=== PATIENT | female | born 1930 | race Caucasian/White ===

== ENCOUNTER 2017-01-05 23:18 | Emergency (ER) | payer MEDICARE, BC ==
[2017-01-05] MEDS ORDERED: LORazepam 2 MG/ML INJ IV STA (23:29)
[2017-01-05] MEDS ORDERED: SODIUM CHLORIDE 0.9% 1,000 ML IV STA (23:29)
--- NOTE | 2017-01-05 23:30 | ED ---
General Adult HPI - General Stated complaint: Altered Mental Status Time Seen by Provider: 01/05/17 23:28 Source: RN notes reviewed, old records reviewed Limitations: altered mental status - History of Present Illness Initial comments: This is an 86-year-old female to ER for evaluation. Patient's mother today for evaluation regarding continued altered mental status. Unknown history per patient, history of EMS and patient's chart. Patient had recent fall with intraparenchymal hemorrhage. Patient was sent to urinary for a CAT scan regarding continued altered mental status. - Related Data Home Medications Medication Instructions Recorded Confirmed Acetaminophen Tab [Tylenol Tab] 650 mg PO Q4H PRN 01/05/17 01/05/17 Atorvastatin [Lipitor] 20 mg PO DAILY@2130 01/05/17 01/05/17 Bisacodyl [Dulcolax] 10 mg RECTAL DAILY PRN 01/05/17 01/05/17 Cholestyramine (with Sugar) 4 gm PO TID 01/05/17 01/05/17 [Questran] Ciprofloxacin HCl [Cipro] 250 mg PO Q12HR 01/05/17 01/05/17 Esomeprazole Magnesium [NexIUM] 20 mg PO DAILY 01/05/17 01/05/17 Loperamide [Imodium] 2 mg PO Q6H PRN 01/05/17 01/05/17 Magnesium Hydroxide [Milk of 2,400 mg PO DAILY PRN 01/05/17 01/05/17 Magnesia] Metoprolol Succinate [Toprol XL] 50 mg PO DAILY 01/05/17 01/05/17 Multivitamins, Thera [Multivitamin 1 tab PO DAILY 01/05/17 01/05/17 (formulary)] Na Phos,M-B/Na Phos,Di-Ba [Fleet 133 ml RECTAL ONCE PRN 01/05/17 01/05/17 Adult] Potassium Chloride [Klor-Con 20] 20 meq PO BID 01/05/17 01/05/17 Propafenone [Rythmol] 150 mg PO Q8H 01/05/17 01/05/17 Sertraline [Zoloft] 50 mg PO DAILY 01/05/17 01/05/17 Triad Wound Paste 1 applic TOPICAL BID 01/05/17 01/05/17 traMADol HCL [Ultram] 50 mg PO Q6HR PRN 01/05/17 01/05/17 Allergies Allergy/AdvReac Type Severity Reaction Status Date / Time Fish Containing Products Allergy Unknown Verified 01/05/17 23:31 [Fish] sulfamethoxazole Allergy Unknown Verified 01/05/17 23:31 [From Bactrim] trimethoprim [From Bactrim] Allergy Unknown Verified 01/05/17 23:31 Review of Systems ROS Statement: Those systems with pertinent positive or pertinent negative responses have been documented in the HPI. ROS Other: All systems not noted in ROS Statement are negative. General Exam Limitations: altered mental status General appearance: alert, in no apparent distress, anxious Head exam: Present: atraumatic, normocephalic, normal inspection Eye exam: Present: normal appearance, PERRL, EOMI. Absent: scleral icterus, conjunctival injection, periorbital swelling ENT exam: Present: normal exam, mucous membranes moist Neck exam: Present: normal inspection. Absent: tenderness, meningismus, lymphadenopathy Respiratory exam: Present: normal lung sounds bilaterally. Absent: respiratory distress, wheezes, rales, rhonchi, stridor Cardiovascular Exam: Present: regular rate, normal rhythm, normal heart sounds. Absent: systolic murmur, diastolic murmur, rubs, gallop, clicks GI/Abdominal exam: Present: soft, normal bowel sounds. Absent: distended, tenderness, guarding, rebound, rigid Extremities exam: Present: normal inspection, full ROM, normal capillary refill. Absent: tenderness, pedal edema, joint swelling, calf tenderness Back exam: Present: normal inspection Neurological exam: Present: alert, oriented X3, CN II-XII intact Psychiatric exam: Present: normal affect, normal mood Skin exam: Present: warm, dry, intact, normal color. Absent: rash Course Vital Signs 01/05/17 23:21 Temperature 98.1 F Pulse Rate 81 Respiratory 16 Rate Blood Pressure 141/89 O2 Sat by Pulse 95 Oximetry - Reevaluation(s) Reevaluation #1: 01/06/17 02:08 Patient did not present to this hospital on prior fall, no medical records available, no prior CT available Reevaluation #2: 01/06/17 02:08 Patient is full code 01/06/17 02:08 Medical Decision Making - Medical Decision Making 86 female to ER for evaluation. Patient was instructed urinary for evaluation regarding altered mental state. CT brain shows positive bleed hard to date. Patient retransferred to [facility] will call for neurosurgical evaluation - Lab Data Result diagrams: 01/05/17 23:30 01/05/17 23:30 Lab Results 01/05/17 01/05/17 01/05/17 Range/Units 23:30 23:30 23:30 WBC 13.3 H (3.8-10.6) k/uL RBC 3.62 L (3.80-5.40) m/uL Hgb 10.6 L (11.4-16.0) gm/dL Hct 33.8 L (34.0-46.0) % MCV 93.4 (80.0-100.0) fL MCH 29.3 (25.0-35.0) pg MCHC 31.4 (31.0-37.0) g/dL RDW 14.8 (11.5-15.5) % Plt Count 318 (150-450) k/uL Neutrophils % 88 % Lymphocytes % 5 % Monocytes % 4 % Eosinophils % 2 % Basophils % 0 % Neutrophils # 11.7 H (1.3-7.7) k/uL Lymphocytes # 0.7 L (1.0-4.8) k/uL Monocytes # 0.5 (0-1.0) k/uL Eosinophils # 0.2 (0-0.7) k/uL Basophils # 0.0 (0-0.2) k/uL PT (9.0-12.0) sec INR (<1.2) APTT (22.0-30.0) sec Sodium 137 (137-145) mmol/L Potassium 4.8 (3.5-5.1) mmol/L Chloride 105 (98-107) mmol/L Carbon Dioxide 24 (22-30) mmol/L Anion Gap 8 mmol/L BUN 17 (7-17) mg/dL Creatinine 0.80 (0.52-1.04) mg/dL Est GFR (MDRD) Af Amer >60 (>60 ml/min/1.73 sqM) Est GFR (MDRD) Non-Af >60 (>60 ml/min/1.73 sqM) Glucose 119 H (74-99) mg/dL Calcium 9.6 (8.4-10.2) mg/dL Total Bilirubin 0.4 (0.2-1.3) mg/dL AST 29 (14-36) U/L ALT 33 (9-52) U/L Alkaline Phosphatase 69 (38-126) U/L Total Creatine Kinase 91 (30-135) U/L CK-MB (CK-2) 3.5 H* (0.0-2.4) ng/mL CK-MB (CK-2) Rel Index 3.8 Troponin I <0.012 (0.000-0.034) ng/mL Total Protein 6.8 (6.3-8.2) g/dL Albumin 3.6 (3.5-5.0) g/dL Urine Color Urine Appearance (Clear) Urine pH (5.0-8.0) Ur Specific [place] (1.001-1.035) Urine Protein (Negative) Urine Glucose (UA) (Negative) Urine Ketones (Negative) Urine Blood (Negative) Urine Nitrite (Negative) Urine Bilirubin (Negative) Urine Urobilinogen (<2.0) mg/dL Ur Leukocyte Esterase (Negative) Urine RBC (0-5) /hpf Urine WBC (0-5) /hpf Urine Bacteria (None) /hpf Urine Mucus (None) /hpf 01/05/17 01/05/17 Range/Units 23:30 23:42 WBC (3.8-10.6) k/uL RBC (3.80-5.40) m/uL Hgb (11.4-16.0) gm/dL Hct (34.0-46.0) % MCV (80.0-100.0) fL MCH (25.0-35.0) pg MCHC (31.0-37.0) g/dL RDW (11.5-15.5) % Plt Count (150-450) k/uL Neutrophils % % Lymphocytes % % Monocytes % % Eosinophils % % Basophils % % Neutrophils # (1.3-7.7) k/uL Lymphocytes # (1.0-4.8) k/uL Monocytes # (0-1.0) k/uL Eosinophils # (0-0.7) k/uL Basophils # (0-0.2) k/uL PT 11.3 (9.0-12.0) sec INR 1.1 (<1.2) APTT 21.6 L (22.0-30.0) sec Sodium (137-145) mmol/L Potassium (3.5-5.1) mmol/L Chloride (98-107) mmol/L Carbon Dioxide (22-30) mmol/L Anion Gap mmol/L BUN (7-17) mg/dL Creatinine (0.52-1.04) mg/dL Est GFR (MDRD) Af Amer (>60 ml/min/1.73 sqM) Est GFR (MDRD) Non-Af (>60 ml/min/1.73 sqM) Glucose (74-99) mg/dL Calcium (8.4-10.2) mg/dL Total Bilirubin (0.2-1.3) mg/dL AST (14-36) U/L ALT (9-52) U/L Alkaline Phosphatase (38-126) U/L Total Creatine Kinase (30-135) U/L CK-MB (CK-2) (0.0-2.4) ng/mL CK-MB (CK-2) Rel Index Troponin I (0.000-0.034) ng/mL Total Protein (6.3-8.2) g/dL Albumin (3.5-5.0) g/dL Urine Color Yellow Urine Appearance Clear (Clear) Urine pH 5.0 (5.0-8.0) Ur Specific [place] 1.010 (1.001-1.035) Urine Protein Negative (Negative) Urine Glucose (UA) Negative (Negative) Urine Ketones Negative (Negative) Urine Blood Negative (Negative) Urine Nitrite Negative (Negative) Urine Bilirubin Negative (Negative) Urine Urobilinogen <2.0 (<2.0) mg/dL Ur Leukocyte Esterase Trace H (Negative) Urine RBC <1 (0-5) /hpf Urine WBC 1 (0-5) /hpf Urine Bacteria Rare H (None) /hpf Urine Mucus Rare H (None) /hpf - Radiology Data Radiology results: report reviewed (CT brain is positive for bleed), image reviewed Disposition Clinical Impression: Intraparenchymal hemorrhage of brain, Altered mental state Disposition: OTHER INSTITUTION NOT DEFINED Condition: Serious Referrals: Ash Celeste MD [REFERRING] - 1-2 days - Out of Hospital Transfer - Req. Specs Out of Hospital Transfer - Requested Specifics: Other Emergency Center ([facility])
[2017-01-05 23:31] VITALS: TEMP 98.1
[2017-01-05 23:44] LABS: Basophils % (A) 0 %; CH 29.4; CHCM 31.7; Eosinophils # (A) 0.2 k/uL (0-0.7); Eosinophils % (A) 2 %; HCT 33.8 % (34.0-46.0); HDW 2.28; HGB 10.6 gm/dL (11.4-16.0); Luc # (Auto) 0.08; Luc % (Auto) 1; Lymphocytes # (A) 0.7 k/uL (1.0-4.8); Lymphocytes % (A) 5 %; MCH 29.3 pg (25.0-35.0); MCHC 31.4 g/dL (31.0-37.0); MCV 93.4 fL (80.0-100.0); Mean Platelet Volume 8.2; Monocytes # (A) 0.5 k/uL (0-1.0); Monocytes % (A) 4 %; Neutrophils # (A) 11.7 k/uL (1.3-7.7); Neutrophils % (A) 88 %; RBC 3.62 m/uL (3.80-5.40); RDW 14.8 % (11.5-15.5); WBC 13.3 k/uL (3.8-10.6); WBC (Perox) 13.45
[2017-01-05 23:49] LABS: INR 1.1 (<1.2); Prothrombin Time 11.3 sec (9.0-12.0)
[2017-01-05 23:51] LABS: ALT 33 U/L (9-52); AST 29 U/L (14-36); Alkaline Phosphatase 69 U/L (38-126); Anion Gap 8 mmol/L; Blood Urea Nitrogen 17 mg/dL (7-17); Calcium 9.6 mg/dL (8.4-10.2); Carbon Dioxide 24 mmol/L (22-30); Chloride 105 mmol/L (98-107); Glucose 119 mg/dL (74-99); Non-African American GFR(MDRD) >60 (>60 ml/min/1.73 sqM); Potassium 4.8 mmol/L (3.5-5.1); Sodium 137 mmol/L (137-145); Total Bilirubin 0.4 mg/dL (0.2-1.3); Total Protein 6.8 g/dL (6.3-8.2)
[2017-01-05 23:52] LABS: Creatine Kinase 91 U/L (30-135)
[2017-01-05 23:56] LABS: Appearance,Urine Clear (Clear); Bacteria,Urine Rare /hpf; Bilirubin,Urine Negative (Negative); Glucose,Urine (UA) Negative (Negative); Ketones,Urine Negative (Negative); Leukocyte Esterase,Urine Trace (Negative); Mucus,Urine Rare /hpf; Nitrite,Urine Negative (Negative); Particle Count 2434; Protein,Urine Negative (Negative); RBC,Urine <1 /hpf (0-5); UA Billing (MACRO vs. MICRO) MICRO; Urobilinogen,Urine <2.0 mg/dL (<2.0); WBC,Urine 1 /hpf (0-5)
[2017-01-05 23:57] LABS: Partial Thromboplastin Time 21.6 sec (22.0-30.0)
[2017-01-06 00:05] LABS: Troponin I <0.012 ng/mL (0.000-0.034)
[2017-01-06 00:07] LABS: Creatine Kinase MB 3.5 ng/mL (0.0-2.4)
--- NOTE | 2017-01-06 00:14 | CT ---
EXAMINATION TYPE: CT brain wo con DATE OF EXAM: 01/06/2017 COMPARISON: NONE HISTORY: Fall, AMS, large contusion right frontal CT DLP: 1180.90 mGycm Automated exposure control for dose reduction was used. FINDINGS: There is cerebral cortical atrophy. There is right frontal scalp hematoma that measures 2.5 x 1 cm. There is a poorly marginated 3.5 cm area of increased attenuation at the base of the right frontal lo be consistent with an acute parenchymal hemorrhage. There is also a 1 cm area of hemorrhage in the le ft posterior frontal lobe at the schwarz-white matter junction. There is patchy hypodensity in the periventricular white matter. The calvarium is intact. CONCLUSION: Right frontal scalp hematoma. No fracture seen. Cerebral parenchymal hemorrhage in the inferior right frontal lobe and left posterior frontal lobe. T he age is not clear of these hemorrhages. This patient apparently had head injury in the past week. I do not have an old CT to compare. This exam was discussed with ER physician at 12:00 AM. IMPRESSION:
[2017-01-06] MEDS ORDERED: LORazepam 2 MG/ML INJ IV STA (02:15)
[2017-01-06 03:31] VITALS: BP 163/103; PULSE 88; RESP 20
== END 2017-01-06 03:40 | disposition short-term general hospital (02) ==
LOC: EC 23:18
DX: S06.2X9D Diffuse traumatic brain injury with loss of consciousness of unspecified duration, subsequent encounter (principal); I10 Essential (primary) hypertension; I48.91 Unspecified atrial fibrillation; E87.6 Hypokalemia; F32.9 Major depressive disorder, single episode, unspecified; Z79.899 Other long term (current) drug therapy; Z88.1 Allergy status to other antibiotic agents; Z91.013 Allergy to seafood; Z87.19 Personal history of other diseases of the digestive system; W19.XXXD Unspecified fall, subsequent encounter
CPT/HCPCS: 36415; 80053; 82550; 82553; 84484; 85025; 85610; 85730; 81001; 87086; 70450; 99285; 96374; 96376; 96361; J2060

== ENCOUNTER → 2017-04-23 | Outpatient (CLI) | payer MEDICARE, BC ==
--- NOTE | 2017-04-23 15:57 | MR ---
EXAMINATION TYPE: MR brain wo con DATE OF EXAM: 04/23/2017 COMPARISON: 01/06/2017 HISTORY: Concussion. Follow-up from CT dated 01/05/2017. TECHNIQUE: Multiplanar, multisequence images of the brain and brainstem is performed without intravenous contras t. FINDINGS: There is evolution of the previously seen right frontal intraparenchymal hemorrhage with focal area o f T2/flair hypointensity, likely related to evolving products/hemosiderin and minimal surrounding res idual edema with the entire area measuring 1.5 x 1.1 cm, previously measuring 3.5 cm. There is no rem aining T1 hyperintensity to suggest active or acute hemorrhage. Additional contrecoup injury is seen with hemosiderin in the left frontal lobe on T2/FLAIR axial image 21 measuring 5 mm. No additional si deb of encephalomalacia are appreciated. Diffusion weighted images demonstrate no evidence of a recent infarct or other diffusion abnormality. Moderate burden nonspecific white matter changes seen as T2/FLAIR hyperintensity scattered througho ut the subcortical and periventricular white matter. There is no extra-axial fluid collection. The v entricular system and cisternal spaces are are symmetrically prominent compatible with age-related vo lume loss. Midline structures demonstrate normal morphology. The craniocervical junction appears within normal limits. The previously seen right frontal scalp hematoma has resolved in the interim. The dural venou s sinuses appear patent. There is partial opacification of the right mastoid air cells, greater than left. Minimal mucosal thickening is seen within the ethmoid sinuses. Remaining paranasal sinuses are well aerated. Incidental note is made of leftward nasal septal deviation. Scant mucosal secretions re side within the posterior nasopharynx. IMPRESSION: 1. Evolution of blood products and decrease in size of the previously seen right frontal and left fro ntal posttraumatic intraparenchymal hemorrhages. No evidence of acute intracranial hemorrhage. 2. Resolution of the previously seen right frontal scalp hematoma. 3. Moderate burden nonspecific white matter change and age-related volume loss. 4. Partial opacification of the mastoid air cells, right greater than left, which should be correlate d clinically with point tenderness to evaluate for mastoiditis.
== END | disposition home or self-care (01) ==
LOC: RADMRIMAIN 13:53
PROVIDERS: ATTEND Psychiatry & Neurology Neurology
DX: S06.0X9A Concussion with loss of consciousness of unspecified duration, initial encounter (principal)
CPT/HCPCS: 70551

== ENCOUNTER 2020-10-22 10:36 | Emergency (ER) | payer MEDICARE, BC ==
[2020-10-22 10:43] VITALS: PULSE 69
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
--- NOTE | 2020-10-22 11:53 | XR ---
Right forearm HISTORY: Contusion, pain 2 views of the right forearm Bone mineralization is reduced. Joint spaces and alignment are maintained. There is overlying artifac t present. Arthropathy noted in the right wrist. IMPRESSION: No fracture or dislocation evident. Osteopenia is suspected.
[2020-10-22 12:42] VITALS: BP 138/88; RESP 18; TEMP 97.6
== END 2020-10-22 14:30 | disposition home or self-care (01) ==
LOC: EC 10:36
DX: S00.03XA Contusion of scalp, initial encounter (principal); S50.12XA Contusion of left forearm, initial encounter; S50.11XA Contusion of right forearm, initial encounter; I48.91 Unspecified atrial fibrillation; I10 Essential (primary) hypertension; F03.90 Unspecified dementia, unspecified severity, without behavioral disturbance, psychotic disturbance, mood disturbance, and anxiety; F32.9 Major depressive disorder, single episode, unspecified; Z79.899 Other long term (current) drug therapy; Y04.8XXA Assault by other bodily force, initial encounter
CPT/HCPCS: 70450; 72125; 99284

== ENCOUNTER 2020-12-15 10:47 | Inpatient (IN) | payer MEDICARE, BC ==
[2020-12-15 10:55] LABS: Glucose,Whole Blood 132 mg/dL (75-99)
[2020-12-15] MEDS ORDERED: MIDAZOLAM 1 MG/ML 5 ML VIAL IV STA (10:56)
[2020-12-15 11:18] LABS: Basophils # (A) 0.1 k/uL (0-0.2); Basophils % (A) 1 %; Eosinophils # (A) 0.2 k/uL (0-0.7); Eosinophils % (A) 3 %; HCT 42.6 % (34.0-46.0); HGB 13.2 gm/dL (11.4-16.0); Hypochromasia Slight; Lymphocytes % (A) 22 %; MCH 32.4 pg (25.0-35.0); MCHC 30.9 g/dL (31.0-37.0); MCV 104.7 fL (80.0-100.0); Macrocytosis Slight; Mean Platelet Volume 9.8; Monocytes # (A) 0.5 k/uL (0-1.0); Monocytes % (A) 6 %; Neutrophils % (A) 66 %; Platelet Count 156 k/uL (150-450); RBC 4.07 m/uL (3.80-5.40); RDW 13.5 % (11.5-15.5)
[2020-12-15 11:31] LABS: ALT 19 U/L (4-34); AST 33 U/L (14-36); Acetaminophen <10.0 ug/mL; African American GFR (CKD) 71 (>60 ml/min/1.73 sqM); Alkaline Phosphatase 56 U/L (38-126); Anion Gap 24 mmol/L; Blood Urea Nitrogen 16 mg/dL (7-17); Calcium 9.1 mg/dL (8.4-10.2); Carbon Dioxide 14 mmol/L (22-30); Chloride 105 mmol/L (98-107); Creatine Kinase 26 U/L (30-135); Glucose 134 mg/dL (74-99); Non-African American GFR(CKD) 62 (>60 ml/min/1.73 sqM); Salicylate <1.0 mg/dL; Sodium 143 mmol/L (137-145); Total Bilirubin 0.4 mg/dL (0.2-1.3); Total Protein 7.4 g/dL (6.3-8.2)
[2020-12-15 11:36] LABS: Potassium 2.7 mmol/L (3.5-5.1)
[2020-12-15] MEDS ORDERED: POTASSIUM CHLORIDE 20 MEQ in WATER FOR INJECTION 1 100ML.BAG IVPB STA (11:39)
--- NOTE | 2020-12-15 11:40 | CT ---
EXAMINATION TYPE: CT brain wo con DATE OF EXAM: 12/15/2020 COMPARISON: 10/22/2020 HISTORY: seizure CT DLP: 1112.[address] of the brain was performed. The ventricles, basal cisterns and sulci overlying the cerebral convexities demonstrate mild enlargem ent. There is no evidence for intracranial hemorrhage or sulcal effacement. There is decreased attenuation about the periventricular white matter and deep white matter of both c erebral hemispheres, compatible with chronic small vessel ischemia. Differential diagnosis does inclu de demyelination. No mass effects are seen.No midline shift. Osseous calvarium is intact. If symptoms persist consider MRI. IMPRESSION: 1. Age related atrophic and chronic small vessel ischemic change without acute intracranial process s een at this time.
[2020-12-15 12:02] LABS: Partial Thromboplastin Time 21.1 sec (22.0-30.0)
[2020-12-15 12:22] LABS: Appearance,Urine Clear (Clear); Bacteria,Urine Rare /hpf; Bilirubin,Urine Negative (Negative); Blood,Urine Small (Negative); Color,Urine Light Yellow; Glucose,Urine (UA) Negative (Negative); Ketones,Urine Negative (Negative); Leukocyte Esterase,Urine Small (Negative); Mucus,Urine Rare /hpf; Nitrite,Urine Positive (Negative); Protein,Urine 1+ (Negative); RBC,Urine 2 /hpf (0-5); Specific Gravity,Urine 1.008 (1.001-1.035); Squamous Epithelial Cell,Urine <1 /hpf (0-4); Urobilinogen,Urine <2.0 mg/dL (<2.0); WBC,Urine 17 /hpf (0-5)
[2020-12-15] MEDS ORDERED: cefTRIAXone IN SWFI 1,000 MG/10 ML SYRINGE IVP STA (12:28)
--- NOTE | 2020-12-15 13:03 | ED ---
Seizure HPI - General Chief Complaint: Seizure Stated Complaint: seizure Source: EMS Mode of arrival: EMS Limitations: no limitations - History of Present Illness Initial Comments: 89-year-old female [facility] for new onset seizure. Patient reported to staff there that she did not feel well. She subsequently then had a full tonic-clonic seizure that lasted 2 minutes. EMS was called. En route to the hospital the patient had a second seizure. She never returned to baseline. Second seizure lasted approximately 30 seconds. Patient did not receive any medications for the seizure-like activity. No history of seizures. Does have a history of a traumatic brain bleed 4 years ago. Patient was taken off her anticoagulation at that time. Daughter states that she just recently found out that the patient was placed back on anticoagulation. No known recent falls. No fevers or chills. Patient is a DO NOT RESUSCITATE confirmed by daughter. No other alleviating, precipitating or modifying factors - Related Data Home Medications Medication Instructions Recorded Confirmed Acetaminophen Tab [Tylenol Tab] 650 mg PO Q4H PRN 01/05/17 12/15/20 Atorvastatin [Lipitor] 20 mg PO HS@2100 01/05/17 12/15/20 Loperamide [Imodium] 4 mg PO Q12H PRN 01/05/17 12/15/20 Magnesium Hydroxide [Milk of 2,400 mg PO DAILY PRN 01/05/17 12/15/20 Magnesia] Na Phos,M-B/Na Phos,Di-Ba [Fleet 133 ml RECTAL DAILY PRN 01/05/17 12/15/20 Adult] Sertraline [Zoloft] 50 mg PO DAILY@0800 01/05/17 12/15/20 bisacodyL [Dulcolax] 10 mg RECTAL DAILY PRN 01/05/17 12/15/20 Apixaban [Eliquis] 2.5 mg PO BID@0800,1700 12/15/20 12/15/20 Aspirin EC [Ecotrin Low Dose] 81 mg PO DAILY@1700 12/15/20 12/15/20 Diltiazem HCl [Cardizem LA] 240 mg PO DAILY@1700 12/15/20 12/15/20 Melatonin 10 mg PO HS@2100 12/15/20 12/15/20 Metoprolol Succinate (ER) [Toprol 100 mg PO DAILY@0800 12/15/20 12/15/20 XL] lisinopriL [Zestril] 10 mg PO DAILY@0800 12/15/20 12/15/20 Allergies Allergy/AdvReac Type Severity Reaction Status Date / Time Fish Containing Products Allergy Unknown Verified 12/15/20 11:08 [Fish] sulfamethoxazole Allergy Unknown Verified 12/15/20 11:08 [From Bactrim] trimethoprim [From Bactrim] Allergy Unknown Verified 12/15/20 11:08 Review of Systems ROS Statement: Those systems with pertinent positive or pertinent negative responses have been documented in the HPI. ROS Other: All systems not noted in ROS Statement are negative. Past Medical History Past Medical History: Atrial Fibrillation, Dementia, Hypertension Additional Past Medical History / Comment(s): hypomagnesia, hypokalemia, colitis, gastrotenteritis, gout. History of Any Multi-Drug Resistant Organisms: None Reported Past Surgical History: No Surgical Hx Reported Past Psychological History: Depression Smoking Status: Never smoker Past Alcohol Use History: None Reported Past Drug Use History: None Reported General Exam Limitations: no limitations Course Vital Signs 12/15/20 12/15/20 12/15/20 10:50 11:12 12:05 Temperature 98.4 F Pulse Rate 74 82 77 Respiratory 22 20 18 Rate Blood Pressure 150/70 141/76 O2 Sat by Pulse 98 98 98 Oximetry 12/15/20 14:13 Temperature Pulse Rate 80 Respiratory 18 Rate Blood Pressure 136/78 O2 Sat by Pulse 98 Oximetry - Reevaluation(s) Reevaluation #1: 12/15/20 13:[address] Gonzalez - el lawrencera 1 gram Medical Decision Making - Medical Decision Making Upon arrival patient was placed into trauma bay 1. A thorough physical exam was performed. Patient was given 2.5 of Versed for her seizure activity. Laborator y studies were conducted. Potassium 2.7. Lactic acid 16.1. Urinalysis is positive for nitrates, 17 white blood cells and rare bacteria. CT of the patient's brain is performed which demonstrates age-related atrophic and chronic small vessel ischemic disease without acute intracranial process. Patient does become arousable and was able to hold a conversation. She does remain confused and does not know her daughter is. I did give her 1 g of Rocephin. I called and spoke with Dr. Banerjee who recommended 1 g of Keppra. Patient will be admitted to Dr. David. She remained in stable condition without further seizure-like activity awaiting a bed on the floor - Lab Data Result diagrams: 12/15/20 11:02 12/15/20 11:02 Lab Results 12/15/20 12/15/20 12/15/20 Range/Units 10:54 11:02 11:02 WBC 9.0 (3.8-10.6) k/uL RBC 4.07 (3.80-5.40) m/uL Hgb 13.2 (11.4-16.0) gm/dL Hct 42.6 (34.0-46.0) % MCV 104.7 H (80.0-100.0) fL MCH 32.4 (25.0-35.0) pg MCHC 30.9 L (31.0-37.0) g/dL RDW 13.5 (11.5-15.5) % Plt Count 156 (150-450) k/uL MPV 9.8 Neutrophils % 66 % Lymphocytes % 22 % Monocytes % 6 % Eosinophils % 3 % Basophils % 1 % Neutrophils # 6.0 (1.3-7.7) k/uL Lymphocytes # 2.0 (1.0-4.8) k/uL Monocytes # 0.5 (0-1.0) k/uL Eosinophils # 0.2 (0-0.7) k/uL Basophils # 0.1 (0-0.2) k/uL Hypochromasia Slight Macrocytosis Slight PT (9.0-12.0) sec INR (<1.2) APTT (22.0-30.0) sec Sodium (137-145) mmol/L Potassium (3.5-5.1) mmol/L Chloride (98-107) mmol/L Carbon Dioxide (22-30) mmol/L Anion Gap mmol/L BUN (7-17) mg/dL Creatinine (0.52-1.04) mg/dL Est GFR (CKD-EPI)AfAm (>60 ml/min/1.73 sqM) Est GFR (CKD-EPI)NonAf (>60 ml/min/1.73 sqM) Glucose (74-99) mg/dL POC Glucose (mg/dL) 132 H (75-99) mg/dL POC Glu Crystal Lapper ID Magda Stoll Lactic Ac Sepsis Rflx Plasma Lactic Acid Lasha (0.7-2.0) mmol/L Calcium (8.4-10.2) mg/dL Magnesium (1.6-2.3) mg/dL Total Bilirubin (0.2-1.3) mg/dL AST (14-36) U/L ALT (4-34) U/L Alkaline Phosphatase (38-126) U/L Creatine Kinase (30-135) U/L Total Protein (6.3-8.2) g/dL Albumin (3.5-5.0) g/dL Urine Color Light Yellow Urine Appearance Clear (Clear) Urine pH 8.0 (5.0-8.0) Ur Specific [place] 1.008 (1.001-1.035) Urine Protein 1+ H (Negative) Urine Glucose (UA) Negative (Negative) Urine Ketones Negative (Negative) Urine Blood Small H (Negative) Urine Nitrite Positive H (Negative) Urine Bilirubin Negative (Negative) Urine Urobilinogen <2.0 (<2.0) mg/dL Ur Leukocyte Esterase Small H (Negative) Urine RBC 2 (0-5) /hpf Urine WBC 17 H (0-5) /hpf Ur Squamous Epith Cells <1 (0-4) /hpf Urine Bacteria Rare H (None) /hpf Urine Mucus Rare H (None) /hpf Salicylates mg/dL Acetaminophen ug/mL 12/15/20 12/15/20 12/15/20 Range/Units 11:02 11:02 11:02 WBC (3.8-10.6) k/uL RBC (3.80-5.40) m/uL Hgb (11.4-16.0) gm/dL Hct (34.0-46.0) % MCV (80.0-100.0) fL MCH (25.0-35.0) pg MCHC (31.0-37.0) g/dL RDW (11.5-15.5) % Plt Count (150-450) k/uL MPV Neutrophils % % Lymphocytes % % Monocytes % % Eosinophils % % Basophils % % Neutrophils # (1.3-7.7) k/uL Lymphocytes # (1.0-4.8) k/uL Monocytes # (0-1.0) k/uL Eosinophils # (0-0.7) k/uL Basophils # (0-0.2) k/uL Hypochromasia Macrocytosis PT 11.0 (9.0-12.0) sec INR 1.0 (<1.2) APTT 21.1 L (22.0-30.0) sec Sodium 143 (137-145) mmol/L Potassium 2.7 L* (3.5-5.1) mmol/L Chloride 105 (98-107) mmol/L Carbon Dioxide 14 L (22-30) mmol/L Anion Gap 24 mmol/L BUN 16 (7-17) mg/dL Creatinine 0.85 (0.52-1.04) mg/dL Est GFR (CKD-EPI)AfAm 71 (>60 ml/min/1.73 sqM) Est GFR (CKD-EPI)NonAf 62 (>60 ml/min/1.73 sqM) Glucose 134 H (74-99) mg/dL POC Glucose (mg/dL) (75-99) mg/dL POC Glu Crystal Lapper ID Lactic Ac Sepsis Rflx Plasma Lactic Acid Lasha (0.7-2.0) mmol/L Calcium 9.1 (8.4-10.2) mg/dL Magnesium 1.4 L (1.6-2.3) mg/dL Total Bilirubin 0.4 (0.2-1.3) mg/dL AST 33 (14-36) U/L ALT 19 (4-34) U/L Alkaline Phosphatase 56 (38-126) U/L Creatine Kinase 26 L (30-135) U/L Total Protein 7.4 (6.3-8.2) g/dL Albumin 4.0 (3.5-5.0) g/dL Urine Color Urine Appearance (Clear) Urine pH (5.0-8.0) Ur Specific [place] (1.001-1.035) Urine Protein (Negative) Urine Glucose (UA) (Negative) Urine Ketones (Negative) Urine Blood (Negative) Urine Nitrite (Negative) Urine Bilirubin (Negative) Urine Urobilinogen (<2.0) mg/dL Ur Leukocyte Esterase (Negative) Urine RBC (0-5) /hpf Urine WBC (0-5) /hpf Ur Squamous Epith Cells (0-4) /hpf Urine Bacteria (None) /hpf Urine Mucus (None) /hpf Salicylates <1.0 mg/dL Acetaminophen <10.0 ug/mL 12/15/20 12/15/20 Range/Units 11:02 11:46 WBC (3.8-10.6) k/uL RBC (3.80-5.40) m/uL Hgb (11.4-16.0) gm/dL Hct (34.0-46.0) % MCV (80.0-100.0) fL MCH (25.0-35.0) pg MCHC (31.0-37.0) g/dL RDW (11.5-15.5) % Plt Count (150-450) k/uL MPV Neutrophils % % Lymphocytes % % Monocytes % % Eosinophils % % Basophils % % Neutrophils # (1.3-7.7) k/uL Lymphocytes # (1.0-4.8) k/uL Monocytes # (0-1.0) k/uL Eosinophils # (0-0.7) k/uL Basophils # (0-0.2) k/uL Hypochromasia Macrocytosis PT (9.0-12.0) sec INR (<1.2) APTT (22.0-30.0) sec Sodium (137-145) mmol/L Potassium (3.5-5.1) mmol/L Chloride (98-107) mmol/L Carbon Dioxide (22-30) mmol/L Anion Gap mmol/L BUN (7-17) mg/dL Creatinine (0.52-1.04) mg/dL Est GFR (CKD-EPI)AfAm (>60 ml/min/1.73 sqM) Est GFR (CKD-EPI)NonAf (>60 ml/min/1.73 sqM) Glucose (74-99) mg/dL POC Glucose (mg/dL) (75-99) mg/dL POC Glu Crystal Lapper ID Lactic Ac Sepsis Rflx Y Plasma Lactic Acid Lasha 16.1 H* (0.7-2.0) mmol/L Calcium (8.4-10.2) mg/dL Magnesium (1.6-2.3) mg/dL Total Bilirubin (0.2-1.3) mg/dL AST (14-36) U/L ALT (4-34) U/L Alkaline Phosphatase (38-126) U/L Creatine Kinase (30-135) U/L Total Protein (6.3-8.2) g/dL Albumin (3.5-5.0) g/dL Urine Color Urine Appearance (Clear) Urine pH (5.0-8.0) Ur Specific [place] (1.001-1.035) Urine Protein (Negative) Urine Glucose (UA) (Negative) Urine Ketones (Negative) Urine Blood (Negative) Urine Nitrite (Negative) Urine Bilirubin (Negative) Urine Urobilinogen (<2.0) mg/dL Ur Leukocyte Esterase (Negative) Urine RBC (0-5) /hpf Urine WBC (0-5) /hpf Ur Squamous Epith Cells (0-4) /hpf Urine Bacteria (None) /hpf Urine Mucus (None) /hpf Salicylates mg/dL Acetaminophen ug/mL - EKG Data EKG Comments: EKG demonstrates A. fib with a rate of 76. QRS 120. QTC of 490. Left bundle branch block present. No acute ST segment elevations or sgarbossa criteria Disposition Clinical Impression: New onset seizure, UTI (urinary tract infection), Hypokalemia Disposition: ADMITTED IP TO THIS HOSP Condition: Serious Is patient prescribed a controlled substance at d/c from ED?: No Decision to Admit Reason: Admit from EC Decision Date: 12/15/20 Decision Time: 14:08
[2020-12-15] MEDS ORDERED: levETIRAcetam IV 1,000 MG in SALINE 1 100ML.BAG IVPB STA (13:04)
[2020-12-15] MEDS ORDERED: NALOXONE 0.4 MG/ML 1 ML VIAL IV PRN (14:08)
[2020-12-15] MEDS ORDERED: LORazepam 2 MG/ML INJ IV STA ×2 (14:26→16:05)
[2020-12-15] MEDS ORDERED: PHENAZOPYRIDINE 200 MG TAB PO STA (14:27)
[2020-12-15] MEDS ORDERED: ACETAMINOPHEN TAB 325 MG TAB PO PRN (16:11)
[2020-12-15] MEDS ORDERED: NA PHOS,M-B/NA PHOS,DI-BA 133 ML ENEMA RECTAL PRN (16:11)
--- NOTE | 2020-12-15 16:25 | P.CNNES ---
History of Present Illness Consult date: 12/15/20 Requesting physician: Jannette Schuster Reason for Consult: seizure History of Present Illness: This is an 89-year-old woman with medical history of bilateral frontal intraparechymal bleed (about 4 years ago) from a fall, chronic atrial fibrillation on anticoagulation (eliquis), dementia, hypertension, dementia presents emergency department on 12/15/2020 for seizure. History is obtained from the patient daughter was at bedside. Per the patient daughter the patient resides at [facility] and she got a call today that the patient had a seizure lasting a total of 2 minutes and on route was notified she had another seizure. Per the patient daughter the patient does not have any history of seizures in the past. She said that the patient the has history of dementia and is oriented to 1-2 which is herself and sometimes place. She walks with a walker. Per the patient's daughter patient was stopped off of anticoagulation by her safe expert about 4 years ago after she developed brain bleed. She stat ed that the patient had the bleeds she thinks it was about the 4 years ago and the she was transferred to either [facility] (in [facility]) and presented again to our facility for AMS and transfered to [facility] but no surgical intervention was done. She said that the result of the bleed was that she was on anticoagulation had a fall and that's why the safe expert stopped that her anticoagulation and at that time she was on Coumadin. She said that that she's been at [facility] since June 2020 and the she was started on Eliquis but unknown when. Patient baseline as stated is alert onto 1-2. That she uses a walker to get around. She is able to feed herself and she'll have a conversation the but sometimes it doesn't make sense that since she has dementia according to the daughter. Some of the patient will medication consist of aspirin 81 mg, Eliquis 2.5 mg tablet twice a day, Cardizem, melatonin, metoprolol, Zoloft, cholesterol panel. Of note the patient had CT of the head in our facility on 01/06/2017 because of a fall altered mental status and large contusion over the right frontal and it's reported as right frontal scalp hematoma. No fracture seen. Cerebral parenchymal hemorrhage in the inferior right frontal lobe and left posterior frontal lobe. The age is not clear of these hemorrhages. Patient apparently had a head injury in the past week and is reported that I don't have an old exam to compare. She had MRI of the brain on 2017 and she reported as evolution of the blood product and decrease in size of the previously seen right frontal and left frontal posttraumatic intraparenchymal hemorrhage. No evidence of acute injury cranial hemorrhage. Resolution of previously seen right frontal scalp hematoma. Because of the seizures the patient was given a 2.5 mg of Versed, Keppra 1 g once by ED team. But patient was restless in the ED and was given 1 mg Ativan by the ED team. Some other workup in the hospital consisted of: Initial vital signs his blood pressure 150/70, heart rate of 74, respiratory of 22, temperature of 98.4 Fahrenheit axillary and pulse ox of 98% on 4 L of nasal cannula. Patient's white blood cell is 9.0 thousand. MCV is 104.7. The Sodium is 143, potassium is 0.85, initial serum glucose was 134 in the POC glucose is 132, calcium is 9.1, magnesium is 1.4. AST of 33 and ALT of 19 that. CK levels 26. Plasma lactic acid venous 16.1 and the potassium level is 2.7 CT of the head is reported as age-related atrophic and chronic small vessel ischemic change without acute intracranial process seen at this time. I pe rsonally reviewed the CT of the head there is no acute the ischemic subacute ischemia and there is no interpersonal hemorrhage is seen. Urine analysis seems possible suggestive of urinary tract infection. Urine drug screen is salicylates is less than 1.0 and acetaminophen is less than 10. Coagulation study: PT of 11.0, INR 1.0 and PTT of 21.1. Review of Systems Review of system is limited but the pertinent positive and negative as per HPI. Past Medical History Past Medical History: Atrial Fibrillation, Dementia, Hypertension Additional Past Medical History / Comment(s): hypomagnesia, hypokalemia, colitis, gastrotenteritis, gout. History of Any Multi-Drug Resistant Organisms: None Reported Past Surgical History: No Surgical Hx Reported Past Psychological History: Depression Smoking Status: Never smoker Past Alcohol Use History: None Reported Past Drug Use History: None Reported Medications and Allergies Home Medications Medication Instructions Recorded Confirmed Type Acetaminophen Tab [Tylenol Tab] 650 mg PO Q4H PRN 01/05/17 12/15/20 History Atorvastatin [Lipitor] 20 mg PO HS@2100 01/05/17 12/15/20 History Loperamide [Imodium] 4 mg PO Q12H PRN 01/05/17 12/15/20 History Magnesium Hydroxide [Milk of 2,400 mg PO DAILY PRN 01/05/17 12/15/20 History Magnesia] Na Phos,M-B/Na Phos,Di-Ba [Fleet 133 ml RECTAL DAILY PRN 01/05/17 12/15/20 History Adult] Sertraline [Zoloft] 50 mg PO DAILY@0800 01/05/17 12/15/20 History bisacodyL [Dulcolax] 10 mg RECTAL DAILY PRN 01/05/17 12/15/20 History Apixaban [Eliquis] 2.5 mg PO BID@0800,1700 12/15/20 12/15/20 History Aspirin EC [Ecotrin Low Dose] 81 mg PO DAILY@1700 12/15/20 12/15/20 History Diltiazem HCl [Cardizem LA] 240 mg PO DAILY@1700 12/15/20 12/15/20 History Melatonin 10 mg PO HS@2100 12/15/20 12/15/20 History Metoprolol Succinate (ER) [Toprol 100 mg PO DAILY@0800 12/15/20 12/15/20 History XL] lisinopriL [Zestril] 10 mg PO DAILY@0800 12/15/20 12/15/20 History Allergies Allergy/AdvReac Type Severity Reaction Status Date / Time Fish Containing Products Allergy Unknown Verified 12/15/20 11:08 [Fish] sulfamethoxazole Allergy Unknown Verified 12/15/20 11:08 [From Bactrim] trimethoprim [From Bactrim] Allergy Unknown Verified 12/15/20 11:08 Physical Examination - Vital Signs Vital Signs: Vital Signs Temp Pulse Resp BP Pulse Ox 12/15/20 14:13 80 18 136/78 98 12/15/20 12:05 77 18 141/76 98 12/15/20 11:12 98.4 F 82 20 98 12/15/20 10:50 74 22 150/70 98 Intake and Output 12/14/20 12/15/20 12/15/20 22:59 06:59 14:59 Other: Weight 57.606 kg GENERAL: The patient is lying in bed and is somnolent and does not seem in acute distress. CHEST: The heart rate is regular rate rhythm. No murmurs to auscultation. LUNG: Clear to auscultation bilaterally no wheezing noted throughout. Not labored breathing. ABDOMEN/GI: Bowel sounds present in all 4 quadrants. No tenderness to palpation throughout. NEUROLOGICAL: Limited because of her condition and medication effect (versed and Ativan). Higher mental function: The patient is somnolent and opens eyes once. Not verbally responsive or following commands. Cranial nerves: The pupils are round, equal and reactive to light. Primary gaze is midline. No facial weakness. Otherwise could not assess rest of cranial nerves because of condition. Motor: Gait is deferred. The strength is hard to assess but would moves her extremities above gravity of uppers and withdrawls lower and appears symetrical. Normal tone and bulk. Cerebellum: Could not assess. Sensation: Could not asses. Reflexes (right/left): Brachioradialis are 3+ and patellars are 3+. Otherwise 2+ throughout. Plantars are mute bilaterally. Results - Laboratory Findings CBC and BMP: 12/15/20 11:02 12/15/20 11:02 Abnormal Lab Findings: Abnormal Labs 12/15/20 12/15/20 12/15/20 10:54 11:02 11:02 MCV 104.7 H MCHC 30.9 L APTT Potassium Carbon Dioxide Glucose POC Glucose (mg/dL) 132 H Plasma Lactic Acid Lasha Magnesium Creatine Kinase Urine Protein 1+ H Urine Blood Small H Urine Nitrite Positive H Ur Leukocyte Esterase Small H Urine WBC 17 H Urine Bacteria Rare H Urine Mucus Rare H 12/15/20 12/15/20 12/15/20 11:02 11:02 11:02 MCV MCHC APTT 21.1 L Potassium 2.7 L* Carbon Dioxide 14 L Glucose 134 H POC Glucose (mg/dL) Plasma Lactic Acid Lasha Magnesium 1.4 L Creatine Kinase 26 L Urine Protein Urine Blood Urine Nitrite Ur Leukocyte Esterase Urine WBC Urine Bacteria Urine Mucus 12/15/20 11:02 MCV MCHC APTT Potassium Carbon Dioxide Glucose POC Glucose (mg/dL) Plasma Lactic Acid Lasha 16.1 H* Magnesium Creatine Kinase Urine Protein Urine Blood Urine Nitrite Ur Leukocyte Esterase Urine WBC Urine Bacteria Urine Mucus Assessment and Plan Assessment: New onset Seizure. Her history of bilateral frontal intraparechymal bleed increases risk of seizures. As well as her current underlying UTI can lower seizure threshold Possible urinary tract infection History of traumatic intraparenchymal bilateral frontal bleed in 2017 (had a fa ll and was on anticoagulation) Hypokalemia Macrocytosis History of dementia Atrial fibrillation on the Eliquis History of hypertension and the presented with slightly elevated the blood pressure Plan: * I started the patient on Keppra 500 mg every 12 hours IV and once the patient is more awake we'll change it to by mouth. * Ordered urgent EEG. * Every 4 hours neuro checks * Seizure precaution and seizure pads are ordered. * Regarding the use of anticoagulation, from a neurological perspective because of the patient fall and a history of bleed I would avoid anticoagulation but of the risk outweigh the benefit. IN 2016 her anticoagulation was stopped by her safe expert but per the patient daughter since the patient has been at the nursing facility on 06/2020 her anticoagulation was started back again (but unsure exactly when). I would defer the final decision to the primary/cardiology team. * We'll defer the rest of the medical management to the primary team. * Upon discharge the patient is to follow up with a neurologist within 1-2 we eks. The plan was discussed with the patient's daughter was at bedside. Thank you for the consultation. Michael Banerjee M.D. Neuro-hospitalist Time with Patient: Greater than 30
[2020-12-15] MEDS ORDERED: DILTIAZEM CD 240 MG CAP.ER.24H PO SCH (17:00)
[2020-12-15] MEDS: ASPIRIN 81 MG PO SCH (18:44)
[2020-12-15] MEDS: HALOPERIDOL LACTATE 5 MG/ML 1 ML VIAL IM PRN (19:14)
[2020-12-15] MEDS: SODIUM CHLORIDE 0.9% 1,000 ML IV SCH (19:14)
[2020-12-15] MEDS: MAGNESIUM SULFATE-D5W PMX 1 GM in DEXTROSE/WATER 1 100ML.BAG IVPB SCH ×2 (19:30→19:49)
[2020-12-15] MEDS: POTASSIUM CHLORIDE 10 MEQ in WATER FOR INJECTION 1 100ML.BAG IVPB SCH ×4 (19:48→23:25)
[2020-12-15] MEDS ORDERED: DILTIAZEM 125 MG in SODIUM CHLORIDE 0.9% 100 ML IV SCH (21:15)
[2020-12-15] MEDS: MELATONIN 5 MG TABLET PO SCH (21:58)
[2020-12-15] MEDS: ATORVASTATIN 20 MG TAB PO SCH (21:58)
--- NOTE | 2020-12-15 22:17 | P.HPIM ---
History of Present Illness H&P Date: 12/15/20 Chief Complaint: Seizures Patient is a 89-year-old male with a known history of paroxysmal atrial fibrillation on anticoagulation with Eliquis, history of traumatic brain injury, history of bilateral frontal intraparenchymal bleed about 4 years ago, hypertension, dementia who is currently at extended-care facility was sent to ER by EMS due to new onset seizures. Seizures were noted by the retirement staff and also another episode of seizures while in route to the ER. Patient is currently awake alert but not oriented. History was taken from her daughter at bedside. Patient has been afebrile. No complaints of shortness of breath or chest pain. No episodes of vomiting or diarrhea. No loss of bowel or bladder control. At baseline patient is able to walk with walker and oriented x2 and is able to recognize her family members easily. Patient was given a dose of Versed and loading dose of Keppra in the ER. CT head/brain showed age-related atrophic and chronic small vessel ischemic change without acute intracranial process at this time. EKG showed wide QRS rhythm with occasional premature ventricular complexes. Left axis deviation. Laboratory test showed WBC 9.0 hemoglobin 13.2 and platelets 156 Sodium 143 potassium 2.7 chloride 105 bicarb is 14 BUN 16 and creatinine 0.85 lactic acid 16.1 admission magnesium 1.4 and liver enzymes are not elevated and CPK level is 26 Urinalysis showed positive nitrite, small leukocyte esterase and WBC 17 and squamous epithelial cells less than 1 Coronavirus PCR not detected. Review of Systems Review of systems could not be obtained from the patient. Past Medical History Past Medical History: Atrial Fibrillation, Dementia, Hypertension Additional Past Medical History / Comment(s): hypomagnesia, hypokalemia, colitis, gastrotenteritis, gout. History of Any Multi-Drug Resistant Organisms: None Reported Past Surgical History: No Surgical Hx Reported Past Psychological History: Depression Smoking Status: Never smoker Past Alcohol Use History: None Reported Past Drug Use History: None Reported Medications and Allergies Home Medications Medication Instructions Recorded Confirmed Type Acetaminophen Tab [Tylenol Tab] 650 mg PO Q4H PRN 01/05/17 12/15/20 History Atorvastatin [Lipitor] 20 mg PO HS@2100 01/05/17 12/15/20 History Loperamide [Imodium] 4 mg PO Q12H PRN 01/05/17 12/15/20 History Magnesium Hydroxide [Milk of 2,400 mg PO DAILY PRN 01/05/17 12/15/20 History Magnesia] Na Phos,M-B/Na Phos,Di-Ba [Fleet 133 ml RECTAL DAILY PRN 01/05/17 12/15/20 History Adult] Sertraline [Zoloft] 50 mg PO DAILY@0800 01/05/17 12/15/20 History bisacodyL [Dulcolax] 10 mg RECTAL DAILY PRN 01/05/17 12/15/20 History Apixaban [Eliquis] 2.5 mg PO BID@0800,1700 12/15/20 12/15/20 History Aspirin EC [Ecotrin Low Dose] 81 mg PO DAILY@1700 12/15/20 12/15/20 History Diltiazem HCl [Cardizem LA] 240 mg PO DAILY@1700 12/15/20 12/15/20 History Melatonin 10 mg PO HS@2100 12/15/20 12/15/20 History Metoprolol Succinate (ER) [Toprol 100 mg PO DAILY@0800 12/15/20 12/15/20 History XL] lisinopriL [Zestril] 10 mg PO DAILY@0800 12/15/20 12/15/20 History Allergies Allergy/AdvReac Type Severity Reaction Status Date / Time Fish Containing Products Allergy Unknown Verified 12/15/20 11:08 [Fish] sulfamethoxazole Allergy Unknown Verified 12/15/20 11:08 [From Bactrim] trimethoprim [From Bactrim] Allergy Unknown Verified 12/15/20 11:08 Physical Exam Vitals: Vital Signs Temp Pulse Resp BP Pulse Ox 12/15/20 16:05 74 18 117/89 94 L 12/15/20 14:13 80 18 136/78 98 12/15/20 12:05 77 18 141/76 98 12/15/20 11:12 98.4 F 82 20 98 12/15/20 10:50 74 22 150/70 98 Intake and Output 12/15/20 12/15/20 12/15/20 06:59 14:59 22:59 Intake Total 10 Balance 10 Intake: IV 10 Invasive Line 2 10 Other: Weight 57.606 kg PHYSICAL EXAMINATION: Patient is lying in the bed comfortably. No distress. Awake alert but confused and disoriented... HEENT: Normocephalic. Neck is supple. Pupils reactive. Nostrils clear. Oral cavity is moist. Neck reveals no JVD, carotid bruits, or thyromegaly. CHEST EXAMINATION: Trachea is central. Symmetrical expansion. Lung griffin clear to auscultation and percussion. CARDIAC: Normal S1, S2 with no gallops. No murmurs ABDOMEN: Soft. Bowel sounds normal. No organomegaly. No abdominal bruits. Extremities: reveal no edema. No clubbing or cyanosis Neurologically awake, alert but confused and disoriented.Able to move extremities while in bed. Skin: No rash or skin lesions. Psychiatric: could not be assesed. Musculoskeletal: No joint swelling or deformity. Results CBC & Chem 7: 12/15/20 11:02 12/15/20 11:02 Labs: Abnormal Lab Results - Last 24 Hours (Table) 12/15/20 12/15/20 12/15/20 Range/Units 10:54 11:02 11:02 MCV 104.7 H (80.0-100.0) fL MCHC 30.9 L (31.0-37.0) g/dL APTT (22.0-30.0) sec Potassium (3.5-5.1) mmol/L Carbon Dioxide (22-30) mmol/L Glucose (74-99) mg/dL POC Glucose (mg/dL) 132 H (75-99) mg/dL Plasma Lactic Acid Lasha (0.7-2.0) mmol/L Magnesium (1.6-2.3) mg/dL Creatine Kinase (30-135) U/L Urine Protein 1+ H (Negative) Urine Blood Small H (Negative) Urine Nitrite Positive H (Negative) Ur Leukocyte Esterase Small H (Negative) Urine WBC 17 H (0-5) /hpf Urine Bacteria Rare H (None) /hpf Urine Mucus Rare H (None) /hpf 12/15/20 12/15/20 12/15/20 Range/Units 11:02 11:02 11:02 MCV (80.0-100.0) fL MCHC (31.0-37.0) g/dL APTT 21.1 L (22.0-30.0) sec Potassium 2.7 L* (3.5-5.1) mmol/L Carbon Dioxide 14 L (22-30) mmol/L Glucose 134 H (74-99) mg/dL POC Glucose (mg/dL) (75-99) mg/dL Plasma Lactic Acid Lasha (0.7-2.0) mmol/L Magnesium 1.4 L (1.6-2.3) mg/dL Creatine Kinase 26 L (30-135) U/L Urine Protein (Negative) Urine Blood (Negative) Urine Nitrite (Negative) Ur Leukocyte Esterase (Negative) Urine WBC (0-5) /hpf Urine Bacteria (None) /hpf Urine Mucus (None) /hpf 12/15/20 Range/Units 11:02 MCV (80.0-100.0) fL MCHC (31.0-37.0) g/dL APTT (22.0-30.0) sec Potassium (3.5-5.1) mmol/L Carbon Dioxide (22-30) mmol/L Glucose (74-99) mg/dL POC Glucose (mg/dL) (75-99) mg/dL Plasma Lactic Acid Lasha 16.1 H* (0.7-2.0) mmol/L Magnesium (1.6-2.3) mg/dL Creatine Kinase (30-135) U/L Urine Protein (Negative) Urine Blood (Negative) Urine Nitrite (Negative) Ur Leukocyte Esterase (Negative) Urine WBC (0-5) /hpf Urine Bacteria (None) /hpf Urine Mucus (None) /hpf Microbiology - Last 24 Hours (Table) 12/15/20 11:02 Urine Culture - Preliminary Urine,Voided Thrombosis Risk Factor Assmnt - DVT/VTE Prophylaxis DVT/VTE Prophylaxis: Pharmacologic Prophylaxis ordered Assessment and Plan Assessment: New onset seizures. Generalized tonic-clonic. Acute urinary tract infection Severe hypokalemia 2.7 and hypomagnesemia Severe lactic acidosis likely due to seizures History of intraparenchymal frontal bleed in 2017 Paroxysmal atrial fibrillation on anticoagulation with Eliquis. Dementia Hypertension History of gout Depression DVT prophylaxis with heparin subcu Plan: Patient was given Keppra IV bolus due to new onset seizures and also given a dose of Versed. Patient will be continued on seizure precautions. Replace potassium and magnesium. Continue with IV antibiotics in the form of ceftriaxone and follow-up urine culture report. Continue with IV hydration and lactic acid level repeat was ordered. Continue with telemetry monitoring and patient will be started back on Cardizem and metoprolol as blood pressure tolerates. Due to history of intracranial bleed and advancing dementia patient is not a candidate for long-term anticoagulation. Ayala is on hold currently. Discussed with her daughter at bedside in detail. Prognosis is guarded at this time. Time with Patient: Greater than 30
[2020-12-15] MEDS: levETIRAcetam IV 500 MG in SODIUM CHLORIDE 0.9% 100 ML IVPB SCH (23:33)
[2020-12-16 01:34] LABS: Magnesium 1.9 mg/dL (1.6-2.3); Potassium 3.6 mmol/L (3.5-5.1)
[2020-12-16] MEDS: HALOPERIDOL LACTATE 5 MG/ML 1 ML VIAL IM PRN (01:41)
[2020-12-16] MEDS: POTASSIUM CHLORIDE 10 MEQ in WATER FOR INJECTION 1 100ML.BAG IVPB SCH ×3 (02:17→09:02)
[2020-12-16] MEDS: lisinopriL 10 MG TAB PO SCH (08:14)
[2020-12-16] MEDS: SERTRALINE 50 MG TAB PO SCH (08:14)
[2020-12-16] MEDS: METOPROLOL SUCCINATE (ER) 100 MG TAB.ER.24H PO SCH ×2 (08:14→13:18)
[2020-12-16 08:40] LABS: Basophils % (A) 0 %; Eosinophils % (A) 0 %; HCT 37.8 % (34.0-46.0); HGB 12.5 gm/dL (11.4-16.0); Lymphocytes # (A) 0.9 k/uL (1.0-4.8); Lymphocytes % (A) 6 %; MCH 32.4 pg (25.0-35.0); MCHC 33.2 g/dL (31.0-37.0); Mean Platelet Volume 9.8; Monocytes % (A) 6 %; Neutrophils # (A) 13.6 k/uL (1.3-7.7); Neutrophils % (A) 87 %; Platelet Count 143 k/uL (150-450); RBC 3.87 m/uL (3.80-5.40); RDW 14.4 % (11.5-15.5); WBC 15.6 k/uL (3.8-10.6)
[2020-12-16 08:41] LABS: MCV 97.7 fL (80.0-100.0)
[2020-12-16 08:49] LABS: African American GFR (CKD) >90 (>60 ml/min/1.73 sqM); Anion Gap 9 mmol/L; Blood Urea Nitrogen 15 mg/dL (7-17); Calcium 9.1 mg/dL (8.4-10.2); Carbon Dioxide 21 mmol/L (22-30); Chloride 106 mmol/L (98-107); Glucose 116 mg/dL (74-99); Non-African American GFR(CKD) 81 (>60 ml/min/1.73 sqM); Sodium 136 mmol/L (137-145)
[2020-12-16] MEDS: HEPARIN SODIUM,PORCINE/PF 5,000 UNIT/0.5 ML SYRINGE SQ SCH ×2 (08:55→19:59)
--- NOTE | 2020-12-16 09:38 | P.PN ---
Subjective Progress Note Date: 12/16/20 The patient is seen at bedside and per her nurse continues to altered. No further seizure-like activity. Objective - Vital Signs Vital signs: Vital Signs Temp 99.2 F 12/16/20 04:00 Pulse 127 H 12/16/20 04:00 Resp 22 12/16/20 04:00 BP 140/105 12/16/20 04:00 Pulse Ox 91 L 12/16/20 04:00 Intake & Output 12/15/20 12/16/20 12/16/20 18:59 06:59 18:59 Intake Total 10 77.750 Balance 10 77.750 Weight 57.606 kg 56.5 kg Intake: IV 10 10 Invasive Line 2 10 10 Intake, IV Titration 67.750 Amount Diltiazem 125 mg In 67.750 Sodium Chloride 0.9% 100 ml @ 5 MG/HR 5 mls/hr IV .Q24H [facility] Rx#:[id number] Other: Voiding Method Diaper Diaper # Voids 1 1 - Exam GENERAL: The patient is lying in bed and is not in acute distress. NEUROLOGICAL: Higher mental function: The patient is drowsy but awakeable to voice, oriented to self and stated the year is 2020. She stated she does not where is at. She is able to name some object (such as pen). She is able to follow some simple commands (thumbs up, moving extremities above gravity). Could not assess fully language because of her cooperation. Cranial nerves: The pupils are round, equal and reactive to light. Visual griffin could not be assessed. Subtle left nasolabial flattening. No dysarthria noted. Was able to stick her tongue out without difficulty. Otherwise could not assess rest of cranial nerves because of patient's cooperation. Motor: Gait is deferred. The strength is able to lift all extremities above gravity without difficulty. Could not assess individual muscles. Normal tone and bulk. Cerebellum: Could not asses. Sensation: Could not asses. Reflexes (right/left): Brachioradialis are 3+ and patellars are 3+. Otherwise 2+ throughout. Plantars are mute bilaterally. WORK-UP: AST of 33 and ALT of 19 that. CK levels 26. Plasma lactic acid venous 16.1 and the potassium level is 2.7 CT of the head is reported as age-related atrophic and chronic small vessel ischemic change without acute intracranial process seen at this time. I personally reviewed the CT of the head there is no acute the ischemic subacute ischemia and there is no interpersonal hemorrhage is seen. Urine analysis seems possible suggestive of urinary tract infection. Urine drug screen is salicylates is less than 1.0 and acetaminophen is less than 10. - Labs CBC & Chem 7: 12/16/20 07:31 12/16/20 01:01 Labs: Abnormal Lab Results - Last 24 Hours (Table) 12/15/20 12/15/20 12/15/20 Range/Units 10:54 11:02 11:02 WBC (3.8-10.6) k/uL MCV 104.7 H (80.0-100.0) fL MCHC 30.9 L (31.0-37.0) g/dL Plt Count (150-450) k/uL Neutrophils # (1.3-7.7) k/uL Lymphocytes # (1.0-4.8) k/uL APTT (22.0-30.0) sec Potassium (3.5-5.1) mmol/L Carbon Dioxide (22-30) mmol/L Glucose (74-99) mg/dL POC Glucose (mg/dL) 132 H (75-99) mg/dL Plasma Lactic Acid Lasha (0.7-2.0) mmol/L Magnesium (1.6-2.3) mg/dL Creatine Kinase (30-135) U/L Urine Protein 1+ H (Negative) Urine Blood Small H (Negative) Urine Nitrite Positive H (Negative) Ur Leukocyte Esterase Small H (Negative) Urine WBC 17 H (0-5) /hpf Urine Bacteria Rare H (None) /hpf Urine Mucus Rare H (None) /hpf 12/15/20 12/15/20 12/15/20 Range/Units 11:02 11:02 11:02 WBC (3.8-10.6) k/uL MCV (80.0-100.0) fL MCHC (31.0-37.0) g/dL Plt Count (150-450) k/uL Neutrophils # (1.3-7.7) k/uL Lymphocytes # (1.0-4.8) k/uL APTT 21.1 L (22.0-30.0) sec Potassium 2.7 L* (3.5-5.1) mmol/L Carbon Dioxide 14 L (22-30) mmol/L Glucose 134 H (74-99) mg/dL POC Glucose (mg/dL) (75-99) mg/dL Plasma Lactic Acid Lasha (0.7-2.0) mmol/L Magnesium 1.4 L (1.6-2.3) mg/dL Creatine Kinase 26 L (30-135) U/L Urine Protein (Negative) Urine Blood (Negative) Urine Nitrite (Negative) Ur Leukocyte Esterase (Negative) Urine WBC (0-5) /hpf Urine Bacteria (None) /hpf Urine Mucus (None) /hpf 12/15/20 12/16/20 Range/Units 11:02 07:31 WBC 15.6 H (3.8-10.6) k/uL MCV (80.0-100.0) fL MCHC (31.0-37.0) g/dL Plt Count 143 L (150-450) k/uL Neutrophils # 13.6 H (1.3-7.7) k/uL Lymphocytes # 0.9 L (1.0-4.8) k/uL APTT (22.0-30.0) sec Potassium (3.5-5.1) mmol/L Carbon Dioxide (22-30) mmol/L Glucose (74-99) mg/dL POC Glucose (mg/dL) (75-99) mg/dL Plasma Lactic Acid Lasha 16.1 H* (0.7-2.0) mmol/L Magnesium (1.6-2.3) mg/dL Creatine Kinase (30-135) U/L Urine Protein (Negative) Urine Blood (Negative) Urine Nitrite (Negative) Ur Leukocyte Esterase (Negative) Urine WBC (0-5) /hpf Urine Bacteria (None) /hpf Urine Mucus (None) /hpf Microbiology - Last 24 Hours (Table) 12/15/20 11:02 Urine Culture - Preliminary Urine,Voided Assessment and Plan Assessment: New onset Seizure. Her history of bilateral frontal intraparechymal bleed incre ases risk of seizures. As well as her current underlying UTI can lower seizure threshold Possible urinary tract infection History of traumatic intraparenchymal bilateral frontal bleed in 2017 (had a fall and was on anticoagulation) History of dementia Hypokalemia--resolved Macrocytosis--improved Atrial fibrillation on the Eliquis History of hypertension and the presented with slightly elevated the blood pressure Plan: * Continue Keppra 500 mg every 12 hours IV and once the patient is more awake we'll change it to by mouth. The side-effects of medication was discussed with the patient's daughter. If patient continues to be doing well, consider down the line to taper it to 250mg 1 tab bid. * Pending urgent EEG. * Every 4 hours neuro checks * Seizure precaution and seizure pads are ordered. * Cardiology team is consulted. * IN 2016 her anticoagulation was stopped by her gluer but per the patient daughter since the patient has been at the nursing facility on 06/2020 her anticoagulation was started back again (but unsure exactly when). Anticoagulation was stopped because of risk outweigh the benefits (will defer final decision to cardiology team and primary team). * We'll defer the rest of the medical management to the primary team. * Upon discharge the patient is to follow up with a neurologist within 1-2 weeks. The plan was discussed with the patient's nurse. iMchael Banerjee M.D. Neuro-hospitalist Time with Patient: Less than 30
[2020-12-16] MEDS: levETIRAcetam IV 500 MG in SODIUM CHLORIDE 0.9% 100 ML IVPB SCH ×2 (09:39→19:59)
[2020-12-16 09:40] LABS: Potassium 4.3 mmol/L (3.5-5.1)
[2020-12-16] MEDS: SODIUM CHLORIDE 0.9% 1,000 ML IV SCH ×2 (09:40→17:04)
--- NOTE | 2020-12-16 10:42 | ECHOF ---
Referral Reason:afib MEASUREMENTS -------- HEIGHT: 160.0 cm WEIGHT: 56.2 kg BP: IVSd: 1.1 cm (0.6 - 1.1) LVIDd: 3.0 cm (3.9 - 5.3) LVPWd: 1.3 cm (0.6 - 1.1) IVSs: 1.4 cm LVIDs: 2.3 cm LVPWs: 1.9 cm LAESV Index (A-L): 55.09 ml/m Ao Diam: 3.1 cm (2.0 - 3.7) AV Cusp: 1.8 cm (1.5 - 2.6) LA Diam: 3.6 cm (2.7 - 3.8) MV EXCURSION: 17.354 mm (> 18.000) MV EF SLOPE: 135 mm/s (70 - 150) EPSS: 1.9 cm RAP: 5.00 mmHg RVSP: 62.32 mmHg FINDINGS -------- Undetermined rhythm. This was a technically good study. The left ventricular size is normal. There is mild concentric left ventricular hypertrophy. Overa ll left ventricular systolic function is normal with, an EF between 55 - 60 %. The right ventricle is normal in size. LA is severely dilated >40 ml/m2 The right atrial size is normal. Aortic valve is trileaflet and is mildly thickened. The mitral valve is normal. Moderate mitral regurgitation is present. The tricuspid valve appears structurally normal. Severe tricuspid regurgitation present. There is moderate pulmonary hypertension. The right ventricular systolic pressure, as measured by Doppler, is 62.32mmHg. There is no pulmonic regurgitation present. The aortic root size is normal. Normal inferior vena cava with normal inspiratory collapse consistent with estimated right atrial pre ssure of 5 mmHg. There is no pericardial effusion. CONCLUSIONS -------- 1. The left ventricular size is normal. 2. There is mild concentric left ventricular hypertrophy. 3. Overall left ventricular systolic function is normal with, an EF between 55 - 60 %. 4. LA is severely dilated >40 ml/m2 5. Aortic valve is trileaflet and is mildly thickened. 6. Moderate mitral regurgitation is present. 7. Severe tricuspid regurgitation present. 8. There is moderate pulmonary hypertension. 9. The right ventricular systolic pressure, as measured by Doppler, is 62.32mmHg. 10. There is no pericardial effusion. PHOTOCOPY OPERATOR: Sarah Lorenz RDCS
--- NOTE | 2020-12-16 12:56 | CONS ---
CONSULTATION Mrs. Quiñones is an 89-year-old female who was transferred to the hospital for symptoms of seizure. Patient has been followed by Dr. Boles on a regular basis. She has a history of chronic persistent atrial fibrillation, had a prior history of fall about 3 to 4 years ago with subarachnoid hemorrhage. She was off Coumadin, but when she was seen in July of this year, Eliquis was initiated. She was evaluated by Dr. Banerjee after her admission for the seizure. I am not able to obtain any history from the patient. Patient has history of dementia. Apparently at [facility] she had a seizure and subsequently had another seizure on her way to the hospital. Patient is limited in her physical activity. She had the intracranial bleed in the past, but no recurrence at this point. At the time of my evaluation the patient is answering a few question but clearly has dementia and is not she understanding the questions. On the monitor she is in atrial fibrillation. Her rate is on the rapid side at times. There is no evidence of pauses and no evidence of ventricular ectopic activity. Reviewing her medication, she has a history of hypertension and hyperlipidemia. She is nondiabetic. Her medications included Lipitor 20 mg daily, diltiazem CD 240 mg daily, metoprolol succinate 100 mg daily, and lisinopril 10 mg daily. Review of systems could not be obtained. PHYSICAL EXAMINATION: She is an 89-year-old female, confused, not answering question. Blood pressure is running in the 140s over 100 with a heart rate running between 70 and 140. HEAD: Normocephalic. EYES: Sclerae anicteric. NECK: No bruit appreciated. LUNGS: Clear to auscultation. HEART: Irregularly irregular. S1, S2. No S3, with systolic murmur heard at the base. No diastolic murmur. No rub. ABDOMEN: Soft, nontender. Positive bowel sounds. No organomegaly. EXTREMITIES: No edema. Patient is cachectic. LAB DATA: Coronavirus PCR negative. Her initial plasma lactic acid venous was 16.1 and subsequently 1.1. Her potassium was 2.7 on admission. BUN and creatinine 16 and 0.85. Her hemoglobin was 13.2 and white blood cells of 9.0. Her EKG revealed atrial fibrillation, rate of 76, intraventricular conduction delay with left axis deviation. Brain CT showed no evidence of acute bleeding. There are chronic small-vessel changes. IMPRESSION: 1. New-onset seizure; could be related to the prior history of intracranial bleeds about 3 to 4 years ago. 2. History of atrial fibrillation. 3. Hypokalemia. 4. Dementia. 5. History of hypertension. RECOMMENDATIONS: From the cardiac standpoint, I will obtain echocardiogram with Doppler. In the past her echocardiogram revealed a preserved systolic function with moderate to severe mitral regurgitation and moderate tricuspid regurgitation. The neurology service felt that anticoagulation is very high risk at this time, so we will hold anticoagulation at this time. She will be restarted on her lisinopril. Her blood pressure will be followed closely. Her potassium will be replaced. Depending on her progress, further recommendations will be made. No aggressive workup is indicated. MMODL / IJN: [id number] /
--- NOTE | 2020-12-16 12:59 | EEG ---
ELECTROENCEPHALOGRAM REPORT DATE OF SERVICE: 12/16/2020. CLINICAL HISTORY: This is an 89-year-old woman who had reported seizure-like activity on 12/15/2020. The video EEG is obtained to evaluate for seizure epileptiform activity. Relevant medications are Versed, Ativan and Keppra. EEG TYPE: A routine 21-channel EEG is performed with video using the 10/20 electrode placement system. DESCRIPTION: Wakefulness is obtained. During wakefulness, the background consists of low to moderate voltage of 5.5 to 6.5 theta activity that is nonrhythmic. At times the background consists of diffuse delta intermixed with theta activity. There is no physiological sleep architecture seen. There is no focal slowing. Interictal and ictal is none. ACTIVATION PROCEDURE: Photic stimulation and hyperventilation are not performed. CLINICAL INTERPRETATION: This is an abnormal routine EEG. The background slowing is suggestive of moderate encephalopathy. There are no focal slowing, epileptiform discharge or seizure on the EEG. Clinical correlation is recommended. MMANGEL / SALLIEN: [id number] / LINN
[2020-12-16] MEDS: MELATONIN 5 MG TABLET PO SCH (14:19)
[2020-12-16] MEDS: ASPIRIN 81 MG PO SCH (17:04)
[2020-12-16 19:24] LABS: Magnesium 1.8 mg/dL (1.6-2.3); Potassium 3.7 mmol/L (3.5-5.1)
[2020-12-16] MEDS: ATORVASTATIN 20 MG TAB PO SCH (19:59)
[2020-12-16] MEDS: QUEtiapine 25 MG TAB PO SCH (19:59)
[2020-12-16] MEDS: DILTIAZEM ORAL 30 MG TAB PO SCH (21:43)
[2020-12-17] MEDS: SODIUM CHLORIDE 0.9% 1,000 ML IV SCH ×2 (05:16→14:15)
[2020-12-17 08:05] LABS: Basophils % (A) 0 %; Eosinophils % (A) 0 %; HCT 39.4 % (34.0-46.0); Lymphocytes # (A) 0.7 k/uL (1.0-4.8); Lymphocytes % (A) 5 %; MCH 32.8 pg (25.0-35.0); MCV 99.2 fL (80.0-100.0); Mean Platelet Volume 10.5; Monocytes # (A) 0.6 k/uL (0-1.0); Monocytes % (A) 4 %; Neutrophils # (A) 12.1 k/uL (1.3-7.7); Neutrophils % (A) 90 %; Platelet Count 113 k/uL (150-450); RBC 3.98 m/uL (3.80-5.40); WBC 13.4 k/uL (3.8-10.6)
[2020-12-17] MEDS: METOPROLOL SUCCINATE (ER) 100 MG TAB.ER.24H PO SCH (08:09)
[2020-12-17] MEDS: lisinopriL 10 MG TAB PO SCH ×2 (08:09→21:15)
[2020-12-17] MEDS: DILTIAZEM ORAL 30 MG TAB PO SCH ×3 (08:09→21:14)
[2020-12-17] MEDS: SERTRALINE 50 MG TAB PO SCH (08:09)
[2020-12-17] MEDS: levETIRAcetam IV 500 MG in SODIUM CHLORIDE 0.9% 100 ML IVPB SCH (08:10)
[2020-12-17 08:18] LABS: African American GFR (CKD) >90 (>60 ml/min/1.73 sqM); Anion Gap 9 mmol/L; Blood Urea Nitrogen 15 mg/dL (7-17); Calcium 9.4 mg/dL (8.4-10.2); Carbon Dioxide 21 mmol/L (22-30); Chloride 110 mmol/L (98-107); Glucose 114 mg/dL (74-99); Magnesium 1.7 mg/dL (1.6-2.3); Non-African American GFR(CKD) 80 (>60 ml/min/1.73 sqM); Potassium 3.7 mmol/L (3.5-5.1); Sodium 140 mmol/L (137-145)
[2020-12-17] MEDS: HEPARIN SODIUM,PORCINE/PF 5,000 UNIT/0.5 ML SYRINGE SQ SCH ×2 (08:26→21:13)
--- NOTE | 2020-12-17 11:48 | P.PN ---
Subjective Progress Note Date: 12/17/20 The patient is seen at bedside and said is doing better. Objective - Vital Signs Vital signs: Vital Signs Temp 99.2 F 12/17/20 07:33 Pulse 108 H 12/17/20 07:33 Resp 16 12/17/20 07:33 BP 186/128 12/17/20 07:33 Pulse Ox 96 12/17/20 07:33 Intake & Output 12/16/20 12/17/20 12/17/20 18:59 06:59 18:59 Intake Total 1527.750 850 100 Output Total 1 Balance 1527.750 849 100 Weight 56.5 kg Intake: IV 1020 750 Invasive Line 2 20 Sodium Chloride 0.9% 1, 900 750 000 ml @ 75 mls/hr IV . [id number] [facility] Rx#:[id number] cefTRIAXone 1 gm In 100 Sodium Chloride 0.9% 50 ml @ 100 mls/hr IVPB Q24HR [facility] Rx#:[id number] Intake, IV Titration 67.750 100 Amount Diltiazem 125 mg In 67.750 Sodium Chloride 0.9% 100 ml @ 5 MG/HR 5 mls/hr IV .Q24H [facility] Rx#:[id number] levETIRAcetam IV 500 mg 100 In Sodium Chloride 0.9% 100 ml @ 400 mls/hr IVPB Q12HR [facility] Rx#:[id number] Oral 440 100 Output: Urine 1 Other: Voiding Method Diaper Diaper Diaper # Voids 1 1 1 # Bowel Movements 1 1 - Exam GENERAL: The patient is lying in bed and is not in acute distress. NEUROLOGICAL: Higher mental function: The patient is slightly drowsy but awakeable to voice, oriented to self and stated the year is 2020 and is in the hospital. She said she is at [facility]. She is able to name some objects (such as pen and watch). She is able to follow some simple commands (thumbs up, moving extremities above gravity). No aphasia or neglect. Cranial nerves: The pupils are round, equal and reactive to light. Visual griffin normal to confrontation.. Subtle left nasolabial flattening. No dysarthria noted. Was able to stick her tongue out without difficulty. Motor: Gait is deferred. The strength is able to lift all extremities above gravity without difficulty. C Normal tone and bulk. Reflexes (right/left): Brachioradialis are 3+ and patellars are 3+. Otherwise 2+ throughout. Plantars are mute bilaterally. WORK-UP: AST of 33 and ALT of 19 that. CK levels 26. Plasma lactic acid venous 16.1 and the potassium level is 2.7 CT of the head is reported as age-related atrophic and chronic small vessel ischemic change without acute intracranial process seen at this time. I personally reviewed the CT of the head there is no acute the ischemic subacute ischemia and there is no interpersonal hemorrhage is seen. Routine EEG on 12/16/2020: Is abnormal. The back was slowing suggestive of moderate encephalopathy. There are no focal slowing, epileptiform discharges or seizure on the EEG. Urine analysis seems possible suggestive of urinary tract infection. Urine drug screen is salicylates is less than 1.0 and acetaminophen is less than 10. - Labs CBC & Chem 7: 12/17/20 07:25 12/17/20 07:25 Labs: Abnormal Lab Results - Last 24 Hours (Table) 12/17/20 12/17/20 Range/Units 07:25 07:25 WBC 13.4 H (3.8-10.6) k/uL Plt Count 113 L (150-450) k/uL Neutrophils # 12.1 H (1.3-7.7) k/uL Lymphocytes # 0.7 L (1.0-4.8) k/uL Chloride 110 H (98-107) mmol/L Carbon Dioxide 21 L (22-30) mmol/L Glucose 114 H (74-99) mg/dL Microbiology - Last 24 Hours (Table) 12/15/20 11:02 Urine Culture - Preliminary Urine,Voided Gram Neg Bacilli Assessment and Plan Assessment: New onset Seizure. Her history of bilateral frontal intraparechymal bleed increases risk of seizures. As well as her current underlying UTI can lower seizure threshold Possible urinary tract infection History of traumatic intraparenchymal bilateral frontal bleed in 2017 (had a fall and was on anticoagulation) History of dementia Hypokalemia--resolved Macrocytosis--improved Atrial fibrillation on the Eliquis History of hypertension and the presented with slightly elevated the blood pressure Plan: * Placed patient on Keppra 250mg 1 tab bid (lowered it from 500mg every 12 hours to 250mg because of body weight). * Every 4 hours neuro checks * Seizure precaution and seizure pads are ordered. * Cardiology team is consulted. * IN 2017 her anticoagulation was stopped by her red [facility] but per the patient daughter since the patient has been at the nursing facility on 06/2020 her anticoagulation was started back again (but unsure exactly when). Anticoagulation was stopped because of risk outweigh the benefits (will defer final decision to cardiology team and primary team). * We'll defer the rest of the medical management to the primary team. * Upon discharge the patient is to follow up with a neurologist within 1-2 weeks. The plan was discussed with the patient's nurse and her daughter via phone. Patient is clear for discharge from neurological perspective. Michael Banerjee M.D. Neuro-hospitalist Time with Patient: Less than 30
--- NOTE | 2020-12-17 11:54 | P.PN ---
Subjective This is a 89-year-old female with a past medical history of chronic persistent atrial fibrillation, falls, subarachnoid hemorrhage, dementia. She follows with Dr. Boles. Patient presented to the hospital from [facility], apparently had a seizure and subsequently had another she generated to the hospital. Cardiology was consulted for atrial fibrillation with rapid ventricular response. Echo was obtained which revealed EF of 5560 percent, mitral regurgitation, severe tricuspid regurgitation, moderate pulmonary hypertension. Patient's examined at bedside, she is confused. Alert and oriented x 1. Telemetry reviewed patient in nature fibrillation with controlled ventricular rates. She is currently maintained on Lipitor 20 mg daily, Cardizem 240 mg daily, metoprolol succinate 100 mg daily, lisinopril 10 mg daily. Her anticoagulation is held due to high risk of bleeding. Her blood pressure is elevated today. GENERAL: Confused. No acute distress. NECK: Supple without JVD or thyromegaly. LUNGS: Breath sounds clear to auscultation bilaterally. Respiration equal and unlabored. No wheezes, rales or rhonchi. HEART: Irregular rate and rhythm without murmurs, rubs or gallops. S1 and S2 heard. EXTREMITIES: Normal range of motion, no edema. No clubbing or cyanosis. Peripheral pulses intact. ASSESSMENT New onset Seizure History of subarachnoid hemorrhage History of chronic persistent atrial fibrillation- not on anticoagulation due to risk of bleeding Hypokalemia Dementia Hypertension PLAN We will increase patient's lisinopril 10mg BID. Continue metoprolol succinate and Cardizem. Continue statin. The neurology service felt that anticoagulation is a very high-risk at this time, so we will hold anticoagulation at this time. From a cardiology perspective, no further changes at this time. We will follow the patient as needed. Please reach out with further questions or concerns. Patient to follow up outpatient with Dr. Boles. Objective - Vital Signs Vital signs: Vital Signs Temp 99.2 F 12/17/20 07:33 Pulse 108 H 12/17/20 07:33 Resp 16 12/17/20 07:33 BP 186/128 12/17/20 07:33 Pulse Ox 96 12/17/20 07:33 Intake & Output 12/16/20 12/17/20 12/17/20 18:59 06:59 18:59 Intake Total 1527.750 850 100 Output Total 1 Balance 1527.750 849 100 Weight 56.5 kg Intake: IV 1020 750 Invasive Line 2 20 Sodium Chloride 0.9% 1, 900 750 000 ml @ 75 mls/hr IV . [id number] [facility] Rx#:[id number] cefTRIAXone 1 gm In 100 Sodium Chloride 0.9% 50 ml @ 100 mls/hr IVPB Q24HR [facility] Rx#:[id number] Intake, IV Titration 67.750 100 Amount Diltiazem 125 mg In 67.750 Sodium Chloride 0.9% 100 ml @ 5 MG/HR 5 mls/hr IV .Q24H [facility] Rx#:[id number] levETIRAcetam IV 500 mg 100 In Sodium Chloride 0.9% 100 ml @ 400 mls/hr IVPB Q12HR [facility] Rx#:[id number] Oral 440 100 Output: Urine 1 Other: Voiding Method Diaper Diaper Diaper # Voids 1 1 1 # Bowel Movements 1 1 - Labs CBC & Chem 7: 12/17/20 07:25 12/17/20 07:25 Labs: Abnormal Lab Results - Last 24 Hours (Table) 12/17/20 12/17/20 Range/Units 07:25 07:25 WBC 13.4 H (3.8-10.6) k/uL Plt Count 113 L (150-450) k/uL Neutrophils # 12.1 H (1.3-7.7) k/uL Lymphocytes # 0.7 L (1.0-4.8) k/uL Chloride 110 H (98-107) mmol/L Carbon Dioxide 21 L (22-30) mmol/L Glucose 114 H (74-99) mg/dL Microbiology - Last 24 Hours (Table) 12/15/20 11:02 Urine Culture - Preliminary Urine,Voided Gram Neg Bacilli
[2020-12-17] MEDS: ASPIRIN 81 MG PO SCH (16:51)
[2020-12-17] MEDS: MELATONIN 5 MG TABLET PO SCH (21:14)
[2020-12-17] MEDS: QUEtiapine 25 MG TAB PO SCH (21:14)
[2020-12-17] MEDS: levETIRAcetam 250 MG TAB PO SCH (21:14)
[2020-12-17] MEDS: ATORVASTATIN 20 MG TAB PO SCH (21:15)
--- NOTE | 2020-12-17 21:55 | P.PN ---
Subjective Progress Note Date: 12/16/20 Principal diagnosis: New onset seizures. Generalized tonic-clonic. Acute urinary tract infection Patient is a 89-year-old male with a known history of paroxysmal atrial fibrillation on anticoagulation with Eliquis, history of traumatic brain injury, history of bilateral frontal intraparenchymal bleed about 4 years ago, hypertension, dementia who is currently at extended-care facility was sent to ER by EMS due to new onset seizures. Seizures were noted by the care home staff and also another episode of seizures while in route to the ER. Patient is currently awake alert but not oriented. History was taken from her daughter at bedside. Patient has been afebrile. No complaints of shortness of breath or chest pain. No episodes of vomiting or diarrhea. No loss of bowel or bladder control. At baseline patient is able to walk with walker and oriented x2 and is able to recognize her family members easily. Patient was given a dose of Versed and loading dose of Keppra in the ER. CT head/brain showed age-related atrophic and chronic small vessel ischemic change without acute intracranial process at this time. EKG showed wide QRS rhythm with occasional premature ventricular complexes. Left axis deviation. Laboratory test showed WBC 9.0 hemoglobin 13.2 and platelets 156 Sodium 143 potassium 2.7 chloride 105 bicarb is 14 BUN 16 and creatinine 0.85 lactic acid 16.1 admission magnesium 1.4 and liver enzymes are not elevated and CPK level is 26 Urinalysis showed positive nitrite, small leukocyte esterase and WBC 17 and squamous epithelial cells less than 1 Coronavirus PCR not detected. 12/16/2020 Patient is currently sitting in the chair. Awake alert and was able to recognize her daughter at bedside. Still very lethargic and drowsy. No further seizure activity noted. Patient is being current on Keppra as per neurology recommendations. Cardiology was consulted due to atrial fibrillation and is being continued on Cardizem by mouth. Patient is on ceftriaxone for urinary tract infection. Culture report is pending. Laboratory showed WBC 15.6 hemoglobin 12.5 and platelets 143 Sodium 136 potassium 4.3 chloride 106 bicarb is 21 BUN 15 and creatinine 0.62 and magnesium 1.7 Current medications reviewed. Objective - Vital Signs Vital signs: Vital Signs Temp 99.2 F 12/17/20 07:33 Pulse 108 H 12/17/20 07:33 Resp 16 12/17/20 07:33 BP 186/128 12/17/20 07:33 Pulse Ox 96 12/17/20 07:33 Intake & Output 12/16/20 12/17/20 12/17/20 18:59 06:59 18:59 Intake Total 1527.750 850 100 Output Total 1 Balance 1527.750 849 100 Weight 56.5 kg Intake: IV 1020 750 Invasive Line 2 20 Sodium Chloride 0.9% 1, 900 750 000 ml @ 75 mls/hr IV . [id number] [facility] Rx#:[id number] cefTRIAXone 1 gm In 100 Sodium Chloride 0.9% 50 ml @ 100 mls/hr IVPB Q24HR [facility] Rx#:[id number] Intake, IV Titration 67.750 100 Amount Diltiazem 125 mg In 67.750 Sodium Chloride 0.9% 100 ml @ 5 MG/HR 5 mls/hr IV .Q24H [facility] Rx#:[id number] levETIRAcetam IV 500 mg 100 In Sodium Chloride 0.9% 100 ml @ 400 mls/hr IVPB Q12HR [facility] Rx#:[id number] Oral 440 100 Output: Urine 1 Other: Voiding Method Diaper Diaper Diaper # Voids 1 1 1 # Bowel Movements 1 1 - Exam PHYSICAL EXAMINATION: Patient is lying in the bed comfortably. No distress. Awake alert but lethargic... HEENT: Normocephalic. Neck is supple. Pupils reactive. Nostrils clear. Oral cavity is moist. Neck reveals no JVD, carotid bruits, or thyromegaly. CHEST EXAMINATION: Trachea is central. Symmetrical expansion. Lung griffin clear to auscultation and percussion. CARDIAC: Normal S1, S2 with no gallops. No murmurs ABDOMEN: Soft. Bowel sounds normal. No organomegaly. No abdominal bruits. Extremities: reveal no edema. No clubbing or cyanosis Neurologically awake, alert but confused and disoriented.Able to move ex tremities while in bed. Skin: No rash or skin lesions. Psychiatric: could not be assesed. Musculoskeletal: No joint swelling or deformity. - Labs CBC & Chem 7: 12/17/20 07:25 12/17/20 07:25 Labs: Abnormal Lab Results - Last 24 Hours (Table) 12/17/20 12/17/20 Range/Units 07:25 07:25 WBC 13.4 H (3.8-10.6) k/uL Plt Count 113 L (150-450) k/uL Neutrophils # 12.1 H (1.3-7.7) k/uL Lymphocytes # 0.7 L (1.0-4.8) k/uL Chloride 110 H (98-107) mmol/L Carbon Dioxide 21 L (22-30) mmol/L Glucose 114 H (74-99) mg/dL Microbiology - Last 24 Hours (Table) 12/15/20 11:02 Urine Culture - Preliminary Urine,Voided Gram Neg Bacilli Assessment and Plan Assessment: New onset seizures. Generalized tonic-clonic. Acute urinary tract infection Severe hypokalemia 2.7 and hypomagnesemia Severe lactic acidosis likely due to seizures History of intraparenchymal frontal bleed in 2017 Paroxysmal atrial fibrillation with RVR on admsission. was on anticoagulation with Eliquis. Dementia Hypertension History of gout Depression DVT prophylaxis with heparin subcu Plan: Patient was given Keppra IV bolus due to new onset seizures and also given a dose of Versed. Patient will be continued on seizure precautions. Replaced potassium and magnesium. Continue with IV antibiotics in the form of ceftriaxone and follow-up urine culture report. lactic acid level rimproved.. Continue with telemetry monitoring and patient will be started back on Cardizem and metoprolol as blood pressure tolerates. Due to history of intracranial bleed and advancing dementia patient is not a candidate for long-term anticoagulation. Eliquis is on hold currently. Discussed with her daughter at bedside in detail. Prognosis is guarded at this time. Time with Patient: Greater than 30
--- NOTE | 2020-12-17 21:57 | P.PN ---
Subjective Progress Note Date: 12/17/20 Principal diagnosis: New onset seizures. Generalized tonic-clonic. Acute urinary tract infection Patient is a 89-year-old male with a known history of paroxysmal atrial fibrillation on anticoagulation with Eliquis, history of traumatic brain injury, history of bilateral frontal intraparenchymal bleed about 4 years ago, hypertension, dementia who is currently at extended-care facility was sent to ER by EMS due to new onset seizures. Seizures were noted by the half-way staff and also another episode of seizures while in route to the ER. Patient is currently awake alert but not oriented. History was taken from her daughter at bedside. Patient has been afebrile. No complaints of shortness of breath or chest pain. No episodes of vomiting or diarrhea. No loss of bowel or bladder control. At baseline patient is able to walk with walker and oriented x2 and is able to recognize her family members easily. Patient was given a dose of Versed and loading dose of Keppra in the ER. CT head/brain showed age-related atrophic and chronic small vessel ischemic change without acute intracranial process at this time. EKG showed wide QRS rhythm with occasional premature ventricular complexes. Left axis deviation. Laboratory test showed WBC 9.0 hemoglobin 13.2 and platelets 156 Sodium 143 potassium 2.7 chloride 105 bicarb is 14 BUN 16 and creatinine 0.85 lactic acid 16.1 admission magnesium 1.4 and liver enzymes are not elevated and CPK level is 26 Urinalysis showed positive nitrite, small leukocyte esterase and WBC 17 and squamous epithelial cells less than 1 Coronavirus PCR not detected. 12/16/2020 Patient is currently sitting in the chair. Awake alert and was able to recognize her daughter at bedside. Still very lethargic and drowsy. No further seizure activity noted. Patient is being current on Keppra as per neurology recommendations. Cardiology was consulted due to atrial fibrillation and is being continued on Cardizem by mouth. Patient is on ceftriaxone for urinary tract infection. Culture report is pending. Laboratory showed WBC 15.6 hemoglobin 12.5 and platelets 143 Sodium 136 potassium 4.3 chloride 106 bicarb is 21 BUN 15 and creatinine 0.62 and magnesium 1.7 12/17/2020 Patient seems to be more awake and oriented today. Able to tolerate small amount of regular diet. No complaints of chest pain or shortness of breath. Patient has been afebrile. Urine culture showed gram-negative bacilli and final culture report is pending. Continue on ceftriaxone. Patient was seen by cardiology due to atrial fibrillation and also neurology with new onset seizure disorder. Due to history of underlying dementia and falls and previous intracranial parenchymal bleed, patient is not a good candidate for long-term anticoagulation since risk outweighs benefits. Laboratory data showed WBC 13.4 hemoglobin 13.0 and platelets 113 sodium 140 potassium 3.7 chloride 100 bicarb is 21 BUN 15 and creatinine 0.64 and magnesium 1.7. IV fluids reduced to 50 cc/h. Discussed with her daughter at bedside in detail. Anticipate discharge with final urine culture report. Current medications reviewed. Objective - Vital Signs Vital signs: Vital Signs Temp 98.5 F 12/17/20 16:00 Pulse 92 12/17/20 16:00 Resp 16 12/17/20 16:00 BP 183/80 12/17/20 16:00 Pulse Ox 96 12/17/20 16:00 Intake & Output 12/17/20 12/17/20 12/18/20 06:59 18:59 06:59 Intake Total 850 780 Output Total 1 Balance 849 780 Weight 56.5 kg Intake: IV 750 200 Sodium Chloride 0.9% 1, 750 000 ml @ 75 mls/hr IV . [id number] [facility] Rx#:[id number] cefTRIAXone 1 gm In 100 Sodium Chloride 0.9% 50 ml @ 100 mls/hr IVPB Q24HR [facility] Rx#:[id number] levETIRAcetam IV 500 mg 100 In Sodium Chloride 0.9% 100 ml @ 400 mls/hr IVPB Q12HR [facility] Rx#:[id number] Intake, IV Titration 100 Amount levETIRAcetam IV 500 mg 100 In Sodium Chloride 0.9% 100 ml @ 400 mls/hr IVPB Q12HR [facility] Rx#:[id number] Oral 580 Output: Urine 1 Other: Voiding Method Diaper Diaper # Voids 1 3 # Bowel Movements 1 - Exam PHYSICAL EXAMINATION: Patient is lying in the bed comfortably. No distress. Awake alert but let hargic... HEENT: Normocephalic. Neck is supple. Pupils reactive. Nostrils clear. Oral cavity is moist. Neck reveals no JVD, carotid bruits, or thyromegaly. CHEST EXAMINATION: Trachea is central. Symmetrical expansion. Lung griffin clear to auscultation and percussion. CARDIAC: Normal S1, S2 with no gallops. No murmurs ABDOMEN: Soft. Bowel sounds normal. No organomegaly. No abdominal bruits. Extremities: reveal no edema. No clubbing or cyanosis Neurologically awake, alert but confused and disoriented.Able to move extremities while in bed. Skin: No rash or skin lesions. Psychiatric: could not be assesed. Musculoskeletal: No joint swelling or deformity. - Labs CBC & Chem 7: 12/17/20 07:25 12/17/20 07:25 Labs: Abnormal Lab Results - Last 24 Hours (Table) 12/17/20 12/17/20 Range/Units 07:25 07:25 WBC 13.4 H (3.8-10.6) k/uL Plt Count 113 L (150-450) k/uL Neutrophils # 12.1 H (1.3-7.7) k/uL Lymphocytes # 0.7 L (1.0-4.8) k/uL Chloride 110 H (98-107) mmol/L Carbon Dioxide 21 L (22-30) mmol/L Glucose 114 H (74-99) mg/dL Microbiology - Last 24 Hours (Table) 12/15/20 11:02 Urine Culture - Final Urine,Voided Proteus mirabilis Assessment and Plan Assessment: New onset seizures. Generalized tonic-clonic. Acute urinary tract infection Severe hypokalemia 2.7 and hypomagnesemia Severe lactic acidosis likely due to seizures History of intraparenchymal frontal bleed in 2017 Paroxysmal atrial fibrillation with RVR on admsission. was on anticoagulation with Eliquis. Dementia Hypertension-uncontrolled. History of gout Depression DVT prophylaxis with heparin subcu Plan: Patient was given Keppra IV bolus due to new onset seizures and also given a dose of Versed. Continue with Keppra by mouth 250 mg twice daily as per neurology recommendations.. Patient will be continued on seizure precautions. Replaced potassium and magnesium. Continue with IV antibiotics in the form of ceftriaxone and follow-up urine culture report. lactic acid level rimproved.. Continue with telemetry monitoring and patient will be started back on Cardizem and metoprolol as blood pressure tolerates. Due to history of intracranial bleed and advancing dementia patient is not a candidate for long-term anticoagulation. Eliquis is on hold currently. Lisinopril dose increased to twice daily due to elevated blood pressure. Discussed with her daughter at bedside in detail. Prognosis is guarded at this time. Time with Patient: Greater than 30
[2020-12-18] MEDS: MAGNESIUM SULFATE-D5W PMX 1 GM in DEXTROSE/WATER 1 100ML.BAG IVPB SCH ×2 (01:45)
[2020-12-18 05:17] VITALS: RESP 18
--- NOTE | 2020-12-18 10:31 | P.PN ---
Subjective Progress Note Date: 12/18/20 The patient is seen at bedside and states she is doing much better but complained of right buttock pain and she said no one took any imaging of it. Otherwise she denies of any new neurological problems. No further seizure-like activity. Objective - Vital Signs Vital signs: Vital Signs Temp 98.3 F 12/18/20 04:00 Pulse 64 12/18/20 04:00 Resp 18 12/18/20 04:00 BP 137/62 12/18/20 04:00 Pulse Ox 97 12/18/20 04:00 Intake & Output 12/17/20 12/18/20 12/18/20 18:59 06:59 18:59 Intake Total 780 Balance 780 Weight 57 kg Intake: IV 200 cefTRIAXone 1 gm In 100 Sodium Chloride 0.9% 50 ml @ 100 mls/hr IVPB Q24HR COUNTS INCLUDE 234 BEDS AT THE [facility] Rx#:[id number] levETIRAcetam IV 500 mg 100 In Sodium Chloride 0.9% 100 ml @ 400 mls/hr IVPB Q12HR COUNTS INCLUDE 234 BEDS AT THE [facility] Rx#:[id number] Oral 580 Other: Voiding Method Diaper Diaper # Voids 3 1 1 # Bowel Movements 1 1 - Exam GENERAL: The patient is lying in bed and is not in acute distress. NEUROLOGICAL: Higher mental function: The patient is slightly drowsy but awakeable to voice, oriented to self and stated the year is 2020 and is in the hospital. She said she is at [facility]. She is able to name some objects (such as pen and watch). She is able to follow some simple commands (thumbs up, moving extremities above gravity). No aphasia or neglect. Cranial nerves: The pupils are round, equal and reactive to light. Visual griffin normal to confrontation.. Subtle left nasolabial flattening. No dysarthria noted. Was able to stick her tongue out without difficulty. Motor: Gait is deferred. The strength is able to lift all extremities above gravity without difficulty. C Normal tone and bulk. Reflexes (right/left): Brachioradialis are 3+ and patellars are 3+. Otherwise 2+ throughout. Plantars are mute bilaterally. WORK-UP: AST of 33 and ALT of 19 that. CK levels 26. Plasma lactic acid venous 16.1 and the potassium level is 2.7 CT of the head is reported as age-related atrophic and chronic small vessel ischemic change without acute intracranial process seen at this time. I personally reviewed the CT of the head there is no acute the ischemic subacute ischemia and there is no interpersonal hemorrhage is seen. Routine EEG on 12/16/2020: Is abnormal. The back was slowing suggestive of moderate encephalopathy. There are no focal slowing, epileptiform discharges or seizure on the EEG. Urine analysis seems possible suggestive of urinary tract infection. Urine drug screen is salicylates is less than 1.0 and acetaminophen is less than 10. - Labs CBC & Chem 7: 12/17/20 07:25 12/17/20 07:25 Labs: Microbiology - Last 24 Hours (Table) 12/15/20 11:02 Urine Culture - Final Urine,Voided Proteus mirabilis Assessment and Plan Assessment: New onset Seizure. Her history of bilateral frontal intraparechymal bleed increases risk of seizures. As well as her current underlying UTI can lower seizure threshold Acute urinary tract infection History of traumatic intraparenchymal bilateral frontal bleed in 2017 (had a fall and was on anticoagulation) History of dementia Hypokalemia--resolved Macrocytosis--improved Atrial fibrillation was on the Eliquis History of hypertension and the presented with slightly elevated the blood pressure Plan: * Ordered lumbosacral and pelvis x-ray since patient complaining of pain to rule out fracture. * Placed patient on Keppra 250mg 1 tab bid (lowered it from 500mg every 12 hours to 250mg because of body weight). * Every 4 hours neuro checks * Seizure precaution and seizure pads are ordered. * Cardiology team is on board * IN 2017 her anticoagulation was stopped by her district wildlife manager but per the patient daughter since the patient has been at the nursing facility on 06/2020 her anticoagulation was started back again (but unsure exactly when). Anticoagulation was stopped because of risk outweigh the benefits (will defer final decision to cardiology team and primary team). * We'll defer the rest of the medical management to the primary team. * Upon discharge the patient is to follow up with a neurologist within 1-2 weeks. The plan was discussed with the patient's nurse and her daughter via phone. If her above x-rays are negative for fracture then patient is clear for discharge from neurological perspective. Michael Banerjee M.D. Neuro-hospitalist Time with Patient: Less than 30
[2020-12-18] MEDS: DILTIAZEM ORAL 30 MG TAB PO SCH ×2 (11:58→18:34)
[2020-12-18] MEDS: lisinopriL 10 MG TAB PO SCH ×2 (11:58→19:23)
[2020-12-18] MEDS: METOPROLOL SUCCINATE (ER) 100 MG TAB.ER.24H PO SCH (11:58)
[2020-12-18] MEDS: SERTRALINE 50 MG TAB PO SCH (11:59)
[2020-12-18] MEDS: HEPARIN SODIUM,PORCINE/PF 5,000 UNIT/0.5 ML SYRINGE SQ SCH ×2 (11:59→19:54)
[2020-12-18] MEDS: SODIUM CHLORIDE 0.9% 1,000 ML IV SCH (12:00)
--- NOTE | 2020-12-18 12:20 | XR ---
EXAMINATION TYPE: XR Hip LT and AP Pelvis DATE OF EXAM: 12/18/2020 COMPARISON: Plain film 02/04/2013 HISTORY: Pain TECHNIQUE: A single AP view of the pelvis is obtained. Two views of the left hip are obtained on a to misa 4 images. FINDINGS: There is no acute fracture/dislocation evident in the pelvis. Patient is post left hip art hroplasty. Bone mineralization is reduced. The sacroiliac joints appear symmetric and unremarkable. The overlying soft tissue appears unremarkable. Two views of left hip show no acute fracture or dislocation. No focal lytic or sclerotic lesion seen in the proximal left femur. The overlying soft tissue is unremarkable. There is scoliotic curvature , degenerative disc change in the lower lumbar spine. IMPRESSION: There is no acute fracture or dislocation in the pelvis or left hip.
--- NOTE | 2020-12-18 12:22 | XR ---
Lumbosacral spine HISTORY: Back pain 5 views lumbosacral spine There is a rotatory dextroscoliosis centered at L2. Lumbar vertebral bodies show reduced bone mineral ization, there is multilevel spondylosis. Loss of disc height is present at intervertebral levels. An terolisthesis grade 1 L3-4 noted. Sclerosis present posterior elements is consistent with facet arthr opathy. Atherosclerotic calcification present within the aorta iliac distribution. IMPRESSION: Degenerative disc disease, osteoporosis, facet arthropathy, spondylolisthesis
[2020-12-18] MEDS: levETIRAcetam 250 MG TAB PO SCH (12:38)
[2020-12-18] MEDS ORDERED: CEPHALEXIN 250 MG CAP PO SCH (16:00)
--- NOTE | 2020-12-18 16:04 | P.DS ---
Providers Date of admission: 12/15/20 14:12 Attending physician: Nain David Consults: 12/15/20 14:09 Consult Physician Urgent Consulting Provider: Michael Banerjee Consult Reason/Comments: new onset seizure Do you want consulting provider notified?: Yes 12/16/20 06:00 Consult Physician Routine Consulting Provider: [facility] Consult Reason/Comments: A FIB RVR Do you want consulting provider notified?: Yes, Notify in am Primary care physician: Buddy Macias Hospital Course: New onset seizures. Generalized tonic-clonic. Acute urinary tract infection Patient is a 89-year-old male with a known history of paroxysmal atrial fibrillation on anticoagulation with Eliquis, history of traumatic brain injury, history of bilateral frontal intraparenchymal bleed about 4 years ago, hyper tension, dementia who is currently at extended-care facility was sent to ER by EMS due to new onset seizures. Seizures were noted by the skilled nursing staff and also another episode of seizures while in route to the ER. Patient is currently awake alert but not oriented. History was taken from her daughter at bedside. Patient has been afebrile. No complaints of shortness of breath or chest pain. No episodes of vomiting or diarrhea. No loss of bowel or bladder control. At baseline patient is able to walk with walker and oriented x2 and is able to recognize her family members easily. Patient was given a dose of Versed and loading dose of Keppra in the ER. CT head/brain showed age-related atrophic and chronic small vessel ischemic change without acute intracranial process at this time. EKG showed wide QRS rhythm with occasional premature ventricular complexes. Left axis deviation. Laboratory test showed WBC 9.0 hemoglobin 13.2 and platelets 156 Sodium 143 potassium 2.7 chloride 105 bicarb is 14 BUN 16 and creatinine 0.85 lactic acid 16.1 admission magnesium 1.4 and liver enzymes are not elevated and CPK level is 26 Urinalysis showed positive nitrite, small leukocyte esterase and WBC 17 and squamous epithelial cells less than 1 Coronavirus PCR not detected. 12/16/2020 Patient is currently sitting in the chair. Awake alert and was able to recognize her daughter at bedside. Still very lethargic and drowsy. No further seizure activity noted. Patient is being current on Keppra as per neurology recommendations. Cardiology was consulted due to atrial fibrillation and is being continued on Cardizem by mouth. Patient is on ceftriaxone for urinary tract infection. Culture report is pending. Laboratory showed WBC 15.6 hemoglobin 12.5 and platelets 143 Sodium 136 potassium 4.3 chloride 106 bicarb is 21 BUN 15 and creatinine 0.62 and magnesium 1.7 12/17/2020 Patient seems to be more awake and oriented today. Able to tolerate small amount of regular diet. No complaints of chest pain or shortness of breath. Patient has been afebrile. Urine culture showed gram-negative bacilli and final culture report is pending. Continue on ceftriaxone. Patient was seen by cardiology due to atrial fibrillation and also neurology with new onset seizure disorder. Due to history of underlying dementia and falls and previous intracranial parenchymal bleed, patient is not a good candidate for long-term anticoagulation since risk outweighs benefits. Laboratory data showed WBC 13.4 hemoglobin 13.0 and platelets 113 sodium 140 potassium 3.7 chloride 100 bicarb is 21 BUN 15 and creatinine 0.64 and magnesium 1.7. IV fluids reduced to 50 cc/h. Discussed with her daughter at bedside in detail. Anticipate discharge with final urine culture report. 12/18/2020; urine culture reveals E. coli sensitive to Keflex; we will discharge patient to skilled nursing with plans to continue with antiseizure medications in form of Keppra to 50 mg twice a day and Keflex 250 mg every 8 hours for 7 more days Plan was discussed with patient's daughter present at bedside Patient Condition at Discharge: Serious Plan - Discharge Summary Discharge Rx Participant: No New Discharge Prescriptions: New Diltiazem Oral [Cardizem*] 90 mg PO TID #90 tab Cephalexin [Keflex] 250 mg PO TID #14 cap levETIRAcetam [Keppra] 250 mg PO Q12HR #60 tab QUEtiapine [SEROquel] 12.5 mg PO HS #30 tab Discontinued Diltiazem HCl [Cardizem LA] 240 mg PO DAILY@1700 No Action Magnesium Hydroxide [Milk of Magnesia] 2,400 mg PO DAILY PRN PRN Reason: Constipation Loperamide [Imodium] 4 mg PO Q12H PRN PRN Reason: Diarrhea Na Phos,M-B/Na Phos,Di-Ba [Fleet Adult] 133 ml RECTAL DAILY PRN PRN Reason: Constipation bisacodyL [Dulcolax] 10 mg RECTAL DAILY PRN PRN Reason: Constipation Acetaminophen Tab [Tylenol] 650 mg PO Q4H PRN PRN Reason: general discomfort Sertraline [Zoloft] 50 mg PO DAILY@0800 Atorvastatin [Lipitor] 20 mg PO HS@2100 lisinopriL [Zestril] 10 mg PO DAILY@0800 Metoprolol Succinate (ER) [Toprol XL] 100 mg PO DAILY@0800 Aspirin EC [Ecotrin Low Dose] 81 mg PO DAILY@1700 Melatonin 10 mg PO HS@2100 Discharge Medication List Acetaminophen Tab [Tylenol] 650 mg PO Q4H PRN 01/05/17 [History] Atorvastatin [Lipitor] 20 mg PO HS@2100 01/05/17 [History] Loperamide [Imodium] 4 mg PO Q12H PRN 01/05/17 [History] Magnesium Hydroxide [Milk of Magnesia] 2,400 mg PO DAILY PRN 01/05/17 [History] Na Phos,M-B/Na Phos,Di-Ba [Fleet Adult] 133 ml RECTAL DAILY PRN 01/05/17 [History] Sertraline [Zoloft] 50 mg PO DAILY@0800 01/05/17 [History] bisacodyL [Dulcolax] 10 mg RECTAL DAILY PRN 01/05/17 [History] Aspirin EC [Ecotrin Low Dose] 81 mg PO DAILY@1700 12/15/20 [History] Melatonin 10 mg PO HS@2100 12/15/20 [History] Metoprolol Succinate (ER) [Toprol XL] 100 mg PO DAILY@0800 12/15/20 [History] lisinopriL [Zestril] 10 mg PO DAILY@0800 12/15/20 [History] Cephalexin [Keflex] 250 mg PO TID #14 cap 12/18/20 [Rx] Diltiazem Oral [Cardizem*] 90 mg PO TID #90 tab 12/18/20 [Rx] QUEtiapine [SEROquel] 12.5 mg PO HS #30 tab 12/18/20 [Rx] levETIRAcetam [Keppra] 250 mg PO Q12HR #60 tab 12/18/20 [Rx] Follow up Appointment(s)/Referral(s): Buddy Macias MD [Primary Care Provider] - 1-2 days Patient Instructions/Handouts: Seizure/Epilepsy Discharge Instructions & Follow-Up Discharge Disposition: TRANSFER TO SNF/ECF
[2020-12-18] MEDS: ASPIRIN 81 MG PO SCH (18:34)
[2020-12-18 18:44] VITALS: TEMP 98.2
[2020-12-18] MEDS: QUEtiapine 25 MG TAB PO SCH (19:54)
[2020-12-18] MEDS: MELATONIN 5 MG TABLET PO SCH (19:54)
[2020-12-18] MEDS: ATORVASTATIN 20 MG TAB PO SCH (19:55)
[2020-12-18 20:17] VITALS: BP 155/84; PULSE 90
== END 2020-12-18 20:15 | DRG 101 ==
LOC: EC 10:47 → 3SCARD 14:12
PROVIDERS: ADMIT Internal Medicine; ATTEND Internal Medicine
DX: G40.909 Epilepsy, unspecified, not intractable, without status epilepticus (principal); I48.19 Other persistent atrial fibrillation; N39.0 Urinary tract infection, site not specified; E87.2 Acidosis; I08.1 Rheumatic disorders of both mitral and tricuspid valves; I10 Essential (primary) hypertension; Z20.822 Contact with and (suspected) exposure to COVID-19; I27.20 Pulmonary hypertension, unspecified; Z66 Do not resuscitate; I49.3 Ventricular premature depolarization; Z79.01 Long term (current) use of anticoagulants; Z79.82 Long term (current) use of aspirin; Z79.899 Other long term (current) drug therapy; Z86.73 Personal history of transient ischemic attack (TIA), and cerebral infarction without residual deficits; F32.9 Major depressive disorder, single episode, unspecified; F03.90 Unspecified dementia, unspecified severity, without behavioral disturbance, psychotic disturbance, mood disturbance, and anxiety; E87.6 Hypokalemia; Z87.820 Personal history of traumatic brain injury; Z87.828 Personal history of other (healed) physical injury and trauma; E83.42 Hypomagnesemia; E78.5 Hyperlipidemia, unspecified; D75.89 Other specified diseases of blood and blood-forming organs; M10.9 Gout, unspecified; K52.9 Noninfective gastroenteritis and colitis, unspecified
CPT/HCPCS: 36415; 70450; 72110; 73502; 80048; 80053; 80143; 80179; 81001; 82550; 83605; 83735; 84132; 85025; 85610; 85730; 87077; 87086; 87186; 87635; 93005; 93306; 95816; 96365; 96367; 96375; 99285

== ENCOUNTER 2021-10-25 20:51 | Emergency (ER) | payer MEDICARE ==
--- NOTE | 2021-10-25 21:11 | ED ---
General Adult HPI - General Chief complaint: Recheck/Abnormal Lab/Rx Stated complaint: Abnormal labs Time Seen by Provider: 10/25/21 20:58 Source: patient, RN notes reviewed, old records reviewed (Labs done yesterday) Mode of arrival: EMS Limitations: no limitations - History of Present Illness Initial comments: Patient is a pleasant 89-year-old female presenting to the emergency department with concern for elevated d-dimer. Patient had labs done yesterday with resultant 1.53. Patient was diagnosed with COVID-19 infection. Patient feels like she is been sick for a month now. Patient does have some exertional dyspnea. Patient has had some loose stools however that has the past year, unchanged. No fevers. No dyspnea at rest. - Related Data Home Medications Medication Instructions Recorded Confirmed Acetaminophen Tab [Tylenol] 650 mg PO Q4H PRN 01/05/17 12/15/20 Atorvastatin [Lipitor] 20 mg PO HS@2100 01/05/17 12/15/20 Loperamide [Imodium] 4 mg PO Q12H PRN 01/05/17 12/15/20 Magnesium Hydroxide [Milk of 2,400 mg PO DAILY PRN 01/05/17 12/15/20 Magnesia] Na Phos,M-B/Na Phos,Di-Ba [Fleet 133 ml RECTAL DAILY PRN 01/05/17 12/15/20 Adult] Sertraline [Zoloft] 50 mg PO DAILY@0800 01/05/17 12/15/20 bisacodyL [Dulcolax] 10 mg RECTAL DAILY PRN 01/05/17 12/15/20 Aspirin EC [Ecotrin Low Dose] 81 mg PO DAILY@1700 12/15/20 12/15/20 Melatonin 10 mg PO HS@2100 12/15/20 12/15/20 Metoprolol Succinate (ER) [Toprol 100 mg PO DAILY@0800 12/15/20 12/15/20 XL] lisinopriL [Zestril] 10 mg PO DAILY@0800 12/15/20 12/15/20 Previous Rx's Medication Instructions Recorded Cephalexin [Keflex] 250 mg PO TID #14 cap 12/18/20 Diltiazem Oral [Cardizem*] 90 mg PO TID #90 tab 12/18/20 QUEtiapine [SEROquel] 12.5 mg PO HS #30 tab 12/18/20 levETIRAcetam [Keppra] 250 mg PO Q12HR #60 tab 12/18/20 Allergies Allergy/AdvReac Type Severity Reaction Status Date / Time Fish Containing Products Allergy Unknown Verified 10/25/21 20:59 [Fish] sulfamethoxazole Allergy Unknown Verified 10/25/21 20:59 [From Bactrim] trimethoprim [From Bactrim] Allergy Unknown Verified 10/25/21 20:59 Review of Systems ROS Statement: Those systems with pertinent positive or pertinent negative responses have been documented in the HPI. ROS Other: All systems not noted in ROS Statement are negative. Constitutional: Denies: fever Eyes: Denies: eye pain ENT: Denies: ear pain Respiratory: Reports: as per HPI, cough Cardiovascular: Denies: chest pain Endocrine: Denies: fatigue Gastrointestinal: Denies: abdominal pain Genitourinary: Denies: dysuria Musculoskeletal: Denies: back pain Skin: Denies: rash Neurological: Denies: weakness Past Medical History Past Medical History: Atrial Fibrillation, Dementia, Hypertension Additional Past Medical History / Comment(s): hypomagnesia, hypokalemia, colitis, gastrotenteritis, gout. History of Any Multi-Drug Resistant Organisms: None Reported Past Surgical History: No Surgical Hx Reported Past Psychological History: Depression Smoking Status: Never smoker Past Alcohol Use History: None Reported Past Drug Use History: None Reported General Exam Limitations: no limitations General appearance: alert, in no apparent distress Head exam: Present: normocephalic Eye exam: Present: normal appearance Neck exam: Present: normal inspection Respiratory exam: Present: normal lung sounds bilaterally Cardiovascular Exam: Present: regular rate, normal rhythm GI/Abdominal exam: Present: soft. Absent: tenderness Extremities exam: Present: normal inspection. Absent: pedal edema, calf tenderness Neurological exam: Present: alert Psychiatric exam: Present: normal affect, normal mood Skin exam: Present: normal color Course Vital Signs 10/25/21 10/25/21 20:54 21:00 Temperature 98.5 F Pulse Rate 101 H Respiratory 18 18 Rate Blood Pressure 145/107 O2 Sat by Pulse 98 Oximetry Medical Decision Making - Medical Decision Making Patient reevaluated and resting comfortably in bed. Vital signs stable. Patient updated. Patient is not a candidate for oral antiviral therapy secondary to onset of symptoms 1 month ago. Monoclonal antibodies are not available, however patient would not be a candidate for the same reason. - Radiology Data Radiology results: report reviewed (Computed tomography scan negative for pulmonary embolisms. Findings concerning for bronchitis. Cardiomegaly.) Disposition Clinical Impression: COVID-19 Disposition: HOME SELF-CARE Condition: Stable Instructions (If sedation given, give patient instructions): COVID-19 (Coronavirus Disease 2019) (ED) Additional Instructions: [id number] vitamin C, vitamin D, and zinc. Please follow-up with primary care physician in the next day or 2 for recheck. Return for difficulty in breathing, not tolerating fluids, worsening symptoms or other concerns. Is patient prescribed a controlled substance at d/c from ED?: No Referrals: Buddy Macias MD [Primary Care Provider] - 1-2 days Time of Disposition: 22:59
--- NOTE | 2021-10-25 22:46 | CT ---
EXAM: CT Angiography Chest With Intravenous Contrast CLINICAL HISTORY: ITS.REASON CT Reason: dyspnea TECHNIQUE: Axial computed tomographic angiography images of the chest with intravenous contrast. CTDI is 5.4 mGy and DLP is 220.9 mGy-cm. This CT exam was performed using one or more of the following dose reduction techniques: automated exposure control, adjustment of the mA and/or kV according to patient size, and/or use of iterative reconstruction technique. MIP reconstructed images were created and reviewed. COMPARISON: No relevant prior studies available. FINDINGS: Pulmonary arteries: Unremarkable. No pulmonary embolism. Aorta: Ectasia of the ascending aorta. Lungs: Mild to moderate peribronchial thickening of the central and lower lobe bronchi. No mass. No consolidation. Pleural space: Unremarkable. No significant effusion. No pneumothorax. Heart: Heavily calcified atherosclerotic disease of the coronary arteries. Cardiomegaly. No significant pericardial effusion. Reflux of contrast into the IVC and hepatic veins concerning for RV dysfunction. Bones/joints: Remote right rib fracture deformities. Increased thoracic curvature. Multilevel degenerative disc disease of the thoracolumbar spine. No acute fracture. No dislocation. Soft tissues: Findings concerning for adrenal hyperplasia. Status post cholecystectomy. Lymph nodes: Unremarkable. No enlarged lymph nodes. IMPRESSION: No evidence of pulmonary emboli. Findings concerning for bronchitis, which may be of infectious or inflammatory etiologies. Cardiomegaly with RV dysfunction and heavily calcified atherosclerotic disease of the coronary arteries.
[2021-10-25 23:17] VITALS: BP 134/97; PULSE 87; RESP 16; TEMP 97.7
== END 2021-10-25 23:54 | disposition home or self-care (01) ==
LOC: EC 20:51
DX: U07.1 COVID-19 (principal); I10 Essential (primary) hypertension; Z91.013 Allergy to seafood; Z88.2 Allergy status to sulfonamides; Z88.8 Allergy status to other drugs, medicaments and biological substances
CPT/HCPCS: 71275; 99283; Q9967

== ENCOUNTER 2022-04-25 19:19 | Inpatient (IN) | payer MEDICARE, OTHER ==
[2022-04-25] MEDS ORDERED: LORazepam 2 MG/ML INJ IV STA (19:25)
--- NOTE | 2022-04-25 19:51 | CT ---
EXAMINATION TYPE: CT brain wo con CT DLP: 1265 mGycm, Automated exposure control for dose reduction was used. DATE OF EXAM: 04/25/2022 7:45 PM COMPARISON: 12/15/2020. CLINICAL INDICATION:Female, 89 years old with history of Neuro deficit, acute, stroke suspected, TECHNIQUE: Brain: Axial CT images of the brain were obtained with coronal and sagittal reformats created and rev iewed. Contrast used: None. Oral contrast used: None. FINDINGS: Brain: Extra-axial spaces: No abnormal extra-axial fluid collections. Ventricular system: Dilatation in proportion to cerebral atrophy. Bilateral choroid plexus xanthogran ulomas. Cerebral parenchyma: Cerebral atrophy. No acute intraparenchymal hemorrhage or mass effect. The schwarz -white junction is well differentiated. Scattered hypoattenuating areas are seen within the white mat ter. Cerebellum: Unremarkable. Mass effect: No evidence of midline shift. Intracranial vasculature: Atherosclerotic calcifications of the intracranial vessels. Soft tissues: Normal. Calvarium/osseous structures: No depressed skull fracture. Paranasal sinuses and mastoid air cells: Mild scattered paranasal sinus disease. Visualized orbits: Bilateral aphakia IMPRESSION: 1. No acute intracranial process. 2. Nonspecific white matter changes, likely secondary to chronic small vessel ischemic disease.
--- NOTE | 2022-04-25 20:10 | XR ---
EXAMINATION TYPE: XR chest 2V DATE OF EXAM: 04/25/2022 8:02 PM COMPARISON: Chest radiographs from 02/28/2013. TECHNIQUE: XR chest 2V Frontal and lateral views of the chest. CLINICAL INDICATION:Female, 89 years old with history of altered mental status; FINDINGS: Lungs/Pleura: There is no evidence of pleural effusion, focal consolidation, or pneumothorax. Pulmonary vascularity: Pulmonary vascular congestion. Heart/mediastinum: Cardiomediastinal silhouette is enlarged and stable. Musculoskeletal: Degenerative changes of the shoulder joints. IMPRESSION: Cardiomegaly and mild pulmonary vascular congestion. Correlate with BNP for congestive heart failure.
[2022-04-25 20:18] LABS: Basophils % (A) 1 %; Eosinophils % (A) 1 %; HCT 38.6 % (34.0-46.0); HGB 12.8 gm/dL (11.4-16.0); Lymphocytes # (A) 0.5 k/uL (1.0-4.8); Lymphocytes % (A) 6 %; MCH 32.8 pg (25.0-35.0); MCHC 33.1 g/dL (31.0-37.0); MCV 99.1 fL (80.0-100.0); Mean Platelet Volume 9.7; Monocytes # (A) 0.2 k/uL (0-1.0); Monocytes % (A) 2 %; Neutrophils # (A) 7.8 k/uL (1.3-7.7); Neutrophils % (A) 90 %; Platelet Count 124 k/uL (150-450); RBC 3.89 m/uL (3.80-5.40); RDW 14.1 % (11.5-15.5); WBC 8.6 k/uL (3.8-10.6)
--- NOTE | 2022-04-25 20:28 | ED ---
General Adult HPI - General Chief complaint: Altered Mental Status Stated complaint: AMS Time Seen by Provider: 04/25/22 19:25 Source: EMS Mode of arrival: EMS Limitations: altered mental status - History of Present Illness Initial comments: This is an 89-year-old female who presents emergency department from her nursing facility via EMS for altered mental status and possible stroke. EMS stated that there was no information when they arrived and did not know the patient's baseline. They stated that the patient is of a right-sided gaze and may have had a seizure. The patient herself was mumbling and was uncooperative with evaluation. The patient had a right lateral gaze and did not follow commands appropriately. The patient was ANO 0. No further history could be obtained at this time. - Related Data Home Medications Medication Instructions Recorded Confirmed Acetaminophen Tab [Tylenol] 650 mg PO Q6H PRN 01/05/17 04/25/22 Atorvastatin [Lipitor] 20 mg PO DAILY@0800 01/05/17 04/25/22 Na Phos,M-B/Na Phos,Di-Ba [Fleet 133 ml RECTAL DAILY PRN 01/05/17 04/25/22 Adult] Sertraline [Zoloft] 50 mg PO DAILY@0800 01/05/17 04/25/22 bisacodyL [Dulcolax] 10 mg RECTAL DAILY PRN 01/05/17 04/25/22 Aspirin EC [Ecotrin Low Dose] 81 mg PO DAILY@0800 12/15/20 04/25/22 Melatonin 5 mg PO HS@2100 12/15/20 04/25/22 lisinopriL [Zestril] 10 mg PO DAILY@0800 12/15/20 04/25/22 Acetaminophen [Tylenol 8 Hour] 650 mg PO BID@0800,1700 04/25/22 04/25/22 Diltiazem Oral [Cardizem*] 30 mg PO TID@0800,1400,2100 04/25/22 04/25/22 Ensure Enlive 120 ml PO TID@0800,1200,1700 04/25/22 04/25/22 Famotidine [Pepcid] 20 mg PO DAILY@0800 04/25/22 04/25/22 Magnesium Hydroxide [Milk of 7,200 mg PO Q48H PRN 04/25/22 04/25/22 Magnesia Concentrate] Menthol [Biofreeze] 1 applic TOPICAL TID PRN 04/25/22 04/25/22 Metoprolol Tartrate [Lopressor] 50 mg PO TID@0800,1400,209904/25/22 04/25/22 QUEtiapine [SEROquel] 100 mg PO HS@2100 04/25/22 04/25/22 guaiFENesin [guaiFENesin Oral 200 mg PO Q4H PRN 04/25/22 04/25/22 Solution] levETIRAcetam [Keppra] 250 mg PO BID@0800,2100 04/25/22 04/25/22 polyethylene glycoL 3350 [Miralax] 17 gm PO DAILY PRN 04/25/22 04/25/22 Allergies Allergy/AdvReac Type Severity Reaction Status Date / Time Fish Containing Products Allergy Unknown Verified 04/25/22 19:30 [Fish] sulfamethoxazole Allergy Unknown Verified 04/25/22 19:30 [From Bactrim] trimethoprim [From Bactrim] Allergy Unknown Verified 04/25/22 19:30 Review of Systems ROS Statement: Those systems with pertinent positive or pertinent negative responses have been documented in the HPI. ROS Other: All systems not noted in ROS Statement are negative. Past Medical History Past Medical History: Atrial Fibrillation, Dementia, Hypertension Additional Past Medical History / Comment(s): hypomagnesia, hypokalemia, colitis, gastrotenteritis, gout. History of Any Multi-Drug Resistant Organisms: None Reported Past Surgical History: No Surgical Hx Reported Past Psychological History: Depression Smoking Status: Never smoker Past Alcohol Use History: None Reported Past Drug Use History: None Reported General Exam Limitations: altered mental status General appearance: anxious, obtunded Head exam: Present: atraumatic, normocephalic Eye exam: Present: other (Right-sided lateral gaze) Pupils: Present: normal accommodation ENT exam: Present: normal exam, normal oropharynx, mucous membranes moist Neck exam: Present: normal inspection, full ROM Respiratory exam: Present: normal lung sounds bilaterally Cardiovascular Exam: Present: tachycardia, irregular rhythm GI/Abdominal exam: Present: soft, normal bowel sounds Extremities exam: Present: normal inspection Back exam: Present: normal inspection, full ROM Neurological exam: Present: altered, other (Unable to follow commands) Psychiatric exam: Present: agitated, anxious Skin exam: Present: warm, dry Course Vital Signs 04/25/22 19:21 Temperature 97.9 F Pulse Rate 165 H Respiratory 18 Rate Blood Pressure 155/121 O2 Sat by Pulse 95 Oximetry EKG Findings - EKG Comments: EKG Findings:: An EKG was obtaine and interpreted by myself showing a rate of 140, QRS duration 116, QTC of 354. This EKG did show a atrial fibrillation with RVR however did not have any evidence of ST segment elevations or depressions noted. The patient had significant artifact from constant movement. Medical Decision Making - Medical Decision Making Was pt. sent in by a medical professional or institution (, PA, AGGREGATE CONVEYOR OPERATOR, urgent care, hospital, or long term...) When possible be specific @ -Yes, nursing facility Did you speak to anyone other than the patient for history (EMS, parent, family, police, friend...)? What history was obtained from this source @ -Yes, Dr. Macias would saw the patient in the nursing facility, EMS Did you review nursing and triage notes (agree or disagree)? Why? @ -I reviewed and agree with nursing and triage notes Were old charts reviewed (outside hosp., previous admission, EMS record, old EKG, old radiological studies, urgent care reports/EKG's, long term records)? Report findings @ -No old charts were reviewed Differential Diagnosis (chest pain, altered mental status, abdominal pain women, abdominal pain men, vaginal bleeding, weakness, fever, dyspnea, syncope, headache, dizziness, GI bleed, back pain, seizure, CVA, palpatations, mental health)? @ -Acute CVA, post ictal, UTI EKG interpreted by me (3pts min.). @ -As above X-rays interpreted by me (1pt min.). @ -Chest x-ray was obtained and was interpreted by myself showing cardiomegaly and mild pulmonary vascular congestion. CT interpreted by me (1pt min.). @ -Head CT and CTA of the head and neck was obtained per stroke protocol. Head CT was obtained and was interpreted by myself showing no acute intracranial process. CTA of the head and neck was also obtained and was interpreted by myself showing occlusion of the left vertebral artery just passes origin extending into the intracranial portion. The right vertebral artery is patent. There was no evidence of any other pathology. U/S interpreted by me (1pt. min.). @ -None done What testing was considered but not performed or refused? (CT, X-rays, U/S, labs)? Why? @ -None What meds were considered but not given or refused? Why? @ -None Did you discuss the management of the patient with other professionals (professionals i.e. Dr., PA, AGGREGATE CONVEYOR OPERATOR, lab, RT, psych nurse, social worker school, environmental marketer, teacher, sustainability officer, pillowcase folder)? Give summary @ -Yes, neurointerventionalist, Dr. Campbell was contacted at 1931 per stroke protocol. It was agreed that no alteplase will be given at this time. The patient's primary care physician was covered by Dr. PRESTON and Dr. Diamond was contacted at 1929. Dr. Macias was also contacted initially on arrival for baseline status of the patient. Was smoking cessation discussed for >3mins.? @ -No Was critical care preformed (if so, how long)? @ -Yes, see above Were there social determinants of health that impacted care today? How? (Homelessness, low income, unemployed, alcoholism, drug addiction, transportatio n, low edu. Level, literacy, decrease access to med. care, correction, rehab)? @ -No Was there de-escalation of care discussed even if they declined (Discuss DNR or withdrawal of care, Hospice)? DNR status @ -No What co-morbidities impacted this encounter? (DM, HTN, Smoking, COPD, CAD, Cancer, CVA, ARF, Chemo, Hep., AIDS, mental health diagnosis, sleep apnea, morbid obesity)? @ -Atrial fibrillation, hypertension, dementia Was patient admitted / discharged? Hospital course, mention meds given and route, prescriptions, significant lab abnormalities, going to OR and other pertinent info. @ -Patient was seen and evaluated in emergency department. Initially on arrival, due to the patient's change in status, a code stroke was called at 1924. Initial NIH was significantly elevated secondary to the patient's inability to cooperate. The patient had a right-sided gaze and was ANO 0. Imaging for a code stroke was obtained and CTA of the head and neck showed an occlusion of the left vertebral artery. Dr. Campbell was contacted once again for these findings and he did recommend rectal aspirin and pulled onto if the patient could tolerate swallowing. He also continued to state that no intervention will be required at this time. The patient's heart rate did co ntinue to remain elevated and was in atrial fibrillation with RVR. The patient was started on a Cardizem drip for this. The patient remained stable and was able to calm down after 1 g of Ativan was given in order to obtain the CT scans. Due to the patient's left vertebral occlusion in the setting of CVA and atrial fibrillation with RVR, the patient will be admitted for further workup and evaluation. The patient's primary care physician was covered by Dr. Diamond and he did accept the patient for admission. The patient's son was also at the bedside and did agree to admission. The patient was abated in stable condition. Undiagnosed new problem with uncertain prognosis? @ -No Drug Therapy requiring intensive monitoring for toxicity (Heparin, Nitro, Insulin, Cardizem)? @ -Cardizem Were any procedures done? @ -No Diagnosis/symptom? 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 @ -Acute Uncomplicated (without systemic symptoms) or Complicated (systemic symptoms)? @ -Complicated Side effects of treatment? @ -No Exacerbation, Progression, or Severe Exacerbation? @ -No Poses a threat to life or bodily function? How? (Chest pain, [place], [place], pneumonia, PE, COPD, DKA, ARF, appy, cholecystitis, CVA, Diverticulitis, Homicidal, Suicidal, threat to staff... and all critical care pts) @ -Yes, CVA with left vertebral artery occlusion can worsen and cause permanent damage and possible Diagnosis/symptom? @ -Atrial fibrillation with RVR Acute, or Chronic, or Acute on Chronic? @ -Acute on chronic Uncomplicated (without systemic symptoms) or Complicated (systemic symptoms)? @ -Complicated Side effects of treatment? @ -none Exacerbation, Progression, or Severe Exacerbation] @ -no Poses a threat to life or bodily function? @ -Yes, atrial fibrillation with RVR can cause continued cardiac dysrhythmia and possible . Critical Care Time Critical Care Time: Yes Total Critical Care Time: 41 Disposition Clinical Impression: CVA (cerebral vascular accident), Vertebral artery occlusion, Atrial fibrillation with RVR Disposition: ADMITTED IP TO THIS HOSP Condition: Stable Is patient prescribed a controlled substance at d/c from ED?: No Referrals: Colleen,Buddy, MD [Primary Care Provider] - 1-2 days Time of Disposition: 20:45 Decision to Admit Reason: Admit from EC Decision Date: 04/25/22 Decision Time: 20:45
[2022-04-25 20:29] LABS: Partial Thromboplastin Time 23.8 sec (22.0-30.0); Prothrombin Time 10.5 sec (9.0-12.0)
[2022-04-25 20:31] LABS: ALT 40 U/L (4-34); AST 52 U/L (14-36); African American GFR (CKD) >90 (>60 ml/min/1.73 sqM); Albumin 3.6 g/dL (3.5-5.0); Alkaline Phosphatase 77 U/L (38-126); Anion Gap 7 mmol/L; Blood Urea Nitrogen 22 mg/dL (7-17); Calcium 8.9 mg/dL (8.4-10.2); Carbon Dioxide 25 mmol/L (22-30); Chloride 104 mmol/L (98-107); Glucose 134 mg/dL (74-99); Non-African American GFR(CKD) 79 (>60 ml/min/1.73 sqM); Potassium 4.7 mmol/L (3.5-5.1); Sodium 136 mmol/L (137-145); Total Bilirubin 0.5 mg/dL (0.2-1.3); Total Protein 6.4 g/dL (6.3-8.2)
--- NOTE | 2022-04-25 20:34 | CT ---
EXAMINATION TYPE: CT angio head neck CT DLP: 472.9 mGycm, Automated exposure control for dose reduction was used. DATE OF EXAM: 04/25/2022 8:19 PM COMPARISON: CT head same day CLINICAL INDICATION:Female, 89 years old with history of Neuro deficit, acute, stroke suspected, Neur o deficit, suspected stroke TECHNIQUE: Axially acquired helical CT angiogram of the head and neck was obtained with contrast. Axi al images are supplemented with 3D reconstructions which [facility] NASCET criteria used. Contrast used:65 mL of Isovue 370 with IV Contrast, Oral contrast used: None. FINDINGS: CTA HEAD: No evidence of acute intracranial hemorrhage, mass effect, or midline shift. The ventricles, sulci, a nd cisterns are unremarkable. The visualized portions of the internal carotid arteries, middle cerebral arteries, anterior cerebral arteries, and posterior cerebral arteries are patent. The basilar and vertebral arteries are patent. Reconstitution of the left vertebral artery before its confluence. CTA NECK: Right Carotid System: The common carotid artery and external carotid artery are patent. The carotid bifurcation demonstrate s calcified plaque without evidence of hemodynamically significant stenosis. The remaining portions o f the internal carotid artery demonstrate normal size without significant narrowing. Left Carotid System: The common carotid artery and external carotid artery are patent. The carotid bifurcation demonstrate s calcified plaque without evidence of hemodynamically significant stenosis. The remaining portions o f the internal carotid artery demonstrate normal size without significant narrowing. The origins of the right and left vertebral arteries are patent. Just after the origin of the left ve rtebral artery is occluded extending to the intracranial portion. There is a three-vessel aortic arch. The origins of the great vessels are patent. No evidence of hemo dynamically significant stenosis. Upper thorax: The heart is enlarged for size. There is mild intralobular septal thickening. The left atrium is dilated. Coronary calcifications are present. No pulmonary arterial filling defect visualiz ed. IMPRESSION: 1. Occlusion of the left vertebral artery just past its origin extending into the intracranial porti on. The right vertebral artery is patent. 2. No evidence of dissection of the cervical internal carotid arteries. 3. No evidence of significant stenosis at the carotid bifurcations. 4. No evidence of intracranial high-grade stenosis or intracranial aneurysm.
[2022-04-25] MEDS: DILTIAZEM 125 MG in SODIUM CHLORIDE 0.9% 100 ML IV SCH (20:40)
[2022-04-25] MEDS ORDERED: ASPIRIN 300 MG SUPP RECTAL STA (20:41)
[2022-04-25 22:05] LABS: Appearance,Urine Clear (Clear); Bilirubin,Urine Negative (Negative); Blood,Urine Negative (Negative); Color,Urine Yellow; Glucose,Urine (UA) Negative (Negative); Hyaline Casts,Urine 1 /lpf (0-2); Ketones,Urine Negative (Negative); Leukocyte Esterase,Urine Negative (Negative); Mucus,Urine Rare /hpf; Nitrite,Urine Negative (Negative); PH, Urine 5.5 (5.0-8.0); Protein,Urine 1+ (Negative); RBC,Urine 3 /hpf (0-5); Specific Gravity,Urine 1.037 (1.001-1.035); Urobilinogen,Urine <2.0 mg/dL (<2.0); WBC,Urine 1 /hpf (0-5)
[2022-04-26] MEDS: TICAGRELOR 90 MG TAB PO SCH ×3 (01:52→21:50)
[2022-04-26] MEDS: LORazepam 2 MG/ML INJ IV PRN ×4 (04:20→21:29)
[2022-04-26] MEDS: DILTIAZEM 125 MG in SODIUM CHLORIDE 0.9% 100 ML IV SCH (04:51)
--- NOTE | 2022-04-26 09:27 | P.HPIM ---
History of Present Illness This is a pleasant 89 years old female with past medical history of hypertension, atrial fibrillation, seizure, hyperlipidemia. Patient is poor historian so information was obtained from the records and staff. No family at bedside Patient was sent from residential for confusion, usually she is oriented 1 but currently has no orientation and she is more confused. Earlier today she was agitated and she was taken to the staff, currently she is sleeping comfortably in bed. No other information available for now Vitas reviewed, patient is slightly tachycardic with 117, she is saturating 92% on room air. Afebrile CBC is unremarkable except for mild thrombocytopenia, INR, BMP is unremarkable. Limited lactic acid 2.4 came back to normal. Liver enzymes slightly up with AST 52 and ALT 40. Bilirubin normal 0.5. Urine analysis is not Suspicious of infection. 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 No evidence of dissection or high-grade stenosis. CTA of the head and neck, no acute fracture Chest x-ray: Cardiomegaly with mild vascular congestion suspicious for CHF EKG showed atrial fibrillation at the rate of 140 Patient was started on aspirin and brlinta Review of Systems ROS unobtainable: due to mental status Past Medical History Past Medical History: Atrial Fibrillation, Dementia, Hypertension Additional Past Medical History / Comment(s): hypomagnesia, hypokalemia, colitis, gastrotenteritis, gerd. History of Any Multi-Drug Resistant Organisms: None Reported Past Surgical History: No Surgical Hx Reported Additional Past Surgical History / Comment(s): bottom of spine removed, cysts removed from breast, knee replacement, partial hip replacement Past Anesthesia/Blood Transfusion Reactions: No Reported Reaction Past Psychological History: Depression Smoking Status: Never smoker Past Alcohol Use History: None Reported Past Drug Use History: None Reported Medications and Allergies Home Medications Medication Instructions Recorded Confirmed Type Acetaminophen Tab [Tylenol] 650 mg PO Q6H PRN 01/05/17 04/25/22 History Atorvastatin [Lipitor] 20 mg PO DAILY@0800 01/05/17 04/25/22 History Na Phos,M-B/Na Phos,Di-Ba [Fleet 133 ml RECTAL DAILY PRN 01/05/17 04/25/22 History Adult] Sertraline [Zoloft] 50 mg PO DAILY@0800 01/05/17 04/25/22 History bisacodyL [Dulcolax] 10 mg RECTAL DAILY PRN 01/05/17 04/25/22 History Aspirin EC [Ecotrin Low Dose] 81 mg PO DAILY@0800 12/15/20 04/25/22 History Melatonin 5 mg PO HS@209912/15/20 04/25/22 History lisinopriL [Zestril] 10 mg PO DAILY@0800 12/15/20 04/25/22 History Acetaminophen [Tylenol 8 Hour] 650 mg PO BID@0800,1700 04/25/22 04/25/22 History Diltiazem Oral [Cardizem*] 30 mg PO TID@0800,1400,209904/25/22 04/25/22 History Ensure Enlive 120 ml PO TID@0800,1200,1700 04/25/22 04/25/22 History Famotidine [Pepcid] 20 mg PO DAILY@0800 04/25/22 04/25/22 History Magnesium Hydroxide [Milk of 7,200 mg PO Q48H PRN 04/25/22 04/25/22 History Magnesia Concentrate] Menthol [Biofreeze] 1 applic TOPICAL TID PRN 04/25/22 04/25/22 History Metoprolol Tartrate [Lopressor] 50 mg PO TID@0800,1400,209904/25/22 04/25/22 History QUEtiapine [SEROquel] 100 mg PO HS@209904/25/22 04/25/22 History guaiFENesin [guaiFENesin Oral 200 mg PO Q4H PRN 04/25/22 04/25/22 History Solution] levETIRAcetam [Keppra] 250 mg PO BID@0800,209904/25/22 04/25/22 History polyethylene glycoL 3350 [Miralax] 17 gm PO DAILY PRN 04/25/22 04/25/22 History Allergies Allergy/AdvReac Type Severity Reaction Status Date / Time Fish Containing Products Allergy Unknown Verified 04/25/22 19:30 [Fish] sulfamethoxazole Allergy Unknown Verified 04/25/22 19:30 [From Bactrim] trimethoprim [From Bactrim] Allergy Unknown Verified 04/25/22 19:30 Physical Exam Vitals: Vital Signs Temp Pulse Pulse Resp BP BP Pulse Ox 04/26/22 04:00 101 H 24 150/76 92 L 04/26/22 02:00 117 H 18 04/26/22 00:45 117 H 18 143/91 93 L 04/26/22 00:02 101 H 16 134/94 95 04/26/22 00:00 117 H 20 143/91 93 L 04/25/22 23:41 97.6 F 104 H 17 134/86 95 04/25/22 23:11 90 16 150/96 95 04/25/22 23:02 86 16 130/89 95 04/25/22 22:41 101 H 17 143/111 95 04/25/22 22:11 100 16 149/99 95 04/25/22 22:02 110 H 16 152/104 95 04/25/22 21:40 107 H 17 149/114 95 04/25/22 21:25 120 H 16 149/99 95 04/25/22 21:11 120 H 17 146/105 95 04/25/22 20:56 97.7 F 124 H 16 152/105 95 04/25/22 20:43 97.6 F 123 H 16 141/96 95 04/25/22 20:35 127 H 17 153/114 95 04/25/22 20:30 121 H 16 137/113 95 04/25/22 20:05 132 H 16 153/122 95 04/25/22 19:50 129 H 17 152/104 95 04/25/22 19:35 97.8 F 130 H 16 141/107 95 04/25/22 19:25 97.7 F 145 H 16 150/124 95 04/25/22 19:21 97.9 F 165 H 18 155/121 95 Intake and Output 04/25/22 04/26/22 04/26/22 22:59 06:59 14:59 Intake Total 40.917 Balance 40.917 Intake: Intake, IV Titration 40.917 Amount Diltiazem 125 mg In 40.917 Sodium Chloride 0.9% 100 ml @ 5 MG/HR 5 mls/hr IV .Q24H [facility] Rx#:[id number] Other: Voiding Method Bedside Commode Diaper # Voids 0 Weight 58.6 kg 58.6 kg -GENERAL: The patient is confused and combative at times, currently sleeping peacefully in bed, not in any acute distress. Well developed, well nourished. HEENT: Pupils are round and equally reacting to light. EOMI. No scleral icterus. No conjunctival pallor. Normocephalic, atraumatic. No pharyngeal erythema. No thyromegaly. CARDIOVASCULAR: S1 and S2 present. No murmurs, rubs, or gallops. PULMONARY: Chest is clear to auscultation, no wheezing or crackles. ABDOMEN: Soft, nontender, nondistended, normoactive bowel sounds. No palpable organomegaly. MUSCULOSKELETAL: No joint swelling or deformity. EXTREMITIES: No cyanosis, clubbing, or pedal edema. NEUROLOGICAL: Gross neurological examination did not reveal any focal deficits. SKIN: No rashes. no petechiae. Results CBC & Chem 7: 04/25/22 20:02 04/25/22 20:02 Labs: Abnormal Lab Results - Last 24 Hours (Table) 04/25/22 04/25/22 04/25/22 Range/Units 20:02 20:02 20:02 Plt Count 124 L (150-450) k/uL Neutrophils # 7.8 H (1.3-7.7) k/uL Lymphocytes # 0.5 L (1.0-4.8) k/uL Sodium 136 L (137-145) mmol/L BUN 22 H (7-17) mg/dL Glucose 134 H (74-99) mg/dL Plasma Lactic Acid Lasha (0.7-2.0) mmol/L AST 52 H (14-36) U/L ALT 40 H (4-34) U/L Creatine Kinase (30-135) U/L Ur Specific Rudy 1.037 H (1.001-1.035) Urine Protein 1+ H (Negative) Urine Mucus Rare H (None) /hpf 04/25/22 04/25/22 Range/Units 20:02 20:02 Plt Count (150-450) k/uL Neutrophils # (1.3-7.7) k/uL Lymphocytes # (1.0-4.8) k/uL Sodium (137-145) mmol/L BUN (7-17) mg/dL Glucose (74-99) mg/dL Plasma Lactic Acid Lasha 2.4 H* (0.7-2.0) mmol/L AST (14-36) U/L ALT (4-34) U/L Creatine Kinase <20 L (30-135) U/L Ur Specific Rudy (1.001-1.035) Urine Protein (Negative) Urine Mucus (None) /hpf Thrombosis Risk Factor Assmnt - Choose All That Apply Any of the Below Risk Factors Present?: Yes Each Factor Represents 1 point: Swollen legs (current) Other Risk Factors: Yes Each Risk Factor Represents 3 Points: Age 75 years or older Other congenital or acquired thrombophilia - If yes, enter type in comment: No Thrombosis Risk Factor Assessment Total Risk Factor Score: 4 Thrombosis Risk Factor Assessment Level: Moderate Risk Assessment and Plan Assessment: A. fib and RVR, placed on admission Worsening altered mental status, rule out metabolic/toxic encephalopathy on the top of her chronic dementia Occluded left vertebral artery Hypertension Hyperlipidemia Chronic atrial fibrillation History of seizure Plan: Continue with aspirin Neurology consult Cardiology consult Labs and medication were reviewed.. Continue same treatment. Continue with symptomatic treatment. Resume home medication. Monitor labs and vitals. DVT and GI prophylaxis. Further recommendations as per clinical course of the patient DVT prophylaxis: Subcutaneous heparin GI Prophylaxis: Pepcid PT/OT: Pending Prognosis is guarded
[2022-04-26] MEDS: levETIRAcetam IV 250 MG in SODIUM CHLORIDE 0.9% 100 ML IVPB SCH ×2 (11:18→21:49)
--- NOTE | 2022-04-26 11:47 | P.CRDCN ---
History of Present Illness History of present illness: HISTORY OF PRESENT ILLNESS: This is a 89 year old female with a past medical history significant for chronic atrial fibrillation, hypertension, hyperlipidemia, seizure disorder, dementia, and subarachnoid hemorrhage. Patient follows in the office with Dr. Boles. We have been asked to see the patient in consultation for atrial fibrillation. Patient examined at the bedside. Patient was brought to the hospital from [facility] secondary to altered mental status. Apparently the patient is alert and oriented 1 at baseline. This morning the patient is confused and agitated. There is a director employee safety and health present. The patient is currently wearing mitts and a lap belt. She was trying to bite and kick the nursing staff. Patient underwent CT brain which was negative for acute process. The patient was found to be in A. fib with RVR. She is currently on a Cardizem drip at 5 mg an hour. Patient's heart rates are in the 110s. She is unable to take any oral medications this morning secondary to her mental status. She is unable to provide any history at the time of examination. * EKG reveals A. fib with RVR * Chest xray cardiomegaly with mild pulmonary vascular congestion * Laboratory data: WBC 8.6. Hemoglobin 12.8. Platelet count 124. Sodium 136. Potassium 4.7. BUN 22. Creatinine 0.66. Troponin negative 1. * Current home cardiac medications include aspirin 81 mg daily, lisinopril 10 mg daily, Lipitor 20 mg daily, Cardizem 30 mg 3 times a day, metoprolol tartrate 50 mg 3 times a day * Most recent echocardiogram obtained in November 2020 revealed ejection fraction 55-60%, moderate MR, severe TR, moderate pulmonary hypertension * Cardiac catheterization history: 2008 revealing noncritical coronary artery disease with normal filling pressures. Left dominant system with mild irregularities but no significant obstructive disease. REVIEW OF SYSTEMS: At the time of my exam: Unable to obtain thorough review of systems secondary to altered mental status PHYSICAL EXAM: VITAL SIGNS: Reviewed. GENERAL: Well-developed in no acute distress. HEENT: Head is normocephalic. Pupils are equal, round. Sclerae anicteric. Mucous membranes of the mouth are moist. Neck supple. No JVD or thyromegaly LUNGS: Respirations even and unlabored. Lungs essentially clear to auscultation bilaterally. HEART: Tachycardic. Irregular rate and rhythm. S1 and S2 heard. ABDOMEN: Soft. Nondistended. Nontender. EXTREMITIES: Normal range of motion. No clubbing or cyanosis. Peripheral pulses intact. No lower extremity edema NEUROLOGIC: Oriented x 0. ASSESSMENT: Altered mental status Chronic atrial fibrillation with RVR History of subarachnoid hemorrhage Hypertension Hyperlipidemia Seizure disorder Dementia PLAN: Obtain 2D echo to assess cardiac structure and function Continue IV Cardizem as patient unable to take PO medications Begin metoprolol 5mg IVP Q12 hours Continue telemetry monitoring Further recommendations pending patient course Nurse practitioner note has been reviewed by physician. Signing provider agrees with the documented findings, assessment, and plan of care. Past Medical History Past Medical History: Atrial Fibrillation, Dementia, Hypertension Additional Past Medical History / Comment(s): hypomagnesia, hypokalemia, colitis, gastrotenteritis, gerd. History of Any Multi-Drug Resistant Organisms: None Reported Past Surgical History: No Surgical Hx Reported Additional Past Surgical History / Comment(s): bottom of spine removed, cysts removed from breast, knee replacement, partial hip replacement Past Anesthesia/Blood Transfusion Reactions: No Reported Reaction Past Psychological History: Depression Smoking Status: Never smoker Past Alcohol Use History: None Reported Past Drug Use History: None Reported Medications and Allergies Home Medications Medication Instructions Recorded Confirmed Type Acetaminophen Tab [Tylenol] 650 mg PO Q6H PRN 01/05/17 04/25/22 History Atorvastatin [Lipitor] 20 mg PO DAILY@0800 01/05/17 04/25/22 History Na Phos,M-B/Na Phos,Di-Ba [Fleet 133 ml RECTAL DAILY PRN 01/05/17 04/25/22 History Adult] Sertraline [Zoloft] 50 mg PO DAILY@0800 01/05/17 04/25/22 History bisacodyL [Dulcolax] 10 mg RECTAL DAILY PRN 01/05/17 04/25/22 History Aspirin EC [Ecotrin Low Dose] 81 mg PO DAILY@0800 12/15/20 04/25/22 History Melatonin 5 mg PO HS@2100 12/15/20 04/25/22 History lisinopriL [Zestril] 10 mg PO DAILY@0800 12/15/20 04/25/22 History Acetaminophen [Tylenol 8 Hour] 650 mg PO BID@0800,1700 04/25/22 04/25/22 History Diltiazem Oral [Cardizem*] 30 mg PO TID@0800,1400,2100 04/25/22 04/25/22 History Ensure Enlive 120 ml PO TID@0800,1200,1700 04/25/22 04/25/22 History Famotidine [Pepcid] 20 mg PO DAILY@0800 04/25/22 04/25/22 History Magnesium Hydroxide [Milk of 7,200 mg PO Q48H PRN 04/25/22 04/25/22 History Magnesia Concentrate] Menthol [Biofreeze] 1 applic TOPICAL TID PRN 04/25/22 04/25/22 History Metoprolol Tartrate [Lopressor] 50 mg PO TID@0800,1400,209904/25/22 04/25/22 History QUEtiapine [SEROquel] 100 mg PO HS@209904/25/22 04/25/22 History guaiFENesin [guaiFENesin Oral 200 mg PO Q4H PRN 04/25/22 04/25/22 History Solution] levETIRAcetam [Keppra] 250 mg PO BID@0800,2100 04/25/22 04/25/22 History polyethylene glycoL 3350 [Miralax] 17 gm PO DAILY PRN 04/25/22 04/25/22 History Allergies Allergy/AdvReac Type Severity Reaction Status Date / Time Fish Containing Products Allergy Unknown Verified 04/25/22 19:30 [Fish] sulfamethoxazole Allergy Unknown Verified 04/25/22 19:30 [From Bactrim] trimethoprim [From Bactrim] Allergy Unknown Verified 04/25/22 19:30 Physical Exam Vitals: Vital Signs Temp Pulse Pulse Resp BP BP Pulse Ox 04/26/22 08:05 110 H 18 129/77 94 L 04/26/22 04:00 101 H 24 150/76 92 L 04/26/22 02:00 117 H 18 04/26/22 00:45 117 H 18 143/91 93 L 04/26/22 00:02 101 H 16 134/94 95 04/26/22 00:00 117 H 20 143/91 93 L 04/25/22 23:41 97.6 F 104 H 17 134/86 95 04/25/22 23:11 90 16 150/96 95 04/25/22 23:02 86 16 130/89 95 04/25/22 22:41 101 H 17 143/111 95 04/25/22 22:11 100 16 149/99 95 04/25/22 22:02 110 H 16 152/104 95 04/25/22 21:40 107 H 17 149/114 95 04/25/22 21:25 120 H 16 149/99 95 04/25/22 21:11 120 H 17 146/105 95 04/25/22 20:56 97.7 F 124 H 16 152/105 95 04/25/22 20:43 97.6 F 123 H 16 141/96 95 04/25/22 20:35 127 H 17 153/114 95 04/25/22 20:30 121 H 16 137/113 95 04/25/22 20:05 132 H 16 153/122 95 04/25/22 19:50 129 H 17 152/104 95 04/25/22 19:35 97.8 F 130 H 16 141/107 95 04/25/22 19:25 97.7 F 145 H 16 150/124 95 04/25/22 19:21 97.9 F 165 H 18 155/121 95 Intake and Output 04/25/22 04/26/22 04/26/22 22:59 06:59 14:59 Intake Total 40.917 Balance 40.917 Intake: Intake, IV Titration 40.917 Amount Diltiazem 125 mg In 40.917 Sodium Chloride 0.9% 100 ml @ 5 MG/HR 5 mls/hr IV .Q24H [facility] Rx#:[id number] Other: Voiding Method Bedside Commode Bedside Commode Diaper Diaper # Voids 0 0 Weight 58.6 kg 58.6 kg Results 04/25/22 20:02 04/25/22 20:02 Cardiac Enzymes 04/25/22 04/25/22 Range/Units 20:02 20:02 AST 52 H (14-36) U/L Troponin I <0.012 (0.000-0.034) ng/mL Coagulation 04/25/22 Range/Units 20:02 PT 10.5 (9.0-12.0) sec APTT 23.8 (22.0-30.0) sec CBC 04/25/22 Range/Units 20:02 WBC 8.6 (3.8-10.6) k/uL RBC 3.89 (3.80-5.40) m/uL Hgb 12.8 (11.4-16.0) gm/dL Hct 38.6 (34.0-46.0) % Plt Count 124 L (150-450) k/uL Comprehensive Metabolic Panel 04/25/22 Range/Units 20:02 Sodium 136 L (137-145) mmol/L Potassium 4.7 (3.5-5.1) mmol/L Chloride 104 (98-107) mmol/L Carbon Dioxide 25 (22-30) mmol/L BUN 22 H (7-17) mg/dL Creatinine 0.66 (0.52-1.04) mg/dL Glucose 134 H (74-99) mg/dL Calcium 8.9 (8.4-10.2) mg/dL AST 52 H (14-36) U/L ALT 40 H (4-34) U/L Alkaline Phosphatase 77 (38-126) U/L Total Protein 6.4 (6.3-8.2) g/dL Albumin 3.6 (3.5-5.0) g/dL Current Medications Generic Name Dose Route Start Last Admin Trade Name Freq PRN Reason Stop Dose Admin Aspirin 300 mg 04/27/22 09:00 Aspirin 300 Mg Supp RECTAL DAILY [facility] Famotidine 10 mg 04/26/22 21:00 Famotidine 20 Mg/2 Ml Vial IV Q12HR NORM Heparin Sodium (Porcine) 5,000 unit 04/26/22 21:00 Heparin Sodium,Porcine/Pf 5,000 Unit/0.5 Ml Syringe SQ Q12HR NORM Diltiazem HCl 125 mg/ Sodium 125 mls @ 5 mls/hr 04/25/22 20:30 04/26/22 04:51 Chloride IV 5 mg/hr .Q24H NORM 5 mls/hr Administration 5 MG/HR Levetiracetam 250 mg/ Sodium 102.5 mls @ 400 mls/hr 04/26/22 11:00 Chloride IVPB Q12HR NORM Lorazepam 1 mg 04/26/22 04:11 04/26/22 08:15 Lorazepam 2 Mg/Ml Inj IV 1 mg Q4HR PRN Administration Anxiety Metoprolol Tartrate 50 mg 04/26/22 14:00 Metoprolol Tartrate 50 Mg Tab PO TID@0800,1400,2100 [facility] Quetiapine Fumarate 100 mg 04/26/22 21:00 Quetiapine 100 Mg Tab PO HS@2100 [facility] Sertraline HCl 50 mg 04/27/22 08:00 Sertraline 50 Mg Tab PO DAILY@0800 [facility] Ticagrelor 90 mg 04/25/22 21:00 04/26/22 09:18 Ticagrelor 90 Mg Tab PO Not Given BID [facility] Intake and Output 04/25/22 04/26/22 04/26/22 22:59 06:59 14:59 Intake Total 40.917 Balance 40.917 Intake: Intake, IV Titration 40.917 Amount Diltiazem 125 mg In 40.917 Sodium Chloride 0.9% 100 ml @ 5 MG/HR 5 mls/hr IV .Q24H [facility] Rx#:[id number] Other: Voiding Method Bedside Commode Bedside Commode Diaper Diaper # Voids 0 0 Weight 58.6 kg 58.6 kg 04/25/22 20:02 04/25/22 20:02
[2022-04-26] MEDS: METOPROLOL TARTRATE 5 MG/5 ML VIAL IVP SCH ×2 (12:15→21:28)
[2022-04-26] MEDS ORDERED: METOPROLOL TARTRATE 50 MG TAB PO SCH (14:00)
--- NOTE | 2022-04-26 16:31 | P.CNNES ---
History of Present Illness Consult date: 04/26/22 Requesting physician: Kaveh Ahumada Reason for Consult: CVA History of Present Illness: Patient is a 89-year-old female with history of dementia, atrial fibrillation, currently not on anticoagulation because of history of bifrontal intraparenchymal intracranial bleed in around 2016, has history of new onset seizure on 12/15/2020, when she had a seizure at home, and also in the ambulance. Patient at that time was seen by Dr. Michael Banerjee, started on Keppra. Patient has been seizure free since then. Patient was brought to the hospital yesterday at 7:19 PM because of a breakthrough seizure. As per EMS flow sheet, when they arrived, patient was sitting in bed, nursing staff stated that patient had vomited at approximately 4:30 PM and then had a period of unresponsiveness, lasting several minutes. Staff mentioned patient has just "not seen normal" since. Patient was found to be alert and oriented 1, which is her baseline because of dementia. Patient complained of nausea, dizziness. Patient's EKG showed atrial fibrillation. Patient was given Zofran. Stroke scale could not be performed because of patient was uncooperative. Her vitals at the scene was blood pressure 191/130, pulse rate 135 respirations 16 saturation 97% and blood sugar 145. Repeat blood pressure was 151/121. Vital signs on arrival blood pressure 155/121, pulse rate 165. It has been persistently running high. Patient's blood test shows normal CBC, PT/PTT, sodium 136 potassium 4.7, normal renal functions. Lactate was 2.4. AST 52, ALT 40, CK normal [address] head showed no acute intracranial process. Nonspecific white matter changes likely secondary to chronic small vessel ischemic disease. I personally review CT head, agree with the findings. Chest x-ray revealed cardiomegaly and mild pulmonary vascular congestion. Correlate with BNP for congestive heart failure. EKG shows atrial fibrillation with rapid ventricular rate. Patient's daughter states that she spoke to the [facility] staff,, who mentioned that patient became unresponsive and she was looking only to the right. She was unresponsive with this seizure. The nursing staff felt it was a seizure, patient's daughter does not know how long it lasted. Patient's daughter also mentioned that patient has been on Seroquel and the dose was increased about 2 weeks ago. Patient does have advanced dementia and knows her daughter, but today she is not recognizing her daughter. She is combative. Patient's daughter states that she otherwise is usually fine when the daughter is present, but patient could be challenging to the staff because of her behavioral problems. She knows her grandchildren. Sometimes she is better orie nted than other times. She was prescribed a walker after her hip surgery 10 years ago, but she was not compliant and would use cane. However after her brain bleed, she has been religiously using walker. Patient has been off anticoagulants for last 1-1/2 years. At present patient does not have any speech difficulty, facial droop or focal weakness noted by the patient's sister or myself. Patient's prior CT head on 01/06/2017 performed for a fall and altered mental status revealed right frontal scalp hematoma and cerebral parenchymal hemorrhage in the inferior right frontal lobe and a small area in the left posterior frontal lobe. Patient had an MRI of the brain performed 04/23/2017, which revealed evolution of the blood products in decrease in size of the previously seen right frontal and left frontal posttraumatic intraparenchymal hemorrhages. No evidence of any acute intracranial hemorrhage. Review of Systems Patient not cooperating with the review of systems. Patient's daughter does not know anything more details or the nursing staff. Except as mentioned in HPI. ROS unobtainable: due to mental status Past Medical History Past Medical History: Atrial Fibrillation, Dementia, Hypertension Additional Past Medical History / Comment(s): hypomagnesia, hypokalemia, colitis, gastrotenteritis, gerd. History of Any Multi-Drug Resistant Organisms: None Reported Past Surgical History: No Surgical Hx Reported Additional Past Surgical History / Comment(s): bottom of spine removed, cysts removed from breast, knee replacement, partial hip replacement Past Anesthesia/Blood Transfusion Reactions: No Reported Reaction Past Psychological History: Depression Smoking Status: Never smoker Past Alcohol Use History: None Reported Past Drug Use History: None Reported Medications and Allergies Home Medications Medication Instructions Recorded Confirmed Type Acetaminophen Tab [Tylenol] 650 mg PO Q6H PRN 01/05/17 04/25/22 History Atorvastatin [Lipitor] 20 mg PO DAILY@0800 01/05/17 04/25/22 History Na Phos,M-B/Na Phos,Di-Ba [Fleet 133 ml RECTAL DAILY PRN 01/05/17 04/25/22 History Adult] Sertraline [Zoloft] 50 mg PO DAILY@0800 01/05/17 04/25/22 History bisacodyL [Dulcolax] 10 mg RECTAL DAILY PRN 01/05/17 04/25/22 History Aspirin EC [Ecotrin Low Dose] 81 mg PO DAILY@0800 12/15/20 04/25/22 History Melatonin 5 mg PO HS@209912/15/20 04/25/22 History lisinopriL [Zestril] 10 mg PO DAILY@0800 12/15/20 04/25/22 History Acetaminophen [Tylenol 8 Hour] 650 mg PO BID@0800,1700 04/25/22 04/25/22 History Diltiazem Oral [Cardizem*] 30 mg PO TID@0800,1400,209904/25/22 04/25/22 History Ensure Enlive 120 ml PO TID@0800,1200,1700 04/25/22 04/25/22 History Famotidine [Pepcid] 20 mg PO DAILY@0800 04/25/22 04/25/22 History Magnesium Hydroxide [Milk of 7,200 mg PO Q48H PRN 04/25/22 04/25/22 History Magnesia Concentrate] Menthol [Biofreeze] 1 applic TOPICAL TID PRN 04/25/22 04/25/22 History Metoprolol Tartrate [Lopressor] 50 mg PO TID@0800,1400,209904/25/22 04/25/22 History QUEtiapine [SEROquel] 100 mg PO HS@209904/25/22 04/25/22 History guaiFENesin [guaiFENesin Oral 200 mg PO Q4H PRN 04/25/22 04/25/22 History Solution] levETIRAcetam [Keppra] 250 mg PO BID@0800,2100 04/25/22 04/25/22 History polyethylene glycoL 3350 [Miralax] 17 gm PO DAILY PRN 04/25/22 04/25/22 History Allergies Allergy/AdvReac Type Severity Reaction Status Date / Time Fish Containing Products Allergy Unknown Verified 04/25/22 19:30 [Fish] sulfamethoxazole Allergy Unknown Verified 04/25/22 19:30 [From Bactrim] trimethoprim [From Bactrim] Allergy Unknown Verified 04/25/22 19:30 Physical Examination - Vital Signs Vital Signs: Vital Signs Temp Pulse Pulse Resp BP BP Pulse Ox 04/26/22 12:21 93 L 04/26/22 11:20 97.7 F 82 18 146/73 93 L 04/26/22 08:05 110 H 18 129/77 94 L 04/26/22 04:00 101 H 24 150/76 92 L 04/26/22 02:00 117 H 18 04/26/22 00:45 117 H 18 143/91 93 L 04/26/22 00:02 101 H 16 134/94 95 04/26/22 00:00 117 H 20 143/91 93 L 04/25/22 23:41 97.6 F 104 H 17 134/86 95 04/25/22 23:11 90 16 150/96 95 04/25/22 23:02 86 16 130/89 95 04/25/22 22:41 101 H 17 143/111 95 04/25/22 22:11 100 16 149/99 95 04/25/22 22:02 110 H 16 152/104 95 04/25/22 21:40 107 H 17 149/114 95 04/25/22 21:25 120 H 16 149/99 95 04/25/22 21:11 120 H 17 146/105 95 04/25/22 20:56 97.7 F 124 H 16 152/105 95 04/25/22 20:43 97.6 F 123 H 16 141/96 95 04/25/22 20:35 127 H 17 153/114 95 04/25/22 20:30 121 H 16 137/113 95 04/25/22 20:05 132 H 16 153/122 95 04/25/22 19:50 129 H 17 152/104 95 04/25/22 19:35 97.8 F 130 H 16 141/107 95 04/25/22 19:25 97.7 F 145 H 16 150/124 95 04/25/22 19:21 97.9 F 165 H 18 155/121 95 Intake and Output 04/26/22 04/26/22 04/26/22 06:59 14:59 22:59 Intake Total 40.917 Balance 40.917 Intake: Intake, IV Titration 40.917 Amount Diltiazem 125 mg In 40.917 Sodium Chloride 0.9% 100 ml @ 5 MG/HR 5 mls/hr IV .Q24H [facility] Rx#:[id number] Other: Voiding Method Bedside Commode Bedside Commode Diaper Diaper # Voids 0 300 Weight 58.6 kg Patient is an elderly female, who is laying in the bed, appears confused, in no distress. Patient is alert awake, not able to recognize her daughter. Patient is oriented to herself. Could not tell the month or the year, or the city or state she lives in. Attention, concentration and fund of knowledge is very limited. Patient has bilateral positive palmomental reflex. On cranial nerve examination, pupils are equal, round and reacting to light, visual griffin could not be assessed because of mental function. Extraocular muscles are intact with no nystagmus. Face is symmetric, lower cranial nerves could not be tested because of patient's noncooperation. Patient is hard of hearing. On muscle strength testing, there is no pronator drift and the strength is normal in arms distally and proximally. Her deltoids could not be checked because of noncooperation. In the lower limbs her hip flexion is 4 and ankle dorsiflexion 5 bilaterally. Deep tendon reflexes are symmetric 2 at the biceps, 2 brachioradialis, 2 at the knees 1 ankles and plantars downgoing bilaterally. Sensory to touch is equal with no neglect on double simultaneous stimulation. Cerebellar function showed no ataxia for kojbic-ms-jeda testing. No dy sdiadochokinesia. No ataxia for dywj-hy-pqki testing on either side. Tone and bulk of muscles normal. Gait deferred.. On general examination, there is no carotid bruit or murmur, S1-S2 audible. C hest is clear on consultation. Abdomen is soft nontender. No organomegaly, bowel sounds present. Peripheral pulses are present. No edema. Results - Laboratory Findings CBC and BMP: 04/25/22 20:02 04/25/22 20:02 Abnormal Lab Findings: Abnormal Labs 04/25/22 04/25/22 04/25/22 20:02 20:02 20:02 Plt Count 124 L Neutrophils # 7.8 H Lymphocytes # 0.5 L Sodium 136 L BUN 22 H Glucose 134 H Plasma Lactic Acid Lasha AST 52 H ALT 40 H Creatine Kinase Ur Specific [place] 1.037 H Urine Protein 1+ H Urine Mucus Rare H 04/25/22 04/25/22 20:02 20:02 Plt Count Neutrophils # Lymphocytes # Sodium BUN Glucose Plasma Lactic Acid Lasha 2.4 H* AST ALT Creatine Kinase <20 L Ur Specific [place] Urine Protein Urine Mucus Assessment and Plan Assessment: * Episode of unresponsiveness, rule out partial seizure, versus TIA * Seizure disorder since 12/15/2020. Patient's seizure were in remission, until she had a possible seizure versus TIA last night. 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 The right vertebral artery is patent. No evidence of dissection of the cervical internal carotid arteries. No evidence of significant stenosis at the carotid bifurcation. No intra cranial high-grade stenosis or intracranial aneurysm. * Continue aspirin for stroke prevention. * Lipid panel with cholesterol 123, LDL 37, HDL 68 and triglycerides 86. Continue Lipitor 20 mg daily. * If mentation does not improve, then may need a repeat CT head. * Patient has atrial fibrillation, but not on anticoagulation because of history of intracranial bleed. * Seizure precautions * Neurology will follow. Discussed with patient's daughter in detail. Thank you for the consult.
[2022-04-26 17:05] LABS: LDL Cholesterol,Calculated 37.2 mg/dL (0.0-131.0)
[2022-04-26] MEDS ORDERED: QUEtiapine 100 MG TAB PO SCH (21:00)
[2022-04-26] MEDS ORDERED: levETIRAcetam 250 MG TAB PO SCH (21:00)
[2022-04-26] MEDS ORDERED: METOCLOPRAMIDE 5 MG/ML 2 ML VIAL IVP SCH (21:00)
[2022-04-26] MEDS: FAMOTIDINE 20 MG/2 ML VIAL IV SCH (21:29)
[2022-04-26] MEDS: HEPARIN SODIUM,PORCINE/PF 5,000 UNIT/0.5 ML SYRINGE SQ SCH (21:29)
[2022-04-26] MEDS ORDERED: HALOPERIDOL LACTATE 5 MG/ML 1 ML VIAL IVP ONE (22:55)
[2022-04-27] MEDS ORDERED: HALOPERIDOL LACTATE 5 MG/ML 1 ML VIAL IVP ONE ×3 (06:17→09:38)
[2022-04-27] MEDS: DILTIAZEM 125 MG in SODIUM CHLORIDE 0.9% 100 ML IV SCH (06:40)
--- NOTE | 2022-04-27 07:34 | CA ---
Transthoracic Echo Report Name: Pamela Quiñones Age: 89 Gender: F : 1930 Exam Date: 04/26/2022 13:41 Exam Location: [facility] Ht (in): 64 Wt (lb): 129 Ordering Physician: Queta Philip Attending/Referring Phys: [id number], Tamera Almond Grinder Cecelia Ott RDCS Procedure CPT: Indications: LV function Cardiac Hx: Technical Quality: Good Contrast 1: Total Dose (mL): Contrast 2: Total Dose (mL): MEASUREMENTS (Male / Female) Normal Values 2D ECHO LV Diastolic Diameter PLAX 4.7 cm 4.2 - 5.9 / 3.9 - 5.3 cm LV Systolic Diameter PLAX 3.4 cm IVS Diastolic Thickness 1.1 cm 0.6 - 1.0 / 0.6 - 0.9 cm LVPW Diastolic Thickness 1.1 cm 0.6 - 1.0 / 0.6 - 0.9 cm LV Relative Wall Thickness 0.5 RV Internal Dim ED PLAX 3.3 cm LA Systolic Diameter LX 5.1 cm 3.0 - 4.0 / 2.7 - 3.8 cm LV Diastolic Volume MOD BP 65.3 cm??? 67 - 155 / 56 - 104 cm??? LV Systolic Volume MOD BP 41.1 cm??? 22 - 58 / 19 - 49 cm??? LV Ejection Fraction MOD BP 37.1 % >= 55 % LV Diastolic Volume MOD 4C 72.8 cm??? LV Systolic Volume MOD 4C 49.5 cm??? LV Ejection Fraction MOD 4C 32.1 % LV Diastolic Length 4C 5.8 cm LV Systolic Length 4C 4.4 cm LV Diastolic Volume MOD 2C 54.7 cm??? LV Systolic Volume MOD 2C 32.6 cm??? LV Ejection Fraction MOD 2C 40.4 % LV Diastolic Length 2C 6.2 cm LV Systolic Length 2C 4.8 cm LA Volume 128.9 cm??? 18 - 58 / 22 - 52 cm??? M-MODE Aortic Root Diameter MM 3.3 cm MV E Point Septal Separation 0.8 cm AV Cusp Separation MM 1.8 cm DOPPLER AV Peak Velocity 139.8 cm/s AV Peak Gradient 7.8 mmHg MV Area PHT 5.5 cm??? MV Deceleration Time 173.2 ms TR Peak Velocity 314.9 cm/s TR Peak Gradient 39.7 mmHg Right Ventricular Systolic Press 44.3 mmHg FINDINGS Left Ventricle Left ventricular ejection fraction is estimated at 40-45 %. Left ventricular cavity size normal. Mildly increased septal wall thickness. Mildly increased posterior wall thickness. Moderately decreased left ventricular ejection fraction. Right Ventricle Mild right ventricular dilatation. Mild pulmonary hypertension. Right Atrium Normal right atrial size. Left Atrium Severely increased left atrial diameter. Severely increased left atrial volume. Moderately increased left atrial area. Mitral Valve Mitral valve thickened. Severe mitral regurgitation. Aortic Valve Trileaflet aortic valve. Mild aortic regurgitation. Tricuspid Valve Structurally normal tricuspid valve. Mild tricuspid regurgitation. Pulmonic Valve Structurally normal pulmonic valve. Mild pulmonic regurgitation. Pericardium Normal pericardium. No pericardial effusion. Aorta Normal size aortic root and proximal ascending aorta. CONCLUSIONS Reduced LV systolic function with septal and inferoseptal hypokinesis ejection fraction 40-45% Dilated right ventricle Significantly enlarged left atrium with severe mitral regurgitation Previewed by: Dr. Peter Ellis MD (Electronically Signed) Final Date: 27 April 2022 07:33
[2022-04-27] MEDS ORDERED: MORPHINE SULFATE 2 MG/ML SYRINGE IVP STA ×2 (08:06→09:19)
[2022-04-27] MEDS: METOPROLOL TARTRATE 5 MG/5 ML VIAL IVP SCH ×3 (08:21→19:41)
[2022-04-27] MEDS: FAMOTIDINE 20 MG/2 ML VIAL IV SCH ×2 (08:21→19:41)
[2022-04-27] MEDS: ASPIRIN 300 MG SUPP RECTAL SCH (08:22)
[2022-04-27] MEDS: SERTRALINE 50 MG TAB PO SCH (08:22)
[2022-04-27] MEDS: levETIRAcetam IV 250 MG in SODIUM CHLORIDE 0.9% 100 ML IVPB SCH ×2 (08:22→20:13)
[2022-04-27] MEDS: HEPARIN SODIUM,PORCINE/PF 5,000 UNIT/0.5 ML SYRINGE SQ SCH ×2 (08:22→19:40)
[2022-04-27] MEDS: TICAGRELOR 90 MG TAB PO SCH ×2 (08:22→19:48)
--- NOTE | 2022-04-27 10:24 | P.PN ---
Subjective HISTORY OF PRESENT ILLNESS: This is a 89 year old female with a past medical history significant for chronic atrial fibrillation, hypertension, hyperlipidemia, seizure disorder, dementia, and subarachnoid hemorrhage. Patient follows in the office with Dr. Boles. We have been asked to see the patient in consultation for atrial fibrillation. Patient examined at the bedside. Patient was brought to the hospital from [facility] secondary to altered mental status. Apparently the patient is alert and oriented 1 at baseline. This morning the patient is confused and agitated. There is a health and safety technician present. The patient is currently wearing mitts and a lap belt. She was trying to bite and kick the nursing staff. Patient underwent CT brain which was negative for acute process. The patient was found to be in A. fib with RVR. She is currently on a Cardizem drip at 5 mg an hour. Patient's heart rates are in the 110s. She is unable to take any oral medications this morning secondary to her mental status. She is unable to provide any history at the time of examination. * EKG reveals A. fib with RVR * Chest xray cardiomegaly with mild pulmonary vascular congestion * Laboratory data: WBC 8.6. Hemoglobin 12.8. Platelet count 124. Sodium 136. Potassium 4.7. BUN 22. Creatinine 0.66. Troponin negative 1. * Current home cardiac medications include aspirin 81 mg daily, lisinopril 10 mg daily, Lipitor 20 mg daily, Cardizem 30 mg 3 times a day, metoprolol tartrate 50 mg 3 times a day * Most recent echocardiogram obtained in November 2020 revealed ejection fraction 55-60%, moderate MR, severe TR, moderate pulmonary hypertension * Cardiac catheterization history: 2008 revealing noncritical coronary artery disease with normal filling pressures. Left dominant system with mild irregularities but no significant obstructive disease. 04/27/2022 Patient examined this morning at the bedside. Patient remains confused at the time of examination. Patient denies chest pain or pressure. Denies shortness of breath. Telemetry reveals atrial fibrillation with a heart rate around 110. Cardizem drip is infusing at 10 mg an hour. She is also receiving metoprolol 5 mg IV push every 12 hours. Echocardiogram completed revealing ejection fraction 40-45%, mild pulmonary hypertension, I'll tricuspid regurgitation, mild aortic regurgitation, severe mitral regurgitation PHYSICAL EXAM: VITAL SIGNS: Reviewed. GENERAL: Well-developed in no acute distress. HEENT: Head is normocephalic. Pupils are equal, round. Sclerae anicteric. Mucous membranes of the mouth are moist. Neck supple. No JVD or thyromegaly LUNGS: Respirations even and unlabored. Lungs essentially clear to auscultation bilaterally. HEART: Tachycardic. Irregular rate and rhythm. S1 and S2 heard. EXTREMITIES: Normal range of motion. No clubbing or cyanosis. Peripheral pulses intact. No lower extremity edema ASSESSMENT: Altered mental status Chronic atrial fibrillation with RVR History of subarachnoid hemorrhage Hypertension Hyperlipidemia Seizure disorder Dementia PLAN: Continue IV Cardizem as patient unable to take PO medications Increase metoprolol 5mg IVP to TID dosing Continue telemetry monitoring Further recommendations pending patient course Nurse practitioner note has been reviewed by physician. Signing provider agrees with the documented findings, assessment, and plan of care. Objective - Vital Signs Vital signs: Vital Signs Temp 97.5 F L 04/27/22 08:05 Pulse 102 H 04/27/22 08:05 Resp 21 04/27/22 08:05 BP 163/99 04/27/22 08:05 Pulse Ox 92 L 04/27/22 08:05 FiO2 Intake & Output 04/26/22 04/27/22 04/27/22 18:59 06:59 18:59 Intake Total 125 Output Total 1700 Balance -1575 Intake: Intake, IV Titration 125 Amount Diltiazem 125 mg In 125 Sodium Chloride 0.9% 100 ml @ 5 MG/HR 5 mls/hr IV .Q24H [facility] Rx#:[id number] Output: Urine 850 Straight 850 Post Void Residual 850 Other: Voiding Method Bedside Commode Bedside Commode Bedside Commode Diaper Diaper Diaper # Voids 300 0 1 - Labs CBC & Chem 7: 04/25/22 20:02 04/25/22 20:02 Labs: Abnormal Lab Results - Last 24 Hours (Table) 04/26/22 Range/Units 09:58 HDL Cholesterol 68.50 H (40.00-60.00) mg/dL
--- NOTE | 2022-04-27 11:48 | P.PN ---
Subjective This is a pleasant 89 years old female with past medical history of hypertension, atrial fibrillation, seizure, hyperlipidemia. Patient is poor historian so information was obtained from the records and staff. No family at bedside Patient was sent from longterm for confusion, usually she is oriented 1 but currently has no orientation and she is more confused. Earlier today she was agitated and she was taken to the staff, currently she is sleeping comfortably in bed. No other information available for now Vitas reviewed, patient is slightly tachycardic with 117, she is saturating 92% on room air. Afebrile CBC is unremarkable except for mild thrombocytopenia, INR, BMP is unremarkable. Limited lactic acid 2.4 came back to normal. Liver enzymes slightly up with AST 52 and ALT 40. Bilirubin normal 0.5. Urine analysis is not Suspicious of infection. 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 No evidence of dissection or high-grade stenosis. CTA of the head and neck, no acute fracture Chest x-ray: Cardiomegaly with mild vascular congestion suspicious for CHF EKG showed atrial fibrillation at the rate of 140 Patient was started on aspirin and brlinta 04/27/2022 Patient remains combative and agitated, last night she received 1 dose of Haldol which help calm her down, this morning she was agitated NC. Patient confused and does not follow commands. However repeated EKG showing QTC is 4:15, another dose of IV Haldol is given, patient complaining of from pain at her knee which may contribute to her agitation therefore she was placed on morphine 2 mg every 4 hours as needed her Cardizem drip increased to 10 mg per hour and metoprolol 5 mg twice a day into 3 times a day. Her blood pressure heart rate is better controlled. Because of the sedatives and an older sick patient calmed down and she could pass a swallowing evaluation and she was placed on diet order however given her all over condition she still high risk for aspiration anyway She is still on aspirin 300 mg rectally. Also brilinta but patient is is not able to take it because of her mentation. Sitter is at bedside for safety Case was discussed with bed side nurse teresa Active Medications Generic Name Dose Route Start Last Admin Trade Name Freq PRN Reason Stop Dose Admin Aspirin 300 mg 04/27/22 09:00 04/27/22 08:22 Aspirin 300 Mg Supp RECTAL Not Given DAILY [facility] Famotidine 10 mg 04/26/22 21:00 04/27/22 08:21 Famotidine 20 Mg/2 Ml Vial IV 10 mg Q12HR NORM Administration Heparin Sodium (Porcine) 5,000 unit 04/26/22 21:00 04/27/22 08:22 Heparin Sodium,Porcine/Pf 5,000 Unit/0.5 Ml Syringe SQ Not Given Q12HR NORM Diltiazem HCl 125 mg/ Sodium 125 mls @ 5 mls/hr 04/25/22 20:30 04/27/22 06:40 Chloride IV 10 mg/hr .Q24H [facility] 10 mls/hr Administration 5 MG/HR Levetiracetam 250 mg/ Sodium 102.5 mls @ 400 mls/hr 04/26/22 11:00 04/27/22 08:22 Chloride IVPB 400 mls/hr Q12HR NORM Administration Lorazepam 1 mg 04/26/22 04:11 04/26/22 21:29 Lorazepam 2 Mg/Ml Inj IV 1 mg Q4HR PRN Administration Anxiety Metoprolol Tartrate 5 mg 04/27/22 16:00 Metoprolol Tartrate 5 Mg/5 Ml Vial IVP TID NORM Morphine Sulfate 2 mg 04/27/22 11:43 Morphine Sulfate 2 Mg/Ml Syringe IVP Q4HR PRN Pain/Discomfort Quetiapine Fumarate 100 mg 04/26/22 21:00 04/26/22 21:50 Quetiapine 100 Mg Tab PO Not Given HS@2100 [facility] Sertraline HCl 50 mg 04/27/22 08:00 04/27/22 08:22 Sertraline 50 Mg Tab PO Not Given DAILY@0800 [facility] Ticagrelor 90 mg 04/25/22 21:00 04/27/22 08:22 Ticagrelor 90 Mg Tab PO Not Given BID [facility] Objective - Vital Signs Vital signs: Vital Signs Temp 97.5 F L 04/27/22 08:05 Pulse 102 H 04/27/22 08:05 Resp 21 04/27/22 08:05 BP 163/99 04/27/22 08:05 Pulse Ox 92 L 04/27/22 08:05 FiO2 Intake & Output 04/26/22 04/27/22 04/27/22 18:59 06:59 18:59 Intake Total 125 Output Total 1700 Balance -1575 Intake: Intake, IV Titration 125 Amount Diltiazem 125 mg In 125 Sodium Chloride 0.9% 100 ml @ 5 MG/HR 5 mls/hr IV .Q24H [facility] Rx#:[id number] Output: Urine 850 Straight 850 Post Void Residual 850 Other: Voiding Method Bedside Commode Bedside Commode Bedside Commode Diaper Diaper Diaper # Voids 300 0 1 - Exam -GENERAL: The patient is confused, agitated and combative at times x3, not in any acute distress. Well developed, well nourished. HEENT: Pupils are round and equally reacting to light. EOMI. No scleral icterus. No conjunctival pallor. Normocephalic, atraumatic. No pharyngeal erythema. No thyromegaly. CARDIOVASCULAR: S1 and S2 present. No murmurs, rubs, or gallops. PULMONARY: Chest is clear to auscultation, no wheezing or crackles. ABDOMEN: Soft, nontender, nondistended, normoactive bowel sounds. No palpable organomegaly. MUSCULOSKELETAL: No joint swelling or deformity. EXTREMITIES: No cyanosis, clubbing, or pedal edema. NEUROLOGICAL: Gross neurological examination did not reveal any focal deficits. SKIN: No rashes. no petechiae. - Labs CBC & Chem 7: 04/25/22 20:02 04/25/22 20:02 Labs: Abnormal Lab Results - Last 24 Hours (Table) 04/26/22 Range/Units 09:58 HDL Cholesterol 68.50 H (40.00-60.00) mg/dL Assessment and Plan Assessment: A. fib and RVR, placed on admission Worsening altered mental status, rule out metabolic/toxic encephalopathy on the top of her chronic dementia Dementia with behavioral problem Occluded left vertebral artery Hypertension Hyperlipidemia Chronic atrial fibrillation History of seizure Plan: Continue with aspirin Continue with Cardizem drip and IV metoprolol Advanced diet as per swallow evaluation with keep monitoring and aspiration precautions Neurology consult Cardiology consult Labs and medication were reviewed.. Continue same treatment. Continue with symptomatic treatment. Resume home medication. Monitor labs and vitals. DVT and GI prophylaxis. Further recommendations as per clinical course of the patient DVT prophylaxis: Subcutaneous heparin GI Prophylaxis: Pepcid PT/OT: Pending Prognosis is guarded
[2022-04-27] MEDS ORDERED: OLANZapine 10 MG VIAL IM PRN (13:43)
--- NOTE | 2022-04-27 13:45 | P.CN ---
Psychiatric Consult - . Consult date: 04/27/22 Consult:: 04/27/22 13:44 IDENTIFYING DATA: This patient is a 89-year-old , retired, female with a significant history of atrial fibrillation, major neurocognitive disorder, and hypertension who presents to the hospital on 04/25/2022 brought in for evaluation of altered mental status and possible stroke. HISTORY OF PRESENT ILLNESS: The patient presented to the hospital on 04/25/2022, brought in EMS from her nursing facility for altered mental status and possible stroke. Reportedly, the patient had a right-sided gaze and there was also concern for seizure. The patient was admitted to the hospital with the neurology and cardiology consult. Psychiatry has been consulted for evaluation and management of altered mental status with behavioral changes. His provider attempted to assess the patient at approximately 12:30 PM today. Currently, the patient is sedated and difficult to arouse. As per discussion with the patient's nurse as well as sitters, the patient has had episodes of agitation which has required the use of Haldol IV to be administered. The patient has a known history of major neurocognitive disorder and there is also concern for seizure. She also has a significant history of brain bleed back in 2017. No reported psychiatric history aside from depression as per chart review. PAST PSYCHIATRIC HISTORY: Patient has a history of depression. The patient has Seroquel and Zoloft listed as home medications. No previous inpatient psychiatric admissions. No outpatient psychiatric follow-up. Unable to determine if the patient has had any previous suicide attempts. PAST MEDICAL HISTORY: Past Medical History: Atrial Fibrillation, Dementia, Hypertension Additional Past Medical History / Comment(s): hypomagnesia, hypokalemia, colitis, gastrotenteritis, gerd. History of Any Multi-Drug Resistant Organisms: None Reported Past Surgical History: No Surgical Hx Reported Additional Past Surgical History / Comment(s): bottom of spine removed, cysts removed from breast, knee replacement, partial hip replacement Past Anesthesia/Blood Transfusion Reactions: No Reported Reaction Past Psychological History: Depression ALLERGIES: Allergies Allergy/AdvReac Type Severity Reaction Status Date / Time Fish Containing Products Allergy Unknown Verified 04/25/22 19:30 [Fish] sulfamethoxazole Allergy Unknown Verified 04/25/22 19:30 [From Bactrim] trimethoprim [From Bactrim] Allergy Unknown Verified 04/25/22 19:30 CHEMICAL DEPENDENCY HISTORY: Smoking Status: Never smoker Past Alcohol Use History: None Reported Past Drug Use History: None Reported FAMILY PSYCHIATRIC/SUBSTANCE USE HISTORY: Unable to determine. SOCIAL HISTORY: Patient has been residing in a senior care. She is retired. She is . MENTAL STATUS EXAM: General Appearance: Patient appears to be stated age however is somnolent and unarousable. Behavior: Patient is calmly lying down in bed and is asleep. She does not appear to be in any acute distress. Speech: Patient's speech could not be assessed at this time. Mood/Affect: Could not assess patient's mood. Affect is somnolent. Suicidality/Homicidality: Could not assess Perceptions: Could not assess Though content/process: Could not assess Memory and concentration: Could not assess. Reported at baseline to be poor. Judgment and insight: Very Poor IMPRESSIONS: Altered mental status - likely due to multiple etiologies including seizure, uncontrolled pain, and change in environment Major neurocognitive disorder with behavioral disturbances PLAN: -At this time patient DOES NOT meet criteria for inpatient psychiatric admission. -Delirium precautions recommended with patient including - avoiding use of narcotics and [employer] sedatives, limit anticholinergic medications when possible, frequent re-orientation, minimize use of restraints, open window shades during the day and close them at night -Would recommend the following medication changes/additions: Zyprexa 2.5 mg IM 3 times a day when necessary for agitation Change Seroquel to 50 mg by mouth daily at 1600 at 75 mg by mouth at bedtime in order to address major neurocognitive disorder with behavioral disturbances Zoloft 50 mg by mouth daily for depression/anxiety Start melatonin 5 mg by mouth at bedtime nortriptyline related circadian rhythm -Continue 1:1 sitter for safety -Will continue to follow along 04/27/22 13:44
[2022-04-27] MEDS: QUEtiapine 25 MG TAB PO SCH ×2 (16:43→19:48)
[2022-04-27] MEDS: LORazepam 2 MG/ML INJ IV PRN (19:41)
[2022-04-27] MEDS: MELATONIN 5 MG TABLET PO SCH (19:48)
--- NOTE | 2022-04-27 21:06 | EEG ---
ELECTROENCEPHALOGRAM REPORT PREAMBLE: This is an 89-year-old female with seizure, altered mental status. This study is performed to evaluate for any epileptiform activity. EEG FINDINGS: This is a 21-channel digital EEG recorded with video component, utilizing 10/20 international system with referential and bipolar montages. Background consists of poorly developed and regulated, diffuse low amplitude activity in mixed delta and theta range seen in bihemispheric region. Background does not seem to be reactive to eye opening or closing. Photic stimulation and hyperventilation were not done. Different stages of sleep were not seen. No focal or generalized epileptiform activity was seen. IMPRESSION: This is an abnormal EEG due to background slowing of severe degree. This is suggestive of generalized cerebral dysfunction as can be seen with toxic metabolic encephalopathy or due to diffuse structural brain abnormality. Clinical correlation is recommended. No epileptiform activity was seen. MMODL / IJN: [id number] / MTDD
--- NOTE | 2022-04-27 22:16 | P.PN ---
Subjective Progress Note Date: 04/27/22 Patient was seen for a follow-up. Patient is sleeping at this time. As per sitter, patient was agitated, combative, scratching. She has just received Haldol and morphine now sleeping. Objective - Vital Signs Vital signs: Vital Signs Temp 97.5 F L 04/27/22 08:05 Pulse 142 H 04/27/22 19:36 Resp 18 04/27/22 19:36 BP 184/102 04/27/22 19:36 Pulse Ox 95 04/27/22 19:36 FiO2 Intake & Output 04/27/22 04/27/22 04/28/22 06:59 18:59 06:59 Intake Total 125 Output Total 1700 1160 580 Balance -1575 -1160 -580 Intake: Intake, IV Titration 125 Amount Diltiazem 125 mg In 125 Sodium Chloride 0.9% 100 ml @ 5 MG/HR 5 mls/hr IV .Q24H [facility] Rx#:[id number] Output: Urine 850 1160 580 Straight 850 580 580 Post Void Residual 850 Other: Voiding Method Bedside Commode Bedside Commode Bedside Commode Diaper Diaper Diaper # Voids 0 1 - Exam Exam limited because patient asleep. - Labs CBC & Chem 7: 04/25/22 20:02 04/25/22 20:02 Assessment and Plan Assessment: * Episode of unresponsiveness, rule out partial seizure, versus TIA * Seizure disorder since 12/15/2020. Patient's seizure were in remission, until she had a possible seizure versus TIA last night. * History of traumatic intraparenchymal bilateral frontal bleed in 2017 (had a fall and was on anticoagulation) * Hypertension * Atrial fibrillation, not on anticoagulation * Advanced dementia Plan: * EEG was performed today, which is abnormal due to background slowing of severe degree, suggestive of generalized cerebral dysfunction as can be seen with toxic metabolic encephalopathy or due to diffuse structural brain abnormality. Clinical correlation is recommended. No epileptiform activity was seen. * Patient's dose of Keppra is very subtherapeutic at 250 mg twice a day. We will increase Keppra to 500 mg twice a day. 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 The right vertebral artery is patent. No evidence of dissection of the cervical internal carotid arteries. No evidence of significant stenosis at the carotid bifurcation. No intracranial high-grade stenosis or intracranial aneurysm. * Continue aspirin for stroke prevention. Patient not a candidate for anticoagulation. * Lipid panel with cholesterol 123, LDL 37, HDL 68 and triglycerides 86. Continue Lipitor 20 mg daily. * If mentation does not improve, then may need a repeat CT head. * Patient has atrial fibrillation, but not on anticoagulation because of history of intracranial bleed. * Seizure precautions * Neurology will follow.
[2022-04-28] MEDS: DILTIAZEM 125 MG in SODIUM CHLORIDE 0.9% 100 ML IV SCH ×2 (09:07→17:08)
[2022-04-28] MEDS: levETIRAcetam IV 250 MG in SODIUM CHLORIDE 0.9% 100 ML IVPB SCH (09:08)
[2022-04-28] MEDS: ASPIRIN 300 MG SUPP RECTAL SCH (09:08)
[2022-04-28] MEDS: FAMOTIDINE 20 MG/2 ML VIAL IV SCH ×2 (09:08→20:28)
[2022-04-28] MEDS: HEPARIN SODIUM,PORCINE/PF 5,000 UNIT/0.5 ML SYRINGE SQ SCH ×2 (09:09→20:28)
[2022-04-28] MEDS: SERTRALINE 50 MG TAB PO SCH ×2 (09:09→09:51)
[2022-04-28] MEDS: METOPROLOL TARTRATE 5 MG/5 ML VIAL IVP SCH ×4 (09:09→22:59)
[2022-04-28] MEDS: TICAGRELOR 90 MG TAB PO SCH ×3 (09:09→20:29)
--- NOTE | 2022-04-28 10:22 | P.PN ---
Subjective HISTORY OF PRESENT ILLNESS: This is a 89 year old female with a past medical history significant for chronic atrial fibrillation, hypertension, hyperlipidemia, seizure disorder, dementia, and subarachnoid hemorrhage. Patient follows in the office with Dr. Boles. We have been asked to see the patient in consultation for atrial fibrillation. Patient examined at the bedside. Patient was brought to the hospital from [facility] secondary to altered mental status. Apparently the patient is alert and oriented 1 at baseline. This morning the patient is confused and agitated. There is a safety person present. The patient is currently wearing mitts and a lap belt. She was trying to bite and kick the nursing staff. Patient underwent CT brain which was negative for acute process. The patient was found to be in A. fib with RVR. She is currently on a Cardizem drip at 5 mg an hour. Patient's heart rates are in the 110s. She is unable to take any oral medications this morning secondary to her mental status. She is unable to provide any history at the time of examination. * EKG reveals A. fib with RVR * Chest xray cardiomegaly with mild pulmonary vascular congestion * Laboratory data: WBC 8.6. Hemoglobin 12.8. Platelet count 124. Sodium 136. Potassium 4.7. BUN 22. Creatinine 0.66. Troponin negative 1. * Current home cardiac medications include aspirin 81 mg daily, lisinopril 10 mg daily, Lipitor 20 mg daily, Cardizem 30 mg 3 times a day, metoprolol tartrate 50 mg 3 times a day * Most recent echocardiogram obtained in November 2020 revealed ejection fraction 55-60%, moderate MR, severe TR, moderate pulmonary hypertension * Cardiac catheterization history: 2008 revealing noncritical coronary artery disease with normal filling pressures. Left dominant system with mild irregularities but no significant obstructive disease. 04/27/2022 Patient examined this morning at the bedside. Patient remains confused at the time of examination. Patient denies chest pain or pressure. Denies shortness of breath. Telemetry reveals atrial fibrillation with a heart rate around 110. Cardizem drip is infusing at 10 mg an hour. She is also receiving metoprolol 5 mg IV push every 12 hours. Echocardiogram completed revealing ejection fraction 40-45%, mild pulmonary hypertension, I'll tricuspid regurgitation, mild aortic regurgitation, severe mitral regurgitation 04/28/2022 Patient examined this morning at the bedside. Patient remains confused, although not as agitated today. She has been started on a PO diet. Telemetry reveals afib with heart rates in the 110s. She remains on IV cardizem and IVP metoprolol. PHYSICAL EXAM: VITAL SIGNS: Reviewed. GENERAL: Well-developed in no acute distress. HEENT: Head is normocephalic. Pupils are equal, round. Sclerae anicteric. Mucous membranes of the mouth are moist. Neck supple. No JVD or thyromegaly LUNGS: Respirations even and unlabored. Lungs essentially clear to auscultation bilaterally. HEART: Tachycardic. Irregular rate and rhythm. S1 and S2 heard. EXTREMITIES: Normal range of motion. No clubbing or cyanosis. Peripheral pulses intact. No lower extremity edema ASSESSMENT: Altered mental status Chronic atrial fibrillation with RVR History of subarachnoid hemorrhage Hypertension Hyperlipidemia Seizure disorder Dementia PLAN: Discontinue IV cardizem and IVP metoprolol Resume home doses of oral Lasix and metoprolol Continue telemetry monitoring Further recommendations pending patient course Nurse practitioner note has been reviewed by physician. Signing provider agrees with the documented findings, assessment, and plan of care. Objective - Vital Signs Vital signs: Vital Signs Temp 98.1 F 04/28/22 09:03 Pulse 79 04/28/22 09:03 Resp 17 04/28/22 09:03 BP 170/84 04/28/22 09:03 Pulse Ox 95 04/28/22 09:03 FiO2 Intake & Output 04/27/22 04/28/22 04/28/22 18:59 06:59 18:59 Intake Total 125 120 Output Total 1160 1160 325 Balance -2320 -1034 -328 Intake: Intake, IV Titration 125 Amount Diltiazem 125 mg In 125 Sodium Chloride 0.9% 100 ml @ 5 MG/HR 5 mls/hr IV .Q24H [facility] Rx#:[id number] Oral 120 Output: Urine 1160 1160 325 Straight 580 1160 Other: Voiding Method Bedside Commode Bedside Commode Indwelling Catheter Diaper Diaper # Voids 1 - Labs CBC & Chem 7: 04/25/22 20:02 04/25/22 20:02
[2022-04-28] MEDS ORDERED: METOPROLOL TARTRATE 50 MG TAB PO SCH (10:30)
[2022-04-28] MEDS ORDERED: DILTIAZEM ORAL 30 MG TAB PO SCH (10:30)
[2022-04-28] MEDS ORDERED: DILTIAZEM 125 MG in SODIUM CHLORIDE 0.9% 100 ML IV SCH (10:45)
[2022-04-28] MEDS: LORazepam 2 MG/ML INJ IV PRN (11:35)
--- NOTE | 2022-04-28 12:43 | P.PN ---
Subjective Progress Note Date: 04/28/22 Objective - Vital Signs Vital signs: Vital Signs Temp 98.0 F 04/28/22 11:21 Pulse 85 04/28/22 11:21 Resp 17 04/28/22 11:21 BP 150/74 04/28/22 11:21 Pulse Ox 93 L 04/28/22 11:21 FiO2 Intake & Output 04/27/22 04/28/22 04/28/22 18:59 06:59 18:59 Intake Total 125 120 Output Total 1160 1160 325 Balance -4552 -9706 -107 Intake: Intake, IV Titration 125 Amount Diltiazem 125 mg In 125 Sodium Chloride 0.9% 100 ml @ 5 MG/HR 5 mls/hr IV .Q24H [facility] Rx#:[id number] Oral 120 Output: Urine 1160 1160 325 Straight 580 1160 Other: Voiding Method Bedside Commode Bedside Commode Indwelling Catheter Diaper Diaper # Voids 1 - Labs CBC & Chem 7: 04/25/22 20:02 04/25/22 20:02
--- NOTE | 2022-04-28 15:27 | P.PN ---
Subjective Progress Note Date: 04/28/22 Patient was seen for a follow-up. Patient is laying comfortably in the bed. Patient is very confused. A sitter is present. The sitter mentions that patient was given bed bath, ate breakfast and she is slightly better. She still very confused, trying to get up. Her right hand is in a mitten. No further seizure or TIA. Objective - Vital Signs Vital signs: Vital Signs Temp 98.0 F 04/28/22 11:21 Pulse 85 04/28/22 11:21 Resp 17 04/28/22 11:21 BP 150/74 04/28/22 11:21 Pulse Ox 93 L 04/28/22 11:21 FiO2 Intake & Output 04/27/22 04/28/22 04/28/22 18:59 06:59 18:59 Intake Total 125 120 Output Total 1160 1160 325 Balance -1160 -1035 -205 Intake: Intake, IV Titration 125 Amount Diltiazem 125 mg In 125 Sodium Chloride 0.9% 100 ml @ 5 MG/HR 5 mls/hr IV .Q24H [facility] Rx#:[id number] Oral 120 Output: Urine 1160 1160 325 Straight 580 1160 Other: Voiding Method Bedside Commode Bedside Commode Indwelling Catheter Diaper Diaper # Voids 1 - Exam Patient is delirious, fluctuating mental status. At times appear more encephalopathic. Patient sometimes is more alert and awake, but very confused, restless, trying to get out of bed, wants the mitten in the right hand to be re moved. Patient states she is 82 or 89 years old, does not know. She knows her name. Otherwise she is not oriented to time and place. Patient's daughter was also present, states that she is not recognizing her daughter. - Labs CBC & Chem 7: 04/25/22 20:02 04/25/22 20:02 Assessment and Plan Assessment: * Episode of unresponsiveness, rule out partial seizure, versus TIA * Altered mental status, possible encephalopathy, rule out postictal state. * Seizure disorder since 12/15/2020. Patient's seizure were in remission, until she had a possible seizure versus TIA the night of arrival. * History of traumatic intraparenchymal bilateral frontal bleed in 2017 (had a fall and was on anticoagulation) * Hypertension * Atrial fibrillation, not on anticoagulation * Advanced dementia Plan: * Patient's daughter was present. She states that patient behaved like this after her first seizure and couple days later she "snapped out of it". Uncertain if it is postictal state. Her dose of Keppra has been increased to 500 mg twice a day. * EEG 04/27/2022 was abnormal due to background slowing of severe degree, suggestive of generalized cerebral dysfunction as can be seen with toxic metabolic encephalopathy or due to diffuse structural brain abnormality. Clinical correlation is recommended. No epileptiform activity was seen. * Patient probably had a breakthrough seizure. Patient's dose of Keppra is very subtherapeutic at 250 mg twice a day. We will increase Keppra to 500 mg twice a day. 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 The right vertebral artery is patent. No evidence of dissection of the cervical internal carotid arteries. No evidence of significant stenosis at the carotid bifurcation. No intracranial high-grade stenosis or intracranial aneurysm. * Patient has atrial fibrillation. Patient not a candidate for anticoagulation. Patient used to be on aspirin 81 mg daily. Apparently patient was started on Brilinta 90 mg twice a day in the ER, but patient is not taking any medi cation, spitting medications in front of the nurse. We will continue patient on aspirin 300 mg rectally. * Lipid panel with cholesterol 123, LDL 37, HDL 68 and triglycerides 86. Continue Lipitor 20 mg daily. * Patient appears to have underlying dementia. Patient is constantly spitting all medications that are given by mouth. The only medication she is taking is the IV Keppra and rectal aspirin. * We will start Exelon patch for dementia. * Discussed with patient's daughter in detail, agreed with above management. * Seizure precautions.
[2022-04-28] MEDS: RIVASTIGMINE 4.6MG/24HR PATCH TRANSDERM SCH (16:02)
[2022-04-28] MEDS: QUEtiapine 25 MG TAB PO SCH ×2 (16:02→20:29)
--- NOTE | 2022-04-28 17:48 | P.PN ---
Subjective This is a pleasant 89 years old female with past medical history of hypertension, atrial fibrillation, seizure, hyperlipidemia. Patient is poor historian so information was obtained from the records and staff. No family at bedside Patient was sent from shelter for confusion, usually she is oriented 1 but currently has no orientation and she is more confused. Earlier today she was agitated and she was taken to the staff, currently she is sleeping comfortably in bed. No other information available for now Vitas reviewed, patient is slightly tachycardic with 117, she is saturating 92% on room air. Afebrile CBC is unremarkable except for mild thrombocytopenia, INR, BMP is unremarkable. Limited lactic acid 2.4 came back to normal. Liver enzymes slightly up with AST 52 and ALT 40. Bilirubin normal 0.5. Urine analysis is not Suspicious of infection. 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 No evidence of dissection or high-grade stenosis. CTA of the head and neck, no acute fracture Chest x-ray: Cardiomegaly with mild vascular congestion suspicious for CHF EKG showed atrial fibrillation at the rate of 140 Patient was started on aspirin and brlinta 04/27/2022 Patient remains combative and agitated, last night she received 1 dose of Haldol which help calm her down, this morning she was agitated NC. Patient confused and does not follow commands. However repeated EKG showing QTC is 4:15, another dose of IV Haldol is given, patient complaining of from pain at her knee which may contribute to her agitation therefore she was placed on morphine 2 mg every 4 hours as needed her Cardizem drip increased to 10 mg per hour and metoprolol 5 mg twice a day into 3 times a day. Her blood pressure heart rate is better controlled. Because of the sedatives and an older sick patient calmed down and she could pass a swallowing evaluation and she was placed on diet order however given her all over condition she still high risk for aspiration anyway She is still on aspirin 300 mg rectally. Also brilinta but patient is is not able to take it because of her mentation. Sitter is at bedside for safety Case was discussed with bed side nurse 04/28/2022 patient today looks a little bit more calm her in the morning when I tried to talk to her in a soft stone, she was pleasant and smiling and calm but still confused, she could not remember her name or where she is at. Sitter at bedside for safety and patient has a maintenance right hand. Yesterday she was found to have urinary retention and Bravo catheter was placed, this may contribute it for her feeling better today. Patient also spitting most of her medication when given orally. She is getting aspirin 300 mg rectally. Cardiology on the case for her A. fib and RVR. Psychiatric evaluated the patient for her agitation behavior and dose of Seroquel was increased Per neurologist or abnormal behavior could be due to seizure therefore Keppra was increased to 500 mg from home dose of 250. Patient is still noncompliant with medication due to her severe dementia Prognosis remains guarded Objective - Vital Signs Vital signs: Vital Signs Temp 98.0 F 04/28/22 11:21 Pulse 131 H 04/28/22 16:01 Resp 17 04/28/22 16:01 BP 185/96 04/28/22 16:01 Pulse Ox 95 04/28/22 16:01 FiO2 Intake & Output 04/27/22 04/28/22 04/28/22 18:59 06:59 18:59 Intake Total 125 485 Output Total 1160 1160 325 Balance -1160 -1035 160 Intake: Intake, IV Titration 125 125 Amount Diltiazem 125 mg In 125 125 Sodium Chloride 0.9% 100 ml @ 10 MG/HR 10 mls/hr IV .[id number] [facility] Rx#: [id number] Oral 360 Output: Urine 1160 1160 325 Straight 580 1160 Other: Voiding Method Bedside Commode Bedside Commode Indwelling Catheter Diaper Diaper # Voids 1 - Exam -GENERAL: The patient is confused, agitated and combative at times x3, not in any acute distress. Well developed, well nourished. HEENT: Pupils are round and equally reacting to light. EOMI. No scleral icterus. No conjunctival pallor. Normocephalic, atraumatic. No pharyngeal erythema. No thyromegaly. CARDIOVASCULAR: S1 and S2 present. No murmurs, rubs, or gallops. PULMONARY: Chest is clear to auscultation, no wheezing or crackles. ABDOMEN: Soft, nontender, nondistended, normoactive bowel sounds. No palpable organomegaly. MUSCULOSKELETAL: No joint swelling or deformity. EXTREMITIES: No cyanosis, clubbing, or pedal edema. NEUROLOGICAL: Gross neurological examination did not reveal any focal deficits. SKIN: No rashes. no petechiae. - Labs CBC & Chem 7: 04/25/22 20:02 04/25/22 20:02 Assessment and Plan Assessment: A. 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 Continue with Cardizem drip and IV metoprolol, switched to oral medication per cardiology team Advanced diet as per swallow evaluation with keep monitoring and aspiration precautions Neurology consult Cardiology consult Labs and medication were reviewed.. Continue same treatment. Continue with symptomatic treatment. Resume home medication. Monitor labs and vitals. DVT and GI prophylaxis. Further recommendations as per clinical course of the patient DVT prophylaxis: Subcutaneous heparin GI Prophylaxis: Pepcid Prognosis is guarded
[2022-04-28 19:05] LABS: Appearance,Urine Cloudy (Clear); Bacteria,Urine Many /hpf; Bilirubin,Urine Negative (Negative); Blood,Urine Moderate (Negative); Color,Urine Light Yellow; Glucose,Urine (UA) Negative (Negative); Ketones,Urine 1+ (Negative); Leukocyte Esterase,Urine Large (Negative); Mucus,Urine Occasional /hpf; Nitrite,Urine Negative (Negative); PH, Urine 6.5 (5.0-8.0); Protein,Urine Trace (Negative); RBC,Urine 11 /hpf (0-5); Specific Gravity,Urine 1.012 (1.001-1.035); Urobilinogen,Urine <2.0 mg/dL (<2.0); WBC,Urine >182 /hpf (0-5)
[2022-04-28] MEDS: levETIRAcetam IV 500 MG in SODIUM CHLORIDE 0.9% 100 ML IVPB SCH (20:28)
[2022-04-28] MEDS: MELATONIN 5 MG TABLET PO SCH (20:29)
[2022-04-29] MEDS: MORPHINE SULFATE 2 MG/ML SYRINGE IVP PRN ×3 (02:27→17:50)
[2022-04-29] MEDS: DILTIAZEM 125 MG in SODIUM CHLORIDE 0.9% 100 ML IV SCH ×2 (05:39→15:16)
[2022-04-29 07:55] LABS: Basophils % (A) 0 %; Eosinophils # (A) 0.1 k/uL (0-0.7); Eosinophils % (A) 1 %; HCT 38.8 % (34.0-46.0); HGB 12.6 gm/dL (11.4-16.0); Lymphocytes # (A) 0.6 k/uL (1.0-4.8); Lymphocytes % (A) 8 %; MCH 31.8 pg (25.0-35.0); MCHC 32.4 g/dL (31.0-37.0); MCV 98.1 fL (80.0-100.0); Monocytes # (A) 0.5 k/uL (0-1.0); Monocytes % (A) 7 %; Neutrophils # (A) 6.1 k/uL (1.3-7.7); Neutrophils % (A) 82 %; RBC 3.96 m/uL (3.80-5.40); RDW 13.9 % (11.5-15.5); WBC 7.4 k/uL (3.8-10.6)
[2022-04-29 07:57] LABS: Platelet Count 98 k/uL (150-450)
[2022-04-29 08:03] LABS: African American GFR (CKD) >90 (>60 ml/min/1.73 sqM); Anion Gap 7 mmol/L; Blood Urea Nitrogen 11 mg/dL (7-17); Calcium 8.7 mg/dL (8.4-10.2); Carbon Dioxide 30 mmol/L (22-30); Chloride 103 mmol/L (98-107); Glucose 99 mg/dL (74-99); Non-African American GFR(CKD) 83 (>60 ml/min/1.73 sqM); Potassium 2.9 mmol/L (3.5-5.1); Sodium 140 mmol/L (137-145)
[2022-04-29] MEDS: METOPROLOL TARTRATE 5 MG/5 ML VIAL IVP SCH ×3 (09:35→23:34)
[2022-04-29] MEDS: HEPARIN SODIUM,PORCINE/PF 5,000 UNIT/0.5 ML SYRINGE SQ SCH ×2 (09:35→20:05)
[2022-04-29] MEDS: SERTRALINE 50 MG TAB PO SCH (09:36)
[2022-04-29] MEDS: TICAGRELOR 90 MG TAB PO SCH ×2 (09:36→20:05)
[2022-04-29] MEDS: FAMOTIDINE 20 MG/2 ML VIAL IV SCH ×2 (09:36→20:05)
[2022-04-29] MEDS: levETIRAcetam IV 500 MG in SODIUM CHLORIDE 0.9% 100 ML IVPB SCH ×2 (09:37→20:04)
[2022-04-29] MEDS: ASPIRIN 300 MG SUPP RECTAL SCH (09:38)
[2022-04-29] MEDS ORDERED: Potassium Replacement Protocol 1 EACH MISC MISCELLANE PRN (10:40)
--- NOTE | 2022-04-29 10:43 | P.PN ---
Subjective Progress Note Date: 04/29/22 This is a telemedicine neurology follow-up performed today on 04/29/2022. Patient's family was not present today. Per nursing report, patient was restless last night, did not sleep until she was given Ativan at 3 AM and now she is asleep. Per nursing report, she is taking oral medications "on and off". She is still on rectal aspirin. Patient is sleeping comfortably in the bed. A sitter is present. No further seizure or TIA. Objective - Vital Signs Vital signs: Vital Signs Temp 98.0 F 04/29/22 09:31 Pulse 91 04/29/22 09:31 Resp 17 04/29/22 09:31 BP 136/74 04/29/22 09:31 Pulse Ox 94 L 04/29/22 09:31 FiO2 21 04/29/22 07:41 Intake & Output 04/28/22 04/29/22 04/29/22 18:59 06:59 18:59 Intake Total 485 125 Output Total 325 1550 Balance 160 -1425 Intake: Intake, IV Titration 125 125 Amount Diltiazem 125 mg In 125 125 Sodium Chloride 0.9% 100 ml @ 10 MG/HR 10 mls/hr IV .[id number] [facility] Rx#: [id number] Oral 360 Output: Urine 325 1550 Other: Voiding Method Indwelling Catheter Indwelling Catheter Indwelling Catheter - Exam 04/29/2022: Patient is asleep at this time. Did not wake her up, as hopefully sleep will help with her mentation and her postictal state. Patient was restless, awake last night. 04/28/2022: Patient is delirious, fluctuating mental status. At times appear more encephalopathic. Patient sometimes is more alert and awake, but very confused, restless, trying to get out of bed, wants the mitten in the right hand to be removed. Patient states she is 82 or 89 years old, does not know. She knows her name. Otherwise she is not oriented to time and place. Patient's daughter was also present, states that she is not recognizing her daughter. - Labs CBC & Chem 7: 04/29/22 07:40 04/29/22 07:40 Labs: Abnormal Lab Results - Last 24 Hours (Table) 04/28/22 04/29/22 04/29/22 Range/Units 18:41 07:40 07:40 Plt Count 98 L (150-450) k/uL Lymphocytes # 0.6 L (1.0-4.8) k/uL Potassium 2.9 L (3.5-5.1) mmol/L Urine Appearance Cloudy H (Clear) Urine Protein Trace H (Negative) Urine Ketones 1+ H (Negative) Urine Blood Moderate H (Negative) Ur Leukocyte Esterase Large H (Negative) Urine RBC 11 H (0-5) /hpf Urine WBC >182 H (0-5) /hpf Urine WBC Clumps Many H (None) /hpf Urine Bacteria Many H (None) /hpf Urine Mucus Occasional H (None) /hpf Microbiology - Last 24 Hours (Table) 04/28/22 18:41 Urine Culture - Preliminary Urine,Voided Assessment and Plan Assessment: * Episode of unresponsiveness, rule out partial seizure, versus TIA * Altered mental status, possible encephalopathy, rule out postictal state. * Seizure disorder since 12/15/2020. Patient's seizure were in remission, until she had a possible seizure versus TIA the night of arrival. * History of traumatic intraparenchymal bilateral frontal bleed in 2017 (had a fall and was on anticoagulation) * Hypertension * Atrial fibrillation, not on anticoagulation * Advanced dementia Plan: * Per patient's daughter report from yesterday, patient behaved like this after her first seizure and couple days later she "snapped out of it". Uncertain if it is postictal state. Her dose of Keppra has been increased to 500 mg twice a day. * EEG 04/27/2022 was abnormal due to background slowing of severe degree, suggestive of generalized cerebral dysfunction as can be seen with toxic metabolic encephalopathy or due to diffuse structural brain abnormality. Clinical correlation is recommended. No epileptiform activity was seen. * Patient probably had a breakthrough seizure. Patient's dose of Keppra is very subtherapeutic at 250 mg twice a day. We will increase Keppra to 500 mg twice a day. 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 The right vertebral artery is patent. No evidence of dissection of the cervical internal carotid arteries. No evidence of significant stenosis at the carotid bifurcation. No intracranial high-grade stenosis or intracranial aneurysm. * Patient has atrial fibrillation. Patient not a candidate for anticoagulation. Patient used to be on aspirin 81 mg daily. Apparently patient was started on Brilinta 90 mg twice a day in the ER, but patient is not taking any medication, spitting medications in front of the nurse. We will continue patient on aspirin 300 mg rectally. * Lipid panel with cholesterol 123, LDL 37, HDL 68 and triglycerides 86. Continue Lipitor 20 mg daily. * Patient appears to have underlying dementia. * We will start Exelon patch for dementia.
[2022-04-29] MEDS: POTASSIUM CHLORIDE ER 20 MEQ TAB.ER PO SCH ×3 (11:05→16:47)
--- NOTE | 2022-04-29 12:04 | P.PN ---
Subjective This is a pleasant 89 years old female with past medical history of hypertension, atrial fibrillation, seizure, hyperlipidemia. Patient is poor historian so information was obtained from the records and staff. No family at bedside Patient was [facility] from [facility] for [facility], usually she is oriented 1 but currently has no orientation and she is more confused. Earlier today she was agitated and she was taken to the staff, currently she is sleeping comfortably in bed. No other information available for now Vitas reviewed, patient is slightly tachycardic with 117, she is saturating 92% on room air. Afebrile CBC is unremarkable except for mild thrombocytopenia, INR, BMP is unremarkable. Limited lactic acid 2.4 came back to normal. Liver enzymes slightly up with AST 52 and ALT 40. Bilirubin normal 0.5. Urine analysis is not Suspicious of infection. 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 No evidence of dissection or high-grade stenosis. CTA of the head and neck, no acute fracture Chest x-ray: Cardiomegaly with mild vascular congestion suspicious for CHF EKG showed atrial fibrillation at the rate of 140 Patient was started on aspirin and brlinta 04/27/2022 Patient remains combative and agitated, last night she received 1 dose of Haldol which help calm her down, this morning she was agitated NC. Patient confused and does not follow commands. However repeated EKG showing QTC is 4:15, another dose of IV Haldol is given, patient complaining of from pain at her knee which may contribute to her agitation therefore she was placed on morphine 2 mg every 4 hours as needed her Cardizem drip increased to 10 mg per hour and metoprolol 5 mg twice a day into 3 times a day. Her blood pressure heart rate is better controlled. Because of the sedatives and an older sick patient calmed down and she could pass a swallowing evaluation and she was placed on diet order however given her all over condition she still high risk for aspiration anyway She is still on aspirin 300 mg rectally. Also brilinta but patient is is not able to take it because of her mentation. Sitter is at bedside for safety Case was discussed with bed side nurse 04/28/2022 patient today looks a little bit more calm her in the morning when I tried to talk to her in a soft stone, she was pleasant and smiling and calm but still confused, she could not remember her name or where she is at. Sitter at bedside for safety and patient has a maintenance right hand. Yesterday she was found to have urinary retention and Bravo catheter was placed, this may contribute it for her feeling better today. Patient also spitting most of her medication when given orally. She is getting aspirin 300 mg rectally. Cardiology on the case for her A. fib and RVR. Psychiatric evaluated the patient for her agitation behavior and dose of Seroquel was increased Per neurologist or abnormal behavior could be due to seizure therefore Keppra was increased to 500 mg from home dose of 250. Patient is still noncompliant with medication due to her severe dementia Prognosis remains guarded 04/29/2021 Patient is more calm but gets agitation at times, she takes some of her medication. Her heart rate is controlled today. Sitter remains at bedside. She remains has Bravo catheter, her urine analysis is suspicious for infection and patient was started on Rocephin with follow-up of the urine culture She was on Cardizem drip in the morning. She is also on aspirin 300 mg rectally Keppra is increased to 500 mg twice a day. Objective - Vital Signs Vital signs: Vital Signs Temp 97.3 F L 04/29/22 11:02 Pulse 80 04/29/22 11:02 Resp 17 04/29/22 11:02 BP 107/69 04/29/22 11:02 Pulse Ox 96 04/29/22 11:02 FiO2 21 04/29/22 07:41 Intake & Output 04/28/22 04/29/22 04/29/22 18:59 06:59 18:59 Intake Total 485 125 Output Total 325 1550 Balance 160 -1425 Intake: Intake, IV Titration 125 125 Amount Diltiazem 125 mg In 125 125 Sodium Chloride 0.9% 100 ml @ 10 MG/HR 10 mls/hr IV .[id number] [facility] Rx#: [id number] Oral 360 Output: Urine 325 1550 Other: Voiding Method Indwelling Catheter Indwelling Catheter Indwelling Catheter - Exam -GENERAL: The patient is confused, agitated and combative at times, not in any acute distress. Well developed, well nourished. HEENT: Pupils are round and equally reacting to light. EOMI. No scleral icterus. No conjunctival pallor. Normocephalic, atraumatic. No pharyngeal erythema. No thyromegaly. CARDIOVASCULAR: S1 and S2 present. No murmurs, rubs, or gallops. PULMONARY: Chest is clear to auscultation, no wheezing or crackles. ABDOMEN: Soft, nontender, nondistended, normoactive bowel sounds. No palpable organomegaly. Bravo catheter in place MUSCULOSKELETAL: No joint swelling or deformity. EXTREMITIES: No cyanosis, clubbing, or pedal edema. NEUROLOGICAL: Gross neurological examination did not reveal any focal deficits. SKIN: No rashes. no petechiae. - Labs CBC & Chem 7: 04/29/22 07:40 04/29/22 07:40 Labs: Abnormal Lab Results - Last 24 Hours (Table) 04/28/22 04/29/22 04/29/22 Range/Units 18:41 07:40 07:40 Plt Count 98 L (150-450) k/uL Lymphocytes # 0.6 L (1.0-4.8) k/uL Potassium 2.9 L (3.5-5.1) mmol/L Urine Appearance Cloudy H (Clear) Urine Protein Trace H (Negative) Urine Ketones 1+ H (Negative) Urine Blood Moderate H (Negative) Ur Leukocyte Esterase Large H (Negative) Urine RBC 11 H (0-5) /hpf Urine WBC >182 H (0-5) /hpf Urine WBC Clumps Many H (None) /hpf Urine Bacteria Many H (None) /hpf Urine Mucus Occasional H (None) /hpf Microbiology - Last 24 Hours (Table) 04/28/22 18:41 Urine Culture - Preliminary Urine,Voided Assessment and Plan Assessment: Acute urinary tract infection Acute urinary retention status post Bravo catheter A. 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 Continue with Cardizem drip and IV metoprolol, switched to oral medication per cardiology team Advanced diet as per swallow evaluation with keep monitoring and aspiration precautions Neurology consult Cardiology consult Labs and medication were reviewed.. Continue same treatment. Continue with symptomatic treatment. Resume home medication. Monitor labs and vitals. DVT and GI prophylaxis. Further recommendations as per clinical course of the patient DVT prophylaxis: Subcutaneous heparin GI Prophylaxis: Pepcid Prognosis is guarded
--- NOTE | 2022-04-29 12:41 | P.PN ---
Subjective Progress Note Date: 04/29/22 PROGRESS NOTE 89-year-old female with a known history of atrial fibrillation, dementia, subarachnoid hemorrhage who presented with change in mental status. She had atrial fibrillation with rapid ventricle response. Patient remains quite confused and not responsive to verbal stimulation. She continues to be on IV Cardizem. Medications: IV Cardizem, metoprolol 5 mg IV every 8 hours, PHYSICAL EXAMINATION: Blood pressure 107/69 heart rate 80, confused LUNGS: Clear to auscultation HEART: Irregular rate and rhythm, S1, S2. No S3. systolic ejection murmur ABDOMEN: Soft, nontender, no organomegaly EXTREMETIES: No edema LAB: Potassium 2.9, BUN 11, creatinine 0.56 IMPRESSION: 1. Chronic persistent atrial fibrillation, not anticoagulated because of subarachnoid hemorrhage 2. Dementia with severe confusion 3. Moderate cardiomyopathy with severe mitral regurgitation 4. History of hypertension PLAN: 1. Changed to oral medication when the patient is able to take her pills 2. No further cardiac workup indicated at this time 3. We will see her as needed basis 4. Please feel free to call us for any question. Objective - Vital Signs Vital signs: Vital Signs Temp 97.3 F L 04/29/22 11:02 Pulse 80 04/29/22 11:02 Resp 17 04/29/22 11:02 BP 107/69 04/29/22 11:02 Pulse Ox 96 04/29/22 11:02 FiO2 21 04/29/22 07:41 Intake & Output 04/28/22 04/29/22 04/29/22 18:59 06:59 18:59 Intake Total 485 125 Output Total 325 1550 275 Balance 160 -1425 -275 Intake: Intake, IV Titration 125 125 Amount Diltiazem 125 mg In 125 125 Sodium Chloride 0.9% 100 ml @ 10 MG/HR 10 mls/hr IV .[id number] [facility] Rx#: [id number] Oral 360 Output: Urine 325 1550 275 Other: Voiding Method Indwelling Catheter Indwelling Catheter Indwelling Catheter - Labs CBC & Chem 7: 04/29/22 07:40 04/29/22 07:40 Labs: Abnormal Lab Results - Last 24 Hours (Table) 04/28/22 04/29/22 04/29/22 Range/Units 18:41 07:40 07:40 Plt Count 98 L (150-450) k/uL Lymphocytes # 0.6 L (1.0-4.8) k/uL Potassium 2.9 L (3.5-5.1) mmol/L Urine Appearance Cloudy H (Clear) Urine Protein Trace H (Negative) Urine Ketones 1+ H (Negative) Urine Blood Moderate H (Negative) Ur Leukocyte Esterase Large H (Negative) Urine RBC 11 H (0-5) /hpf Urine WBC >182 H (0-5) /hpf Urine WBC Clumps Many H (None) /hpf Urine Bacteria Many H (None) /hpf Urine Mucus Occasional H (None) /hpf Microbiology - Last 24 Hours (Table) 04/28/22 18:41 Urine Culture - Preliminary Urine,Voided
[2022-04-29] MEDS: POTASSIUM CHLORIDE 20 MEQ in WATER FOR INJECTION 1 100ML.BAG IVPB SCH ×3 (12:59→17:51)
[2022-04-29] MEDS: RIVASTIGMINE 4.6MG/24HR PATCH TRANSDERM SCH (13:49)
[2022-04-29] MEDS: QUEtiapine 25 MG TAB PO SCH ×2 (16:47→20:05)
[2022-04-29] MEDS: MELATONIN 5 MG TABLET PO SCH (20:05)
[2022-04-30] MEDS: DILTIAZEM 125 MG in SODIUM CHLORIDE 0.9% 100 ML IV SCH ×2 (06:58→18:07)
[2022-04-30] MEDS: levETIRAcetam IV 500 MG in SODIUM CHLORIDE 0.9% 100 ML IVPB SCH ×2 (08:51→20:01)
[2022-04-30] MEDS: HEPARIN SODIUM,PORCINE/PF 5,000 UNIT/0.5 ML SYRINGE SQ SCH ×2 (08:53→20:01)
[2022-04-30] MEDS: METOPROLOL TARTRATE 5 MG/5 ML VIAL IVP SCH ×3 (08:54→23:29)
[2022-04-30] MEDS: ASPIRIN 81 MG PO SCH (08:54)
[2022-04-30] MEDS: FAMOTIDINE 20 MG/2 ML VIAL IV SCH ×2 (08:54→20:01)
[2022-04-30] MEDS: CLOPIDOGREL 75 MG TAB PO SCH (08:54)
[2022-04-30] MEDS: SERTRALINE 50 MG TAB PO SCH (08:54)
--- NOTE | 2022-04-30 10:00 | P.PN ---
Subjective Progress Note Date: 04/30/22 This is a telemedicine neurology follow-up performed today on 04/30/2022. Patient's family was not present today. Per nursing report, patient has been taking her medications "hit and miss", sometimes she takes other times she does not. She was tired, sleepy right now. Yesterday she took all medications. Her potassium has been replaced. Urine cultures have grown gram-negative bacilli. Patient was trying to crawl out of bed and tries to pull all the lines. Patient complaining of back hurting. She continues to be confused. She is encephalopathic, fluctuating mental status. No further seizure or TIA. Objective - Vital Signs Vital signs: Vital Signs Temp 97.9 F 04/30/22 04:00 Pulse 94 04/30/22 04:00 Resp 20 04/30/22 04:00 BP 139/72 04/30/22 04:00 Pulse Ox 96 04/30/22 07:51 FiO2 21 04/30/22 07:51 Intake & Output 04/29/22 04/30/22 04/30/22 17:59 06:59 18:59 Intake Total Output Total 175 Balance -175 Intake: IV Invasive Line 5 Intake, IV Titration Amount Diltiazem 125 mg In Sodium Chloride 0.9% 100 ml @ 10 MG/HR 10 mls/hr IV .[id number] [facility] Rx#: [id number] Output: Urine 175 Other: Voiding Method - Exam 02/07/2023: Patient is moaning, complaining of back hurting. She is very confused. She is not following directions. She is not squeezing hands. 04/29/2022: Patient is asleep at this time. Did not wake her up, as hopefully sleep will help with her mentation and her postictal state. Patient was restless, awake last night. 04/28/2022: Patient is delirious, fluctuating mental status. At times appear more encephalopathic. Patient sometimes is more alert and awake, but very confused, restless, trying to get out of bed, wants the mitten in the right hand to be removed. Patient states she is 82 or 89 years old, does not know. She knows her name. Otherwise she is not oriented to time and place. Patient's daughter was also present, states that she is not recognizing her daughter. - Labs CBC & Chem 7: 04/29/22 07:40 04/29/22 20:04 Labs: Abnormal Lab Results - Last 24 Hours (Table) 04/29/22 04/29/22 Range/Units 07:40 07:40 Plt Count 98 L (150-450) k/uL Lymphocytes # 0.6 L (1.0-4.8) k/uL Potassium 2.9 L (3.5-5.1) mmol/L Microbiology - Last 24 Hours (Table) 04/28/22 18:41 Urine Culture - Preliminary Urine,Voided Gram Neg Bacilli Assessment and Plan Assessment: * Episode of unresponsiveness, rule out partial seizure, versus TIA * Altered mental status, possible encephalopathy, rule out postictal state. * Seizure disorder since 12/15/2020. Patient's seizure were in remission, until she had a possible seizure versus TIA on the night of arrival. * History of traumatic intraparenchymal bilateral frontal bleed in 2017 (had a fall and was on anticoagulation) * Hypertension * Atrial fibrillation, not on anticoagulation * Advanced dementia Plan: * Patient at present is significantly encephalopathic. Patient has acute UTI and urine has grown > 100,000 gram-negative bacilli. Patient started on ceftriaxone 1 g every 12 hours. * Her dose of Keppra has been increased to 500 mg twice a day. * EEG 04/27/2022 was abnormal due to background slowing of severe degree, suggestive of generalized cerebral dysfunction as can be seen with toxic metabolic encephalopathy or due to diffuse structural brain abnormality. Cl inical correlation is recommended. No epileptiform activity was seen. * Patient probably had a breakthrough seizure. Patient's dose of Keppra is very subtherapeutic at 250 mg twice a day. We will increase Keppra to 500 mg twice a day. 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 The right vertebral artery is patent. No evidence of dissection of the cervical internal carotid arteries. No evidence of significant stenosis at the carotid bifurcation. No intracranial high-grade stenosis or intracranial aneurysm. * Patient has atrial fibrillation. Patient not a candidate for anticoagulation. Patient used to be on aspirin 81 mg daily. Apparently patient was started on Brilinta 90 mg twice a day for possible stroke/TIA. Patient is not very compliant and is a slight fall risk. We will switch Brilinta to Plavix 75 mg daily. We will switch aspirin from 300 mg rectally to aspirin 81 mg daily. * Lipid panel with cholesterol 123, LDL 37, HDL 68 and triglycerides 86. Continue Lipitor 20 mg daily. * Patient appears to have underlying dementia. * We will start Exelon patch for dementia. * Dr. Michael Banerjee will resume neurology service in the morning.
--- NOTE | 2022-04-30 10:46 | CT ---
EXAMINATION TYPE: CT brain wo con CT DLP: 1143.4 mGycm, Automated exposure control for dose reduction was used. DATE OF EXAM: 04/30/2022 10:36 AM COMPARISON: 04/25/2022. CLINICAL INDICATION:Female, 89 years old with history of follow up, ?CVA, Follow up CVA. TECHNIQUE: Brain: Axial CT images of the brain were obtained with coronal and sagittal reformats created and rev iewed. Contrast used: None. Oral contrast used: None. FINDINGS: Brain: Extra-axial spaces: No abnormal extra-axial fluid collections. Ventricular system: Dilatation in proportion to cerebral atrophy. Bilateral choroid plexus xanthogran ulomas. Cerebral parenchyma: Similar right inferior frontal lobe remote injury. Cerebral atrophy. No acute in traparenchymal hemorrhage or mass effect. The schwarz-white junction is well differentiated. Scattered hypoattenuating areas are seen within the white matter. Cerebellum: Unremarkable. Mass effect: No evidence of midline shift. Intracranial vasculature: unremarkable Soft tissues: Normal. Calvarium/osseous structures: No depressed skull fracture. Paranasal sinuses and mastoid air cells: Mild scattered paranasal sinus disease. Visualized orbits: Bilateral aphakia IMPRESSION: 1. No acute intracranial process. MRI would be more sensitive for small areas of infarct. 2. Nonspecific white matter changes, likely secondary to chronic small vessel ischemic disease.
--- NOTE | 2022-04-30 10:47 | P.PN ---
Subjective This is a pleasant 89 years old female with past medical history of hypertension, atrial fibrillation, seizure, hyperlipidemia. Patient is poor historian so information was obtained from the records and staff. No family at bedside Patient was sent from [facility] for confusion, usually she is oriented 1 but currently has no orientation and she is more confused. Earlier today she was agitated and she was taken to the staff, currently she is sleeping comfortably in bed. No other information available for now Vitas reviewed, patient is slightly tachycardic with 117, she is saturating 92% on room air. Afebrile CBC is unremarkable except for mild thrombocytopenia, INR, BMP is unremarkable. Limited lactic acid 2.4 came back to normal. Liver enzymes slightly up with AST 52 and ALT 40. Bilirubin normal 0.5. Urine analysis is not Suspicious of infection. 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 No evidence of dissection or high-grade stenosis. CTA of the head and neck, no acute fracture Chest x-ray: Cardiomegaly with mild vascular congestion suspicious for CHF EKG showed atrial fibrillation at the rate of 140 Patient was started on aspirin and brlinta 04/27/2022 Patient remains combative and agitated, last night she received 1 dose of Haldol which help calm her down, this morning she was agitated NC. Patient confused and does not follow commands. However repeated EKG showing QTC is 4:15, another dose of IV Haldol is given, patient complaining of from pain at her knee which may contribute to her agitation therefore she was placed on morphine 2 mg every 4 hours as needed her Cardizem drip increased to 10 mg per hour and metoprolol 5 mg twice a day into 3 times a day. Her blood pressure heart rate is better controlled. Because of the sedatives and an older sick patient calmed down and she could pass a swallowing evaluation and she was placed on diet order however given her all over condition she still high risk for aspiration anyway She is still on aspirin 300 mg rectally. Also brilinta but patient is is not able to take it because of her mentation. Sitter is at bedside for safety Case was discussed with bed side nurse 04/28/2022 patient today looks a little bit more calm her in the morning when I tried to talk to her in a soft stone, she was pleasant and smiling and calm but still confused, she could not remember her name or where she is at. Sitter at bedside for safety and patient has a maintenance right hand. Yesterday she was found to have urinary retention and Bravo catheter was placed, this may contribute it for her feeling better today. Patient also spitting most of her medication when given orally. She is getting aspirin 300 mg rectally. Cardiology on the case for her A. fib and RVR. Psychiatric evaluated the patient for her agitation behavior and dose of Seroquel was increased Per neurologist or abnormal behavior could be due to seizure therefore Keppra was increased to 500 mg from home dose of 250. Patient is still noncompliant with medication due to her severe dementia Prognosis remains guarded 04/29/2021 Patient is more calm but gets agitation at times, she takes some of her medication. Her heart rate is controlled today. Sitter remains at bedside. She remains has Bravo catheter, her urine analysis is suspicious for infection and patient was started on Rocephin with follow-up of the urine culture She was on Cardizem drip in the morning. She is also on aspirin 300 mg rectally Keppra is increased to 500 mg twice a day. 04/30/2022 Patient is, She Is Taking Her Medication Heart Rate and Blood Pressure Control Now Is Taking Medication Bravo Catheter in Place for Hypertension She Has Evidence of UTI, Started on Rocephin, Urine Culture Is Pending Her Dual Antiplatelet ARE Updated to Aspirin 81 Mg and Plavix Objective - Vital Signs Vital signs: Vital Signs Temp 98.6 F 04/30/22 08:50 Pulse 103 H 04/30/22 08:50 Resp 20 04/30/22 08:50 BP 158/85 04/30/22 08:50 Pulse Ox 97 04/30/22 08:50 FiO2 21 04/30/22 07:51 Intake & Output 04/29/22 04/30/22 04/30/22 17:59 06:59 18:59 Intake Total 100 Output Total 175 Balance -75 Intake: IV Invasive Line 5 Intake, IV Titration Amount Diltiazem 125 mg In Sodium Chloride 0.9% 100 ml @ 10 MG/HR 10 mls/hr IV .[id number] [facility] Rx#: [id number] Oral 100 Output: Urine 175 Other: Voiding Method Indwelling Catheter - Exam -GENERAL: The patient is confused, agitated and combative at times, not in any acute distress. Well developed, well nourished. HEENT: Pupils are round and equally reacting to light. EOMI. No scleral icterus. No conjunctival pallor. Normocephalic, atraumatic. No pharyngeal erythema. No thyromegaly. CARDIOVASCULAR: S1 and S2 present. No murmurs, rubs, or gallops. PULMONARY: Chest is clear to auscultation, no wheezing or crackles. ABDOMEN: Soft, nontender, nondistended, normoactive bowel sounds. No palpable organomegaly. Bravo catheter in place MUSCULOSKELETAL: No joint swelling or deformity. EXTREMITIES: No cyanosis, clubbing, or pedal edema. NEUROLOGICAL: Gross neurological examination did not reveal any focal deficits. SKIN: No rashes. no petechiae. - Labs CBC & Chem 7: 04/29/22 07:40 04/29/22 20:04 Labs: Microbiology - Last 24 Hours (Table) 04/28/22 18:41 Urine Culture - Preliminary Urine,Voided Gram Neg Bacilli Assessment and Plan Assessment: Acute urinary tract infection Acute urinary retention status post Bravo catheter A. fib and RVR, placed on admission Worsening altered mental status, rule out metabolic/toxic encephalopathy on the top of her chronic dementia Dementia with behavioral problem Occluded left vertebral artery Hypertension Hyperlipidemia Chronic atrial fibrillation History of seizure Plan: Start ceftriaxone, follow-up urine culture Continue with Bravo catheter Continue with aspirin 81 mg and Plavix Continue with higher dose of Keppra. 500 mg Continue with oral cardiac medications, cardiology team signed off the case Advanced diet as per swallow evaluation with keep monitoring and aspiration precautions Neurology consult Labs and medication were reviewed.. Continue same treatment. Continue with symptomatic treatment. Resume home medication. Monitor labs and vitals. DVT and GI prophylaxis. Further recommendations as per clinical course of the patient DVT prophylaxis: Subcutaneous heparin GI Prophylaxis: Pepcid Prognosis is guarded
[2022-04-30] MEDS: MORPHINE SULFATE 2 MG/ML SYRINGE IVP PRN (11:08)
[2022-04-30] MEDS: RIVASTIGMINE 4.6MG/24HR PATCH TRANSDERM SCH (13:19)
[2022-04-30] MEDS: QUEtiapine 25 MG TAB PO SCH ×2 (16:16→20:01)
[2022-04-30] MEDS: MELATONIN 5 MG TABLET PO SCH (20:01)
[2022-05-01] MEDS: DILTIAZEM 125 MG in SODIUM CHLORIDE 0.9% 100 ML IV SCH (05:19)
[2022-05-01 06:49] LABS: Basophils % (A) 0 %; Eosinophils # (A) 0.1 k/uL (0-0.7); Eosinophils % (A) 1 %; HCT 39.5 % (34.0-46.0); HGB 12.7 gm/dL (11.4-16.0); Lymphocytes # (A) 0.4 k/uL (1.0-4.8); Lymphocytes % (A) 3 %; MCH 31.3 pg (25.0-35.0); MCV 97.8 fL (80.0-100.0); Mean Platelet Volume 9.8; Monocytes # (A) 0.9 k/uL (0-1.0); Monocytes % (A) 7 %; Neutrophils # (A) 10.3 k/uL (1.3-7.7); Neutrophils % (A) 87 %; Platelet Count 132 k/uL (150-450); RBC 4.04 m/uL (3.80-5.40); RDW 13.9 % (11.5-15.5); WBC 11.8 k/uL (3.8-10.6)
[2022-05-01 07:05] LABS: African American GFR (CKD) >90 (>60 ml/min/1.73 sqM); Anion Gap 11 mmol/L; Blood Urea Nitrogen 19 mg/dL (7-17); Calcium 8.8 mg/dL (8.4-10.2); Carbon Dioxide 23 mmol/L (22-30); Chloride 106 mmol/L (98-107); Glucose 113 mg/dL (74-99); Magnesium 1.4 mg/dL (1.6-2.3); Non-African American GFR(CKD) 89 (>60 ml/min/1.73 sqM); Potassium 3.6 mmol/L (3.5-5.1); Sodium 140 mmol/L (137-145)
[2022-05-01] MEDS: FAMOTIDINE 20 MG/2 ML VIAL IV SCH ×2 (09:46→20:09)
[2022-05-01] MEDS: METOPROLOL TARTRATE 5 MG/5 ML VIAL IVP SCH (09:46)
[2022-05-01] MEDS: levETIRAcetam IV 500 MG in SODIUM CHLORIDE 0.9% 100 ML IVPB SCH ×2 (09:46→20:09)
[2022-05-01] MEDS: HEPARIN SODIUM,PORCINE/PF 5,000 UNIT/0.5 ML SYRINGE SQ SCH ×2 (09:46→20:10)
[2022-05-01] MEDS: ASPIRIN 81 MG PO SCH (09:47)
[2022-05-01] MEDS: CLOPIDOGREL 75 MG TAB PO SCH (09:47)
[2022-05-01] MEDS: SERTRALINE 50 MG TAB PO SCH (09:47)
[2022-05-01] MEDS: RIVASTIGMINE 4.6MG/24HR PATCH TRANSDERM SCH (11:55)
--- NOTE | 2022-05-01 13:55 | P.PN ---
Subjective Progress Note Date: 05/01/22 I am seeing the patient for the first time during this admission. Please refer to Dr. Gonzalez's notes for further details. Patient is not able to provide history and per nurse she has dementia. Objective - Vital Signs Vital signs: Vital Signs Temp 98.0 F 05/01/22 12:00 Pulse 84 05/01/22 12:00 Resp 15 05/01/22 12:00 BP 137/76 05/01/22 12:00 Pulse Ox 97 05/01/22 12:00 FiO2 21 05/01/22 08:35 Intake & Output 04/30/22 05/01/22 05/01/22 18:59 06:59 18:59 Intake Total 211.5 112 150 Output Total 500 450 450 Balance -288.5 -338 -300 Intake: IV 150 [id number] 1 gm In 50 Sodium Chloride 0.9% 50 ml @ 100 mls/hr IVPB Q12HR [facility] Rx#:[id number] levETIRAcetam IV 500 mg 100 In Sodium Chloride 0.9% 100 ml @ 400 mls/hr IVPB Q12HR [facility] Rx#:[id number] Intake, IV Titration 111.5 112 Amount Diltiazem 125 mg In 111.5 112 Sodium Chloride 0.9% 100 ml @ 10 MG/HR 10 mls/hr IV .[id number] [facility] Rx#: [id number] Oral 100 Output: Urine 500 450 450 Other: Voiding Method Indwelling Catheter Indwelling Catheter Indwelling Catheter # Bowel Movements 1 - Exam GENERAL: The patient is lying in bed and is not in acute distress. NEUROLOGICAL: Limited Higher mental function: The patient is awake, alert, oriented to self only. States the year is 1999. Is slow responding and has episodes of laughter. Follows few simple commands. Language is very limited. Cranial nerves: The pupils are round, equal and reactive to light. Has left nasolabial flattening. At times her speech seem ?slurred. Motor: The strength is limited because of cooperation. But lifting the right upper > left upper. Lifting bilateral lower above gravity. - Labs CBC & Chem 7: 05/01/22 06:06 05/01/22 06:06 Labs: Abnormal Lab Results - Last 24 Hours (Table) 05/01/22 05/01/22 Range/Units 06:06 06:06 WBC 11.8 H (3.8-10.6) k/uL Plt Count 132 L (150-450) k/uL Neutrophils # 10.3 H (1.3-7.7) k/uL Lymphocytes # 0.4 L (1.0-4.8) k/uL BUN 19 H (7-17) mg/dL Creatinine 0.45 L (0.52-1.04) mg/dL Glucose 113 H (74-99) mg/dL Magnesium 1.4 L (1.6-2.3) mg/dL Microbiology - Last 24 Hours (Table) 04/28/22 18:41 Urine Culture - Final Urine,Voided Escherichia coli Assessment and Plan Assessment: * Episode of unresponsiveness. It was felt possible partial seizure versus TIA * Altered mental status, possible encephalopathy, rule out postictal state. Also has underlying UTI * Acute UTI * Seizure disorder since 12/15/2020. Patient's seizure were in remission, until she had a possible seizure versus TIA on the night of arrival. * History of traumatic intraparenchymal bilateral frontal bleed in 2017 (had a fall and was on anticoagulation) * Hypertension * Atrial fibrillation, not on anticoagulation * Advanced dementia Plan: * Patient at present is significantly encephalopathic. Patient has acute UTI and urine has grown > 100,000 gram-negative bacilli. Patient started on ceftriaxone 1 g every 12 hours. * Her dose of Keppra has been increased to 500 mg twice a day. * EEG 04/27/2022 was reported as abnormal due to background slowing of severe degree, suggestive of generalized cerebral dysfunction as can be seen with toxic metabolic encephalopathy or due to diffuse structural brain abnormality. Clinical correlation is recommended. No epileptiform activity was seen. * Patient probably had a breakthrough seizure. Patient's dose of Keppra is very subtherapeutic at 250 mg twice a day. Was increase Keppra to 500 mg twice a day during this admission by Dr. Gonzalez. 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 The right vertebral artery is patent. No evidence of dissection of the cervical internal carotid arteries. No evidence of significant stenosis at the carotid bifurcation. No intracranial high-grade stenosis or intracranial aneurysm. * Patient has atrial fibrillation. Patient not a candidate for anticoagulation. Patient used to be on aspirin 81 mg daily. Apparently patient was started on Brilinta 90 mg twice a day for possible stroke/TIA. Patient is not very compliant and is a slight fall risk. We will switch Brilinta to Plavix 75 mg daily. We will switch aspirin from 300 mg rectally to aspirin 81 mg daily. * Lipid panel with cholesterol 123, LDL 37, HDL 68 and triglycerides 86. Continue Lipitor 20 mg daily. * Patient appears to have underlying dementia. And was started on Exelon patch for dementia by Dr. Gonzalez. The plan is discussed with patient's nurse. Time with Patient: Less than 30
--- NOTE | 2022-05-01 14:16 | P.PN ---
Subjective Progress Note Date: 05/01/22 This is a pleasant 89 years old female with past medical history of hypertension, atrial fibrillation, seizure, hyperlipidemia. Patient is poor historian so information was obtained from the records and s keegan. No family at bedside Patient was sent from [facility] for confusion, usually she is oriented 1 but currently has no orientation and she is more confused. Earlier today she was agitated and she was taken to the staff, currently she is sleeping comfortably in bed. No other information available for now Vitas reviewed, patient is slightly tachycardic with 117, she is saturating 92% on room air. Afebrile CBC is unremarkable except for mild thrombocytopenia, INR, BMP is unremarkable. Limited lactic acid 2.4 came back to normal. Liver enzymes slightly up with AST 52 and ALT 40. Bilirubin normal 0.5. Urine analysis is not Suspicious of infection. 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 No evidence of dissection or high-grade stenosis. CTA of the head and neck, no acute fracture Chest x-ray: Cardiomegaly with mild vascular congestion suspicious for CHF EKG showed atrial fibrillation at the rate of 140 Patient was started on aspirin and brlinta 04/27/2022 Patient remains combative and agitated, last night she received 1 dose of Haldol which help calm her down, this morning she was agitated NC. Patient confused and does not follow commands. However repeated EKG showing QTC is 4:15, another dose of IV Haldol is given, patient complaining of from pain at her knee which may contribute to her agitation therefore she was placed on morphine 2 mg every 4 hours as needed her Cardizem drip increased to 10 mg per hour and metoprolol 5 mg twice a day into 3 times a day. Her blood pressure heart rate is better controlled. Because of the sedatives and an older sick patient calmed down and she could pass a swallowing evaluation and she was placed on diet order however given her all over condition she still high risk for aspiration anyway She is still on aspirin 300 mg rectally. Also brilinta but patient is is not able to take it because of her mentation. Sitter is at bedside for safety Case was discussed with bed side nurse 04/28/2022 patient today looks a little bit more calm her in the morning when I tried to talk to her in a soft stone, she was pleasant and smiling and calm but still confused, she could not remember her name or where she is at. Sitter at bedside for safety and patient has a maintenance right hand. Yesterday she was found to have urinary retention and Bravo catheter was placed, this may contribute it for her feeling better today. Patient also spitting most of her medication when given orally. She is getting aspirin 300 mg rectally. Cardiology on the case for her A. fib and RVR. Psychiatric evaluated the patient for her agitation behavior and dose of Seroquel was increased Per neurologist or abnormal behavior could be due to seizure therefore Keppra was increased to 500 mg from home dose of 250. Patient is still noncompliant with medication due to her severe dementia Prognosis remains guarded 04/29/2021 Patient is more calm but gets agitation at times, she takes some of her medication. Her heart rate is controlled today. Sitter remains at bedside. She remains has Rbavo catheter, her urine analysis is suspicious for infection and patient was started on Rocephin with follow-up of the urine culture She was on Cardizem drip in the morning. She is also on aspirin 300 mg rectally Keppra is increased to 500 mg twice a day. 04/30/2022 Patient is, She Is Taking Her Medication Heart Rate and Blood Pressure Control Now Is Taking Medication Bravo Catheter in Place for Hypertension She Has Evidence of UTI, Started on Rocephin, Urine Culture Is Pending Her Dual Antiplatelet ARE Updated to Aspirin 81 Mg and Plavix 05/01/2022 Patient is seen and evaluated in follow-up today with neurology following. Patient continues with IV antibiotics as well for UTI maintained on ceftriaxone and urine culture remains pending. Per nursing staff patient was having difficulties with medications orally and a lot of her medications have been placed in IV form and will reevaluate. Patient continues on IV Cardizem although cardiology is consulted and will most likely transition to oral as patient is tolerating oral intake. Patient lives at [facility] and will be returning there once cleared medically. Awaiting neurology evaluation and follow-up cultures. Patient is afebrile with no reported chest pain or shortness of breath. Review of systems: Unable to completely assess as patient is baseline confused Active Medications Aspirin (Aspirin 81 Mg) 81 mg PO DAILY [facility] Last Admin: 05/01/22 09:47 Dose: 81 mg Clopidogrel Bisulfate (Clopidogrel 75 Mg Tab) 75 mg PO DAILY [facility] Last Admin: 05/01/22 09:47 Dose: 75 mg Diltiazem HCl (Diltiazem Oral 60 Mg Tab) 60 mg PO TID [facility] Famotidine (Famotidine 20 Mg/2 Ml Vial) 10 mg IV Q12HR [facility] Last Admin: 05/01/22 09:46 Dose: 10 mg Heparin Sodium (Porcine) (Heparin Sodium,Porcine/Pf 5,000 Unit/0.5 Ml Syringe) 5,000 unit SQ Q12HR [facility] Last Admin: 05/01/22 09:46 Dose: 5,000 unit Levetiracetam 500 mg/ Sodium (Chloride) 105 mls @ 400 mls/hr IVPB Q12HR [facility] Last Admin: 05/01/22 09:46 Dose: 400 mls/hr Ceftriaxone Sodium 1 gm/ (Sodium Chloride) 50 mls @ 100 mls/hr IVPB Q12HR [facility]; Protocol Last Admin: 05/01/22 09:45 Dose: 100 mls/hr Melatonin (Melatonin 5 Mg Tablet) 5 mg PO [facility] Last Admin: 04/30/22 20:01 Dose: 5 mg Metoprolol Tartrate (Metoprolol Tartrate 12.5 Mg Tab) 12.5 mg PO BID [facility] Miscellaneous Information (Potassium Replacement Protocol 1 Each Misc) 1 each MISCELLANE DAILY PRN; Protocol PRN Reason: Per Protocol Morphine Sulfate (Morphine Sulfate 2 Mg/Ml Syringe) 2 mg IVP Q4HR PRN PRN Reason: Pain/Discomfort Last Admin: 04/30/22 11:08 Dose: 2 mg Olanzapine (Olanzapine 10 Mg Vial) 2.5 mg IM TID PRN PRN Reason: Agitation Quetiapine Fumarate (Quetiapine 25 Mg Tab) 25 mg PO DAILY@1600 [facility] Last Admin: 04/30/22 16:16 Dose: 25 mg Quetiapine Fumarate (Quetiapine 25 Mg Tab) 25 mg PO HS [facility] Last Admin: 04/30/22 20:01 Dose: 25 mg Rivastigmine (Rivastigmine 4.6mg/24hr Patch) 1 patch TRANSDERM Q24H [facility] Last Admin: 05/01/22 11:55 Dose: 1 patch Sertraline HCl (Sertraline 50 Mg Tab) 50 mg PO DAILY@0800 [facility] Last Admin: 05/01/22 09:47 Dose: 50 mg Physical exam: GENERAL: The patient is confused, agitated and combative at times although somewhat more calm and cooperative today, not in any acute distress. Well developed, well nourished. Thin built elderly appearing female HEENT: Pupils are round and equally reacting to light. EOMI. No scleral icterus. No conjunctival pallor. Normocephalic, atraumatic. No pharyngeal erythema. No thyromegaly. CARDIOVASCULAR: S1 and S2 muffled, irregular PULMONARY: Chest is clear to auscultation, no wheezing or crackles. ABDOMEN: Soft, nontender, nondistended, normoactive bowel sounds. No palpable organomegaly. Bravo catheter in place MUSCULOSKELETAL: No joint swelling or deformity. EXTREMITIES: No cyanosis, clubbing, or pedal edema. NEUROLOGICAL: Gross neurological examination did not reveal any focal deficits. Diffusely weak SKIN: No rashes. no petechiae. Assessment: Acute urinary tract infection, possibly secondary to urinary retention Acute urinary retention status post Bravo catheter A. fib and RVR, present on admission Worsening altered mental status, most likely metabolic/toxic encephalopathy on the top of her chronic dementia and also component of urinary tract infection Dementia with behavioral problem Occluded left vertebral artery Hypertension Hyperlipidemia Chronic atrial fibrillation History of seizure No code Plan: Recommend continue with antibiotics in the form of ceftriaxone and urine cultures did finalized showing E. coli with some sensitivities and will continue ceftriaxone and transitioned to oral Ceftin on discharge Recommend continue with indwelling Bravo catheter for now for retention and trial void once more mobile Continue with aspirin 81 mg and Plavix with neurology following Continue with higher dose of Keppra. Neurology has adjusted Recommend frequent reorientation and keeping the blinds open throughout the day and limit napping throughout the day, continue Seroquel during the day as well as Seroquel at night Continue with oral cardiac medications, and patient was on Cardizem although being transitioned currently rate controlled and tolerating more oral intake Recommend continue with current diet and monitor closely for any aspiration and continue with aspiration precautions with head of the bed elevated 30-45 at all times, supervision with meals Will discuss with case management is patient is a return to [facility] along with neurology Due to multiple complex medical issues, prognosis is guarded Possible discharge in 24 hours The impression and plan of care has been dictated by Calista Denny, Nurse Practitioner as directed. Dr. Frankie MD I have performed a history and examination and MDM of this patient, discussed the same with the dictator, and agree with the dictator's assessment and plan as written ,documented as a scribe. Based on total visit time, I have performed more than 50% of the visit. Objective - Vital Signs Vital signs: Vital Signs Temp 98.0 F 05/01/22 08:00 Pulse 95 05/01/22 08:00 Resp 17 05/01/22 08:00 BP 147/84 05/01/22 08:00 Pulse Ox 97 05/01/22 08:35 FiO2 21 05/01/22 08:35 Intake & Output 04/30/22 05/01/22 05/01/22 18:59 06:59 18:59 Intake Total 211.5 112 Output Total 500 450 Balance -288.5 -338 Intake: Intake, IV Titration 111.5 112 Amount Diltiazem 125 mg In 111.5 112 Sodium Chloride 0.9% 100 ml @ 10 MG/HR 10 mls/hr IV .[id number] [facility] Rx#: [id number] Oral 100 Output: Urine 500 450 Other: Voiding Method Indwelling Catheter Indwelling Catheter Indwelling Catheter # Bowel Movements 1 - Labs CBC & Chem 7: 05/01/22 06:06 05/01/22 06:06 Labs: Abnormal Lab Results - Last 24 Hours (Table) 05/01/22 05/01/22 Range/Units 06:06 06:06 WBC 11.8 H (3.8-10.6) k/uL Plt Count 132 L (150-450) k/uL Neutrophils # 10.3 H (1.3-7.7) k/uL Lymphocytes # 0.4 L (1.0-4.8) k/uL BUN 19 H (7-17) mg/dL Creatinine 0.45 L (0.52-1.04) mg/dL Glucose 113 H (74-99) mg/dL Magnesium 1.4 L (1.6-2.3) mg/dL Microbiology - Last 24 Hours (Table) 04/28/22 18:41 Urine Culture - Final Urine,Voided Escherichia coli
[2022-05-01] MEDS: DILTIAZEM ORAL 60 MG TAB PO SCH ×2 (16:41→20:10)
[2022-05-01] MEDS: QUEtiapine 25 MG TAB PO SCH ×2 (16:41→20:10)
--- NOTE | 2022-05-01 18:50 | P.PN ---
Progress Note - Text Progress Note Date: 05/01/22 Psychiatry consult note: Interval history: Patient was seen calmly sitting up in bed and was directable and agreeable to speak with production underwriter. She is alert, and oriented to person, month and day of the week. She is not oriented to place, believes she's [facility]". She is able to maintain wakefulness during the day since decreasing the Seroquel yesterday, so she can eat. At this time patient denies any suicidal or homicidal ideation, intent or plan. Denies any auditory or visual hallucinations. Patient denies any side effects from the medications and has been compliant with meds. MENTAL STATUS EXAM: General Appearance: Patient appears to be stated age, dressed in hospital gown, fair grooming/hygiene Behavior: Patient is sitting up in bed. Calm, cooperates. Speech: Speech is soft, sometimes slowed. Mood/Affect: Mood and affect are euthymic, patient smiling. Suicidality/Homicidality: Denies any suicidal or homicidal ideation, intent or plan Perceptions: Denies any auditory or visual hallucinations Though content/process: Pleasantly answers questions, Incomplete responses, generally linear Memory and concentration: Impaired due to neurocognitive disorder Judgment and insight: Poor IMPRESSIONS: Delirium, multifactorial (seizure, uncontrolled pain, and change in environment), resolving Major neurocognitive disorder with behavioral disturbances PLAN: -At this time patient DOES NOT meet criteria for inpatient psychiatric admission. -Delirium precautions recommended with patient including - avoiding use of narcotics and TRAFFIC SIGNAL REPAIRER sedatives, limit anticholinergic medications when possible, frequent re-orientation, minimize use of restraints, open window shades during the day and close them at night -Would recommend the following medication changes/additions: Continue Zyprexa 2.5 mg IM 3 times a day when necessary for agitation Continue Seroquel 25 mg daily at 1600 and 25 mg QHS to address major neurocognitive disorder with behavioral disturbances. Continue Zoloft 50 mg by mouth daily for depression/anxiety Continue melatonin 5 mg by mouth at bedtime for sleep. -Will continue to loosely follow along
--- NOTE | 2022-05-01 18:56 | P.PN ---
Progress Note - Text Progress Note Date: 04/30/22 Psychiatry consult note: Interval history: Patient was seen calmly laying in bed, is somnolent and has difficulty maintaining wakefulness to engage in assessment or to eat. She is oriented to person only. At this time patient denies any suicidal or homicidal ideation, intent or plan. Denies any auditory or visual hallucinations. Patient denies any side effects from the medications and has been compliant with meds. Nurse reports patient has displayed no agitation so far today. Patient has received Atian 1 mg x 4 on Sunday, 1 mg x 1 on and Sunday each. MENTAL STATUS EXAM: General Appearance: Patient appears to be stated age, dressed in hospital gown, fair grooming/hygiene Behavior: Patient is laying in bed, somnolent, calm, not agitated. Speech: Speech is soft, mumbled. Mood/Affect: Mood and affect are somnolent. Suicidality/Homicidality: Denies any suicidal or homicidal ideation, intent or plan Perceptions: Denies any auditory or visual hallucinations Though content/process: Incomplete responses, brief Memory and concentration: Impaired due to neurocognitive disorder Judgment and insight: Poor IMPRESSIONS: Delirium, multifactorial (seizure, uncontrolled pain, change in environment, polypharmacy including benzodiazepines) Major neurocognitive disorder with behavioral disturbances PLAN: -At this time patient DOES NOT meet criteria for inpatient psychiatric admission. -Delirium precautions recommended with patient including - avoiding use of narcotics and FPGA ENGINEER sedatives, limit anticholinergic medications when possible, frequent re-orientation, minimize use of restraints, open window shades during the day and close them at night -Would recommend the following medication changes/additions: Discontinue Ativan since this is likely worsening delirium and increases the risk of falls. Continue Zyprexa 2.5 mg po/IM three times a day when necessary for agitation Decrease Seroquel to 25 mg daily at 1600 and 25 mg QHS to minimize oversedation. Continue Zoloft 50 mg by mouth daily for depression/anxiety Continue melatonin 5 mg by mouth at bedtime for sleep. -Will continue to follow along
[2022-05-01] MEDS: MELATONIN 5 MG TABLET PO SCH (20:10)
[2022-05-01] MEDS: METOPROLOL TARTRATE 12.5 MG TAB PO SCH (20:10)
[2022-05-02] MEDS ORDERED: Magnesium Replacement Protocol 1 EACH MISC MISCELLANE PRN (06:15)
[2022-05-02] MEDS: MAGNESIUM SULFATE-D5W PMX 1 GM in DEXTROSE/WATER 1 100ML.BAG IVPB SCH ×2 (06:56→12:07)
[2022-05-02 07:01] LABS: Basophils % (A) 0 %; Eosinophils # (A) 0.2 k/uL (0-0.7); Eosinophils % (A) 2 %; HCT 38.6 % (34.0-46.0); HGB 12.6 gm/dL (11.4-16.0); Lymphocytes # (A) 0.7 k/uL (1.0-4.8); Lymphocytes % (A) 7 %; MCHC 32.7 g/dL (31.0-37.0); Mean Platelet Volume 9.5; Monocytes # (A) 0.7 k/uL (0-1.0); Monocytes % (A) 7 %; Neutrophils # (A) 7.5 k/uL (1.3-7.7); Neutrophils % (A) 81 %; Platelet Count 146 k/uL (150-450); RBC 3.94 m/uL (3.80-5.40); RDW 13.7 % (11.5-15.5); WBC 9.2 k/uL (3.8-10.6)
[2022-05-02] MEDS ORDERED: METOPROLOL TARTRATE 25 MG TAB PO SCH (09:15)
[2022-05-02] MEDS: levETIRAcetam IV 500 MG in SODIUM CHLORIDE 0.9% 100 ML IVPB SCH (10:33)
[2022-05-02] MEDS: HEPARIN SODIUM,PORCINE/PF 5,000 UNIT/0.5 ML SYRINGE SQ SCH ×2 (10:33→10:43)
[2022-05-02] MEDS: SERTRALINE 50 MG TAB PO SCH (10:33)
[2022-05-02] MEDS: CLOPIDOGREL 75 MG TAB PO SCH (10:34)
[2022-05-02] MEDS: FAMOTIDINE 20 MG/2 ML VIAL IV SCH (10:34)
[2022-05-02] MEDS: ASPIRIN 81 MG PO SCH (10:34)
[2022-05-02] MEDS: DILTIAZEM ORAL 60 MG TAB PO SCH (10:34)
[2022-05-02 11:14] VITALS: BMI 22.1
[2022-05-02] MEDS: METOPROLOL TARTRATE 12.5 MG TAB PO SCH (11:33)
--- NOTE | 2022-05-02 11:33 | CDI ---
Documentation Clarification Form Date: 05/02/2022 10:52:33 AM From: Latosha Bunn RN, CCDS Admit Date: 04/25/2022 9:00:00 PM Patient Name: Pamela Quiñones Visit Number: [id number] Discharge Date: ATTENTION: The Clinical Documentation Specialists (CDI) and [facility] Coding Staff appreciate your assistance in clarifying documentation. Please respond to the clarification below the line at the bottom and electronically sign. The CDI & [facility] Coding staff will review the response and follow-up if needed. Please note: Queries are made part of the Legal Health Record. If you have any questions, please contact the author of this message via ITS. Dr. Ann Gonzalez Advanced dementia is documented in neurology consult and subsequent progress notes. Additional clarification regarding the type of dementia is requested. Patient history/risk factors: Dementia, Atrial fibrillation Bifrontal intraparenchymal intracranial bleed, Seizure Clinical indicators: 89-year-old female with history of dementia brought to hospital because of a breakthrough seizure. She has confusion agitation. 37 Labs: sodium 136, potassium 4.7, Lactate 2.4, AST 52, ALT 40 CK normal 20, and troponin negative. 37 CT head showed no acute intracranial process. 37 X ray: Cardiomegaly and mild pulmonary vascular congestion. Correlate with BNP for CHF. Treatment: Cardiac/Telemetry monitoring Exelon 4.6 MG/24 hr. Patch ASA PO Daily, Lipitor 20 MG PO Neuro orders Q1HX4, Q2HX12. Q4H Keppra 500 MG IV PB Q12, Zyprexa 2.5 MG IM TID PRN Seroquel 25MG PO Daily @ 1600 and HS PO daily 1:1 SITTER (pt. safety protocol) Seizure precautions Please clarify the type dementia, if known: [ ] Alzheimers disease (specify if early (presenile) or late (senile) onset) [ ] Parkinsons disease [ ] Senile (specify if with or without (confusional state) [ ] Vascular (specify if arteriosclerosis or sequel of cerebrovascular disease) [ ] Lewy body [ ] Other condition or cause of dementia, please specify [ ] Unable to determine Please indicate any behavioral disturbances associated with the condition (such as aggression, combative or wandering) (Template Last Revised: April 2020) Patient has Alzheimer Dementia with behavioral disturbance. Other conditions contributing to dementia including previous history of traumatic brain injury and intracranial bleed. Please call with any other concerns. Ann Gonzalez MD [facility]
[2022-05-02] MEDS: RIVASTIGMINE 4.6MG/24HR PATCH TRANSDERM SCH (12:07)
--- NOTE | 2022-05-02 12:15 | CDI ---
Documentation Clarification Form Date: 05/02/2022 12:06:00 PM From: Latosha Bunn RN, CCDS Admit Date: 04/25/2022 9:00:00 PM Patient Name: Pamela Quiñones Visit Number: [id number] Discharge Date: ATTENTION: The Clinical Documentation Specialists (CDI) and [facility] Coding Staff appreciate your assistance in clarifying documentation. Please respond to the clarification below the line at the bottom and electronically sign. The CDI & [facility] Coding staff will review the response and follow-up if needed. Please note: Queries are made part of the Legal Health Record. If you have any questions, please contact the author of this message via ITS. Dr. José Deleon UTI is documented in the progress notes starting on 04/28/22, and patient had a Bravo catheter inserted on 04/27/22 was also straight Cath for urinary retention starting on 04/26 for urinary retention. Additional clarification regarding this diagnosis is requested. History/Risk Factors: Atrial Fibrillation, Hypertension, Seizure, Dementia, Traumatic intraparenchymal bilateral frontal bleed in 2017 Clinical Indicators: 89-year-old female present from [facility] with confusion, agitation. His abnormal behavior could be due to seizure. On 04/28 progress notes has urinary retention and Bravo catheter was place. 04/27 Vital Signs: 163/99 102 21 97.5 04/29 Labs WBC 7.4, K+ 2.9 04/25 WBC: 8.6 04/25 Urinalysis: Ur Leukocyte Esterase Negative 04/28 Ur Leukocyte Esterase Large Urine WBC >182 04/28 Urine Culture: Escherichia coli Treatment Rocephin 1 GM IV Daily Please clarify the etiology of the UTI, if known: [ ] Bravo catheter [ ] UTI not related to Bravo catheter [ ] Other condition, please specify [ ] Unable to determine (Template Last Revised: April 2020) UTI not related to Bravo catheter MTDD
--- NOTE | 2022-05-02 13:09 | P.DS ---
Providers Date of admission: 04/25/22 21:00 Expected date of discharge: 05/02/22 Attending physician: Mary Jane Diamond Consults: 04/25/22 21:01 Consult Physician Routine Consulting Provider: [facility] Consult Reason/Comments: A fib with RVR Do you want consulting provider notified?: Yes, Notify in am Consult Physician Routine Consulting Provider: Ann Gonzalez Consult Reason/Comments: CVA Do you want consulting provider notified?: Yes, Notify in am 04/27/22 08:07 Consult Physician Routine Consulting Provider: Spencer Meneses Consult Reason/Comments: ams with behavioral changes Do you want consulting provider notified?: Yes Primary care physician: Buddy Macias Hospital Course: Final diagnosis Acute urinary tract infection, most likely secondary to indwelling Bravo catheter Acute urinary retention status post Bravo catheter A. 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 Patient will follow-up with Dr. Macias in the outpatient setting upon discharge. Patient is to follow-up with cardiology as well as neurology outpatient as scheduled. Patient will continue on oral Ceftin 500 mg twice daily for the next 3 days to complete the course. Total time taken is greater than 35 minutes. Hospital course This is a 89-year-old female who was recently admitted from [facility] with altered mental status with concerns of possible TIA versus seizure. Patient does have a seizure history and was maintained on Keppra with neurology following closely. Patient most likely breakthrough seizure and Keppra has been increased and would recommend monitoring closely and outpatient follow-up with neurology. Patient also had some acute urinary tract infection most likely associated with indwelling Bravo catheter and urine cultures finalized with E. coli. Patient has received a few days of ceftriaxone and will continue on oral Ceftin twice daily for the next 3 days to complete the course. Patient also continues with some confusion and hallucinations most likely baseline as patient does have advanced dementia most likely senile or vascular. Patient has been cleared by consultations for discharge to [facility].. Please refer to other consultation notes for further HPI. Patient to continue on dysphagia chopped diet with ground meats and one-to-one supervision with meals and head of the bed elevated 30-45 at all times. Currently no reports of chest pain, shortness of breath, or palpitations. Patient is afebrile. No reports of nausea or vomiting and patient is tolerating diet. Patient will be going to [facility] today. Guarded prognosis. Physical exam: Gen: This is a 89-year-old female who is awake, alert and oriented 1, anxious, confused, demented HEENT: Head is atraumatic, normocephalic. Pupils equal, round. Sclerae is anicteric. NECK: Supple. No JVD. No lymphadenopathy. No thyromegaly. LUNGS: Clear to auscultation. No wheezes or rhonchi. No intercostal retractions. HEART: Regular rate and rhythm. No murmur. ABDOMEN: Soft. Bowel sounds are present. No masses. No tenderness. EXTREMITIES: No pedal edema. No calf tenderness. NEUROLOGICAL: Patient is awake, alert and oriented x1. Diffusely weak. Please refer to medication reconciliation sheet for a list of medications. The impression and plan of care has been dictated by Calista Denny, Nurse Practitioner as directed. Dr. Frankie MD I have performed a history and examination and MDM of this patient, discussed the same with the dictator, and agree with the dictator's assessment and plan as written ,documented as a scribe. Based on total visit time, I have performed more than 50% of the visit. Patient Condition at Discharge: Stable Plan - Discharge Summary Discharge Rx Participant: No New Discharge Prescriptions: New Rivastigmine 4.6MG/24Hr Patch [Exelon 4.6MG/24Hr Patch] 1 patch TRANSDERM Q24H patch Clopidogrel [Plavix] 75 mg PO DAILY tab Diltiazem Oral [Cardizem*] 60 mg PO TID tab cefUROXime axetiL [Ceftin] 500 mg PO BID 3 Days #6 tab Metoprolol Tartrate [Lopressor] 25 mg PO BID tab QUEtiapine [SEROquel] 25 mg PO DAILY@1600 tab QUEtiapine [SEROquel] 25 mg PO HS tab Continue Na Phos,M-B/Na Phos,Di-Ba [Fleet Adult] 133 ml RECTAL DAILY PRN PRN Reason: Constipation bisacodyL [Dulcolax] 10 mg RECTAL DAILY PRN PRN Reason: Constipation Acetaminophen Tab [Tylenol] 650 mg PO Q6H PRN PRN Reason: general discomfort Sertraline [Zoloft] 50 mg PO DAILY@0800 Atorvastatin [Lipitor] 20 mg PO DAILY@0800 lisinopriL [Zestril] 10 mg PO DAILY@0800 polyethylene glycoL 3350 [Miralax] 17 gm PO DAILY PRN PRN Reason: Constipation Aspirin EC [Ecotrin Low Dose] 81 mg PO DAILY@0800 Melatonin 5 mg PO HS@2100 guaiFENesin [guaiFENesin Oral Solution] 200 mg PO Q4H PRN PRN Reason: Cough Menthol [Biofreeze] 1 applic TOPICAL TID PRN PRN Reason: BACK PAIN Magnesium Hydroxide [Milk of Magnesia Concentrate] 7,200 mg PO Q48H PRN PRN Reason: Constipation Ensure Enlive 120 ml PO TID@0800,1200,1700 Acetaminophen [Tylenol 8 Hour] 650 mg PO BID@0800,1700 Famotidine [Pepcid] 20 mg PO DAILY@0800 Changed levETIRAcetam [Keppra] 500 mg PO BID@0800,2100 #0 Discontinued Metoprolol Tartrate [Lopressor] 50 mg PO TID@0800,1400,2100 Diltiazem Oral [Cardizem*] 30 mg PO TID@0800,1400,2100 QUEtiapine [SEROquel] 100 mg PO HS@2100 Discharge Medication List Acetaminophen Tab [Tylenol] 650 mg PO Q6H PRN 01/05/17 [History] Atorvastatin [Lipitor] 20 mg PO DAILY@0800 01/05/17 [History] Na Phos,M-B/Na Phos,Di-Ba [Fleet Adult] 133 ml RECTAL DAILY PRN 01/05/17 [History] Sertraline [Zoloft] 50 mg PO DAILY@0800 01/05/17 [History] bisacodyL [Dulcolax] 10 mg RECTAL DAILY PRN 01/05/17 [History] Aspirin EC [Ecotrin Low Dose] 81 mg PO DAILY@0800 12/15/20 [History] Melatonin 5 mg PO HS@2100 12/15/20 [History] lisinopriL [Zestril] 10 mg PO DAILY@0800 12/15/20 [History] Acetaminophen [Tylenol 8 Hour] 650 mg PO BID@0800,1700 04/25/22 [History] Ensure Enlive 120 ml PO TID@0800,1200,1700 04/25/22 [History] Famotidine [Pepcid] 20 mg PO DAILY@0800 04/25/22 [History] Magnesium Hydroxide [Milk of Magnesia Concentrate] 7,200 mg PO Q48H PRN 04/25/22 [History] Menthol [Biofreeze] 1 applic TOPICAL TID PRN 04/25/22 [History] guaiFENesin [guaiFENesin Oral Solution] 200 mg PO Q4H PRN 04/25/22 [History] polyethylene glycoL 3350 [Miralax] 17 gm PO DAILY PRN 04/25/22 [History] Clopidogrel [Plavix] 75 mg PO DAILY tab 05/02/22 [Rx] Diltiazem Oral [Cardizem*] 60 mg PO TID tab 05/02/22 [Rx] Metoprolol Tartrate [Lopressor] 25 mg PO BID tab 05/02/22 [Rx] QUEtiapine [SEROquel] 25 mg PO DAILY@1600 tab 05/02/22 [Rx] QUEtiapine [SEROquel] 25 mg PO HS tab 05/02/22 [Rx] Rivastigmine 4.6MG/24Hr Patch [Exelon 4.6MG/24Hr Patch] 1 patch TRANSDERM Q24H patch 05/02/22 [Rx] cefUROXime axetiL [Ceftin] 500 mg PO BID 3 Days #6 tab 05/02/22 [Rx] levETIRAcetam [Keppra] 500 mg PO BID@0800,2100 #0 05/02/22 [Rx] Follow up Appointment(s)/Referral(s): Buddy Macias MD [Primary Care Provider] - 1-2 days Shoaib Bell MD [Medical Doctor] - 1 Week Activity/Diet/Wound Care/Special Instructions: Patient is going to [facility] as tolerated Recommend cardiology and neurology follow-up outpatient Patient to continue on dysphagia 3 chopped diet with ground meats and one-to-one supervision and aspiration precautions with head of the bed elevated 30-45 at all times Recommend continue with ensure supplements 3 times a day with meals Patient to continue on antibiotics twice daily for the next 3 days to complete the course and then may discontinue Discharge Disposition: TRANSFER TO SNF/ECF
[2022-05-02 13:57] VITALS: BP 115/70; PULSE 77; RESP 16; TEMP 97.5
--- NOTE | 2022-05-02 22:06 | PN ---
PROGRESS NOTE SUBJECTIVE: Ms. Quiñones is in atrial fibrillation. Rate is much better controlled. She is on Cardizem and beta-nancy combination. OBJECTIVE: VITAL SIGNS: Stable. HEART: S1 and S2 heard normally. Irregularity in rhythm. Short systolic murmur. LUNGS: Clear. ABDOMEN: Unchanged. LOWER EXTREMITIES: Unchanged. PLAN: To continue current medications. Prognosis remains guarded. MMODL / IJN: [id number] /
== END 2022-05-02 17:14 | DRG 689 ==
LOC: EC 19:19 → 3SCARD 21:00
PROVIDERS: ADMIT Hospitalist; ATTEND Hospitalist
DX: N39.0 Urinary tract infection, site not specified (principal); G92.8 Other toxic encephalopathy; F03.C18 Unspecified dementia, severe, with other behavioral disturbance; F03.C3 Unspecified dementia, severe, with mood disturbance; F03.C11 Unspecified dementia, severe, with agitation; F05 Delirium due to known physiological condition; I42.9 Cardiomyopathy, unspecified; I48.19 Other persistent atrial fibrillation; B96.20 Unspecified Escherichia coli [E. coli] as the cause of diseases classified elsewhere; E78.5 Hyperlipidemia, unspecified; Z87.820 Personal history of traumatic brain injury; Z91.81 History of falling; G40.909 Epilepsy, unspecified, not intractable, without status epilepticus; G30.9 Alzheimer's disease, unspecified; I08.1 Rheumatic disorders of both mitral and tricuspid valves; I25.10 Atherosclerotic heart disease of native coronary artery without angina pectoris; F32.A Depression, unspecified; I10 Essential (primary) hypertension; E83.42 Hypomagnesemia; E87.6 Hypokalemia; I65.02 Occlusion and stenosis of left vertebral artery; Z66 Do not resuscitate; Z79.82 Long term (current) use of aspirin; Z79.899 Other long term (current) drug therapy; Z91.14 Patient's other noncompliance with medication regimen; Z96.649 Presence of unspecified artificial hip joint; Z96.659 Presence of unspecified artificial knee joint; Z88.2 Allergy status to sulfonamides; Z91.013 Allergy to seafood
CPT/HCPCS: 36415; 70450; 70496; 70498; 71046; 80048; 80053; 80061; 81001; 82550; 83605; 83735; 84132; 84484; 85025; 85610; 85730; 87077; 87086; 87186; 87635; 93306; 94760; 95816; 96365; 96366; 96375; 99291

== ENCOUNTER 2022-05-12 18:37 | Inpatient (IN) | payer MEDICARE, BC, OTHER ==
[2022-05-12] MEDS ORDERED: SODIUM CHLORIDE 0.9% 1,000 ML IV STA ×2 (18:50→19:12)
--- NOTE | 2022-05-12 18:57 | ED ---
General Adult HPI - General Chief complaint: Recheck/Abnormal Lab/Rx Stated complaint: Failure to Thrive Time Seen by Provider: 05/12/22 18:41 Source: patient, EMS, RN notes reviewed Mode of arrival: EMS Limitations: altered mental status - History of Present Illness Initial comments: Patient is a pleasant 89-year-old female presents emergency Department with general weakness from nursing facility. Patient is a poor historian. Majority of history comes from EMS. Patient does admit to having some diarrhea. - Related Data Home Medications Medication Instructions Recorded Confirmed Acetaminophen Tab [Tylenol] 650 mg PO Q6H PRN 01/05/17 05/12/22 Atorvastatin [Lipitor] 20 mg PO DAILY@0800 01/05/17 05/12/22 Na Phos,M-B/Na Phos,Di-Ba [Fleet 133 ml RECTAL DAILY PRN 01/05/17 05/12/22 Adult] Sertraline [Zoloft] 50 mg PO DAILY@0800 01/05/17 05/12/22 bisacodyL [Dulcolax] 10 mg RECTAL DAILY PRN 01/05/17 05/12/22 Aspirin EC [Ecotrin Low Dose] 81 mg PO DAILY@0800 12/15/20 05/12/22 Melatonin 5 mg PO HS@2100 12/15/20 05/12/22 lisinopriL [Zestril] 10 mg PO DAILY@0800 12/15/20 05/12/22 Acetaminophen [Tylenol 8 Hour] 650 mg PO BID@0800,1700 04/25/22 05/12/22 Ensure Enlive 120 ml PO TID@0800,1200,1700 04/25/22 05/12/22 Famotidine [Pepcid] 20 mg PO DAILY@0800 04/25/22 05/12/22 Menthol [Biofreeze] 1 applic TOPICAL TID PRN 04/25/22 05/12/22 guaiFENesin [guaiFENesin Oral 200 mg PO Q4H PRN 04/25/22 05/12/22 Solution] polyethylene glycoL 3350 [Miralax] 17 gm PO DAILY PRN 04/25/22 05/12/22 Clopidogrel [Plavix] 75 mg PO DAILY@0800 05/12/22 05/12/22 Diltiazem Oral [Cardizem*] 60 mg PO TID@0800,1400,2100 05/12/22 05/12/22 Loperamide HCl [Imodium A-D] 2 - 4 mg PO TID PRN MDD 8 mg 05/12/22 05/12/22 Magic Cup 1 can PO DAILY@1200 05/12/22 05/12/22 Metoprolol Tartrate [Lopressor] 25 mg PO BID@0800,1700 05/12/22 05/12/22 QUEtiapine [SEROquel] 25 mg PO BID@1700,2100 05/12/22 05/12/22 Rivastigmine 4.6MG/24Hr Patch 1 patch TRANSDERM DAILY@0800 05/12/22 05/12/22 [Exelon 4.6MG/24Hr Patch] levETIRAcetam [Keppra] 500 mg PO BID@0800,1700 05/12/22 05/12/22 Allergies Allergy/AdvReac Type Severity Reaction Status Date / Time Fish Containing Products Allergy Unknown Verified 05/12/22 20:26 [Fish] sulfamethoxazole Allergy Unknown Verified 05/12/22 20:26 [From Bactrim] trimethoprim [From Bactrim] Allergy Unknown Verified 05/12/22 20:26 Review of Systems ROS Statement: Those systems with pertinent positive or pertinent negative responses have been documented in the HPI. ROS Other: All systems not noted in ROS Statement are negative. Constitutional: Denies: fever Eyes: Denies: eye pain ENT: Denies: ear pain Respiratory: Denies: cough, dyspnea Cardiovascular: Denies: as per HPI Endocrine: Reports: fatigue Gastrointestinal: Denies: abdominal pain Genitourinary: Denies: dysuria Neurological: Reports: as per HPI Past Medical History Past Medical History: Atrial Fibrillation, Dementia, Hypertension Additional Past Medical History / Comment(s): hypomagnesia, hypokalemia, colitis, gastrotenteritis, gerd. History of Any Multi-Drug Resistant Organisms: None Reported Past Surgical History: No Surgical Hx Reported Additional Past Surgical History / Comment(s): bottom of spine removed, cysts removed from breast, knee replacement, partial hip replacement Past Anesthesia/Blood Transfusion Reactions: No Reported Reaction Past Psychological History: Depression Smoking Status: Never smoker Past Alcohol Use History: None Reported Past Drug Use History: None Reported General Exam Limitations: altered mental status General appearance: alert Head exam: Present: atraumatic Eye exam: Present: normal appearance, PERRL ENT exam: Present: mucous membranes dry Neck exam: Present: normal inspection Respiratory exam: Present: normal lung sounds bilaterally Cardiovascular Exam: Present: regular rate, normal rhythm GI/Abdominal exam: Present: soft. Absent: tenderness Extremities exam: Present: normal inspection Neurological exam: Present: alert. Absent: motor sensory deficit Expanded Neurological exam: Present: protecting the airway Patient oriented to: Present: person, place. Absent: time (States the is 2019) Motor strength exam: RUE: 5, LUE: 5, RLE: 5, LLE: 5 Psychiatric exam: Present: normal affect, normal mood Skin exam: Present: normal color Course Vital Signs 05/12/22 05/12/22 05/12/22 18:39 19:19 19:34 Temperature 97.3 F L 97.9 F Pulse Rate 72 68 74 Respiratory 22 16 16 Rate Blood Pressure 85/46 74/39 85/49 O2 Sat by Pulse 94 L 95 Oximetry 05/12/22 05/12/22 05/12/22 19:40 19:50 20:00 Temperature Pulse Rate 73 62 68 Respiratory 16 16 16 Rate Blood Pressure 74/49 65/51 71/61 O2 Sat by Pulse Oximetry 05/12/22 05/12/22 05/12/22 20:10 20:20 20:30 Temperature Pulse Rate 60 69 67 Respiratory 18 16 18 Rate Blood Pressure 87/62 82/55 79/49 O2 Sat by Pulse Oximetry EKG Findings - EKG Results: EKG: interpreted by ERMD (Left axis), normal QRS, normal ST/T EKG shows: atrial fibrillation Procedures - Central Line Placement Right SC Consent Obtained: verbal consent, written consent, emergent situation Patient Placed on Monitor/Pulse Ox: Yes MD Prep: mask, gown, gloves Central Line Prep: Chlorhexidine scrub Local Anesthesia Used: Lidocaine 1% Amount of Anesthesia Used (mls): 2 Ultrasound Used for Placement: No Central Line Lumen Inserted: triple Central Line Position: good blood return, all ports aspirated, flushed, capped, sutured in place with 3-0 nylon Dressing Applied: Tegaderm Patient Tolerated Procedure: well Complications: none Medical Decision Making - Medical Decision Making Was pt. sent in by a medical professional or institution (HARSHA Pleitez, BULK DRIVER, urgent care, hospital, or [facility]...) When possible be specific @ -Patient presents from [facility] Did you speak to anyone other than the patient for history (EMS, parent, family, police, friend...)? What history was obtained from this source @ -No Did you review nursing and triage notes (agree or disagree)? Why? @ -I reviewed and agree with nursing and triage notes Were old charts reviewed (outside hosp., previous admission, EMS record, old EKG, old radiological studies, urgent care reports/EKG's, [facility] records)? Report findings @ -No old charts were reviewed Differential Diagnosis (chest pain, altered mental status, abdominal pain women, abdominal pain men, vaginal bleeding, weakness, fever, dyspnea, syncope, hea dache, dizziness, GI bleed, back pain, seizure, CVA, palpatations, mental health)? @ -Differential Weakness: Hypoglycemia, shock, sepsis, hyponatremia, anemia, infection, AK, ETOH, adverse medicine reaction, overdose, stroke, this is not meant to be an all-inclusive list. EKG interpreted by me (3pts min.). @ -As above X-rays interpreted by me (1pt min.). @ -Portal chest x-ray shows no acute process. Repeat portable chest x-ray also shows no acute process. Central line placed without pneumothorax CT interpreted by me (1pt min.). @ -None done U/S interpreted by me (1pt. min.). @ -None done What testing was considered but not performed or refused? (CT, X-rays, U/S, labs)? Why? @ -None What meds were considered but not given or refused? Why? @ -None Did you discuss the management of the patient with other professionals (pr ofessionals i.e. HARSHA Pleitez, BULK DRIVER, lab, RT, psych nurse, clinical social worker, neurology tech, teacher, ict help desk officer, leather case finisher)? Give summary @ -Case was discussed with practitioner Calista Medina, who will admit For Dr. Diamond, who admits for Dr. Macias. Case also discussed with ICU doctor Chriss. Was smoking cessation discussed for >3mins.? @ -No Was critical care preformed (if so, how long)? @ -32 minutes critical care time Were there social determinants of health that impacted care today? How? (Homelessness, low income, unemployed, alcoholism, drug addiction, transportation, low edu. Level, literacy, decrease access to med. care, long term, rehab)? @ -No Was there de-escalation of care discussed even if they declined (Discuss DNR or withdrawal of care, Hospice)? DNR status @ -No What co-morbidities impacted this encounter? (DM, HTN, Smoking, COPD, CAD, Cancer, CVA, ARF, Chemo, Hep., AIDS, mental health diagnosis, sleep apnea, morbid obesity)? @ -None Was patient admitted / discharged? Hospital course, mention meds given and route, prescriptions, significant lab abnormalities, going to OR and other pertinent info. @ -Patient remained hypotensive despite 2 L of fluid. Family does want central line placed and this was without complication. Leave that has been started. Undiagnosed new problem with uncertain prognosis? @ -No Drug Therapy requiring intensive monitoring for toxicity (Heparin, Nitro, Insulin, Cardizem)? @ -No Were any procedures done? @ -No Diagnosis/symptom? @ -Dehydration, hypotension Acute, or Chronic, or Acute on Chronic? @ -Acute, acute Uncomplicated (without systemic symptoms) or Complicated (systemic symptoms)? @ -default Side effects of treatment? @ -No Exacerbation, Progression, or Severe Exacerbation? @ -No Poses a threat to life or bodily function? How? (Chest pain, USA, AK, pneumonia, PE, COPD, DKA, ARF, appy, cholecystitis, CVA, Diverticulitis, Homicidal, Suicidal, threat to staff... and all critical care pts) @ -No - Lab Data Result diagrams: 05/12/22 19:00 05/12/22 19:00 Lab Results 05/12/22 05/12/22 05/12/22 Range/Units 19:00 19:00 19:00 WBC 18.3 H (3.8-10.6) k/uL RBC 3.74 L (3.80-5.40) m/uL Hgb 11.9 (11.4-16.0) gm/dL Hct 36.7 (34.0-46.0) % MCV 98.2 (80.0-100.0) fL MCH 31.8 (25.0-35.0) pg MCHC 32.4 (31.0-37.0) g/dL RDW 13.7 (11.5-15.5) % Plt Count 167 (150-450) k/uL MPV 9.9 Neutrophils % 90 % Lymphocytes % 3 % Monocytes % 5 % Eosinophils % 0 % Basophils % 0 % Neutrophils # 16.5 H (1.3-7.7) k/uL Lymphocytes # 0.6 L (1.0-4.8) k/uL Monocytes # 1.0 (0-1.0) k/uL Eosinophils # 0.0 (0-0.7) k/uL Basophils # 0.1 (0-0.2) k/uL Manual Slide Review Performed PT 10.8 (9.0-12.0) sec INR 1.0 (<1.2) APTT 23.1 (22.0-30.0) sec Sodium 132 L (137-145) mmol/L Potassium 3.8 (3.5-5.1) mmol/L Chloride 99 (98-107) mmol/L Carbon Dioxide 24 (22-30) mmol/L Anion Gap 9 mmol/L BUN 47 H (7-17) mg/dL Creatinine 2.12 H (0.52-1.04) mg/dL Est GFR (CKD-EPI)AfAm 23 (>60 ml/min/1.73 sqM) Est GFR (CKD-EPI)NonAf 20 (>60 ml/min/1.73 sqM) Glucose 144 H (74-99) mg/dL Plasma Lactic Acid Lasha (0.7-2.0) mmol/L Calcium 7.9 L (8.4-10.2) mg/dL Magnesium 1.6 (1.6-2.3) mg/dL Total Bilirubin 0.5 (0.2-1.3) mg/dL AST 28 (14-36) U/L ALT 21 (4-34) U/L Alkaline Phosphatase 43 (38-126) U/L Total Protein 4.7 L (6.3-8.2) g/dL Albumin 2.4 L (3.5-5.0) g/dL 05/12/22 Range/Units 19:00 WBC (3.8-10.6) k/uL RBC (3.80-5.40) m/uL Hgb (11.4-16.0) gm/dL Hct (34.0-46.0) % MCV (80.0-100.0) fL MCH (25.0-35.0) pg MCHC (31.0-37.0) g/dL RDW (11.5-15.5) % Plt Count (150-450) k/uL MPV Neutrophils % % Lymphocytes % % Monocytes % % Eosinophils % % Basophils % % Neutrophils # (1.3-7.7) k/uL Lymphocytes # (1.0-4.8) k/uL Monocytes # (0-1.0) k/uL Eosinophils # (0-0.7) k/uL Basophils # (0-0.2) k/uL Manual Slide Review PT (9.0-12.0) sec INR (<1.2) APTT (22.0-30.0) sec Sodium (137-145) mmol/L Potassium (3.5-5.1) mmol/L Chloride (98-107) mmol/L Carbon Dioxide (22-30) mmol/L Anion Gap mmol/L BUN (7-17) mg/dL Creatinine (0.52-1.04) mg/dL Est GFR (CKD-EPI)AfAm (>60 ml/min/1.73 sqM) Est GFR (CKD-EPI)NonAf (>60 ml/min/1.73 sqM) Glucose (74-99) mg/dL Plasma Lactic Acid Lasha 3.5 H* (0.7-2.0) mmol/L Calcium (8.4-10.2) mg/dL Magnesium (1.6-2.3) mg/dL Total Bilirubin (0.2-1.3) mg/dL AST (14-36) U/L ALT (4-34) U/L Alkaline Phosphatase (38-126) U/L Total Protein (6.3-8.2) g/dL Albumin (3.5-5.0) g/dL Critical Care Time Critical Care Time: Yes Total Critical Care Time: 32 Disposition Clinical Impression: Hypotension, Dehydration Disposition: ADMITTED IP TO THIS [facility] Condition: Critical Is patient prescribed a controlled substance at d/c from ED?: No Referrals: Buddy Macias MD [Primary Care Provider] - 1-2 days Time of Disposition: 20:55
[2022-05-12 19:12] LABS: Basophils # (A) 0.1 k/uL (0-0.2); Basophils % (A) 0 %; Eosinophils % (A) 0 %; HCT 36.7 % (34.0-46.0); HGB 11.9 gm/dL (11.4-16.0); Lymphocytes # (A) 0.6 k/uL (1.0-4.8); Lymphocytes % (A) 3 %; MCH 31.8 pg (25.0-35.0); MCHC 32.4 g/dL (31.0-37.0); MCV 98.2 fL (80.0-100.0); Mean Platelet Volume 9.9; Monocytes % (A) 5 %; Neutrophils # (A) 16.5 k/uL (1.3-7.7); Neutrophils % (A) 90 %; Platelet Count 167 k/uL (150-450); RBC 3.74 m/uL (3.80-5.40); RDW 13.7 % (11.5-15.5); WBC 18.3 k/uL (3.8-10.6)
--- NOTE | 2022-05-12 19:22 | XR ---
EXAMINATION TYPE: XR chest 1V portable DATE OF EXAM: 05/12/2022 COMPARISON: 04/25/2022 HISTORY: Failure to thrive TECHNIQUE: FINDINGS: There is no heart failure nor confluent pneumonic infiltrate. There are chest leads. Thorac ic aorta is atheromatous. No pleural effusion. There is some apparent minimal pleural plaque in the r ight lower lung field. IMPRESSION: No acute lung disease. No adverse change compared to the old exam. No heart failure.
[2022-05-12 19:26] LABS: Albumin 2.4 g/dL (3.5-5.0); Calcium 7.9 mg/dL (8.4-10.2); Magnesium 1.6 mg/dL (1.6-2.3); Potassium 3.8 mmol/L (3.5-5.1); Total Bilirubin 0.5 mg/dL (0.2-1.3); Total Protein 4.7 g/dL (6.3-8.2)
[2022-05-12 19:29] LABS: Partial Thromboplastin Time 23.1 sec (22.0-30.0); Prothrombin Time 10.8 sec (9.0-12.0)
[2022-05-12] MEDS ORDERED: NALOXONE 0.4 MG/ML 1 ML VIAL IV PRN (20:56)
[2022-05-12] MEDS ORDERED: ACETAMINOPHEN TAB 325 MG TAB PO PRN (20:56)
[2022-05-12] MEDS ORDERED: NOREPINEPHRINE 32 MG in SODIUM CHLORIDE 0.9% 218 ML IV ONE (21:00)
--- NOTE | 2022-05-12 21:06 | XR ---
EXAMINATION TYPE: XR chest 1V portable DATE OF EXAM: 05/12/2022 COMPARISON: 05/12/2022 HISTORY: Line placement TECHNIQUE: Single view FINDINGS: There is right subclavian catheter with tip in the superior vena cava. Lungs are clear of c onsolidation. No heart failure. There are no hilar masses. Costophrenic angles are clear. There are c hest leads. No pleural effusion. Thoracic aorta is atheromatous. IMPRESSION: Catheter in good position. No pulmonary consolidation or heart failure.
[2022-05-12] MEDS: SODIUM CHLORIDE 0.9% 1,000 ML IV SCH (21:14)
[2022-05-12] MEDS ORDERED: LORazepam 2 MG/ML INJ IV ONE (21:19)
[2022-05-12] MEDS: PANTOPRAZOLE 40 MG/10 ML VIAL IV SCH (21:40)
[2022-05-12 23:16] LABS: Glucose,Whole Blood 114 mg/dL (70-110)
[2022-05-13] MEDS ORDERED: guaiFENesin SYRUP 100MG/5ML 200 MG/10 ML CUP PO PRN (02:08)
[2022-05-13] MEDS ORDERED: bisacodyL 10 MG SUPP RECTAL PRN (02:08)
[2022-05-13] MEDS ORDERED: NA PHOS,M-B/NA PHOS,DI-BA 133 ML ENEMA RECTAL PRN (02:08)
[2022-05-13] MEDS ORDERED: METHYL SALICYLATE-MENTHOL OINT (3 OZ TUBE) TOPICAL PRN (02:08)
[2022-05-13] MEDS ORDERED: LOPERAMIDE 2 MG CAP PO PRN (02:08)
[2022-05-13] MEDS ORDERED: polyethylene glycoL 3350 17 GM POWD.PACK PO PRN (02:08)
[2022-05-13 05:56] LABS: Basophils # (A) 0.1 k/uL (0-0.2); Basophils % (A) 0 %; Eosinophils # (A) 0.1 k/uL (0-0.7); Eosinophils % (A) 0 %; HCT 41.2 % (34.0-46.0); HGB 13.3 gm/dL (11.4-16.0); Lymphocytes # (A) 0.4 k/uL (1.0-4.8); Lymphocytes % (A) 2 %; MCH 32.1 pg (25.0-35.0); MCHC 32.2 g/dL (31.0-37.0); MCV 99.7 fL (80.0-100.0); Mean Platelet Volume 9.8; Monocytes # (A) 0.9 k/uL (0-1.0); Monocytes % (A) 5 %; Neutrophils # (A) 16.8 k/uL (1.3-7.7); Neutrophils % (A) 91 %; Platelet Count 201 k/uL (150-450); RBC 4.13 m/uL (3.80-5.40); RDW 13.7 % (11.5-15.5); WBC 18.6 k/uL (3.8-10.6)
[2022-05-13] MEDS ORDERED: METOPROLOL TARTRATE 25 MG TAB PO STA (05:59)
[2022-05-13 06:08] LABS: Appearance,Urine Clear (Clear); Bilirubin,Urine Negative (Negative); Blood,Urine Negative (Negative); Color,Urine Yellow; Glucose,Urine (UA) Negative (Negative); Ketones,Urine Negative (Negative); Leukocyte Esterase,Urine Negative (Negative); Nitrite,Urine Negative (Negative); Protein,Urine Trace (Negative); Urobilinogen,Urine <2.0 mg/dL (<2.0)
[2022-05-13 06:11] LABS: Albumin 2.6 g/dL (3.5-5.0); Calcium 7.9 mg/dL (8.4-10.2); Magnesium 1.6 mg/dL (1.6-2.3); Phosphorus 4.8 mg/dL (2.5-4.5); Potassium 3.8 mmol/L (3.5-5.1); Total Bilirubin 0.5 mg/dL (0.2-1.3); Total Protein 5.1 g/dL (6.3-8.2)
[2022-05-13] MEDS ORDERED: Magnesium Replacement Protocol 1 EACH MISC MISCELLANE PRN (06:51)
--- NOTE | 2022-05-13 07:55 | XR ---
EXAMINATION TYPE: XR chest 1V DATE OF EXAM: 05/13/2022 COMPARISON: 05/12/2022 INDICATION: Dyspnea TECHNIQUE: Single frontal view of the chest is obtained. FINDINGS: The heart size is normal. The pulmonary vasculature is normal. No suspicious consolidations or infiltrates. Right central venous catheter tip is in the proximal right atrium. No pneumothorax is evident IMPRESSION: 1. Stable portable chest follow-up can be performed as clinically indicated.
[2022-05-13] MEDS ORDERED: NON FORMULARY DRUG (Ensure Enlive 120 ML) PO SCH (08:00)
[2022-05-13] MEDS ORDERED: lisinopriL 10 MG TAB PO SCH (08:00)
[2022-05-13] MEDS ORDERED: VANCOMYCIN ORAL SOLUTION 250 MG/5 ML BOTTLE PO SCH ×2 (09:00)
[2022-05-13] MEDS: MAGNESIUM SULFATE-D5W PMX 1 GM in DEXTROSE/WATER 1 100ML.BAG IVPB SCH ×2 (09:33→11:17)
[2022-05-13 09:34] LABS: Toxic Granulation Present
[2022-05-13] MEDS: PANTOPRAZOLE 40 MG/10 ML VIAL IV SCH (09:34)
[2022-05-13] MEDS: SERTRALINE 50 MG TAB PO SCH (09:34)
[2022-05-13] MEDS: ATORVASTATIN 20 MG TAB PO SCH (09:34)
[2022-05-13] MEDS: levETIRAcetam 500 MG TAB PO SCH ×2 (09:34→20:18)
[2022-05-13] MEDS: RIVASTIGMINE 4.6MG/24HR PATCH TRANSDERM SCH (09:34)
[2022-05-13] MEDS: SODIUM CHLORIDE 0.9% 1,000 ML IV SCH ×2 (09:35→20:55)
[2022-05-13] MEDS: CHERRY FLAVOR 60 ML BOTTLE PO PRN ×3 (09:35→17:38)
--- NOTE | 2022-05-13 11:38 | P.CNPUL ---
History of Present Illness Consult date: 05/13/22 Requesting physician: José E Sheet Reason for consult: other (Critical care management) Chief complaint: Dehydration, weakness, hypotension History of present illness: Visit and 89-year-old female patient who is currently residing in a local extended care facility and just discharged from here 10 days ago. She has a history of dementia, hypertension, atrial fibrillation not on anticoagulation, history of brain hemorrhage, hypertension, hyperlipidemia, seizures, TIA. She was brought into the emergency room for generalized weakness, diarrhea and low blood pressure. EKG reveals atrial fibrillation with a controlled ventricular response. Chest x-ray shows no acute pulmonary process. Right triple-lumen catheter in place. She is seen today in consultation in the intensive care unit. She is currently resting comfortably in bed. Maintaining O2 saturations in the 90s on room air. She has normal saline at 75 ML's per hour. She is requiring norepinephrine currently at 2.3 mcg/m. He has received 2 L of fluid resuscitation thus far. She is alert and oriented times one. She did test positive for C. difficile colitis. Pro-calcitonin 4.69 She has been initiated on oral vancomycin. White count 18.6. Hemoglobin 13.3. Platelets 21. Sodium 135. Potassium 3.8. The carb 20. BUN 45. Creatinine 2.06. Glucose 127. Review of Systems ROS unobtainable: due to mental status Past Medical History Past Medical History: Atrial Fibrillation, Dementia, Hypertension Additional Past Medical History / Comment(s): hypomagnesia, hypokalemia, colitis, gastrotenteritis, gerd, scoliosis History of Any Multi-Drug Resistant Organisms: None Reported Past Surgical History: No Surgical Hx Reported Additional Past Surgical History / Comment(s): bottom of spine removed, cysts removed from breast, knee replacement, partial hip replacement Past Anesthesia/Blood Transfusion Reactions: No Reported Reaction Smoking Status: Former smoker - Past Family History Father Family Medical History: Myocardial Infarction ([place]) Additional Family Medical History / Comment(s): The patient's father from a [place]. Mother History Unknown: Yes Medications and Allergies Home Medications Medication Instructions Recorded Confirmed Type Acetaminophen Tab [Tylenol] 650 mg PO Q6H PRN 01/05/17 05/12/22 History Atorvastatin [Lipitor] 20 mg PO DAILY@0800 01/05/17 05/12/22 History Na Phos,M-B/Na Phos,Di-Ba [Fleet 133 ml RECTAL DAILY PRN 01/05/17 05/12/22 History Adult] Sertraline [Zoloft] 50 mg PO DAILY@0800 01/05/17 05/12/22 History bisacodyL [Dulcolax] 10 mg RECTAL DAILY PRN 01/05/17 05/12/22 History Aspirin EC [Ecotrin Low Dose] 81 mg PO DAILY@0800 12/15/20 05/12/22 History Melatonin 5 mg PO HS@209912/15/20 05/12/22 History lisinopriL [Zestril] 10 mg PO DAILY@0800 12/15/20 05/12/22 History Acetaminophen [Tylenol 8 Hour] 650 mg PO BID@0800,1700 04/25/22 05/12/22 History Ensure Enlive 120 ml PO TID@0800,1200,1700 04/25/22 05/12/22 History Famotidine [Pepcid] 20 mg PO DAILY@0800 04/25/22 05/12/22 History Menthol [Biofreeze] 1 applic TOPICAL TID PRN 04/25/22 05/12/22 History guaiFENesin [guaiFENesin Oral 200 mg PO Q4H PRN 04/25/22 05/12/22 History Solution] polyethylene glycoL 3350 [Miralax] 17 gm PO DAILY PRN 04/25/22 05/12/22 History Clopidogrel [Plavix] 75 mg PO DAILY@0800 05/12/22 05/12/22 History Diltiazem Oral [Cardizem*] 60 mg PO TID@0800,1400,2100 05/12/22 05/12/22 History Loperamide HCl [Imodium A-D] 2 - 4 mg PO TID PRN MDD 8 mg 05/12/22 05/12/22 History Magic Cup 1 can PO DAILY@1200 05/12/22 05/12/22 History Metoprolol Tartrate [Lopressor] 25 mg PO BID@0800,1700 05/12/22 05/12/22 History QUEtiapine [SEROquel] 25 mg PO BID@1700,2100 05/12/22 05/12/22 History Rivastigmine 4.6MG/24Hr Patch 1 patch TRANSDERM DAILY@0800 05/12/22 05/12/22 History [Exelon 4.6MG/24Hr Patch] levETIRAcetam [Keppra] 500 mg PO BID@0800,1700 05/12/22 05/12/22 History Allergies Allergy/AdvReac Type Severity Reaction Status Date / Time Fish Containing Products Allergy Unknown Verified 05/12/22 20:26 [Fish] sulfamethoxazole Allergy Unknown Verified 05/12/22 20:26 [From Bactrim] trimethoprim [From Bactrim] Allergy Unknown Verified 05/12/22 20:26 Physical Exam Vitals: Vital Signs Temp Pulse Pulse Resp BP BP Pulse Ox 05/13/22 11:00 128 H 28 H 92/78 94 L 05/13/22 10:45 135 H 25 H 96/63 94 L 05/13/22 10:30 135 H 21 93 L 05/13/22 10:15 137 H 30 H 111/61 05/13/22 10:00 124 H 22 105/68 05/13/22 09:45 129 H 26 H 133/86 05/13/22 09:30 105 H 24 115/70 91 L 05/13/22 09:15 113 H 26 H 81/61 94 L 05/13/22 09:00 123 H 18 100/78 93 L 05/13/22 08:45 126 H 15 119/71 93 L 05/13/22 08:30 122 H 25 H 100/65 92 L 05/13/22 08:15 123 H 18 102/90 92 L 05/13/22 08:00 98.7 F 130 H 18 111/75 92 L 05/13/22 07:45 122 H 14 103/61 92 L 05/13/22 07:30 135 H 18 101/62 92 L 05/13/22 07:15 142 H 24 105/55 93 L 05/13/22 07:00 129 H 22 77/59 93 L 05/13/22 06:45 146 H 20 96/68 93 L 05/13/22 06:30 131 H 24 81/53 93 L 05/13/22 06:15 135 H 20 106/93 95 05/13/22 06:00 141 H 24 93/72 94 L 05/13/22 05:45 142 H 20 116/68 96 05/13/22 05:30 123 H 20 101/73 98 05/13/22 05:15 121 H 20 99/64 96 05/13/22 05:00 126 H 23 110/75 94 L 05/13/22 04:45 117 H 24 97/63 98 05/13/22 04:30 123 H 13 117/62 95 05/13/22 04:15 102 H 17 112/86 94 L 05/13/22 04:00 98.8 F 117 H 20 85/58 97 05/13/22 03:45 106 H 21 97/60 96 05/13/22 03:30 116 H 18 88/61 96 05/13/22 03:15 106 H 19 110/71 98 05/13/22 03:00 111 H 22 97/61 97 05/13/22 02:45 102 H 25 H 106/75 97 05/13/22 02:30 107 H 19 95/61 97 05/13/22 02:15 103 H 27 H 93/82 97 05/13/22 02:00 102 H 29 H 106/64 96 05/13/22 01:45 99 30 H 101/65 97 05/13/22 01:30 105 H 11 L 107/56 98 05/13/22 01:15 91 22 104/69 97 05/13/22 01:00 86 22 114/64 98 05/13/22 00:45 92 25 H 99/52 98 05/13/22 00:30 92 18 94/63 98 05/13/22 00:15 82 26 H 95/63 96 05/13/22 00:00 90 16 101/58 98 05/12/22 23:50 85 20 101/58 97 05/12/22 23:40 89 20 88/55 98 05/12/22 23:30 97.8 F 89 83 23 84/54 132/76 94 L 05/12/22 22:58 98/48 05/12/22 22:45 97/54 05/12/22 22:24 98.6 F 80 18 82/52 95 05/12/22 22:18 88/48 05/12/22 22:12 88/66 05/12/22 21:27 75/52 05/12/22 21:23 71/43 05/12/22 21:10 90/55 05/12/22 20:59 68 16 78/60 95 05/12/22 20:30 67 18 79/49 05/12/22 20:20 69 16 82/55 05/12/22 20:10 60 18 87/62 05/12/22 20:00 68 16 71/61 05/12/22 19:50 62 16 65/51 05/12/22 19:40 73 16 74/49 05/12/22 19:34 74 16 85/49 05/12/22 19:19 97.9 F 68 16 74/39 95 05/12/22 18:39 97.3 F L 72 22 85/46 94 L Intake and Output 05/12/22 05/13/22 05/13/22 22:59 06:59 14:59 Intake Total 3.473 615.884 500 Output Total 650 150 Balance 3.473 -34.116 350 Intake: IV 600 500 Magnesium Sulfate-D5w Pmx 200 1 gm In Dextrose/Water 1 100ml.bag @ 100 mls/hr IVPB Q1H [facility] Rx#: [id number] Sodium Chloride 0.9% 1, 600 300 000 ml @ 75 mls/hr IV . [id number] [facility] Rx#:[id number] Intake, IV Titration 3.473 15.884 Amount Norepinephrine 32 mg In 3.473 15.884 Sodium Chloride 0.9% 218 ml @ 0.03 MCG/KG/MIN 0. 638 mls/hr IV .Q24H [facility] Rx#:[id number] Output: Urine 650 150 Other: Voiding Method External Catheter Indwelling Catheter # Voids 0 Weight 45.359 kg 56.4 kg GENERAL EXAM: Alert, oriented times one, frail, cachectic 89-year-old female, on room air, comfortable in no apparent distress. HEAD: Normocephalic. EYES: Normal reaction of pupils, equal size. NOSE: Clear with pink turbinates. THROAT: No erythema or exudates. NECK: No masses, no JVD. CHEST: No chest wall deformity. LUNGS: Equal air entry with no crackles, wheeze, rhonchi or dullness. CVS: S1 and S2 normal with no audible murmur, regular rhythm. ABDOMEN: No hepatosplenomegaly, normal bowel sounds, no guarding or rigidity. SPINE: No scoliosis or deformity SKIN: No rashes CENTRAL NERVOUS SYSTEM: No focal deficits, tone is normal in all 4 extremities. EXTREMITIES: There is no peripheral edema. No clubbing, no cyanosis. Peripheral pulses are intact. Results - Laboratory Findings CBC and BMP: 05/13/22 05:40 05/13/22 05:40 PT/INR, D-dimer PT 10.8 sec (9.0-12.0) 05/12/22 19:00 INR 1.0 (<1.2) 05/12/22 19:00 Abnormal lab findings: Abnormal Labs 05/12/22 05/12/22 05/12/22 19:00 19:00 19:00 WBC 18.3 H RBC 3.74 L Neutrophils # 16.5 H Lymphocytes # 0.6 L Sodium 132 L Carbon Dioxide BUN 47 H Creatinine 2.12 H Glucose 144 H POC Glucose (mg/dL) Plasma Lactic Acid Lasha 3.5 H* Calcium 7.9 L Phosphorus Total Protein 4.7 L Albumin 2.4 L Procalcitonin Urine Protein 05/12/22 05/12/22 05/13/22 21:47 23:14 00:40 WBC RBC Neutrophils # Lymphocytes # Sodium Carbon Dioxide BUN Creatinine Glucose POC Glucose (mg/dL) 114 H Plasma Lactic Acid Lasha 3.2 H* 2.5 H* Calcium Phosphorus Total Protein Albumin Procalcitonin Urine Protein 05/13/22 05/13/22 05/13/22 05:25 05:40 05:40 WBC 18.6 H RBC Neutrophils # 16.8 H Lymphocytes # 0.4 L Sodium 135 L Carbon Dioxide 20 L BUN 45 H Creatinine 2.06 H Glucose 127 H POC Glucose (mg/dL) Plasma Lactic Acid Lasha Calcium 7.9 L Phosphorus 4.8 H Total Protein 5.1 L Albumin 2.6 L Procalcitonin Urine Protein Trace H 05/13/22 05/13/22 05:40 05:40 WBC RBC Neutrophils # Lymphocytes # Sodium Carbon Dioxide BUN Creatinine Glucose POC Glucose (mg/dL) Plasma Lactic Acid Lasha 2.4 H* Calcium Phosphorus Total Protein Albumin Procalcitonin 4.69 H Urine Protein - Diagnostic Findings Chest x-ray: image reviewed Assessment and Plan Assessment: Generalized weakness secondary to a diarrhea secondary to C. difficile colitis. Pro-calcitonin 4.69. Currently on oral vancomycin. Acute hypotension secondary to above requiring fluid resuscitation and norepinephrine currently at 2.3 mcg/m Leukocytosis secondary to above Acute kidney injury secondary to above A chair for relation with controlled ventricular response, not on anticoagulation History of brain hemorrhage History of hypertension Hyperlipidemia History of depression History of dementia pen[facility] resident Plan: The patient was seen and evaluated Chest x-ray, labs and medications are reviewed viewed Continue on oral vancomycin for C. diff Stable and on room air Continue pressor support Continue fluid resuscitation DO NOT RESUSCITATE/DO NOT INTUBATE CODE STATUS We'll continue to follow make further recommendations based on her clinical status I have personally seen and examined the patient, performed the documentation and the assessment and plan as written. Number of minutes spent on the visit: 20.
[2022-05-13] MEDS ORDERED: NON FORMULARY DRUG (Magic Cup 1 EACH Ml) PO SCH (12:00)
[2022-05-13] MEDS: DILTIAZEM ORAL 60 MG TAB PO SCH ×2 (13:40→20:18)
[2022-05-13] MEDS: METOPROLOL TARTRATE 25 MG TAB PO SCH ×2 (13:40→17:41)
[2022-05-13] MEDS: VANCOMYCIN ORAL SOLUTION 250 MG/5 ML BOTTLE PO SCH ×3 (13:43→22:48)
--- NOTE | 2022-05-13 14:36 | P.HPIM ---
History of Present Illness H&P Date: 05/13/22 This is a 89 year old female with medical history of atrial fibrillation, dementia, hypertension, gerd, depression, and former smoker. Patient was [facility] the [facility] with concern for generalized weakness and diarrhea. Patient had positive C.DIF by PCR at the [facility] yesterday 05/12/2022. Patient was recently discharged from the hospital 11 days ago treated for acute urinary tract infection, and urinary retention. Patient was discharged to [facility]. Initial work up reveals white count of 18.3, sodium of 132, BUN 47, creatinine 2.12. Lactic acid is elevated at 3.5 on admission. Urinalysis is negative for infection there is trace protein. Procalcitonin level of 4.69. Initial chest xray is negative. EKG showing atrial fibrillation with heart of 73. Patient is found to be hypotensive on admission with blood pressure dropping to 77/59 patient is admitted to intensive care unit and requiring levophed at this time. Patient is afebrile. Patient has been started on oral vancomycin for the acute c.dif infection. Infectious disease has been consulted. Patient is a poor historian the medical history is taken from the chart. Unable to complete review of systems patient is confused and not answering questions appropriately. PHYSICAL EXAMINATION: GENERAL: The patient is alert and oriented x0-1, not in any acute distress. Well developed, well nourished. HEENT: Pupils are round and equally reacting to light. EOMI. No scleral icterus. No conjunctival pallor. Normocephalic, atraumatic. No pharyngeal erythema. No thyromegaly. CARDIOVASCULAR: S1 and S2 present. No murmurs, rubs, or gallops. PULMONARY: Chest is clear to auscultation, no wheezing or crackles. ABDOMEN: Soft, suprapubic tenderness, nondistended, normoactive bowel sounds. No palpable organomegaly. MUSCULOSKELETAL: No joint swelling or deformity. EXTREMITIES: No cyanosis, clubbing, or pedal edema. NEUROLOGICAL: Gross neurological examination did not reveal any focal deficits. Diffuse generalized weakness. SKIN: No rashes. Assessment and Plan Assessment Generalized weakness Leukocytosis Diarrhea secondary to acute Clostridium dificile with sepsis present on admission Acute kidney injury most likely prerenal azotemia secondary to acute dehydration and poor oral intake Hypotension and septic shock requiring vasopressor support Atrial fibrillation with rapid ventricular rate Altered mental status likely from acute metabolic encephalopathy secondary to infection and acute renal failure on top of advanced dementia. Recent hospitalization for acute UTI History of hypertension Dementia advanced most likely senile vs. vascular Chronic atrial fibrillation History of depression History of seizure Former smoker GI prophylaxis DVT prophylaxis No Code Plan Continue oral vancomycin and ID consultation Blood culture pending Continue IV fluids, increase to 100 and give fluid bolus Strict intake and output monitoring Repeat labs in AM PT/OT consultation Plan for return to [facility] on DC when medically stable, continue ICU monitoring and vasopressor The impression and plan of care has been dictated by Angeles Bhakta Nurse Practitioner as directed. Dr. Shaun MD I have performed a history and physical examination and medical decision making of this patient, discussed the same with the dictator, and agree with the dictators assessment and plan as written, documented as a scribe. Based on total visit time, I have performed more than 50% of this visit. Past Medical History Past Medical History: Atrial Fibrillation, Dementia, Hypertension Additional Past Medical History / Comment(s): hypomagnesia, hypokalemia, colitis, gastrotenteritis, gerd, scoliosis History of Any Multi-Drug Resistant Organisms: None Reported Past Surgical History: No Surgical Hx Reported Additional Past Surgical History / Comment(s): bottom of spine removed, cysts removed from breast, knee replacement, partial hip replacement Past Anesthesia/Blood Transfusion Reactions: No Reported Reaction Smoking Status: Former smoker - Past Family History Father Family Medical History: Myocardial Infarction ([place]) Additional Family Medical History / Comment(s): The patient's father from a [place]. Mother History Unknown: Yes Medications and Allergies Home Medications Medication Instructions Recorded Confirmed Type Acetaminophen Tab [Tylenol] 650 mg PO Q6H PRN 01/05/17 05/12/22 History Atorvastatin [Lipitor] 20 mg PO DAILY@0800 01/05/17 05/12/22 History Na Phos,M-B/Na Phos,Di-Ba [Fleet 133 ml RECTAL DAILY PRN 01/05/17 05/12/22 History Adult] Sertraline [Zoloft] 50 mg PO DAILY@0800 01/05/17 05/12/22 History bisacodyL [Dulcolax] 10 mg RECTAL DAILY PRN 01/05/17 05/12/22 History Aspirin EC [Ecotrin Low Dose] 81 mg PO DAILY@0800 12/15/20 05/12/22 History Melatonin 5 mg PO HS@2100 12/15/20 05/12/22 History lisinopriL [Zestril] 10 mg PO DAILY@0800 12/15/20 05/12/22 History Acetaminophen [Tylenol 8 Hour] 650 mg PO BID@0800,1700 04/25/22 05/12/22 History Ensure Enlive 120 ml PO TID@0800,1200,1700 04/25/22 05/12/22 History Famotidine [Pepcid] 20 mg PO DAILY@0800 04/25/22 05/12/22 History Menthol [Biofreeze] 1 applic TOPICAL TID PRN 04/25/22 05/12/22 History guaiFENesin [guaiFENesin Oral 200 mg PO Q4H PRN 04/25/22 05/12/22 History Solution] polyethylene glycoL 3350 [Miralax] 17 gm PO DAILY PRN 04/25/22 05/12/22 History Clopidogrel [Plavix] 75 mg PO DAILY@0800 05/12/22 05/12/22 History Diltiazem Oral [Cardizem*] 60 mg PO TID@0800,1400,209905/12/22 05/12/22 History Loperamide HCl [Imodium A-D] 2 - 4 mg PO TID PRN MDD 8 mg 05/12/22 05/12/22 Hi story Magic Cup 1 can PO DAILY@1200 05/12/22 05/12/22 History Metoprolol Tartrate [Lopressor] 25 mg PO BID@0800,1700 05/12/22 05/12/22 History QUEtiapine [SEROquel] 25 mg PO BID@1700,2100 05/12/22 05/12/22 History Rivastigmine 4.6MG/24Hr Patch 1 patch TRANSDERM DAILY@0800 05/12/22 05/12/22 H istory [Exelon 4.6MG/24Hr Patch] levETIRAcetam [Keppra] 500 mg PO BID@0800,1700 05/12/22 05/12/22 History Allergies Allergy/AdvReac Type Severity Reaction Status Date / Time Fish Containing Products Allergy Unknown Verified 05/12/22 20:26 [Fish] sulfamethoxazole Allergy Unknown Verified 05/12/22 20:26 [From Bactrim] trimethoprim [From Bactrim] Allergy Unknown Verified 05/12/22 20:26 Physical Exam Vitals: Vital Signs Temp Pulse Pulse Resp BP BP Pulse Ox 05/13/22 08:00 98.7 F 130 H 20 111/75 92 L 05/13/22 07:45 122 H 14 103/61 92 L 05/13/22 07:30 135 H 18 101/62 92 L 05/13/22 07:15 142 H 24 105/55 93 L 05/13/22 07:00 129 H 22 77/59 93 L 05/13/22 06:45 146 H 20 96/68 93 L 05/13/22 06:30 131 H 24 81/53 93 L 05/13/22 06:15 135 H 20 106/93 95 05/13/22 06:00 141 H 24 93/72 94 L 05/13/22 05:45 142 H 20 116/68 96 05/13/22 05:30 123 H 20 101/73 98 05/13/22 05:15 121 H 20 99/64 96 05/13/22 05:00 126 H 23 110/75 94 L 05/13/22 04:45 117 H 24 97/63 98 05/13/22 04:30 123 H 13 117/62 95 05/13/22 04:15 102 H 17 112/86 94 L 05/13/22 04:00 98.8 F 117 H 20 85/58 97 05/13/22 03:45 106 H 21 97/60 96 05/13/22 03:30 116 H 18 88/61 96 05/13/22 03:15 106 H 19 110/71 98 05/13/22 03:00 111 H 22 97/61 97 05/13/22 02:45 102 H 25 H 106/75 97 05/13/22 02:30 107 H 19 95/61 97 05/13/22 02:15 103 H 27 H 93/82 97 05/13/22 02:00 102 H 29 H 106/64 96 05/13/22 01:45 99 30 H 101/65 97 05/13/22 01:30 105 H 11 L 107/56 98 05/13/22 01:15 91 22 104/69 97 05/13/22 01:00 86 22 114/64 98 05/13/22 00:45 92 25 H 99/52 98 05/13/22 00:30 92 18 94/63 98 05/13/22 00:15 82 26 H 95/63 96 05/13/22 00:00 90 16 101/58 98 05/12/22 23:50 85 20 101/58 97 05/12/22 23:40 89 20 88/55 98 05/12/22 23:30 97.8 F 89 83 23 84/54 132/76 94 L 05/12/22 22:58 98/48 05/12/22 22:45 97/54 05/12/22 22:24 98.6 F 80 18 82/52 95 05/12/22 22:18 88/48 05/12/22 22:12 88/66 05/12/22 21:27 75/52 05/12/22 21:23 71/43 05/12/22 21:10 90/55 05/12/22 20:59 68 16 78/60 95 05/12/22 20:30 67 18 79/49 05/12/22 20:20 69 16 82/55 05/12/22 20:10 60 18 87/62 05/12/22 20:00 68 16 71/61 05/12/22 19:50 62 16 65/51 05/12/22 19:40 73 16 74/49 05/12/22 19:34 74 16 85/49 05/12/22 19:19 97.9 F 68 16 74/39 95 05/12/22 18:39 97.3 F L 72 22 85/46 94 L Intake and Output 05/12/22 05/13/22 05/13/22 22:59 06:59 14:59 Intake Total 3.473 615.884 150 Output Total 650 105 Balance 3.473 -34.116 45 Intake: IV 600 150 Sodium Chloride 0.9% 1, 600 150 000 ml @ 75 mls/hr IV . [id number] [facility] Rx#:[id number] Intake, IV Titration 3.473 15.884 Amount Norepinephrine 32 mg In 3.473 15.884 Sodium Chloride 0.9% 218 ml @ 0.03 MCG/KG/MIN 0. 638 mls/hr IV .Q24H [facility] Rx#:[id number] Output: Urine 650 105 Other: Voiding Method External Catheter # Voids 0 Weight 45.359 kg 56.4 kg Results CBC & Chem 7: 05/13/22 05:40 05/13/22 05:40 Labs: Abnormal Lab Results - Last 24 Hours (Table) 05/12/22 05/12/22 05/12/22 Range/Units 19:00 19:00 19:00 WBC 18.3 H (3.8-10.6) k/uL RBC 3.74 L (3.80-5.40) m/uL Neutrophils # 16.5 H (1.3-7.7) k/uL Lymphocytes # 0.6 L (1.0-4.8) k/uL Sodium 132 L (137-145) mmol/L Carbon Dioxide (22-30) mmol/L BUN 47 H (7-17) mg/dL Creatinine 2.12 H (0.52-1.04) mg/dL Glucose 144 H (74-99) mg/dL POC Glucose (mg/dL) (70-110) mg/dL Plasma Lactic Acid Lasha 3.5 H* (0.7-2.0) mmol/L Calcium 7.9 L (8.4-10.2) mg/dL Phosphorus (2.5-4.5) mg/dL Total Protein 4.7 L (6.3-8.2) g/dL Albumin 2.4 L (3.5-5.0) g/dL Urine Protein (Negative) 05/12/22 05/12/22 05/13/22 Range/Units 21:47 23:14 00:40 WBC (3.8-10.6) k/uL RBC (3.80-5.40) m/uL Neutrophils # (1.3-7.7) k/uL Lymphocytes # (1.0-4.8) k/uL Sodium (137-145) mmol/L Carbon Dioxide (22-30) mmol/L BUN (7-17) mg/dL Creatinine (0.52-1.04) mg/dL Glucose (74-99) mg/dL POC Glucose (mg/dL) 114 H (70-110) mg/dL Plasma Lactic Acid Lasha 3.2 H* 2.5 H* (0.7-2.0) mmol/L Calcium (8.4-10.2) mg/dL Phosphorus (2.5-4.5) mg/dL Total Protein (6.3-8.2) g/dL Albumin (3.5-5.0) g/dL Urine Protein (Negative) 05/13/22 05/13/22 05/13/22 Range/Units 05:25 05:40 05:40 WBC 18.6 H (3.8-10.6) k/uL RBC (3.80-5.40) m/uL Neutrophils # (1.3-7.7) k/uL Lymphocytes # (1.0-4.8) k/uL Sodium 135 L (137-145) mmol/L Carbon Dioxide 20 L (22-30) mmol/L BUN 45 H (7-17) mg/dL Creatinine 2.06 H (0.52-1.04) mg/dL Glucose 127 H (74-99) mg/dL POC Glucose (mg/dL) (70-110) mg/dL Plasma Lactic Acid Lasha (0.7-2.0) mmol/L Calcium 7.9 L (8.4-10.2) mg/dL Phosphorus 4.8 H (2.5-4.5) mg/dL Total Protein 5.1 L (6.3-8.2) g/dL Albumin 2.6 L (3.5-5.0) g/dL Urine Protein Trace H (Negative) 05/13/22 Range/Units 05:40 WBC (3.8-10.6) k/uL RBC (3.80-5.40) m/uL Neutrophils # (1.3-7.7) k/uL Lymphocytes # (1.0-4.8) k/uL Sodium (137-145) mmol/L Carbon Dioxide (22-30) mmol/L BUN (7-17) mg/dL Creatinine (0.52-1.04) mg/dL Glucose (74-99) mg/dL POC Glucose (mg/dL) (70-110) mg/dL Plasma Lactic Acid Lasha 2.4 H* (0.7-2.0) mmol/L Calcium (8.4-10.2) mg/dL Phosphorus (2.5-4.5) mg/dL Total Protein (6.3-8.2) g/dL Albumin (3.5-5.0) g/dL Urine Protein (Negative) Thrombosis Risk Factor Assmnt - Choose All That Apply Each Risk Factor Represents 3 Points: Age 75 years or older Thrombosis Risk Factor Assessment Total Risk Factor Score: 3 Thrombosis Risk Factor Assessment Level: Moderate Risk Assessment and Plan Time with Patient: Greater than 30
[2022-05-13] MEDS: QUEtiapine 25 MG TAB PO SCH ×2 (17:37→20:18)
[2022-05-13] MEDS ORDERED: LORazepam 2 MG/ML INJ IV PRN (18:33)
[2022-05-13] MEDS: FAMOTIDINE 20 MG/2 ML VIAL IV SCH (20:18)
[2022-05-13] MEDS: HEPARIN SODIUM,PORCINE/PF 5,000 UNIT/0.5 ML SYRINGE SQ SCH (20:19)
--- NOTE | 2022-05-13 20:45 | P.CONS ---
History of Present Illness - Reason for Consult Consult date: 05/13/22 C. diff colitis Requesting physician: Calista Denny - Chief Complaint Diarrhea x few days - History of Present Illness Patient is a 89-year-old female with a past medical history significant for atrial fibrillation hypertension GERD depression dementia [facility] resident patient was recently admitted at this facility and was treated for urinary retention and UTI patient apparently developed diarrhea at the [facility] patient did have stool for CT which came back positive patient apparently with complaint of generalized weakness and significant diarrhea for the patient was sent to the ER for further evaluation on presentation to the hospital patient was afebrile no fever has been recorded subsequently patient was tachycardic and hypotensive requiring fluid and pressor support for the patient was admitted to ICU patient did have elevated white count of 18.3 with a left shift did have elevated BUN and creatinine lactic acid was 2.4 liver enzymes are normal urine was negative patient did have a chest x-ray no acute lung disease no heart failure patient was started on oral vancomycin infectious he was consulted for further management of antibiotic therapy, most of the information was obtained from review the chart talking nursing staff as the patient was unable to provide any history patient did have a few loose stools per the nursing staff but no vomiting has been reported Review of Systems Positive points has been mentioned in HPI complete review could not be obtained because of his underlying mental status Past Medical History Past Medical History: Atrial Fibrillation, Dementia, Hypertension Additional Past Medical History / Comment(s): hypomagnesia, hypokalemia, colitis, gastrotenteritis, gerd, scoliosis History of Any Multi-Drug Resistant Organisms: None Reported Past Surgical History: No Surgical Hx Reported Additional Past Surgical History / Comment(s): bottom of spine removed, cysts removed from breast, knee replacement, partial hip replacement Past Anesthesia/Blood Transfusion Reactions: No Reported Reaction Smoking Status: Former smoker - Past Family History Father Family Medical History: Myocardial Infarction (CT) Additional Family Medical History / Comment(s): The patient's father from a [place]. Mother History Unknown: Yes Medications and Allergies Home Medications Medication Instructions Recorded Confirmed Type Acetaminophen Tab [Tylenol] 650 mg PO Q6H PRN 01/05/17 05/17/22 History Atorvastatin [Lipitor] 20 mg PO DAILY@0800 01/05/17 05/17/22 History Na Phos,M-B/Na Phos,Di-Ba [Fleet 133 ml RECTAL DAILY PRN 01/05/17 05/17/22 History Adult] Sertraline [Zoloft] 50 mg PO DAILY@0800 01/05/17 05/17/22 History bisacodyL [Dulcolax] 10 mg RECTAL DAILY PRN 01/05/17 05/17/22 History Aspirin EC [Ecotrin Low Dose] 81 mg PO DAILY@0800 12/15/20 05/17/22 History Melatonin 5 mg PO HS@209912/15/20 05/17/22 History lisinopriL [Zestril] 10 mg PO DAILY@0800 12/15/20 05/17/22 History Acetaminophen [Tylenol 8 Hour] 650 mg PO BID@0800,1700 04/25/22 05/17/22 History Ensure Enlive 120 ml PO TID@0800,1200,1700 04/25/22 05/17/22 History Famotidine [Pepcid] 20 mg PO DAILY@0800 04/25/22 05/17/22 History Menthol [Biofreeze] 1 applic TOPICAL TID PRN 04/25/22 05/17/22 History guaiFENesin [guaiFENesin Oral 200 mg PO Q4H PRN 04/25/22 05/17/22 History Solution] polyethylene glycoL 3350 [Miralax] 17 gm PO DAILY PRN 04/25/22 05/17/22 History Clopidogrel [Plavix] 75 mg PO DAILY@0800 05/12/22 05/17/22 History Diltiazem Oral [Cardizem*] 60 mg PO TID@0800,1400,2100 05/12/22 05/17/22 History Loperamide HCl [Imodium A-D] 2 - 4 mg PO TID PRN MDD 8 mg 05/12/22 05/17/22 History Magic Cup 1 can PO DAILY@1200 05/12/22 05/17/22 History Metoprolol Tartrate [Lopressor] 25 mg PO BID@0800,1700 05/12/22 05/17/22 History QUEtiapine [SEROquel] 25 mg PO BID@1700,2100 05/12/22 05/17/22 History Rivastigmine 4.6MG/24Hr Patch 1 patch TRANSDERM DAILY@0800 05/12/22 05/17/22 History [Exelon 4.6MG/24Hr Patch] levETIRAcetam [Keppra] 500 mg PO BID@0800,1700 05/12/22 05/17/22 History Allergies Allergy/AdvReac Type Severity Reaction Status Date / Time Fish Containing Products Allergy Unknown Verified 05/12/22 20:26 [Fish] sulfamethoxazole Allergy Unknown Verified 05/12/22 20:26 [From Bactrim] trimethoprim [From Bactrim] Allergy Unknown Verified 05/12/22 20:26 Physical Exam Vitals: Vital Signs Temp Pulse Pulse Resp BP BP Pulse Ox 05/13/22 11:00 128 H 28 H 92/78 94 L 05/13/22 10:45 135 H 25 H 96/63 94 L 05/13/22 10:30 135 H 21 93 L 05/13/22 10:15 137 H 30 H 111/61 05/13/22 10:00 124 H 22 105/68 05/13/22 09:45 129 H 26 H 133/86 05/13/22 09:30 105 H 24 115/70 91 L 05/13/22 09:15 113 H 26 H 81/61 94 L 05/13/22 09:00 123 H 18 100/78 93 L 05/13/22 08:45 126 H 15 119/71 93 L 05/13/22 08:30 122 H 25 H 100/65 92 L 05/13/22 08:15 123 H 18 102/90 92 L 05/13/22 08:00 98.7 F 130 H 18 111/75 92 L 05/13/22 07:45 122 H 14 103/61 92 L 05/13/22 07:30 135 H 18 101/62 92 L 05/13/22 07:15 142 H 24 105/55 93 L 05/13/22 07:00 129 H 22 77/59 93 L 05/13/22 06:45 146 H 20 96/68 93 L 05/13/22 06:30 131 H 24 81/53 93 L 05/13/22 06:15 135 H 20 106/93 95 05/13/22 06:00 141 H 24 93/72 94 L 05/13/22 05:45 142 H 20 116/68 96 05/13/22 05:30 123 H 20 101/73 98 05/13/22 05:15 121 H 20 99/64 96 05/13/22 05:00 126 H 23 110/75 94 L 05/13/22 04:45 117 H 24 97/63 98 05/13/22 04:30 123 H 13 117/62 95 05/13/22 04:15 102 H 17 112/86 94 L 05/13/22 04:00 98.8 F 117 H 20 85/58 97 05/13/22 03:45 106 H 21 97/60 96 05/13/22 03:30 116 H 18 88/61 96 05/13/22 03:15 106 H 19 110/71 98 05/13/22 03:00 111 H 22 97/61 97 05/13/22 02:45 102 H 25 H 106/75 97 05/13/22 02:30 107 H 19 95/61 97 05/13/22 02:15 103 H 27 H 93/82 97 05/13/22 02:00 102 H 29 H 106/64 96 05/13/22 01:45 99 30 H 101/65 97 05/13/22 01:30 105 H 11 L 107/56 98 05/13/22 01:15 91 22 104/69 97 05/13/22 01:00 86 22 114/64 98 05/13/22 00:45 92 25 H 99/52 98 05/13/22 00:30 92 18 94/63 98 05/13/22 00:15 82 26 H 95/63 96 05/13/22 00:00 90 16 101/58 98 05/12/22 23:50 85 20 101/58 97 05/12/22 23:40 89 20 88/55 98 05/12/22 23:30 97.8 F 89 83 23 84/54 132/76 94 L 05/12/22 22:58 98/48 05/12/22 22:45 97/54 05/12/22 22:24 98.6 F 80 18 82/52 95 05/12/22 22:18 88/48 05/12/22 22:12 88/66 05/12/22 21:27 75/52 05/12/22 21:23 71/43 05/12/22 21:10 90/55 03/24/23 20:59 68 16 78/60 95 05/12/22 20:30 67 18 79/49 05/12/22 20:20 69 16 82/55 05/12/22 20:10 60 18 87/62 05/12/22 20:00 68 16 71/61 05/12/22 19:50 62 16 65/51 05/12/22 19:40 73 16 74/49 05/12/22 19:34 74 16 85/49 05/12/22 19:19 97.9 F 68 16 74/39 95 05/12/22 18:39 97.3 F L 72 22 85/46 94 L Intake and Output 05/12/22 05/13/22 05/13/22 22:59 06:59 14:59 Intake Total 3.473 615.884 500 Output Total 650 150 Balance 3.473 -34.116 350 Intake: IV 600 500 Magnesium Sulfate-D5w Pmx 200 1 gm In Dextrose/Water 1 100ml.bag @ 100 mls/hr IVPB Q1H [facility] Rx#: [id number] Sodium Chloride 0.9% 1, 600 300 000 ml @ 75 mls/hr IV . [id number] [facility] Rx#:[id number] Intake, IV Titration 3.473 15.884 Amount Norepinephrine 32 mg In 3.473 15.884 Sodium Chloride 0.9% 218 ml @ 0.03 MCG/KG/MIN 0. 638 mls/hr IV .Q24H [facility] Rx#:[id number] Output: Urine 650 150 Other: Voiding Method External Catheter Indwelling Catheter # Voids 0 Weight 45.359 kg 56.4 kg GENERAL DESCRIPTION: Elderly female lying in bed, no distress. No tachypnea or accessory muscle of respiration use. HEENT: Shows Pallor , no scleral icterus. Oral mucous membrane is dry. NECK: Trachea central, no thyromegaly. LUNGS: Unlabored breathing. Clear to auscultation anteriorly. No wheeze or crackle. HEART: S1, S2, regular rate and rhythm. No loud murmur ABDOMEN: Soft, mildly does but no significant tenderness EXTREMITIES: No edema of feet. SKIN: No rash, no masses palpable. NEUROLOGICAL: The patient is awake, alert, orientation could not be determined. Results CBC & Chem 7: 05/17/22 04:36 05/17/22 04:36 Labs: Abnormal Lab Results - Last 24 Hours (Table) 05/12/22 05/12/22 05/12/22 Range/Units 19:00 19:00 19:00 WBC 18.3 H (3.8-10.6) k/uL RBC 3.74 L (3.80-5.40) m/uL Neutrophils # 16.5 H (1.3-7.7) k/uL Lymphocytes # 0.6 L (1.0-4.8) k/uL Sodium 132 L (137-145) mmol/L Carbon Dioxide (22-30) mmol/L BUN 47 H (7-17) mg/dL Creatinine 2.12 H (0.52-1.04) mg/dL Glucose 144 H (74-99) mg/dL POC Glucose (mg/dL) (70-110) mg/dL Plasma Lactic Acid Lasha 3.5 H* (0.7-2.0) mmol/L Calcium 7.9 L (8.4-10.2) mg/dL Phosphorus (2.5-4.5) mg/dL Total Protein 4.7 L (6.3-8.2) g/dL Albumin 2.4 L (3.5-5.0) g/dL Procalcitonin (0.02-0.09) ng/mL Urine Protein (Negative) 05/12/22 05/12/22 05/13/22 Range/Units 21:47 23:14 00:40 WBC (3.8-10.6) k/uL RBC (3.80-5.40) m/uL Neutrophils # (1.3-7.7) k/uL Lymphocytes # (1.0-4.8) k/uL Sodium (137-145) mmol/L Carbon Dioxide (22-30) mmol/L BUN (7-17) mg/dL Creatinine (0.52-1.04) mg/dL Glucose (74-99) mg/dL POC Glucose (mg/dL) 114 H (70-110) mg/dL Plasma Lactic Acid Lasha 3.2 H* 2.5 H* (0.7-2.0) mmol/L Calcium (8.4-10.2) mg/dL Phosphorus (2.5-4.5) mg/dL Total Protein (6.3-8.2) g/dL Albumin (3.5-5.0) g/dL Procalcitonin (0.02-0.09) ng/mL Urine Protein (Negative) 05/13/22 05/13/22 05/13/22 Range/Units 05:25 05:40 05:40 WBC 18.6 H (3.8-10.6) k/uL RBC (3.80-5.40) m/uL Neutrophils # 16.8 H (1.3-7.7) k/uL Lymphocytes # 0.4 L (1.0-4.8) k/uL Sodium 135 L (137-145) mmol/L Carbon Dioxide 20 L (22-30) mmol/L BUN 45 H (7-17) mg/dL Creatinine 2.06 H (0.52-1.04) mg/dL Glucose 127 H (74-99) mg/dL POC Glucose (mg/dL) (70-110) mg/dL Plasma Lactic Acid Lasha (0.7-2.0) mmol/L Calcium 7.9 L (8.4-10.2) mg/dL Phosphorus 4.8 H (2.5-4.5) mg/dL Total Protein 5.1 L (6.3-8.2) g/dL Albumin 2.6 L (3.5-5.0) g/dL Procalcitonin (0.02-0.09) ng/mL Urine Protein Trace H (Negative) 05/13/22 05/13/22 Range/Units 05:40 05:40 WBC (3.8-10.6) k/uL RBC (3.80-5.40) m/uL Neutrophils # (1.3-7.7) k/uL Lymphocytes # (1.0-4.8) k/uL Sodium (137-145) mmol/L Carbon Dioxide (22-30) mmol/L BUN (7-17) mg/dL Creatinine (0.52-1.04) mg/dL Glucose (74-99) mg/dL POC Glucose (mg/dL) (70-110) mg/dL Plasma Lactic Acid Lasha 2.4 H* (0.7-2.0) mmol/L Calcium (8.4-10.2) mg/dL Phosphorus (2.5-4.5) mg/dL Total Protein (6.3-8.2) g/dL Albumin (3.5-5.0) g/dL Procalcitonin 4.69 H (0.02-0.09) ng/mL Urine Protein (Negative) Assessment and Plan (1) Sepsis Status: Acute Code(s): A41.9 - SEPSIS, UNSPECIFIED ORGANISM SNOMED Code(s): 48310643 (2) C. difficile colitis Status: Acute Code(s): A04.72 - ENTEROCOLITIS D/T CLOSTRIDIUM DIFFICILE, NOT SPCF RECUR SNOMED Code(s): 015693746 Plan: 1patient presented to hospital with sepsis in this patient who did have a tachycardia hypotension elevated lactic acid source is severe C. difficile colitis requiring admission to the ICU. 2we will increase the dose of vancomycin to 500 mg p.o. every 6 hours 3-we will add Questran if diarrhea persist 4-IV fluid We will follow on clinical condition and cultures to further adjust medication if needed Thank you for this consultation we will follow the patient along with you Time with Patient: Greater than 30
[2022-05-14 04:41] LABS: Calcium 7.6 mg/dL (8.4-10.2); Magnesium 2.2 mg/dL (1.6-2.3); Potassium 3.8 mmol/L (3.5-5.1)
[2022-05-14 04:59] LABS: Basophils # (A) 0.1 k/uL (0-0.2); Basophils % (A) 0 %; Eosinophils # (A) 0.1 k/uL (0-0.7); Eosinophils % (A) 0 %; HCT 41.6 % (34.0-46.0); HGB 13.6 gm/dL (11.4-16.0); Lymphocytes # (A) 0.5 k/uL (1.0-4.8); Lymphocytes % (A) 3 %; MCH 32.1 pg (25.0-35.0); MCHC 32.8 g/dL (31.0-37.0); Mean Platelet Volume 10.4; Monocytes # (A) 1.1 k/uL (0-1.0); Monocytes % (A) 7 %; Neutrophils # (A) 13.3 k/uL (1.3-7.7); Neutrophils % (A) 87 %; Platelet Count 183 k/uL (150-450); RBC 4.24 m/uL (3.80-5.40); RDW 13.7 % (11.5-15.5); WBC 15.3 k/uL (3.8-10.6)
[2022-05-14] MEDS: SODIUM CHLORIDE 0.9% 1,000 ML IV SCH (07:05)
[2022-05-14] MEDS: HEPARIN SODIUM,PORCINE/PF 5,000 UNIT/0.5 ML SYRINGE SQ SCH ×2 (08:39→22:17)
[2022-05-14] MEDS: METOPROLOL TARTRATE 25 MG TAB PO SCH ×2 (08:40→17:32)
[2022-05-14] MEDS: ATORVASTATIN 20 MG TAB PO SCH (08:40)
[2022-05-14] MEDS: RIVASTIGMINE 4.6MG/24HR PATCH TRANSDERM SCH (08:40)
[2022-05-14] MEDS: CLOPIDOGREL 75 MG TAB PO SCH (08:40)
[2022-05-14] MEDS: FAMOTIDINE 20 MG/2 ML VIAL IV SCH (08:40)
[2022-05-14] MEDS: ASPIRIN 81 MG PO SCH (08:40)
[2022-05-14] MEDS: DILTIAZEM ORAL 60 MG TAB PO SCH ×3 (08:40→22:16)
[2022-05-14] MEDS: levETIRAcetam 500 MG TAB PO SCH ×2 (08:40→22:15)
[2022-05-14] MEDS: CHERRY FLAVOR 60 ML BOTTLE PO PRN ×3 (08:41→17:33)
[2022-05-14] MEDS: VANCOMYCIN ORAL SOLUTION 250 MG/5 ML BOTTLE PO SCH ×4 (08:41→22:18)
[2022-05-14] MEDS: SERTRALINE 50 MG TAB PO SCH (08:41)
[2022-05-14] MEDS ORDERED: CLEVIDIPINE BUTYRATE 25 MG in EMPTY BAG 1 BAG IV SCH (10:15)
--- NOTE | 2022-05-14 10:59 | P.PN ---
Subjective Progress Note Date: 05/14/22 This is an 89-year-old female patient who is currently residing in a local extended care facility and just discharged from here 10 days ago. She has a history of dementia, hypertension, atrial fibrillation not on anticoagulation, history of brain hemorrhage, hypertension, hyperlipidemia, seizures, TIA. She was brought into the emergency room for generalized weakness, diarrhea and low blood pressure. EKG reveals atrial fibrillation with a controlled ventricular response. Chest x-ray shows no acute pulmonary process. Right triple-lumen catheter in place. She is seen today in consultation in the intensive care unit. She is currently resting comfortably in bed. Maintaining O2 saturations in the 90s on room air. She has normal saline at 75 ML's per hour. She is requiring norepinephrine currently at 2.3 mcg/m. He has received 2 L of fluid resuscitation thus far. She is alert and oriented times one. She did test positive for C. difficile colitis. Pro-calcitonin 4.69 She has been initiated on oral vancomycin. White count 18.6. Hemoglobin 13.3. Platelets 21. Sodium 135. Potassium 3.8. The carb 20. BUN 45. Creatinine 2.06. Glucose 127. The patient is seen today 05/14/2022 in follow-up on the intensive care unit. She is a bit more awake and alert today. Sitting up in bed. Maintaining O2 saturations in the 90s on room air. She continues on normal saline at 100 mL per hour. She has been off the norepinephrine since last evening. White count 15.3. Hemoglobin 13.6. Platelets 183. Sodium 139. Potassium 3.8. Bicarb 19. BUN 46. Creatinine 1.45. Glucose 142. She remains on oral vancomycin. Heparin for DVT prophylaxis. Objective - Vital Signs Vital signs: Vital Signs Temp 98.7 F 05/14/22 08:00 Pulse 128 H 05/14/22 09:00 Resp 18 05/14/22 09:00 BP 103/56 05/14/22 09:00 Pulse Ox 95 05/14/22 08:00 FiO2 Intake & Output 05/13/22 05/14/22 05/14/22 18:59 06:59 18:59 Intake Total 2255.792 1203.130 300 Output Total 355 220 45 Balance 1900.792 983.130 255 Weight 57.2 kg Intake: IV 2250 1200 300 Magnesium Sulfate-D5w Pmx 200 1 gm In Dextrose/Water 1 100ml.bag @ 100 mls/hr IVPB Q1H [facility] Rx#: [id number] Sodium Chloride 0.9% 1, 1050 1200 300 000 ml @ 100 mls/hr IV . Q10H [facility] Rx#:[id number] bolus 1000 Intake, IV Titration 5.792 3.130 Amount Norepinephrine 32 mg In 5.792 3.130 Sodium Chloride 0.9% 218 ml @ 0.03 MCG/KG/MIN 0. 638 mls/hr IV .Q24H [facility] Rx#:[id number] Output: Urine 355 220 45 Other: Voiding Method Indwelling Catheter Indwelling Catheter Indwelling Catheter # Bowel Movements 1 - Exam GENERAL EXAM: Alert, frail, cachectic 89-year-old female, on room air, comfortable in no apparent distress. HEAD: Normocephalic. EYES: Normal reaction of pupils, equal size. NOSE: Clear with pink turbinates. THROAT: No erythema or exudates. NECK: No masses, no JVD. CHEST: No chest wall deformity. LUNGS: Equal air entry with no crackles, wheeze, rhonchi or dullness. CVS: S1 and S2 normal with no audible murmur, regular rhythm. ABDOMEN: No hepatosplenomegaly, normal bowel sounds, no guarding or rigidity. SPINE: No scoliosis or deformity SKIN: No rashes CENTRAL NERVOUS SYSTEM: No focal deficits, tone is normal in all 4 extremities. EXTREMITIES: There is no peripheral edema. No clubbing, no cyanosis. Peripheral pulses are intact. - Labs CBC & Chem 7: 05/14/22 04:12 05/14/22 04:12 Labs: Abnormal Lab Results - Last 24 Hours (Table) 05/14/22 05/14/22 Range/Units 04:12 04:12 WBC 15.3 H (3.8-10.6) k/uL Neutrophils # 13.3 H (1.3-7.7) k/uL Lymphocytes # 0.5 L (1.0-4.8) k/uL Monocytes # 1.1 H (0-1.0) k/uL Chloride 112 H (98-107) mmol/L Carbon Dioxide 19 L (22-30) mmol/L BUN 46 H (7-17) mg/dL Creatinine 1.45 H (0.52-1.04) mg/dL Glucose 142 H (74-99) mg/dL Calcium 7.6 L (8.4-10.2) mg/dL Assessment and Plan Assessment: Generalized weakness secondary to a diarrhea secondary to C. difficile colitis. Pro-calcitonin 4.69. Currently on oral vancomycin. Acute hypotension secondary to above requiring fluid resuscitation and norepinephrine which was weaned off 05/13/2022 Leukocytosis secondary to above Acute kidney injury secondary to above A chair for relation with controlled ventricular response, not on anticoagulation History of brain hemorrhage History of hypertension Hyperlipidemia History of depression History of dementia jail resident Plan: The patient was seen and evaluated Labs and medications are reviewed Continue on oral vancomycin for C. diff Stable and on room air Stable and off pressors Continue normal saline at 100 ML's per hour Transferred to the regular medical floor today We'll continue to follow I have personally seen and examined the patient, performed the documentation and the assessment and plan as written. Number of minutes spent on the visit: 10.
[2022-05-14] MEDS: LACTATED RINGERS 1,000 ML IV SCH ×2 (11:13→22:17)
--- NOTE | 2022-05-14 11:30 | P.NPCON ---
History of Present Illness - Reason for Consult acute renal failure - History of Present Illness Patient is an 89-year-old female with history of dementia hypertension chronic A. fib and depression. Patient was discharged to a [facility] after recent hospitalization about 11 days ago for UTI. Patient is readmitted with increased weakness and altered mentation. She tested positive for C. diff. Toxin. Patient has had diarrhea for about 2-3 days. Serum creatinine was 2.1 on initial admission and it has decreased to 1.45. Previous creatinine 0.45 on 05/01/2022 Blood pressure had been low with systolic in the 80s, currently improved. Patient was on pressors now discontinued. Patient is maintained on IV fluids. Urine output at about 20-25 mL per hour Lisinopril and Cardizem currently on hold Review of Systems As per HPI, other systems negative Past Medical History Past Medical History: Atrial Fibrillation, Dementia, Hypertension Additional Past Medical History / Comment(s): hypomagnesia, hypokalemia, colitis, gastrotenteritis, gerd, scoliosis History of Any Multi-Drug Resistant Organisms: None Reported Past Surgical History: No Surgical Hx Reported Additional Past Surgical History / Comment(s): bottom of spine removed, cysts removed from breast, knee replacement, partial hip replacement Past Anesthesia/Blood Transfusion Reactions: No Reported Reaction Smoking Status: Former smoker - Past Family History Father Family Medical History: Myocardial Infarction ([place]) Additional Family Medical History / Comment(s): The patient's father from a [place]. Mother History Unknown: Yes Medications and Allergies Home Medications Medication Instructions Recorded Confirmed Type Acetaminophen Tab [Tylenol] 650 mg PO Q6H PRN 01/05/17 05/12/22 History Atorvastatin [Lipitor] 20 mg PO DAILY@0800 01/05/17 05/12/22 History Na Phos,M-B/Na Phos,Di-Ba [Fleet 133 ml RECTAL DAILY PRN 01/05/17 05/12/22 History Adult] Sertraline [Zoloft] 50 mg PO DAILY@0800 01/05/17 05/12/22 History bisacodyL [Dulcolax] 10 mg RECTAL DAILY PRN 01/05/17 05/12/22 History Aspirin EC [Ecotrin Low Dose] 81 mg PO DAILY@0800 12/15/20 05/12/22 History Melatonin 5 mg PO HS@2100 12/15/20 05/12/22 History lisinopriL [Zestril] 10 mg PO DAILY@0800 12/15/20 05/12/22 History Acetaminophen [Tylenol 8 Hour] 650 mg PO BID@0800,1700 04/25/22 05/12/22 History Ensure Enlive 120 ml PO TID@0800,1200,1700 04/25/22 05/12/22 History Famotidine [Pepcid] 20 mg PO DAILY@0800 04/25/22 05/12/22 History Menthol [Biofreeze] 1 applic TOPICAL TID PRN 04/25/22 05/12/22 History guaiFENesin [guaiFENesin Oral 200 mg PO Q4H PRN 04/25/22 05/12/22 History Solution] polyethylene glycoL 3350 [Miralax] 17 gm PO DAILY PRN 04/25/22 05/12/22 History Clopidogrel [Plavix] 75 mg PO DAILY@0800 05/12/22 05/12/22 History Diltiazem Oral [Cardizem*] 60 mg PO TID@0800,1400,2100 05/12/22 05/12/22 History Loperamide HCl [Imodium A-D] 2 - 4 mg PO TID PRN MDD 8 mg 05/12/22 05/12/22 History Magic Cup 1 can PO DAILY@1200 05/12/22 05/12/22 History Metoprolol Tartrate [Lopressor] 25 mg PO BID@0800,1700 05/12/22 05/12/22 History QUEtiapine [SEROquel] 25 mg PO BID@1700,2100 05/12/22 05/12/22 History Rivastigmine 4.6MG/24Hr Patch 1 patch TRANSDERM DAILY@0800 05/12/22 05/12/22 History [Exelon 4.6MG/24Hr Patch] levETIRAcetam [Keppra] 500 mg PO BID@0800,1700 05/12/22 05/12/22 History Allergies Allergy/AdvReac Type Severity Reaction Status Date / Time Fish Containing Products Allergy Unknown Verified 05/12/22 20:26 [Fish] sulfamethoxazole Allergy Unknown Verified 05/12/22 20:26 [From Bactrim] trimethoprim [From Bactrim] Allergy Unknown Verified 05/12/22 20:26 Physical Exam Vitals: Vital Signs Temp Pulse Resp BP Pulse Ox 05/14/22 09:00 128 H 18 103/56 05/14/22 08:00 98.7 F 134 H 21 125/62 95 05/14/22 07:00 126 H 25 H 103/82 100 05/14/22 06:30 124 H 22 106/90 98 05/14/22 06:00 118 H 26 H 115/77 97 05/14/22 05:30 124 H 24 117/72 98 05/14/22 05:00 129 H 25 H 101/67 96 05/14/22 04:30 130 H 23 129/79 100 05/14/22 04:00 115 H 18 101/73 99 05/14/22 03:30 116 H 15 96/73 98 05/14/22 03:00 122 H 25 H 89/54 96 05/14/22 02:30 107 H 18 99/63 99 05/14/22 02:00 124 H 26 H 99/57 100 05/14/22 01:30 110 H 20 85/62 98 05/14/22 01:00 101 H 26 H 97/68 99 05/14/22 00:30 112 H 28 H 100/64 97 05/14/22 00:00 98.9 F 118 H 25 H 104/55 98 05/13/22 23:30 110 H 22 106/66 97 05/13/22 23:00 110 H 18 99/76 97 05/13/22 22:30 126 H 20 109/74 98 05/13/22 22:00 114 H 20 101/66 95 05/13/22 21:30 120 H 24 101/76 93 L 05/13/22 21:00 131 H 14 118/80 95 05/13/22 20:45 141 H 8 L 80/58 05/13/22 20:30 135 H 19 106/72 95 05/13/22 20:15 141 H 18 103/75 95 05/13/22 20:00 99.4 F 121 H 22 101/84 93 L 05/13/22 19:00 125 H 18 98/79 05/13/22 18:45 115 H 20 96/79 05/13/22 18:30 109 H 20 05/13/22 18:15 107 H 12 145/74 05/13/22 18:00 111 H 26 H 109/76 95 05/13/22 17:45 120 H 22 112/101 05/13/22 17:30 126 H 24 97/68 05/13/22 17:15 110 H 20 05/13/22 17:00 107 H 16 105/78 94 L 05/13/22 16:45 114 H 20 108/94 05/13/22 16:30 112 H 23 133/83 05/13/22 16:15 106 H 23 106/82 05/13/22 16:00 97 20 80/46 93 L 05/13/22 15:45 95 23 107/57 05/13/22 15:30 103 H 15 97/61 05/13/22 15:15 113 H 22 89/63 05/13/22 15:00 113 H 14 92/77 05/13/22 14:45 125 H 12 106/56 05/13/22 14:30 138 H 11 L 05/13/22 14:15 140 H 18 101/78 05/13/22 14:00 137 H 11 L 106/60 05/13/22 13:45 135 H 14 122/73 05/13/22 13:30 144 H 21 05/13/22 13:15 130 H 24 91/56 05/13/22 13:00 141 H 21 107/84 94 L 05/13/22 12:45 129 H 25 H 05/13/22 12:30 118 H 28 H 109/78 05/13/22 12:15 131 H 27 H 115/71 05/13/22 12:00 99.2 F 116 H 22 120/69 93 L 05/13/22 11:45 111 H 24 111/71 05/13/22 11:30 122 H 28 H 104/74 Intake and Output 05/13/22 05/14/22 05/14/22 22:59 06:59 14:59 Intake Total 804.469 800 300 Output Total 190 135 45 Balance 614.469 665 255 Intake: IV 800 800 300 Sodium Chloride 0.9% 1, 800 800 300 000 ml @ 100 mls/hr IV . Q10H [facility] Rx#:[id number] Intake, IV Titration 4.469 Amount Norepinephrine 32 mg In 4.469 Sodium Chloride 0.9% 218 ml @ 0.03 MCG/KG/MIN 0. 638 mls/hr IV .Q24H [facility] Rx#:[id number] Output: Urine 190 135 45 Other: Voiding Method Indwelling Catheter Indwelling Catheter Indwelling Catheter # Bowel Movements 1 Weight 57.2 kg Patient is awake, comfortable, no acute distress Examination of the heart S1 and S2 Examination of the lungs bilateral breath sounds are heard Abdomen is soft nontender Examination of the lower extremities shows no evidence of edema MOTEL MANAGER exam shows patient is moving all 4 extremities. Results - Lab Results Most recent lab results Calcium 7.6 mg/dL (8.4-10.2) L 05/14/22 04:12 Phosphorus 4.8 mg/dL (2.5-4.5) H 05/13/22 05:40 Magnesium 2.2 mg/dL (1.6-2.3) 05/14/22 04:12 05/14/22 04:12 05/14/22 04:12 Assessment and Plan Assessment: 1. Acute kidney injury secondary to ischemic ATN, currently nonoliguric and improving. The UA is benign. Check ultrasound of the kidneys 2. History of recent UTI with urine culture growing E. coli on 04/28/2022 status post hospitalization 3. C. diff colitis 4. Hypovolemia and hypotension currently improved with IV hydration and fluid resuscitation 5. Lactic acidosis secondary to hypotension, improved 6. Mild non-gap metabolic acidosis secondary to diarrhea and acute kidney injury Plan: Change IV fluids to Ringer lactate due to mild acidosis Repeat labs in a.m. Continue with IV hydration Avoid nephrotoxic agents Check ultrasound of the kidneys Thank you for the consultation. We will continue to follow the patient with you during her hospitalization
--- NOTE | 2022-05-14 12:03 | P.PN ---
Subjective Progress Note Date: 05/14/22 This is a 89 year old female with medical history of atrial fibrillation, dementia, hypertension, gerd, depression, and former smoker. Patient was sent to the hospital from the halfway with concern for generalized weakness and diarrhea. Patient had positive C.DIF by PCR at the halfway yesterday 0 05/12/2022. Patient was recently discharged from the hospital 11 days ago treated for acute urinary tract infection, and urinary retention. Patient was discharged to [facility]. Initial work up reveals white count of 18.3, sodium of 132, BUN 47, creatinine 2.12. Lactic acid is elevated at 3.5 on admission. Urinalysis is negative for infection there is trace protein. Procalcitonin level of 4.69. In itial chest xray is negative. EKG showing atrial fibrillation with heart of 73. Patient is found to be hypotensive on admission with blood pressure dropping to 77/59 patient is admitted to intensive care unit and requiring levophed at this time. Patient is afebrile. Patient has been started on oral vancomycin for the acute c.dif infection. Infectious disease has been consulted. Patient is a poor historian the medical history is taken from the chart. 05/14/2022 Patient is evaluated today resting in bed patient continues to be monitored in intensive care unit. patient has been downgraded today to stepdown unit. Creatinine has improved to 1.46 although urine out remains marginal. Nephrology has been consulted. Renal ultrasound ordered. Heart rate improved with cardizem now rate controlled and patient is off vasopressor support at this time. Blood pressure 103/56. Still confused. 1 Bowel movement documented overnight. Unable to complete review of systems patient is confused and not answering questions appropriately. PHYSICAL EXAMINATION: GENERAL: The patient is alert and oriented x0-1, not in any acute distress. Well developed, well nourished. HEENT: Pupils are round and equally reacting to light. EOMI. No scleral icterus. No conjunctival pallor. Normocephalic, atraumatic. No pharyngeal erythema. No thyromegaly. CARDIOVASCULAR: S1 and S2 present. No murmurs, rubs, or gallops. PULMONARY: Chest is clear to auscultation, no wheezing or crackles. ABDOMEN: Soft, suprapubic tenderness, nondistended, normoactive bowel sounds. No palpable organomegaly. MUSCULOSKELETAL: No joint swelling or deformity. EXTREMITIES: No cyanosis, clubbing, or pedal edema. NEUROLOGICAL: Gross neurological examination did not reveal any focal deficits. Diffuse generalized weakness. SKIN: No rashes. Assessment and Plan Assessment Generalized weakness Leukocytosis Diarrhea secondary to acute Clostridium dificile with sepsis present on admission Acute kidney injury secondary to acute tubular necrosis creatinine improving Hypotension and septic shock requiring vasopressor support blood pressure improved and off IV fluids. Atrial fibrillation with rapid ventricular rate currently rate controlled. Altered mental status likely from acute metabolic encephalopathy secondary to infection and acute renal failure on top of advanced dementia. Recent hospitalization for acute UTI History of hypertension Dementia advanced most likely senile vs. vascular Chronic atrial fibrillation History of depression History of seizure Former smoker GI prophylaxis DVT prophylaxis No Code Plan Continue oral vancomycin and ID consultation Blood culture pending Nephrology consultation, continue IV fluids with lactated ringers Strict intake and output monitoring Repeat labs in AM PT/OT consultation Plan for return to [facility] on DC when medically stable patient is currently downgraded from ICU The impression and plan of care has been dictated by Angeles Bhakta, Nurse Practitioner as directed. Dr. Shaun MD I have performed a history and physical examination and medical decision making of this patient, discussed the same with the dictator, and agree with the di ctators assessment and plan as written, documented as a scribe. Based on total visit time, I have performed more than 50% of this visit. Objective - Vital Signs Vital signs: Vital Signs Temp 98.7 F 05/14/22 08:00 Pulse 128 H 05/14/22 09:00 Resp 18 05/14/22 09:00 BP 103/56 05/14/22 09:00 Pulse Ox 95 05/14/22 08:00 FiO2 Intake & Output 05/13/22 05/14/22 05/14/22 18:59 06:59 18:59 Intake Total 2255.792 1203.130 300 Output Total 355 220 45 Balance 1900.792 983.130 255 Weight 57.2 kg Intake: IV 2250 1200 300 Magnesium Sulfate-D5w Pmx 200 1 gm In Dextrose/Water 1 100ml.bag @ 100 mls/hr IVPB Q1H NORM Rx#: [id number] Sodium Chloride 0.9% 1, 1050 1200 300 000 ml @ 100 mls/hr IV . Q10H NORM Rx#:[id number] bolus 1000 Intake, IV Titration 5.792 3.130 Amount Norepinephrine 32 mg In 5.792 3.130 Sodium Chloride 0.9% 218 ml @ 0.03 MCG/KG/MIN 0. 638 mls/hr IV .Q24H ONE Rx#:[id number] Output: Urine 355 220 45 Other: Voiding Method Indwelling Catheter Indwelling Catheter Indwelling Catheter # Bowel Movements 1 - Labs CBC & Chem 7: 05/14/22 04:12 05/14/22 04:12 Labs: Abnormal Lab Results - Last 24 Hours (Table) 05/14/22 05/14/22 Range/Units 04:12 04:12 WBC 15.3 H (3.8-10.6) k/uL Neutrophils # 13.3 H (1.3-7.7) k/uL Lymphocytes # 0.5 L (1.0-4.8) k/uL Monocytes # 1.1 H (0-1.0) k/uL Chloride 112 H (98-107) mmol/L Carbon Dioxide 19 L (22-30) mmol/L BUN 46 H (7-17) mg/dL Creatinine 1.45 H (0.52-1.04) mg/dL Glucose 142 H (74-99) mg/dL Calcium 7.6 L (8.4-10.2) mg/dL Assessment and Plan Time with Patient: Less than 30
--- NOTE | 2022-05-14 14:09 | P.PN ---
Subjective Progress Note Date: 05/14/22 Principal diagnosis: C. diff colitis Patient is a 89-year-old female with a past medical history significant for atrial fibrillation hypertension GERD depression dementia [facility] resident patient was recently admitted at this facility and was treated for urinary retention and UTI, patient did develop diarrhea and was diagnosed with a C. diff at the [facility] patient did have a low blood pressure and mental status changes for the patient was transferred to [facility] ICU. On today's evaluation that is 05/14/2022, patient is afebrile, the patient is breathing comfortably on room air the patient is currently sleepy lethargic and did not provide any history no vomiting reported by the nursing staff and did have a small bowel movement last night and the patient is currently off the pressor support Objective - Vital Signs Vital signs: Vital Signs Temp 98.7 F 05/14/22 08:00 Pulse 128 H 05/14/22 09:00 Resp 18 05/14/22 09:00 BP 103/56 05/14/22 09:00 Pulse Ox 95 05/14/22 08:00 FiO2 Intake & Output 05/13/22 05/14/22 05/14/22 18:59 06:59 18:59 Intake Total 2255.792 1203.130 300 Output Total 355 220 45 Balance 1900.792 983.130 255 Weight 57.2 kg Intake: IV 2250 1200 300 Magnesium Sulfate-D5w Pmx 200 1 gm In Dextrose/Water 1 100ml.bag @ 100 mls/hr IVPB Q1H NORM Rx#: [id number] Sodium Chloride 0.9% 1, 1050 1200 300 000 ml @ 100 mls/hr IV . Q10H NORM Rx#:[id number] bolus 1000 Intake, IV Titration 5.792 3.130 Amount Norepinephrine 32 mg In 5.792 3.130 Sodium Chloride 0.9% 218 ml @ 0.03 MCG/KG/MIN 0. 638 mls/hr IV .Q24H ONE Rx#:[id number] Output: Urine 355 220 45 Other: Voiding Method Indwelling Catheter Indwelling Catheter Indwelling Catheter # Bowel Movements 1 - Exam GENERAL DESCRIPTION: An elderly female lying in bed in no distress RESPIRATORY SYSTEM: Unlabored breathing , decreased breath sounds at bases HEART: S1 S2 regular rate and rhythm , ABDOMEN: Soft , no tenderness EXTREMITIES: No edema feet - Labs CBC & Chem 7: 05/14/22 04:12 05/14/22 04:12 Labs: Abnormal Lab Results - Last 24 Hours (Table) 05/14/22 05/14/22 Range/Units 04:12 04:12 WBC 15.3 H (3.8-10.6) k/uL Neutrophils # 13.3 H (1.3-7.7) k/uL Lymphocytes # 0.5 L (1.0-4.8) k/uL Monocytes # 1.1 H (0-1.0) k/uL Chloride 112 H (98-107) mmol/L Carbon Dioxide 19 L (22-30) mmol/L BUN 46 H (7-17) mg/dL Creatinine 1.45 H (0.52-1.04) mg/dL Glucose 142 H (74-99) mg/dL Calcium 7.6 L (8.4-10.2) mg/dL Assessment and Plan (1) C. difficile colitis Current Visit: Yes Status: Acute Code(s): A04.72 - ENTEROCOLITIS D/T CLOSTRIDIUM DIFFICILE, NOT SPCF RECUR SNOMED Code(s): 010951531 Plan: 1patient presented to hospital with sepsis in this patient who did have a tachycardia hypotension elevated lactic acid source is severe C. difficile colitis requiring admission to the ICU. 2patient to continue with vancomycin to 500 mg p.o. every 6 hours and monitor clinical course closely Time with Patient: Less than 30
--- NOTE | 2022-05-14 14:49 | US ---
EXAMINATION TYPE: US kidneys/renal and bladder DATE OF EXAM: 05/14/2022 COMPARISON: NONE CLINICAL HISTORY: Acute kidney infection. EXAM MEASUREMENTS: Right Kidney: 9.4 x 3.7 x 2.8 cm Left Kidney: 8.1 x 4.2 x 4.0 cm Right Kidney: Limited view of the superior pole. Possible solid mass vs lobulation of the cortex 2.6 x 2.3 x 3.2cm Left Kidney: Limited view, possible atrophic when compared to right side, otherwise unremarkable Bladder: Not visualized. Bravo catheter in place Bilateral Jets seen: No IMPRESSION: No evidence of renal mass or obstruction. Urinary bladder was empty during the exam.
[2022-05-14] MEDS: QUEtiapine 25 MG TAB PO SCH ×2 (17:32→22:17)
[2022-05-15] MEDS: CHERRY FLAVOR 60 ML BOTTLE PO PRN (11:17)
[2022-05-15] MEDS: VANCOMYCIN ORAL SOLUTION 250 MG/5 ML BOTTLE PO SCH ×4 (11:18→21:31)
[2022-05-15 11:23] LABS: African American GFR (CKD) 25 (>60 ml/min/1.73 sqM); Anion Gap 8 mmol/L; Blood Urea Nitrogen 59 mg/dL (7-17); Calcium 8.4 mg/dL (8.4-10.2); Carbon Dioxide 20 mmol/L (22-30); Chloride 112 mmol/L (98-107); Glucose 125 mg/dL (74-99); Non-African American GFR(CKD) 21 (>60 ml/min/1.73 sqM); Potassium 3.9 mmol/L (3.5-5.1); Sodium 140 mmol/L (137-145)
--- NOTE | 2022-05-15 14:09 | P.PN ---
Subjective Patient is seen for follow-up for acute kidney injury. She was admitted to the hospital with mental status changes and diarrhea from C. diff colitis. Patient is maintained on IV fluids. Renal function had improved but serum creatinine increased again to 2.0 from 1.45 yesterday. Patient has an indwelling Bravo catheter Blood pressure remains low with systolic in the 80s Patient is not able to take oral medications as per nursing staff. There is ongoing discussion regarding CODE STATUS and possible palliative care. Objective - Vital Signs Vital signs: Vital Signs Temp 98.0 F 05/15/22 07:50 Pulse 108 H 05/15/22 07:50 Resp 20 05/15/22 08:00 BP 113/71 05/15/22 07:50 Pulse Ox 96 05/15/22 07:50 FiO2 Intake & Output 05/14/22 05/15/22 05/15/22 18:59 06:59 18:59 Intake Total 380 Output Total 90 100 Balance 290 -100 Intake: IV 380 Lactated Ringers 1,000 ml 80 @ 100 mls/hr IV .Q10H NORM Rx#:[id number] Sodium Chloride 0.9% 1, 300 000 ml @ 100 mls/hr IV . Q10H NORM Rx#:[id number] Output: Urine 90 100 Other: Voiding Method Indwelling Catheter Indwelling Catheter Indwelling Catheter # Bowel Movements 5 - Exam Patient is sleeping comfortable, no acute distress. Does not communicate much Examination of the heart S1 and S2 Examination of the lungs bilateral breath sounds are heard Abdomen is soft nontender Examination of the lower extremities shows no evidence of edema - Labs CBC & Chem 7: 05/14/22 04:12 05/15/22 10:29 Labs: Abnormal Lab Results - Last 24 Hours (Table) 05/15/22 Range/Units 10:29 Chloride 112 H (98-107) mmol/L Carbon Dioxide 20 L (22-30) mmol/L BUN 59 H (7-17) mg/dL Creatinine 2.02 H (0.52-1.04) mg/dL Glucose 125 H (74-99) mg/dL Microbiology - Last 24 Hours (Table) 05/13/22 14:48 Blood Culture - Preliminary Blood No Growth after 24 hours Assessment and Plan Assessment: 1. Acute kidney injury secondary to ischemic ATN, currently nonoliguric and improved initially but worsened again secondary to hypotension. The UA is benign. Ultrasound is unremarkable. 2. History of recent UTI with urine culture growing E. coli on 04/28/2022 status post hospitalization 3. C. diff colitis 4. Hypovolemia and hypotension currently improved with IV hydration and fluid resuscitation 5. Lactic acidosis secondary to hypotension, improved 6. Mild non-gap metabolic acidosis secondary to diarrhea and acute kidney injury 7. History of A. fib maintained on Cardizem and Lopressor for rate control Plan: Continue with IV fluids Decrease Cardizem to 30 mg 3 times a day. Heart rate is at 89 however it was elevated at 120 and 130 last night. Add midodrine if patient can take oral medications Overall prognosis is guarded exhibit further discussion regarding code status and palliative care.
--- NOTE | 2022-05-15 14:19 | P.PN ---
Subjective Progress Note Date: 05/15/22 This is an 89-year-old female patient who is currently residing in a local extended care facility and just discharged from here 10 days ago. She has a history of dementia, hypertension, atrial fibrillation not on anticoagulation, history of brain hemorrhage, hypertension, hyperlipidemia, seizures, TIA. She was brought into the emergency room for generalized weakness, diarrhea and low blood pressure. EKG reveals atrial fibrillation with a controlled ventricular response. Chest x-ray shows no acute pulmonary process. Right triple-lumen catheter in place. She is seen today in consultation in the intensive care unit. She is currently resting comfortably in bed. Maintaining O2 saturations in the 90s on room air. She has normal saline at 75 ML's per hour. She is requiring norepinephrine currently at 2.3 mcg/m. He has received 2 L of fluid resuscitation thus far. She is alert and oriented times one. She did test positive for C. difficile colitis. Pro-calcitonin 4.69 She has been initiated on oral vancomycin. White count 18.6. Hemoglobin 13.3. Platelets 21. Sodium 135. Potassium 3.8. The carb 20. BUN 45. Creatinine 2.06. Glucose 127. The patient is seen today 05/14/2022 in follow-up on the intensive care unit. She is a bit more awake and alert today. Sitting up in bed. Maintaining O2 saturations in the 90s on room air. She continues on normal saline at 100 mL pe r hour. She has been off the norepinephrine since last evening. White count 15.3. Hemoglobin 13.6. Platelets 183. Sodium 139. Potassium 3.8. Bicarb 19. BUN 46. Creatinine 1.45. Glucose 142. She remains on oral vancomycin. Heparin for DVT prophylaxis. On 2022, I'm seeing the patient for a follow-up. Overall, [id number]-well.-The-patient is being hydrated. The patient is currently on therapy for C. diff colitis. The patient on oral vancomycin. He is also lactated Ringer running at 100 mL an hour. No nausea. No vomiting. No emesis. No abdominal pain or distention. Her blood pressure was running soft earlier overnight and currently her blood pressures improved. The BUN is at 59 with a creatinine of 2.0 to and his sodium is at 140, serum bicarbs of 20. No other new complaints otherwise for now. She is communicating. Objective - Vital Signs Vital signs: Vital Signs Temp 98.0 F 05/15/22 07:50 Pulse 108 H 05/15/22 07:50 Resp 20 05/15/22 07:50 BP 113/71 05/15/22 07:50 Pulse Ox 96 05/15/22 07:50 FiO2 Intake & Output 05/14/22 05/15/22 05/15/22 18:59 06:59 18:59 Intake Total 380 Output Total 90 100 Balance 290 -100 Intake: IV 380 Lactated Ringers 1,000 ml 80 @ 100 mls/hr IV .Q10H NORM Rx#:[id number] Sodium Chloride 0.9% 1, 300 000 ml @ 100 mls/hr IV . Q10H NORM Rx#:[id number] Output: Urine 90 100 Other: Voiding Method Indwelling Catheter Indwelling Catheter # Bowel Movements 5 - Exam GENERAL EXAM: Alert, frail, cachectic 89-year-old female, on room air, comfortable in no apparent distress. HEAD: Normocephalic. EYES: Normal reaction of pupils, equal size. NOSE: Clear with pink turbinates. THROAT: No erythema or exudates. NECK: No masses, no JVD. CHEST: No chest wall deformity. LUNGS: Equal air entry with no crackles, wheeze, rhonchi or dullness. CVS: S1 and S2 normal with no audible murmur, regular rhythm. ABDOMEN: No hepatosplenomegaly, normal bowel sounds, no guarding or rigidity. SPINE: No scoliosis or deformity SKIN: No rashes CENTRAL NERVOUS SYSTEM: No focal deficits, tone is normal in all 4 extremities. EXTREMITIES: There is no peripheral edema. No clubbing, no cyanosis. Peripheral pulses are intact. - Labs CBC & Chem 7: 05/14/22 04:12 05/15/22 10:29 Labs: Abnormal Lab Results - Last 24 Hours (Table) 05/15/22 Range/Units 10:29 Chloride 112 H (98-107) mmol/L Carbon Dioxide 20 L (22-30) mmol/L BUN 59 H (7-17) mg/dL Creatinine 2.02 H (0.52-1.04) mg/dL Glucose 125 H (74-99) mg/dL Microbiology - Last 24 Hours (Table) 05/13/22 14:48 Blood Culture - Preliminary Blood No Growth after 24 hours Assessment and Plan Plan: Generalized weakness secondary to a diarrhea secondary to C. difficile colitis. Pro-calcitonin 4.69. Currently on oral vancomycin. Acute hypotension secondary to above requiring fluid resuscitation and norepinephrine which was weaned off 05/13/2022 Leukocytosis secondary to above Acute kidney injury secondary to above A chair for relation with controlled ventricular response, not on anticoagulation History of brain hemorrhage History of hypertension Hyperlipidemia History of depression History of dementia [facility] resident Plan: Continue IV fluids and monitor renal function. Creatinine is stable at 2.0 Continue oral vancomycin for C. diff colitis Hemodynamically stable Stable and on room air Stable and off pressors Continue lactated Ringer at 100 ML's per hour DNR/DNI CODE STATUS We'll continue to follow
--- NOTE | 2022-05-15 16:08 | P.PN ---
Subjective Progress Note Date: 05/15/22 This is a 89 year old female with medical history of atrial fibrillation, dementia, hypertension, gerd, depression, and former smoker. Patient was sent to the hospital from the long term with concern for generalized weakness and diarrhea. Patient had positive C.DIF by PCR at the long term yesterday 0 05/12/2022. Patient was recently discharged from the hospital 11 days ago treated for acute urinary tract infection, and urinary retention. Patient was discharged to [facility]. Initial work up reveals white count of 18.3, sodium of 132, BUN 47, creatinine 2.12. Lactic acid is elevated at 3.5 on admission. Urinalysis is negative for infection there is trace protein. Procalcitonin level of 4.69. In itial chest xray is negative. EKG showing atrial fibrillation with heart of 73. Patient is found to be hypotensive on admission with blood pressure dropping to 77/59 patient is admitted to intensive care unit and requiring levophed at this time. Patient is afebrile. Patient has been started on oral vancomycin for the acute c.dif infection. Infectious disease has been consulted. Patient is a poor historian the medical history is taken from the chart. 05/14/2022 Patient is evaluated today resting in bed patient continues to be monitored in intensive care unit. patient has been downgraded today to stepdown unit. Creatinine has improved to 1.46 although urine out remains marginal. Nephrology has been consulted. Renal ultrasound ordered. Heart rate improved with cardizem now rate controlled and patient is off vasopressor support at this time. Blood pressure 103/56. Still confused. 1 Bowel movement documented overnight. 05/15/2022 Patient evaluated today on the medical floor has been moved out of the intensive care unit. Patient has not been eating and continues with acute confusion on top of advanced dementia. Speech therapy saw patient in consultation today and was unable to complete full OM evaluation and unable to follow simple verbal commands. Patient had renal ultrasound showing no renal mass or obstruction. Patient has indwelling catheter. Nephrology is following. 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 Secondary to this creatinine worsened and today is 2.02. Unable to complete review of systems patient is confused and not answering questions appropriately. PHYSICAL EXAMINATION: GENERAL: The patient is alert and oriented x0-1, not in any acute distress. Well developed, well nourished. HEENT: Pupils are round and equally reacting to light. EOMI. No scleral icterus. No conjunctival pallor. Normocephalic, atraumatic. No pharyngeal erythema. No thyromegaly. CARDIOVASCULAR: S1 and S2 present. No murmurs, rubs, or gallops. PULMONARY: Chest is clear to auscultation, no wheezing or crackles. ABDOMEN: Soft, suprapubic tenderness, nondistended, normoactive bowel sounds. No palpable organomegaly. MUSCULOSKELETAL: No joint swelling or deformity. EXTREMITIES: No cyanosis, clubbing, or pedal edema. NEUROLOGICAL: Gross neurological examination did not reveal any focal deficits. Diffuse generalized weakness. SKIN: No rashes. Assessment and Plan Assessment Generalized weakness Leukocytosis Diarrhea secondary to acute Clostridium dificile with sepsis present on admission Acute kidney injury secondary to acute tubular necrosis creatinine improved and than worsened secondary to hypotension Hypotension and septic shock requiring vasopressor support blood pressure improved and off IV fluids. Atrial fibrillation with rapid ventricular rate currently rate controlled. Altered mental status likely from acute metabolic encephalopathy secondary to infection and acute renal failure on top of advanced dementia. Recent hospitalization for acute UTI and TIA vs breakthrough seizure which keppra dose was increased. History of hypertension Dementia advanced most likely senile vs. vascular Chronic atrial fibrillation History of depression History of seizure Former smoker GI prophylaxis DVT prophylaxis No Code Plan Continue oral vancomycin and ID consultation Blood culture pending Nephrology consultation, continue IV fluids with lactated ringers Strict intake and output monitoring Patient has poor oral intake and refusing medications at this time Plan for return to [facility] on DC when medically stable patient is currently downgraded from ICU The impression and plan of care has been dictated by Angeles Bhakta, Nurse Practitioner as directed. Dr. Shaun MD I have performed a history and physical examination and medical decision making of this patient, discussed the same with the dictator, and agree with the dictators assessment and plan as written, documented as a scribe. Based on total visit time, I have performed more than 50% of this visit. Objective - Vital Signs Vital signs: Vital Signs Temp 98.0 F 05/15/22 07:50 Pulse 108 H 05/15/22 07:50 Resp 20 05/15/22 07:50 BP 113/71 05/15/22 07:50 Pulse Ox 96 05/15/22 07:50 FiO2 Intake & Output 05/14/22 05/15/22 05/15/22 18:59 06:59 18:59 Intake Total 380 Output Total 90 100 Balance 290 -100 Intake: IV 380 Lactated Ringers 1,000 ml 80 @ 100 mls/hr IV .Q10H NORM Rx#:[id number] Sodium Chloride 0.9% 1, 300 000 ml @ 100 mls/hr IV . Q10H NORM Rx#:[id number] Output: Urine 90 100 Other: Voiding Method Indwelling Catheter Indwelling Catheter # Bowel Movements 5 - Labs CBC & Chem 7: 05/14/22 04:12 05/15/22 10:29 Labs: Abnormal Lab Results - Last 24 Hours (Table) 05/15/22 Range/Units 10:29 Chloride 112 H (98-107) mmol/L Carbon Dioxide 20 L (22-30) mmol/L BUN 59 H (7-17) mg/dL Creatinine 2.02 H (0.52-1.04) mg/dL Glucose 125 H (74-99) mg/dL Microbiology - Last 24 Hours (Table) 05/13/22 14:48 Blood Culture - Preliminary Blood No Growth after 24 hours Assessment and Plan Time with Patient: Less than 30
[2022-05-15] MEDS: RIVASTIGMINE 4.6MG/24HR PATCH TRANSDERM SCH (17:16)
[2022-05-15] MEDS: HEPARIN SODIUM,PORCINE/PF 5,000 UNIT/0.5 ML SYRINGE SQ SCH ×2 (17:16→21:36)
[2022-05-15] MEDS: FAMOTIDINE 20 MG/2 ML VIAL IV SCH (17:16)
[2022-05-15] MEDS: levETIRAcetam 500 MG TAB PO SCH ×2 (17:17→21:29)
[2022-05-15] MEDS: CLOPIDOGREL 75 MG TAB PO SCH (17:17)
[2022-05-15] MEDS: ASPIRIN 81 MG PO SCH (17:17)
[2022-05-15] MEDS: ATORVASTATIN 20 MG TAB PO SCH (17:17)
[2022-05-15] MEDS: SERTRALINE 50 MG TAB PO SCH (17:17)
[2022-05-15] MEDS: METOPROLOL TARTRATE 25 MG TAB PO SCH ×2 (17:17→18:21)
[2022-05-15] MEDS: DILTIAZEM ORAL 30 MG TAB PO SCH ×2 (17:18→21:30)
[2022-05-15] MEDS: QUEtiapine 25 MG TAB PO SCH ×2 (18:21→21:38)
[2022-05-15] MEDS: MIDODRINE 5 MG TAB PO SCH ×2 (18:21→21:28)
--- NOTE | 2022-05-15 21:08 | P.PN ---
Subjective Progress Note Date: 05/15/22 Principal diagnosis: C. diff colitis Patient is a 89-year-old female with a past medical history significant for atrial fibrillation hypertension GERD depression dementia shelter resident patient was recently admitted at this facility and was treated for urinary retention and UTI, patient did develop diarrhea and was diagnosed with a C. diff at the shelter patient did have a low blood pressure and mental status changes for the patient was transferred to [facility] ICU. On today's evaluation that is 05/15/2022, patient remains to be afebrile, the patient is breathing comfortably on 3 L nasal cannula oxygen, the patient is awake but did not answer any questions and apparently the patient has been refusing her oral medication no vomiting or worsening diarrhea has been reported patient has been moved out of the ICU Objective - Vital Signs Vital signs: Vital Signs Temp 98.0 F 05/15/22 07:50 Pulse 108 H 05/15/22 07:50 Resp 20 05/15/22 08:00 BP 113/71 05/15/22 07:50 Pulse Ox 96 05/15/22 07:50 FiO2 Intake & Output 05/14/22 05/15/22 05/15/22 18:59 06:59 18:59 Intake Total 380 Output Total 90 100 Balance 290 -100 Intake: IV 380 Lactated Ringers 1,000 ml 80 @ 100 mls/hr IV .Q10H NORM Rx#:[id number] Sodium Chloride 0.9% 1, 300 000 ml @ 100 mls/hr IV . Q10H NORM Rx#:[id number] Output: Urine 90 100 Other: Voiding Method Indwelling Catheter Indwelling Catheter Indwelling Catheter # Bowel Movements 5 - Exam GENERAL DESCRIPTION: An elderly female lying in bed in no distress RESPIRATORY SYSTEM: Unlabored breathing , decreased breath sounds at bases HEART: S1 S2 regular rate and rhythm , ABDOMEN: Soft , no tenderness EXTREMITIES: No edema feet - Labs CBC & Chem 7: 05/14/22 04:12 05/15/22 10:29 Labs: Abnormal Lab Results - Last 24 Hours (Table) 05/15/22 Range/Units 10:29 Chloride 112 H (98-107) mmol/L Carbon Dioxide 20 L (22-30) mmol/L BUN 59 H (7-17) mg/dL Creatinine 2.02 H (0.52-1.04) mg/dL Glucose 125 H (74-99) mg/dL Microbiology - Last 24 Hours (Table) 05/13/22 14:48 Blood Culture - Preliminary Blood No Growth after 24 hours Assessment and Plan (1) C. difficile colitis Current Visit: Yes Status: Acute Code(s): A04.72 - ENTEROCOLITIS D/T CLOSTRIDIUM DIFFICILE, NOT SPCF RECUR SNOMED Code(s): 344498572 Plan: 1patient presented to hospital with sepsis in this patient who did have a tac hycardia hypotension elevated lactic acid source is severe C. difficile colitis requiring admission to the ICU. 2nursing staff has been instructed try to give the patient her vancomycin to 500 mg p.o. every 6 hours and monitor clinical course closely Time with Patient: Less than 30
[2022-05-15] MEDS: LACTATED RINGERS 1,000 ML IV SCH ×2 (21:34→21:37)
[2022-05-15] MEDS: DILTIAZEM ORAL 60 MG TAB PO SCH (21:42)
[2022-05-16] MEDS: LACTATED RINGERS 1,000 ML IV SCH ×3 (00:33→21:21)
[2022-05-16 08:18] LABS: HCT 43.4 % (34.0-46.0); HGB 13.8 gm/dL (11.4-16.0); MCH 31.8 pg (25.0-35.0); MCHC 31.9 g/dL (31.0-37.0); MCV 99.7 fL (80.0-100.0); Mean Platelet Volume 10.2; Platelet Count 155 k/uL (150-450); RBC 4.35 m/uL (3.80-5.40); RDW 13.9 % (11.5-15.5); WBC 31.7 k/uL (3.8-10.6)
[2022-05-16 08:38] LABS: African American GFR (CKD) 19 (>60 ml/min/1.73 sqM); Anion Gap 8 mmol/L; Blood Urea Nitrogen 66 mg/dL (7-17); Calcium 8.4 mg/dL (8.4-10.2); Carbon Dioxide 20 mmol/L (22-30); Chloride 112 mmol/L (98-107); Glucose 95 mg/dL (74-99); Magnesium 2.4 mg/dL (1.6-2.3); Non-African American GFR(CKD) 17 (>60 ml/min/1.73 sqM); Potassium 3.7 mmol/L (3.5-5.1); Sodium 140 mmol/L (137-145)
[2022-05-16] MEDS: CLOPIDOGREL 75 MG TAB PO SCH (10:35)
[2022-05-16] MEDS: ASPIRIN 81 MG PO SCH (10:36)
[2022-05-16] MEDS: ATORVASTATIN 20 MG TAB PO SCH (10:36)
[2022-05-16] MEDS: levETIRAcetam 500 MG TAB PO SCH ×2 (10:36→21:21)
[2022-05-16] MEDS: METOPROLOL TARTRATE 25 MG TAB PO SCH ×2 (10:36→18:02)
[2022-05-16] MEDS: MIDODRINE 5 MG TAB PO SCH ×2 (10:36→18:02)
[2022-05-16] MEDS: VANCOMYCIN ORAL SOLUTION 250 MG/5 ML BOTTLE PO SCH (10:37)
[2022-05-16] MEDS: SERTRALINE 50 MG TAB PO SCH (10:37)
[2022-05-16] MEDS: RIVASTIGMINE 4.6MG/24HR PATCH TRANSDERM SCH (10:38)
[2022-05-16] MEDS: FAMOTIDINE 20 MG/2 ML VIAL IV SCH (10:38)
[2022-05-16 10:39] LABS: Band Neutrophils % 12 %; Lymphocytes # (M) 1.27 k/uL (1.0-4.8); Metamyelocytes # (M) 1.27 k/uL (0); Metamyelocytes % 4 %; Monocytes # (M) 1.59 k/uL (0-1.0); Neutrophils % (M) 76 %; Nucleated Red Blood Cells 0 /100 WBC (0-0); Total Cells Counted 200
[2022-05-16] MEDS: DILTIAZEM ORAL 30 MG TAB PO SCH ×3 (10:40→21:20)
[2022-05-16] MEDS: HEPARIN SODIUM,PORCINE/PF 5,000 UNIT/0.5 ML SYRINGE SQ SCH ×2 (10:40→21:20)
[2022-05-16] MEDS ORDERED: SODIUM CHLORIDE 0.9% 1,000 ML IV ONE (10:57)
--- NOTE | 2022-05-16 11:06 | P.PN ---
Subjective Progress Note Date: 05/16/22 This is an 89-year-old female patient who is currently residing in a local extended care facility and just discharged from here 10 days ago. She has a history of dementia, hypertension, atrial fibrillation not on anticoagulation, history of brain hemorrhage, hypertension, hyperlipidemia, seizures, TIA. She was brought into the emergency room for generalized weakness, diarrhea and low blood pressure. EKG reveals atrial fibrillation with a controlled ventricular response. Chest x-ray shows no acute pulmonary process. Right triple-lumen catheter in place. She is seen today in consultation in the intensive care unit. She is currently resting comfortably in bed. Maintaining O2 saturations in the 90s on room air. She has normal saline at 75 ML's per hour. She is requiring norepinephrine currently at 2.3 mcg/m. He has received 2 L of fluid resuscitation thus far. She is alert and oriented times one. She did test positive for C. difficile colitis. Pro-calcitonin 4.69 She has been initiated on oral vancomycin. White count 18.6. Hemoglobin 13.3. Platelets 21. Sodium 135. Potassium 3.8. The carb 20. BUN 45. Creatinine 2.06. Glucose 127. The patient is seen today 05/14/2022 in follow-up on the intensive care unit. She is a bit more awake and alert today. Sitting up in bed. Maintaining O2 saturations in the 90s on room air. She continues on normal saline at 100 mL pe r hour. She has been off the norepinephrine since last evening. White count 15.3. Hemoglobin 13.6. Platelets 183. Sodium 139. Potassium 3.8. Bicarb 19. BUN 46. Creatinine 1.45. Glucose 142. She remains on oral vancomycin. Heparin for DVT prophylaxis. On 2022, I'm seeing the patient for a follow-up. Overall, [id number]-[id number].-The-patient is being hydrated. The patient is currently on therapy for C. diff colitis. The patient on oral vancomycin. He is also lactated Ringer running at 100 mL an hour. No nausea. No vomiting. No emesis. No abdominal pain or distention. Her blood pressure was running soft earlier overnight and currently her blood pressures improved. The BUN is at 59 with a creatinine of 2.0 to and his sodium is at 140, serum bicarbs of 20. No other new complaints otherwise for now. She is communicating. 05/16/2022, the patient looks quite debilitated and lethargic. She has not been taking her oral medication including oral vancomycin on a regular basis. As such, on today's blood work, her white cell count is up to 31.7. Hemoglobin is at 13.8. Infectious diseases on the case. It also, the patient's BUN is at 66 and a creatinine of 2.47 and a sodium is at 140. IV fluids are in the form of lactated Ringer at the rate of 100 mL an hour. Oral intake is minimal at this point in time. We managed to give her the oral vancomycin. Otherwise, no other changes in her medications. The patient has had 2 loose liquidy bowel movements thus far since morning. The patient also has some ongoing abdominal tenderness. She doesn't communicate. She is a DNR/DNI CODE STATUS. Objective - Vital Signs Vital signs: Vital Signs Temp 98.6 F 05/16/22 06:37 Pulse 82 05/16/22 06:37 Resp 18 05/16/22 06:37 BP 116/79 05/16/22 06:37 Pulse Ox 91 L 05/16/22 08:05 FiO2 Intake & Output 05/15/22 05/16/22 05/16/22 18:59 06:59 18:59 Intake Total 900 1200 Output Total 80 Balance 900 1120 Intake: IV 1200 Lactated Ringers 1,000 ml 1200 @ 100 mls/hr IV .Q10H NORM Rx#:[id number] Intake, IV Titration 900 Amount Lactated Ringers 1,000 ml 900 @ 100 mls/hr IV .Q10H NORM Rx#:[id number] Oral 0 Output: Urine 80 Uretheral (Bravo) 40 Other: Voiding Method Indwelling Catheter Indwelling Catheter Indwelling Catheter # Bowel Movements 1 - Exam GENERAL EXAM: Alert, frail, cachectic 89-year-old female, on room air, comfortable in no apparent distress. The patient does not communicate. She looks quite debilitated and lethargic. HEAD: Normocephalic. EYES: Normal reaction of pupils, equal size. NOSE: Clear with pink turbinates. THROAT: No erythema or exudates. NECK: No masses, no JVD. CHEST: No chest wall deformity. LUNGS: Equal air entry with no crackles, wheeze, rhonchi or dullness. CVS: S1 and S2 normal with no audible murmur, regular rhythm. ABDOMEN: No hepatosplenomegaly, normal bowel sounds, no guarding or rigidity. There is some mild direct abdominal tenderness. No rebound tenderness P no guarding. SPINE: No scoliosis or deformity SKIN: No rashes CENTRAL NERVOUS SYSTEM: No focal deficits, tone is normal in all 4 extremities. EXTREMITIES: There is no peripheral edema. No clubbing, no cyanosis. Peripheral pulses are intact. - Labs CBC & Chem 7: 05/16/22 07:50 05/16/22 07:50 Labs: Abnormal Lab Results - Last 24 Hours (Table) 05/15/22 05/16/22 05/16/22 Range/Units 10:29 07:50 07:50 WBC 31.7 H (3.8-10.6) k/uL Neutrophils # (Manual) 27.80 H (1.3-7.7) k/uL Monocytes # (Manual) 1.59 H (0-1.0) k/uL Metamyelocytes # (Man) 1.27 H (0) k/uL Chloride 112 H 112 H (98-107) mmol/L Carbon Dioxide 20 L 20 L (22-30) mmol/L BUN 59 H 66 H (7-17) mg/dL Creatinine 2.02 H 2.47 H (0.52-1.04) mg/dL Glucose 125 H (74-99) mg/dL Magnesium 2.4 H (1.6-2.3) mg/dL Microbiology - Last 24 Hours (Table) 05/13/22 14:48 Blood Culture - Preliminary Blood No Growth after 48 hours Assessment and Plan Plan: Generalized weakness secondary to a diarrhea secondary to C. difficile colitis. Pro-calcitonin 4.69. Currently on oral vancomycin. Acute hypotension secondary to above requiring fluid resuscitation and norepinephrine which was weaned off 05/13/2022 Leukocytosis secondary to above, the patient has not been taking her medication regular basis. On today's evaluation, her C. diff colitis active and the white cell count is on the rise and she continues to have some abdominal discomfort/tenderness with ongoing liquidy bowel movement. Acute kidney injury secondary to above, creatinine is on the rise A chair for relation with controlled ventricular response, not on anticoagulation History of brain hemorrhage History of hypertension Hyperlipidemia History of depression History of dementia [facility] resident Plan: Continue IV fluids and monitor renal function. The patient was given a liter of normal saline by nephrology. Continue oral vancomycin for C. diff colitis, the patient is not taking her medication regularly. Discussed with ID and consider IV Flagyl Hemodynamically stable Stable and on room air Stable and off pressors Continue lactated Ringer at 100 ML's per hour DNR/DNI CODE STATUS We'll continue to follow Poor prognosis secondary to above. Repeat a white cell count tomorrow. We'll continue to follow.
--- NOTE | 2022-05-16 12:33 | P.PN ---
Subjective Patient is seen for follow-up for acute kidney injury. She was admitted to the hospital with mental status changes and diarrhea from C. diff colitis. Patient is maintained on IV fluids. Renal function had improved but serum creatinine increased again to 2.47 from 1.45. Patient has an indwelling Bravo catheter Blood pressure remains low with systolic in the 80s. Ultrasound shows no evidence of obstruction IV fluids at 100 mL an hour Patient is not able to take oral medications as per nursing staff. There is ongoing discussion regarding CODE STATUS and possible palliative care. Objective - Vital Signs Vital signs: Vital Signs Temp 98.6 F 05/16/22 06:37 Pulse 82 05/16/22 06:37 Resp 18 05/16/22 06:37 BP 116/79 05/16/22 06:37 Pulse Ox 91 L 05/16/22 08:05 FiO2 Intake & Output 05/15/22 05/16/22 05/16/22 18:59 06:59 18:59 Intake Total 900 1200 Output Total 80 Balance 900 1120 Intake: IV 1200 Lactated Ringers 1,000 ml 1200 @ 100 mls/hr IV .Q10H NORM Rx#:[id number] Intake, IV Titration 900 Amount Lactated Ringers 1,000 ml 900 @ 100 mls/hr IV .Q10H NORM Rx#:[id number] Oral 0 Output: Urine 80 Uretheral (Bravo) 40 Other: Voiding Method Indwelling Catheter Indwelling Catheter Indwelling Catheter # Bowel Movements 1 - Exam Patient is sleeping comfortable, no acute distress. Does not communicate much Examination of the heart S1 and S2 Examination of the lungs bilateral breath sounds are heard Abdomen is soft nontender Examination of the lower extremities shows no evidence of edema - Labs CBC & Chem 7: 05/16/22 07:50 05/16/22 07:50 Labs: Abnormal Lab Results - Last 24 Hours (Table) 05/16/22 05/16/22 Range/Units 07:50 07:50 WBC 31.7 H (3.8-10.6) k/uL Neutrophils # (Manual) 27.80 H (1.3-7.7) k/uL Monocytes # (Manual) 1.59 H (0-1.0) k/uL Metamyelocytes # (Man) 1.27 H (0) k/uL Chloride 112 H (98-107) mmol/L Carbon Dioxide 20 L (22-30) mmol/L BUN 66 H (7-17) mg/dL Creatinine 2.47 H (0.52-1.04) mg/dL Magnesium 2.4 H (1.6-2.3) mg/dL Microbiology - Last 24 Hours (Table) 05/13/22 14:48 Blood Culture - Preliminary Blood No Growth after 48 hours Assessment and Plan Assessment: 1. Acute kidney injury secondary to ischemic ATN, currently nonoliguric and improved initially but worsened again secondary to hypotension. The UA is benign. Ultrasound is unremarkable. Blood pressure remains low as patient is not able to take midodrine or any other oral medication 2. History of recent UTI with urine culture growing E. coli on 04/28/2022 status post hospitalization 3. C. diff colitis 4. Hypovolemia and hypotension currently improved with IV hydration and fluid resuscitation 5. Lactic acidosis secondary to hypotension, improved 6. Mild non-gap metabolic acidosis secondary to diarrhea and acute kidney injury 7. History of A. fib maintained on Cardizem and Lopressor for rate control Plan: Bolus with 1 L normal saline Continue LR at 100 ML per hour Antibiotics as per ID If patient remains hypotensive and aggressive medical care is desired she will need to be started on pressors as patient is not able to take midodrine. Overall prognosis is guarded.
--- NOTE | 2022-05-16 13:42 | XR ---
EXAMINATION TYPE: XR chest 1V portable DATE OF EXAM: 05/16/2022 HISTORY: Shortness of breath. COMPARISON: 05/13/2022 TECHNIQUE: Single view of the chest is submitted. FINDINGS: Demonstrated are scattered senescent parenchymal change. There is no evidence for focal infiltrate. The heart is stable. Hilar and mediastinal structures are within normal limits. Degenerative changes are seen of the dorsal spine. IMPRESSION: 1. Chronic changes without evidence for acute pulmonary disease.
[2022-05-16] MEDS: metroNIDAZOLE-NS PMX 500 MG in SALINE 1 100ML.BAG IVPB SCH ×2 (14:34→21:20)
--- NOTE | 2022-05-16 16:27 | P.PN ---
Subjective Progress Note Date: 05/16/22 This is a 89 year old female with medical history of atrial fibrillation, dementia, hypertension, gerd, depression, and former smoker. [facility] generalized [facility] and diarrhea. Patient had positive C.DIF by PCR [facility] yesterday 0 05/12/2022. Patient was recently discharged from the hospital 11 days ago treated for acute urinary tract infection, and urinary retention. Patient was discharged to [facility]. Initial work up reveals white count of 18.3, sodium of 132, BUN 47, creatinine 2.12. Lactic acid is elevated at 3.5 on admission. Urinalysis is negative for infection there is trace protein. Procalcitonin level of 4.69. In itial chest xray is negative. EKG showing atrial fibrillation with heart of 73. Patient is found to be hypotensive on admission with blood pressure dropping to 77/59 patient is admitted to intensive care unit and requiring levophed at this time. Patient is afebrile. Patient has been started on oral vancomycin for the acute c.dif infection. Infectious disease has been consulted. Patient is a poor historian the medical history is taken from the chart. 05/14/2022 Patient is evaluated today resting in bed patient continues to be monitored in intensive care unit. patient has been downgraded today to stepdown unit. Creatinine has improved to 1.46 although urine out remains marginal. Nephrology has been consulted. Renal ultrasound ordered. Heart rate improved with cardizem now rate controlled and patient is off vasopressor support at this time. Blood pressure 103/56. Still confused. 1 Bowel movement documented overnight. 05/15/2022 Patient evaluated today on the medical floor has been moved out of the intensive care unit. Patient has not been eating and continues with acute confusion on top of advanced dementia. Speech therapy saw patient in consultation today and was unable to complete full OM evaluation and unable to follow simple verbal commands. Patient had renal ultrasound showing no renal mass or obstruction. Patient has indwelling catheter. Nephrology is following. 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 Secondary to this creatinine worsened and today is 2.02. 05/16/2022 Patient evaluated on medical floor today family at bedside. Family reports patient is more awake and alert today. Patient was able to eat and speech therapy has cleared patient for pureed diet. Patient is taking medications today. IV flagyl has been added in addition to oral vancomycin for the C.Dif. Patient continues on IV fluids and received fluid bolus. Creatinine is increased to 2.47 today. White count up to 31.7. Blood pressure borderline. Unable to complete review of systems patient is confused and not answering questions appropriately. PHYSICAL EXAMINATION: GENERAL: The patient is alert and oriented x0-1, not in any acute distress. Well developed, well nourished. HEENT: Pupils are round and equally reacting to light. EOMI. No scleral icterus. No conjunctival pallor. Normocephalic, atraumatic. No pharyngeal erythema. No thyromegaly. CARDIOVASCULAR: S1 and S2 present. No murmurs, rubs, or gallops. PULMONARY: Chest is clear to auscultation, no wheezing or crackles. ABDOMEN: Soft, suprapubic tenderness, nondistended, normoactive bowel sounds. No palpable organomegaly. MUSCULOSKELETAL: No joint swelling or deformity. EXTREMITIES: No cyanosis, clubbing, or pedal edema. NEUROLOGICAL: Gross neurological examination did not reveal any focal deficits. Diffuse generalized weakness. SKIN: No rashes. Assessment and Plan Assessment Generalized weakness Leukocytosis Diarrhea secondary to acute Clostridium dificile with sepsis present on admission Acute kidney injury secondary to acute tubular necrosis creatinine improved and than worsened secondary to hypotension Hypotension and septic shock requiring vasopressor support and ICU care currently maintained on IV fluids. Atrial fibrillation with rapid ventricular rate currently rate controlled. Altered mental status likely from acute metabolic encephalopathy secondary to infection and acute renal failure on top of advanced dementia. Recent hospitalization for acute UTI and TIA vs breakthrough seizure which keppra dose was increased. History of hypertension Dementia advanced most likely senile vs. vascular Chronic atrial fibrillation History of depression History of seizure Former smoker GI prophylaxis DVT prophylaxis No Code Plan Continue oral vancomycin and ID consultation, IV flagyl was added today. Blood culture pending Nephrology consultation, continue IV fluids and monitor blood pressure closely Patient may require ICU and vasopressor support if blood pressure keeps dropping. AM labs. Prognosis is guarded at this time and this was discussed with family at bedside for now to continue current plan of care. Plan for return [facility] DC when medically stable patient is currently downgraded from ICU The impression and plan of care has been dictated by Angeles Bhakta, Nurse Practitioner as directed. Dr. Shaun MD I have performed a history and physical examination and medical decision making of this patient, discussed the same with the dictator, and agree with the dictators assessment and plan as written, documented as a scribe. Based on total visit time, I have performed more than 50% of this visit. Objective - Vital Signs Vital signs: Vital Signs Temp 98.6 F 05/16/22 06:37 Pulse 82 05/16/22 06:37 Resp 18 05/16/22 06:37 BP 116/79 05/16/22 06:37 Pulse Ox 91 L 05/16/22 08:05 FiO2 Intake & Output 05/15/22 05/16/22 05/16/22 18:59 06:59 18:59 Intake Total 900 1200 Output Total 80 Balance 900 1120 Intake: IV 1200 Lactated Ringers 1,000 ml 1200 @ 100 mls/hr IV .Q10H NORM Rx#:[id number] Intake, IV Titration 900 Amount Lactated Ringers 1,000 ml 900 @ 100 mls/hr IV .Q10H NORM Rx#:[id number] Oral 0 Output: Urine 80 Uretheral (Bravo) 40 Other: Voiding Method Indwelling Catheter Indwelling Catheter Indwelling Catheter # Bowel Movements 1 - Labs CBC & Chem 7: 05/16/22 07:50 05/16/22 07:50 Labs: Abnormal Lab Results - Last 24 Hours (Table) 05/16/22 05/16/22 Range/Units 07:50 07:50 WBC 31.7 H (3.8-10.6) k/uL Neutrophils # (Manual) 27.80 H (1.3-7.7) k/uL Monocytes # (Manual) 1.59 H (0-1.0) k/uL Metamyelocytes # (Man) 1.27 H (0) k/uL Chloride 112 H (98-107) mmol/L Carbon Dioxide 20 L (22-30) mmol/L BUN 66 H (7-17) mg/dL Creatinine 2.47 H (0.52-1.04) mg/dL Magnesium 2.4 H (1.6-2.3) mg/dL Microbiology - Last 24 Hours (Table) 05/13/22 14:48 Blood Culture - Preliminary Blood No Growth after 48 hours Assessment and Plan Time with Patient: Less than 30
[2022-05-16] MEDS: QUEtiapine 25 MG TAB PO SCH ×2 (18:02→21:21)
--- NOTE | 2022-05-16 21:20 | P.PN ---
Subjective Progress Note Date: 05/16/22 Principal diagnosis: C. diff colitis Patient is a 89-year-old female with a past medical history significant for atrial fibrillation hypertension GERD depression dementia detention resident patient was recently admitted at this facility and was treated for urinary retention and UTI, patient did develop diarrhea and was diagnosed with a C. diff at the detention patient did have a low blood pressure and mental status changes for the patient was transferred to [facility] ICU. On today's evaluation that is 05/16/2022, patient continues to be afebrile, the patient is breathing comfortably on 3 L nasal cannula oxygen, the patient is awake but did not answer any questions and apparently the patient has been refusing her oral medication, no vomiting or worsening diarrhea reported by the nursing staff Objective - Vital Signs Vital signs: Vital Signs Temp 98.6 F 05/16/22 06:37 Pulse 82 05/16/22 06:37 Resp 18 05/16/22 06:37 BP 116/79 05/16/22 06:37 Pulse Ox 91 L 05/16/22 08:05 FiO2 Intake & Output 05/15/22 05/16/22 05/16/22 18:59 06:59 18:59 Intake Total 900 1200 Output Total 80 Balance 900 1120 Intake: IV 1200 Lactated Ringers 1,000 ml 1200 @ 100 mls/hr IV .Q10H NORM Rx#:[id number] Intake, IV Titration 900 Amount Lactated Ringers 1,000 ml 900 @ 100 mls/hr IV .Q10H NORM Rx#:[id number] Oral 0 Output: Urine 80 Uretheral (Bravo) 40 Other: Voiding Method Indwelling Catheter Indwelling Catheter Indwelling Catheter # Bowel Movements 1 - Exam GENERAL DESCRIPTION: An elderly female lying in bed in no distress RESPIRATORY SYSTEM: Unlabored breathing , decreased breath sounds at bases HEART: S1 S2 regular rate and rhythm , ABDOMEN: Soft , no tenderness EXTREMITIES: No edema feet - Labs CBC & Chem 7: 05/16/22 07:50 05/16/22 07:50 Labs: Abnormal Lab Results - Last 24 Hours (Table) 05/16/22 05/16/22 Range/Units 07:50 07:50 WBC 31.7 H (3.8-10.6) k/uL Neutrophils # (Manual) 27.80 H (1.3-7.7) k/uL Monocytes # (Manual) 1.59 H (0-1.0) k/uL Metamyelocytes # (Man) 1.27 H (0) k/uL Chloride 112 H (98-107) mmol/L Carbon Dioxide 20 L (22-30) mmol/L BUN 66 H (7-17) mg/dL Creatinine 2.47 H (0.52-1.04) mg/dL Magnesium 2.4 H (1.6-2.3) mg/dL Microbiology - Last 24 Hours (Table) 05/13/22 14:48 Blood Culture - Preliminary Blood No Growth after 48 hours Assessment and Plan (1) C. difficile colitis Current Visit: Yes Status: Acute Code(s): A04.72 - ENTEROCOLITIS D/T CLOSTRIDIUM DIFFICILE, NOT SPCF RECUR SNOMED Code(s): 379960072 Plan: 1patient presented to hospital with sepsis in this patient who did have a tachycardia hypotension elevated lactic acid source is severe C. difficile colitis requiring admission to the ICU. 2 will go ahead and discontinue oral vancomycin as patient is refusing and start IV Flagyl and see clinical response Time with Patient: Less than 30
[2022-05-17] MEDS: METOPROLOL TARTRATE 25 MG TAB PO SCH (04:19)
[2022-05-17 04:33] LABS: Glucose,Whole Blood 107 mg/dL (70-110)
[2022-05-17 04:53] LABS: HCT 43.3 % (34.0-46.0); HGB 13.4 gm/dL (11.4-16.0); MCH 30.9 pg (25.0-35.0); MCHC 30.9 g/dL (31.0-37.0); Platelet Count 165 k/uL (150-450); RBC 4.33 m/uL (3.80-5.40); RDW 13.9 % (11.5-15.5); WBC 34.9 k/uL (3.8-10.6)
[2022-05-17] MEDS ORDERED: DILTIAZEM 125 MG in SODIUM CHLORIDE 0.9% 100 ML IV SCH (05:00)
--- NOTE | 2022-05-17 05:02 | XR ---
EXAMINATION TYPE: XR chest 1V portable DATE OF EXAM: 05/17/2022 COMPARISON: Yesterday HISTORY: Short of breath TECHNIQUE: Single view FINDINGS: There is mild cardiomegaly. There is slight blunting of the costophrenic angles. There is m inimal pulmonary congestion. There are chest leads. IMPRESSION: Mild pulmonary congestion slightly increased compared to yesterday. Small pleural effusio ns are likely present.
[2022-05-17 05:04] LABS: Glucose,Whole Blood 91 mg/dL (70-110)
[2022-05-17] MEDS ORDERED: SODIUM CHLORIDE 0.9% 500 ML 500 ML IV ONE (05:18)
[2022-05-17 05:32] LABS: African American GFR (CKD) 18 (>60 ml/min/1.73 sqM); Anion Gap 7 mmol/L; Blood Urea Nitrogen 69 mg/dL (7-17); Calcium 8.3 mg/dL (8.4-10.2); Carbon Dioxide 18 mmol/L (22-30); Chloride 115 mmol/L (98-107); Glucose 93 mg/dL (74-99); Magnesium 2.3 mg/dL (1.6-2.3); Non-African American GFR(CKD) 15 (>60 ml/min/1.73 sqM); Potassium 4.1 mmol/L (3.5-5.1); Sodium 140 mmol/L (137-145)
--- NOTE | 2022-05-17 06:23 | P.EN ---
At 0428 this morning, a rapid response was called to room 478 on this patient for respiratory distress. Patient is a 89-year-old white female with past medical history of atrial fibrillation, not anticoagulated because of a history of brain hemorrhage, hypertension, hyperlipidemia, seizures, and advanced dementia. Patient was originally admitted to the ICU back on 05/12/2022 for C. diff colitis, hypotension, dehydration, weakness. Patient was doing well, and was transferred out of the intensive care unit on 05/14/2022. She has since been refusing her oral vancomycin. Oral intake has been poor. Mucous membranes appear dry. This morning, I responded to the room, to find the patient lethargic, only responsive to painful stimuli. She is in some respiratory distress with accessory muscle use, on a 15 L nonrebreather, oxygenating in the high 80s to low 90s. An ECG was subsequently done, which showed atrial fibrillation with rapid ventricular rate ranging from 150-170 bpm. Cardiology was consulted, and and made aware of the case by me. It was recommended that the patient be transferred to the intensive care unit and Cardizem infusion be started. Dr. Harp was called and made aware of the change in patient's condition. We decided to transfer the patient to room 256 in the intensive care unit. Patient is a DO NOT RESUSCITATE and DO NOT INTUBATE. Cardizem infusion was initiated and patient became hypotensive. Hypotension did respond nicely to a normal saline 500 mL bolus. Respiratory status has also improved with better control of patient's heart rate. Stat labs were drawn, lactic acid ordered, and repeat blood cultures were sent. A repeat chest x-ray this morning showed mild pulmonary congestion which is slightly increased compared to yesterday with small bilateral pleural effusions. Patient currently in critical but stable condition.
[2022-05-17] MEDS: metroNIDAZOLE-NS PMX 500 MG in SALINE 1 100ML.BAG IVPB SCH ×2 (06:39→13:14)
[2022-05-17] MEDS: MIDODRINE 5 MG TAB PO SCH ×2 (06:53→13:27)
[2022-05-17] MEDS: HEPARIN SODIUM,PORCINE/PF 5,000 UNIT/0.5 ML SYRINGE SQ SCH (08:06)
[2022-05-17] MEDS: FAMOTIDINE 20 MG/2 ML VIAL IV SCH (08:07)
[2022-05-17] MEDS: RIVASTIGMINE 4.6MG/24HR PATCH TRANSDERM SCH (09:02)
--- NOTE | 2022-05-17 10:03 | P.PN ---
Subjective Progress Note Date: 05/17/22 This is an 89-year-old female patient who is currently residing in a local extended care facility and just discharged from here 10 days ago. She has a history of dementia, hypertension, atrial fibrillation not on anticoagulation, history of brain hemorrhage, hypertension, hyperlipidemia, seizures, TIA. She was brought into the emergency room for generalized weakness, diarrhea and low blood pressure. EKG reveals atrial fibrillation with a controlled ventricular response. Chest x-ray shows no acute pulmonary process. Right triple-lumen catheter in place. She is seen today in consultation in the intensive care unit. She is currently resting comfortably in bed. Maintaining O2 saturations in the 90s on room air. She has normal saline at 75 ML's per hour. She is requiring norepinephrine currently at 2.3 mcg/m. He has received 2 L of fluid resuscitation thus far. She is alert and oriented times one. She did test positive for C. difficile colitis. Pro-calcitonin 4.69 She has been initiated on oral vancomycin. White count 18.6. Hemoglobin 13.3. Platelets 21. Sodium 135. Potassium 3.8. The carb 20. BUN 45. Creatinine 2.06. Glucose 127. The patient is seen today 05/14/2022 in follow-up on the intensive care unit. She is a bit more awake and alert today. Sitting up in bed. Maintaining O2 saturations in the 90s on room air. She continues on normal saline at 100 mL pe r hour. She has been off the norepinephrine since last evening. White count 15.3. Hemoglobin 13.6. Platelets 183. Sodium 139. Potassium 3.8. Bicarb 19. BUN 46. Creatinine 1.45. Glucose 142. She remains on oral vancomycin. Heparin for DVT prophylaxis. On 2022, I'm seeing the patient for a follow-up. Overall, [id number]-doing-[id number].-The-patient is being hydrated. The patient is currently on therapy for C. diff colitis. The patient on oral vancomycin. He is also lactated Ringer running at 100 mL an hour. No nausea. No vomiting. No emesis. No abdominal pain or distention. Her blood pressure was running soft earlier overnight and currently her blood pressures improved. The BUN is at 59 with a creatinine of 2.0 to and his sodium is at 140, serum bicarbs of 20. No other new complaints otherwise for now. She is communicating. 05/16/2022, the patient looks quite debilitated and lethargic. She has not been taking her oral medication including oral vancomycin on a regular basis. As such, on today's blood work, her white cell count is up to 31.7. Hemoglobin is at 13.8. Infectious diseases on the case. It also, the patient's BUN is at 66 and a creatinine of 2.47 and a sodium is at 140. IV fluids are in the form of lactated Ringer at the rate of 100 mL an hour. Oral intake is minimal at this point in time. We managed to give her the oral vancomycin. Otherwise, no other changes in her medications. The patient has had 2 loose liquidy bowel movements thus far since morning. The patient also has some ongoing abdominal tenderness. She doesn't communicate. She is a DNR/DNI CODE STATUS. On 05/17/2022, the patient is being seen in intensive care unit. The patient got transferred to the ICU earlier this morning at around 5 AM and the patient went into respiratory distress, A. fib and RVR, and hypotension. PH is an extremely debilitated 89-year-old female patient is currently suffering from a C. diff colitis. Note that she was having difficulties in swallowing her oral vancomycin. As such, IV Flagyl was also added to her regimen. After arriving to the ICU, the patient was placed on oxygen and she is currently at 6 L nasal cannula. She was given a total of 2 L of normal saline bolus and currently maintenance IV fluids running at the rate of lactated Ringer at the rate of 100 mL an hour. Urine output is in order of 5-10 mL an hour. At the same time, the blood work from today shows a white cell count of 34.9 which is obviously on the rise and this was noted yesterday. Hemoglobin is at 13.4 and a platelet count is at 165. Creatinine is also on the rise in the BUN is at 69 with a creatinine of 2.6 and his sodium level is at 140. Her abdomen is nontender on today's evaluation. She is still having liquidy stool, brown, several episodes on a daily basis. She does not communicate. She has underlying dementia. In regards to her atrial fibrillation, rate is controlled and she is currently on Cardizem drip running at 10 mg an hour. She is a DNR/DNI CODE STATUS. Her cardiac rhythm is atrial fibrillation/flutter. Her previous echocardiogram showed an ejection fraction of 40-45%. There is dilation of the right ventricle and there is also significant and severe degree of mitral regurgitation. A repeat chest x-ray from this morning shows no significant acute abnormalities. No signs of any pulmonary edema. Objective - Vital Signs Vital signs: Vital Signs Temp 97.5 F L 05/17/22 08:00 Pulse 76 05/17/22 09:00 Resp 19 05/17/22 09:00 BP 101/63 05/17/22 09:00 Pulse Ox 98 05/17/22 09:00 FiO2 Intake & Output 05/16/22 05/17/22 05/17/22 18:59 06:59 18:59 Intake Total 0 920 Output Total 50 200 65 Balance -50 -200 855 Intake: IV 200 Lactated Ringers 1,000 ml 200 @ 100 mls/hr IV .Q10H [facility] Rx#:[id number] Intake, IV Titration 720 Amount Diltiazem 125 mg In 20 Sodium Chloride 0.9% 100 ml @ 10 MG/HR 10 mls/hr IV .[id number] [facility] Rx#: [id number] Lactated Ringers 1,000 ml 100 @ 100 mls/hr IV .Q10H [facility] Rx#:[id number] Sodium Chloride 0.9% 500 500 ml 500 ml @ 999 mls/hr IV .Q31M [facility] Rx#:[id number] metroNIDAZOLE-NS PMX 500 100 mg In Saline 1 100ml.bag @ 100 mls/hr IVPB Q8H [facility] Rx#:[id number] Oral 0 Output: Urine 50 200 65 Other: Voiding Method Indwelling Catheter Indwelling Catheter Indwelling Catheter # Voids 25 # Bowel Movements 4 1 - Exam GENERAL EXAM: Alert, frail, cachectic 89-year-old female, on 6 L O2 nasal cannula, the patient is essentially mouth breathing and her breathing is labored., The patient does not communicate. She looks quite debilitated and l ethargic. HEAD: Normocephalic. EYES: Normal reaction of pupils, equal size. NOSE: Clear with pink turbinates. THROAT: No erythema or exudates. NECK: No masses, no JVD. CHEST: No chest wall deformity. LUNGS: Equal air entry with no crackles, wheeze, rhonchi or dullness. CVS: S1 and S2 normal with no audible murmur, regular rhythm and the patient is a nature fibrillation ABDOMEN: No hepatosplenomegaly, normal bowel sounds, no guarding or rigidity. No rebound tenderness, no significant abdominal tenderness tenderness on today's evaluation. SPINE: No scoliosis or deformity SKIN: No rashes CENTRAL NERVOUS SYSTEM: No focal deficits, tone is normal in all 4 extremities. EXTREMITIES: There is no peripheral edema. No clubbing, no cyanosis. Peripheral pulses are intact. - Labs CBC & Chem 7: 05/17/22 04:36 05/17/22 04:36 Labs: Abnormal Lab Results - Last 24 Hours (Table) 05/16/22 05/17/22 05/17/22 Range/Units 07:50 04:36 04:36 WBC 34.9 H (3.8-10.6) k/uL MCHC 30.9 L (31.0-37.0) g/dL Neutrophils # (Manual) 27.80 H (1.3-7.7) k/uL Monocytes # (Manual) 1.59 H (0-1.0) k/uL Metamyelocytes # (Man) 1.27 H (0) k/uL Chloride 115 H (98-107) mmol/L Carbon Dioxide 18 L (22-30) mmol/L BUN 69 H (7-17) mg/dL Creatinine 2.67 H (0.52-1.04) mg/dL Calcium 8.3 L (8.4-10.2) mg/dL Microbiology - Last 24 Hours (Table) 05/13/22 14:48 Blood Culture - Preliminary Blood No Growth after 72 hours Assessment and Plan Plan: Acute and ongoing C. diff colitis, unable to take oral vancomycin and the patient is currently on by mouth vancomycin and IV Flagyl. Lactic acid level was at 1.1. She has significant leukocytosis secondary to C. diff colitis with a white cell count of 34.9. She also has a component of non-anion gap metabolic acidosis because of her ongoing episodes of diarrhea. She is nonverbal. She has profound dementia. She is unable to swallow. Generalized weakness secondary to a diarrhea secondary to C. difficile colitis. Pro-calcitonin 4.69 Chronic atrial fibrillation with rapid ventricular response, currently on a Cardizem drip for rate control Non-anion gap metabolic acidosis Leukocytosis secondary to above, the patient has not been taking her medication regular basis. On today's evaluation, her C. diff colitis active and the white cell count is on the rise and she continues to have some abdominal discomfort/tenderness with ongoing liquidy bowel movement. Abdomen is nontender on today's evaluation Acute kidney injury secondary to above, creatinine is on the rise History of brain hemorrhage History of hypertension Hyperlipidemia History of depression History of dementia long-term resident Plan: Continue IV fluids and monitor renal function. Change IV fluids to bicarbonate infusion with a total of 150 mEq of the rate of 150 mL an hour Continue Cardizem drip This is an NG tube Continue with oral vancomycin and IV Flagyl 2 L of IV fluid bolus was given Hemodynamically stable Into the Cardizem drip at 10 mg an hour Stable and off pressors, no pressors for now He fraction 60 to the mid nasal cannula Chest x-ray findings are stable DNR/DNI CODE STATUS We'll continue to follow Poor prognosis secondary to above. Patient will be kept in ICU for now.
--- NOTE | 2022-05-17 10:10 | P.CRDCN ---
History of Present Illness Consult date: 05/17/22 Consult reason: atrial fibrillation History of present illness: The patient is an 89-year-old female who is currently admitted to the hospital with C. diff colitis and septicemia. She was initially managed in the ICU, but was then transferred to the stepdown unit. She has a known history of persistent atrial fibrillation, which is rate controlled with oral medications. Rapid response team was called overnight for Live. [place] with RVR. She was transferred to the ICU and started on an IV Cardizem drip. According to documentation, the patient has had poor oral intake and has been refusing many of her oral medications. DIAGNOSTICS: Telemetry overnight showed atrial fibrillation with heart rates improving to the mid 80s on Cardizem drip Chest x-ray shows mild pulmonary congestion with small pleural effusions Vital signs: Blood pressure 101/63, heart rate 76, respiratory rate 24, SpO2 90% on 6 L nasal cannula PAST MEDICAL HISTORY: Persistent atrial fibrillation, hypertension, brain hemorrhage, depression, dyslipidemia, dementia REVIEW OF SYSTEMS: Limited due to mental status. PHYSICAL EXAMINATION: This is a 89-year-old female in mild distress at the time of my examination. HEENT: Head is atraumatic, normocephalic. Pupils are equal, round. Sclerae anicteric. Conjunctivae are clear. Mucous membranes of the mouth are dry. CHEST EXAMINATION: Lungs are coarse to auscultation. No chest wall tenderness is noted on palpation or with deep breathing. Bilateral inspiratory wheezes HEART EXAMINATION: Irregular rate and rhythm. S1, S2 heard. No murmurs, gallops or rub. ABDOMEN: Soft, nontender. Bowel sounds are heard. No organomegaly noted. EXTREMITIES: 2+ peripheral pulses with no evidence of peripheral edema and no calf tenderness noted. NEUROLOGIC EXAMINATION: Patient is awake, not oriented to time and place. FINAL ASSESSMENT AND PLAN: A. jersey with RVR History of persistent atrial fibrillation, not on anticoagulation due to history of brain hemorrhage C. diff colitis Leukocytosis PLAN: Continue Cardizem drip Transition to oral when possible Recommend discussion regarding hospice/palliative care Poor prognosis with multiple comorbid conditions with advanced age I am dictating on behalf of Dr Peter Ellis's history/physical and assessment/plan. Past Medical History Past Medical History: Atrial Fibrillation, Dementia, Hypertension Additional Past Medical History / Comment(s): hypomagnesia, hypokalemia, colitis, gastrotenteritis, gerd, scoliosis History of Any Multi-Drug Resistant Organisms: None Reported Past Surgical History: No Surgical Hx Reported Additional Past Surgical History / Comment(s): bottom of spine removed, cysts removed from breast, knee replacement, partial hip replacement Past Anesthesia/Blood Transfusion Reactions: No Reported Reaction Smoking Status: Former smoker - Past Family History Father Family Medical History: Myocardial Infarction ([place]) Additional Family Medical History / Comment(s): The patient's father from a [place]. Mother History Unknown: Yes Medications and Allergies Home Medications Medication Instructions Recorded Confirmed Type Acetaminophen Tab [Tylenol] 650 mg PO Q6H PRN 01/05/17 05/12/22 History Atorvastatin [Lipitor] 20 mg PO DAILY@0800 01/05/17 05/12/22 History Na Phos,M-B/Na Phos,Di-Ba [Fleet 133 ml RECTAL DAILY PRN 01/05/17 05/12/22 History Adult] Sertraline [Zoloft] 50 mg PO DAILY@0800 01/05/17 05/12/22 History bisacodyL [Dulcolax] 10 mg RECTAL DAILY PRN 01/05/17 05/12/22 History Aspirin EC [Ecotrin Low Dose] 81 mg PO DAILY@0800 12/15/20 05/12/22 History Melatonin 5 mg PO HS@2100 12/15/20 05/12/22 History lisinopriL [Zestril] 10 mg PO DAILY@0800 12/15/20 05/12/22 History Acetaminophen [Tylenol 8 Hour] 650 mg PO BID@0800,1700 04/25/22 05/12/22 History Ensure Enlive 120 ml PO TID@0800,1200,1700 04/25/22 05/12/22 History Famotidine [Pepcid] 20 mg PO DAILY@0800 04/25/22 05/12/22 History Menthol [Biofreeze] 1 applic TOPICAL TID PRN 04/25/22 05/12/22 History guaiFENesin [guaiFENesin Oral 200 mg PO Q4H PRN 04/25/22 05/12/22 History Solution] polyethylene glycoL 3350 [Miralax] 17 gm PO DAILY PRN 04/25/22 05/12/22 History Clopidogrel [Plavix] 75 mg PO DAILY@0800 05/12/22 05/12/22 History Diltiazem Oral [Cardizem*] 60 mg PO TID@0800,1400,2100 05/12/22 05/12/22 History Loperamide HCl [Imodium A-D] 2 - 4 mg PO TID PRN MDD 8 mg 05/12/22 05/12/22 History Magic Cup 1 can PO DAILY@1200 05/12/22 05/12/22 History Metoprolol Tartrate [Lopressor] 25 mg PO BID@0800,1700 05/12/22 05/12/22 History QUEtiapine [SEROquel] 25 mg PO BID@1700,2100 05/12/22 05/12/22 History Rivastigmine 4.6MG/24Hr Patch 1 patch TRANSDERM DAILY@0800 05/12/22 05/12/22 History [Exelon 4.6MG/24Hr Patch] levETIRAcetam [Keppra] 500 mg PO BID@0800,1700 05/12/22 05/12/22 History Allergies Allergy/AdvReac Type Severity Reaction Status Date / Time Fish Containing Products Allergy Unknown Verified 05/12/22 20:26 [Fish] sulfamethoxazole Allergy Unknown Verified 05/12/22 20:26 [From Bactrim] trimethoprim [From Bactrim] Allergy Unknown Verified 05/12/22 20:26 Physical Exam Vitals: Vital Signs Temp Pulse Pulse Pulse Resp BP BP 05/17/22 09:00 76 19 101/63 05/17/22 08:30 87 25 H 125/107 05/17/22 08:00 97.5 F L 81 21 115/71 05/17/22 07:00 82 19 110/95 05/17/22 06:00 96 18 107/74 05/17/22 05:02 98.7 F 158 H 21 05/17/22 05:00 121 H 05/17/22 01:58 98.5 F 161 H 23 112/78 05/16/22 19:37 98.0 F 73 19 113/70 05/16/22 15:04 82 18 05/16/22 13:31 98.8 F 67 22 116/61 Pulse Ox 05/17/22 09:00 98 05/17/22 08:30 95 05/17/22 08:00 97 05/17/22 07:00 100 05/17/22 06:00 100 05/17/22 05:02 99 05/17/22 05:00 05/17/22 01:58 93 L 05/16/22 19:37 93 L 05/16/22 15:04 05/16/22 13:31 95 Intake and Output 05/16/22 05/17/22 05/17/22 22:59 06:59 14:59 Intake Total 0 810 Output Total 50 200 40 Balance -50 -200 770 Intake: IV 100 Lactated Ringers 1,000 ml 100 @ 100 mls/hr IV .Q10H [facility] Rx#:[id number] Intake, IV Titration 710 Amount Diltiazem 125 mg In 10 Sodium Chloride 0.9% 100 ml @ 10 MG/HR 10 mls/hr IV .[id number] [facility] Rx#: [id number] Lactated Ringers 1,000 ml 100 @ 100 mls/hr IV .Q10H [facility] Rx#:[id number] Sodium Chloride 0.9% 500 500 ml 500 ml @ 999 mls/hr IV .Q31M [facility] Rx#:[id number] metroNIDAZOLE-NS PMX 500 100 mg In Saline 1 100ml.bag @ 100 mls/hr IVPB Q8H [facility] Rx#:[id number] Oral 0 Output: Urine 50 200 40 Other: Voiding Method Indwelling Catheter Indwelling Catheter # Bowel Movements 4 1 Results 05/17/22 04:36 05/17/22 04:36 CBC 05/17/22 Range/Units 04:36 WBC 34.9 H (3.8-10.6) k/uL RBC 4.33 (3.80-5.40) m/uL Hgb 13.4 (11.4-16.0) gm/dL Hct 43.3 (34.0-46.0) % Plt Count 165 (150-450) k/uL Comprehensive Metabolic Panel 05/17/22 Range/Units 04:36 Sodium 140 (137-145) mmol/L Potassium 4.1 (3.5-5.1) mmol/L Chloride 115 H (98-107) mmol/L Carbon Dioxide 18 L (22-30) mmol/L BUN 69 H (7-17) mg/dL Creatinine 2.67 H (0.52-1.04) mg/dL Glucose 93 (74-99) mg/dL Calcium 8.3 L (8.4-10.2) mg/dL Current Medications Generic Name Dose Route Start Last Admin Trade Name Freq PRN Reason Stop Dose Admin Acetaminophen 650 mg 05/12/22 20:56 Acetaminophen Tab 325 Mg Tab PO Q4HR PRN Fever and/or Mild Pain Aspirin 81 mg 05/14/22 08:00 05/16/22 10:36 Aspirin 81 Mg PO 81 mg DAILY@0800 NORM Administration Atorvastatin Calcium 20 mg 05/13/22 09:00 05/16/22 10:36 Atorvastatin 20 Mg Tab PO 20 mg DAILY NORM Administration Kahn Syrup 5 ml 05/13/22 07:23 05/15/22 11:17 Kahn Flavor 60 Ml Bottle PO 5 ml QID PRN Administration VANCO FLAVORING Clopidogrel Bisulfate 75 mg 05/14/22 08:00 05/16/22 10:35 Clopidogrel 75 Mg Tab PO 75 mg DAILY@0800 NORM Administration Famotidine 20 mg 05/15/22 09:00 05/17/22 08:07 Famotidine 20 Mg/2 Ml Vial IV 20 mg DAILY NORM Administration Guaifenesin 200 mg 05/13/22 02:08 Guaifenesin Syrup 100mg/5ml 200 Mg/10 Ml Cup PO Q4H PRN Cough Heparin Sodium (Porcine) 5,000 unit 05/13/22 21:00 05/17/22 08:06 Heparin Sodium,Porcine/Pf 5,000 Unit/0.5 Ml Syringe SQ 5,000 unit Q12HR NORM Administration Lactated Ringer's 1,000 mls @ 100 mls/hr 05/14/22 11:00 05/16/22 21:21 Lactated Ringers IV 100 mls/hr .Q10H [facility] Administration Metronidazole 500 mg/ IV 100 mls @ 100 mls/hr 05/16/22 12:00 05/17/22 06:39 Solution IVPB 100 mls/hr Q8H [facility] Administration Protocol Diltiazem HCl 125 mg/ Sodium 125 mls @ 10 mls/hr 05/17/22 05:00 05/17/22 05:13 Chloride IV 10 mg/hr .[id number] [facility] 10 mls/hr Administration 10 MG/HR Levetiracetam 500 mg 05/13/22 08:00 05/16/22 21:21 Levetiracetam 500 Mg Tab PO 500 mg BID NORM Administration Loperamide HCl 2 mg 05/13/22 02:08 Loperamide 2 Mg Cap PO TID PRN Diarrhea Lorazepam 0.5 mg 05/13/22 18:33 05/13/22 18:52 Lorazepam 2 Mg/Ml Inj IV 0.5 mg Q6HR PRN Administration Agitation or Acute Psychosis Methyl Salicylate 1 applic 05/13/22 02:08 Methyl Salicylate-Menthol Oint (3 Oz Tube) TOPICAL TID PRN BACK PAIN Metoprolol Tartrate 25 mg 05/13/22 12:41 05/17/22 04:19 Metoprolol Tartrate 25 Mg Tab PO 25 mg BID@0800,1700 NORM Administration Midodrine 10 mg 05/15/22 17:30 05/17/22 06:53 Midodrine 5 Mg Tab PO Not Given AC-TID NORM Miscellaneous Information 1 each 05/13/22 06:51 Magnesium Replacement Protocol 1 Each Misc MISCELLANE DAILY PRN Per Protocol Protocol Naloxone HCl 0.2 mg 05/12/22 20:56 Naloxone 0.4 Mg/Ml 1 Ml Vial IV Q2M PRN Opioid Reversal Polyethylene Glycol 17 gm 05/13/22 02:08 Polyethylene Glycol 3350 17 Gm Powd.Pack PO DAILY PRN Constipation Quetiapine Fumarate 25 mg 05/13/22 17:00 05/16/22 21:21 Quetiapine 25 Mg Tab PO 25 mg BID@1700,2100 NORM Administration Rivastigmine 1 patch 05/13/22 09:00 05/17/22 09:02 Rivastigmine 4.6mg/24hr Patch TRANSDERM 1 patch DAILY NORM Administration Sertraline HCl 50 mg 05/13/22 09:00 05/16/22 10:37 Sertraline 50 Mg Tab PO 50 mg DAILY NORM Administration Intake and Output 05/16/22 05/17/22 05/17/22 22:59 06:59 14:59 Intake Total 0 810 Output Total 50 200 40 Balance -50 -200 770 Intake: IV 100 Lactated Ringers 1,000 ml 100 @ 100 mls/hr IV .Q10H [facility] Rx#:[id number] Intake, IV Titration 710 Amount Diltiazem 125 mg In 10 Sodium Chloride 0.9% 100 ml @ 10 MG/HR 10 mls/hr IV .[id number] [facility] Rx#: [id number] Lactated Ringers 1,000 ml 100 @ 100 mls/hr IV .Q10H [facility] Rx#:[id number] Sodium Chloride 0.9% 500 500 ml 500 ml @ 999 mls/hr IV .Q31M [facility] Rx#:[id number] metroNIDAZOLE-NS PMX 500 100 mg In Saline 1 100ml.bag @ 100 mls/hr IVPB Q8H [facility] Rx#:[id number] Oral 0 Output: Urine 50 200 40 Other: Voiding Method Indwelling Catheter Indwelling Catheter # Bowel Movements 4 1 05/17/22 04:36 05/17/22 04:36
[2022-05-17] MEDS ORDERED: DEXTROSE 5% IN WATER 1,000 ML with SODIUM BICARB (1 MEQ/ML) 150 ML IV SCH (10:15)
--- NOTE | 2022-05-17 10:30 | P.PN ---
Subjective Patient is seen for follow-up for acute kidney injury. She was admitted to the hospital with mental status changes and diarrhea from C. diff colitis. Patient is maintained on IV fluids. Renal function had improved but serum creatinine increased again to 2.47 from 1.45. Patient has an indwelling Bravo catheter Blood pressure remains low with systolic in the 80s. Ultrasound shows no evidence of obstruction Patient is not able to take oral medications as per nursing staff. There is ongoing discussion regarding CODE STATUS and possible palliative care. Patient was transferred to the ICU this morning secondary to hypotension as well as A. fib with RVR. Patient has received 2 L of fluid bolus. She continues to have diarrhea from C. diff colitis Not able to take anything by mouth. Urine output at 15-25 mL per hour. Blood pressure is improved. Being started on bicarb drip Objective - Vital Signs Vital signs: Vital Signs Temp 97.5 F L 05/17/22 08:00 Pulse 76 05/17/22 09:00 Resp 19 05/17/22 09:00 BP 101/63 05/17/22 09:00 Pulse Ox 98 05/17/22 09:00 FiO2 Intake & Output 05/16/22 05/17/22 05/17/22 18:59 06:59 18:59 Intake Total 0 920 Output Total 50 200 65 Balance -50 -200 855 Intake: IV 200 Lactated Ringers 1,000 ml 200 @ 100 mls/hr IV .Q10H NORM Rx#:[id number] Intake, IV Titration 720 Amount Diltiazem 125 mg In 20 Sodium Chloride 0.9% 100 ml @ 10 MG/HR 10 mls/hr IV .[id number] NORM Rx#: [id number] Lactated Ringers 1,000 ml 100 @ 100 mls/hr IV .Q10H NORM Rx#:[id number] Sodium Chloride 0.9% 500 500 ml 500 ml @ 999 mls/hr IV .Q31M ONE Rx#:[id number] metroNIDAZOLE-NS PMX 500 100 mg In Saline 1 100ml.bag @ 100 mls/hr IVPB Q8H NORM Rx#:[id number] Oral 0 Output: Urine 50 200 65 Other: Voiding Method Indwelling Catheter Indwelling Catheter Indwelling Catheter # Voids 25 # Bowel Movements 4 1 - Exam Patient is awake. Does not follow commands Does not communicate much Examination of the heart S1 and S2 Examination of the lungs bilateral breath sounds are heard Abdomen is soft nontender Examination of the lower extremities shows no evidence of edema - Labs CBC & Chem 7: 05/17/22 04:36 05/17/22 04:36 Labs: Abnormal Lab Results - Last 24 Hours (Table) 05/16/22 05/17/22 05/17/22 Range/Units 07:50 04:36 04:36 WBC 34.9 H (3.8-10.6) k/uL MCHC 30.9 L (31.0-37.0) g/dL Neutrophils # (Manual) 27.80 H (1.3-7.7) k/uL Monocytes # (Manual) 1.59 H (0-1.0) k/uL Metamyelocytes # (Man) 1.27 H (0) k/uL Chloride 115 H (98-107) mmol/L Carbon Dioxide 18 L (22-30) mmol/L BUN 69 H (7-17) mg/dL Creatinine 2.67 H (0.52-1.04) mg/dL Calcium 8.3 L (8.4-10.2) mg/dL Microbiology - Last 24 Hours (Table) 05/13/22 14:48 Blood Culture - Preliminary Blood No Growth after 72 hours Assessment and Plan Assessment: 1. Acute kidney injury secondary to ischemic ATN, currently nonoliguric and improved initially but worsened again secondary to hypotension. The UA is benign. Ultrasound is unremarkable. Blood pressure remains low as patient is not able to take midodrine or any other oral medication 2. History of recent UTI with urine culture growing E. coli on 04/28/2022 sta tus post hospitalization 3. C. diff colitis, not able to take oral vancomycin 4. Hypovolemia and hypotension currently improved with IV hydration and fluid resuscitation 5. Lactic acidosis secondary to hypotension, improved 6. Mild non-gap metabolic acidosis secondary to diarrhea and acute kidney injury 7. A. fib with RVR currently maintained on Cardizem drip Plan: Agree with bicarb drip Antibiotics as per ID Continue to avoid nephrotoxic agents Overall prognosis is guarded.
[2022-05-17] MEDS: CLOPIDOGREL 75 MG TAB PO SCH (10:53)
[2022-05-17] MEDS: ASPIRIN 81 MG PO SCH (10:53)
[2022-05-17] MEDS: ATORVASTATIN 20 MG TAB PO SCH (10:54)
[2022-05-17] MEDS: LACTATED RINGERS 1,000 ML IV SCH (10:55)
[2022-05-17] MEDS: VANCOMYCIN ORAL SOLUTION 250 MG/5 ML BOTTLE PO SCH ×2 (10:56→13:27)
[2022-05-17] MEDS: levETIRAcetam 500 MG TAB PO SCH (10:56)
[2022-05-17] MEDS: SERTRALINE 50 MG TAB PO SCH (10:56)
[2022-05-17 13:16] VITALS: TEMP 97.9
--- NOTE | 2022-05-17 13:51 | P.PN ---
Subjective Progress Note Date: 05/17/22 Principal diagnosis: C. diff colitis Patient is a 89-year-old female with a past medical history significant for atrial fibrillation hypertension GERD depression dementia [facility] resident patient was recently admitted at this facility and was treated for urinary retention and UTI, patient did develop diarrhea and was diagnosed with a C. diff at the [facility] patient did have a low blood pressure and mental status changes for the patient was transferred to [facility] ICU. On today's evaluation that is 05/17/2022, patient remains to be afebrile, the patient did went into A. fib with RVR and hypotension requiring transfer to the ICU, patient is currently on low-dose pressor support she is on 4 L nasal cannula patient is awake but did not answer any question no vomiting or any worsening diarrhea reported by the nursing staff Objective - Vital Signs Vital signs: Vital Signs Temp 97.5 F L 05/17/22 08:00 Pulse 80 05/17/22 11:00 Resp 17 05/17/22 11:00 BP 97/60 05/17/22 11:00 Pulse Ox 97 05/17/22 11:00 FiO2 Intake & Output 05/16/22 05/17/22 05/17/22 18:59 06:59 18:59 Intake Total 0 1190 Output Total 50 200 85 Balance -50 -200 1105 Intake: IV 300 Lactated Ringers 1,000 ml 300 @ 100 mls/hr IV .Q10H NORM Rx#:[id number] Intake, IV Titration 890 Amount Dextrose 5% in Water 1, 150 000 ml @ 150 mls/hr IV . Q7H40M NORM with Sodium Bicarb (1 Meq/ml) 150 ml Rx#:[id number] Diltiazem 125 mg In 40 Sodium Chloride 0.9% 100 ml @ 10 MG/HR 10 mls/hr IV .[id number] NORM Rx#: [id number] Lactated Ringers 1,000 ml 100 @ 100 mls/hr IV .Q10H NORM Rx#:[id number] Sodium Chloride 0.9% 500 500 ml 500 ml @ 999 mls/hr IV .Q31M ONE Rx#:[id number] metroNIDAZOLE-NS PMX 500 100 mg In Saline 1 100ml.bag @ 100 mls/hr IVPB Q8H NORM Rx#:[id number] Oral 0 Output: Urine 50 200 85 Other: Voiding Method Indwelling Catheter Indwelling Catheter Indwelling Catheter # Voids 25 # Bowel Movements 4 1 - Exam GENERAL DESCRIPTION: An elderly female lying in bed in no distress RESPIRATORY SYSTEM: Unlabored breathing , decreased breath sounds at bases HEART: S1 S2 regular rate and rhythm , ABDOMEN: Soft , no tenderness EXTREMITIES: No edema feet - Labs CBC & Chem 7: 05/17/22 04:36 05/17/22 04:36 Labs: Abnormal Lab Results - Last 24 Hours (Table) 05/17/22 05/17/22 Range/Units 04:36 04:36 WBC 34.9 H (3.8-10.6) k/uL MCHC 30.9 L (31.0-37.0) g/dL Chloride 115 H (98-107) mmol/L Carbon Dioxide 18 L (22-30) mmol/L BUN 69 H (7-17) mg/dL Creatinine 2.67 H (0.52-1.04) mg/dL Calcium 8.3 L (8.4-10.2) mg/dL Microbiology - Last 24 Hours (Table) 05/13/22 14:48 Blood Culture - Preliminary Blood No Growth after 72 hours Assessment and Plan (1) C. difficile colitis Current Visit: Yes Status: Acute Code(s): A04.72 - ENTEROCOLITIS D/T CLOS TRIDIUM DIFFICILE, NOT SPCF RECUR SNOMED Code(s): 215886855 Plan: 1patient presented to hospital with sepsis in this patient who did have a tachycardia hypotension elevated lactic acid source is severe C. difficile colitis requiring admission to the ICU. 2patient continue with Flagyl as the patient has been refusing oral medication however overall prognosis remains to guarded and possible hospice oriented care may be appropriate Family the bedside questions were answered Time with Patient: Less than 30
[2022-05-17 14:01] VITALS: BP 95/59; PULSE 75; RESP 18
[2022-05-17 14:05] VITALS: BMI 21.6
--- NOTE | 2022-05-17 15:29 | P.PN ---
Subjective Progress Note Date: 05/17/22 This is a 89 year old female with medical history of atrial fibrillation, dementia, hypertension, gerd, depression, and former smoker. Patient was [facility] to the [facility] from the [facility] with concern for generalized weakness and diarrhea. Patient had positive C.DIF by PCR at the [facility] yesterday 0 05/12/2022. Patient was recently discharged from the hospital 11 days ago treated for acute urinary tract infection, and urinary retention. Patient was discharged to [facility]. Initial work up reveals white count of 18.3, sodium of 132, BUN 47, creatinine 2.12. Lactic acid is elevated at 3.5 on admission. Urinalysis is negative for infection there is trace protein. Procalcitonin level of 4.69. In itial chest xray is negative. EKG showing atrial fibrillation with heart of 73. Patient is found to be hypotensive on admission with blood pressure dropping to 77/59 patient is admitted to intensive care unit and requiring levophed at this time. Patient is afebrile. Patient has been started on oral vancomycin for the acute c.dif infection. Infectious disease has been consulted. Patient is a poor historian the medical history is taken from the chart. 05/14/2022 Patient is evaluated today resting in bed patient continues to be monitored in intensive care unit. patient has been downgraded today to stepdown unit. Creatinine has improved to 1.46 although urine out remains marginal. Nephrology has been consulted. Renal ultrasound ordered. Heart rate improved with cardizem now rate controlled and patient is off vasopressor support at this time. Blood pressure 103/56. Still confused. 1 Bowel movement documented overnight. 05/15/2022 Patient evaluated today on the medical floor has been moved out of the intensive care unit. Patient has not been eating and continues with acute confusion on top of advanced dementia. Speech therapy saw patient in consultation today and was unable to complete full OM evaluation and unable to follow simple verbal commands. Patient had renal ultrasound showing no renal mass or obstruction. Patient has indwelling catheter. Nephrology is following. Patient had an episode of hypotension senior teller requiring fluid bolus. Secondary to this creatinine worsened and today is 2.02. 05/16/2022 Patient evaluated on medical floor today family at bedside. Family reports patient is more awake and alert today. Patient was able to eat and speech therapy has cleared patient for pureed diet. Patient is taking medications today. IV flagyl has been added in addition to oral vancomycin for the C.Dif. Patient continues on IV fluids and received fluid bolus. Creatinine is increased to 2.47 today. White count up to 31.7. Blood pressure borderline. 05/17/2022 Patient has been moved back to the intensive care unit overnight. Patient had an episode of rapid ventricular rate and respiratory distress requiring a 15L NRB. Patient is now on cardizem gtt and heart rate has improved to 76. Patient required a fluid bolus for the hypotension and blood pressure has stabilized. Patient did have a chest xray yesterday afternoon which was negative for acute changes. White count has been increasing today is 37.9. Kidney function is worsening currently 2.67. Pulmonary infectious disease following. Cardiology has been consulted for the atrial fibrillation. Hospice was discussed with family at the bedside yesterday with the POA pts daughter and son and they are not ready they would like to continue current treatments and hopeful patient will bounce back to baseline. Patient does have advanced dementia has been ambulating with walker at the [facility]. This morning family has requesting hospice consultation and are now considering comfort care measures. Unable to complete review of systems patient is confused and not answering questions appropriately. PHYSICAL EXAMINATION: GENERAL: The patient is alert and oriented x0-1, not in any acute distress. Well developed, well nourished. HEENT: Pupils are round and equally reacting to light. EOMI. No scleral icterus. No conjunctival pallor. Normocephalic, atraumatic. No pharyngeal erythema. No thyromegaly. CARDIOVASCULAR: S1 and S2 present. No murmurs, rubs, or gallops. Tachycardic PULMONARY: Chest is clear to auscultation, no wheezing or crackles. ABDOMEN: Soft, suprapubic tenderness, nondistended, normoactive bowel sounds. No palpable organomegaly. MUSCULOSKELETAL: No joint swelling or deformity. EXTREMITIES: No cyanosis, clubbing, or pedal edema. NEUROLOGICAL: Gross neurological examination did not reveal any focal deficits. Diffuse generalized weakness. SKIN: No rashes. Assessment and Plan Assessment Generalized weakness Leukocytosis Diarrhea secondary to acute Clostridium dificile with sepsis present on admission Acute kidney injury secondary to acute tubular necrosis creatinine improved and than worsened secondary to hypotension Hypotension and septic shock requiring vasopressor support and ICU care currently maintained on IV fluids. Atrial fibrillation with rapid ventricular rate Altered mental status likely from acute metabolic encephalopathy secondary to infection and acute renal failure on top of advanced dementia. Recent hospitalization for acute UTI and TIA vs breakthrough seizure which keppra dose was increased. History of hypertension Dementia advanced most likely senile vs. vascular Chronic atrial fibrillation History of depression History of seizure Former smoker GI prophylaxis DVT prophylaxis No Code Plan Continue oral vancomycin and ID consultation, IV flagyl was added. Blood culture pending Nephrology consultation, continue IV fluids and monitor blood pressure closely Patient continues in intensive care unit and pending hospice consultation with family at this time. Further recommendations pending. The impression and plan of care has been dictated by Angeles Bhakta Nurse Practitioner as directed. Dr. Shaun MD I have performed a history and physical examination and medical decision making of this patient, discussed the same with the dictator, and agree with the dictators assessment and plan as written, documented as a scribe. Based on total visit time, I have performed more than 50% of this visit. Objective - Vital Signs Vital signs: Vital Signs Temp 97.5 F L 05/17/22 08:00 Pulse 76 05/17/22 09:00 Resp 19 05/17/22 09:00 BP 101/63 05/17/22 09:00 Pulse Ox 98 05/17/22 09:00 FiO2 Intake & Output 05/16/22 05/17/22 05/17/22 18:59 06:59 18:59 Intake Total 0 810 Output Total 50 200 40 Balance -50 -200 770 Intake: IV 100 Lactated Ringers 1,000 ml 100 @ 100 mls/hr IV .Q10H NORM Rx#:[id number] Intake, IV Titration 710 Amount Diltiazem 125 mg In 10 Sodium Chloride 0.9% 100 ml @ 10 MG/HR 10 mls/hr IV .[id number] NORM Rx#: [id number] Lactated Ringers 1,000 ml 100 @ 100 mls/hr IV .Q10H NORM Rx#:[id number] Sodium Chloride 0.9% 500 500 ml 500 ml @ 999 mls/hr IV .Q31M ONE Rx#:[id number] metroNIDAZOLE-NS PMX 500 100 mg In Saline 1 100ml.bag @ 100 mls/hr IVPB Q8H NORM Rx#:[id number] Oral 0 Output: Urine 50 200 40 Other: Voiding Method Indwelling Catheter Indwelling Catheter # Bowel Movements 4 1 - Labs CBC & Chem 7: 05/17/22 04:36 05/17/22 04:36 Labs: Abnormal Lab Results - Last 24 Hours (Table) 05/16/22 05/17/22 05/17/22 Range/Units 07:50 04:36 04:36 WBC 34.9 H (3.8-10.6) k/uL MCHC 30.9 L (31.0-37.0) g/dL Neutrophils # (Manual) 27.80 H (1.3-7.7) k/uL Monocytes # (Manual) 1.59 H (0-1.0) k/uL Metamyelocytes # (Man) 1.27 H (0) k/uL Chloride 115 H (98-107) mmol/L Carbon Dioxide 18 L (22-30) mmol/L BUN 69 H (7-17) mg/dL Creatinine 2.67 H (0.52-1.04) mg/dL Calcium 8.3 L (8.4-10.2) mg/dL Microbiology - Last 24 Hours (Table) 05/13/22 14:48 Blood Culture - Preliminary Blood No Growth after 72 hours Assessment and Plan Time with Patient: Less than 30
--- NOTE | 2022-05-17 16:59 | P.DS ---
Providers Date of admission: 05/12/22 20:58 Attending physician: Mary Jane Diamond Consults: 05/12/22 20:56 Consult Physician Stat Consulting Provider: Medhat Banerjee Consult Reason/Comments: critical care Do you want consulting provider notified?: Already Contacted 05/13/22 06:54 Consult Physician Stat Consulting Provider: Vel Lucas Consult Reason/Comments: C difficile Do you want consulting provider notified?: Yes, Notify in am 05/14/22 07:21 Consult Physician Routine Consulting Provider: Leticia Crandall Consult Reason/Comments: ANNEL Do you want consulting provider notified?: Yes 05/17/22 04:56 Consult Physician Stat Consulting Provider: Peter Ellis Consult Reason/Comments: Atrial fibrillation with RVR Do you want consulting provider notified?: Already Contacted Primary care physician: Buddy Macias Hospital Course: Final Diagnosis -Acute hypoxic respiratory failure currently on hi flow cannula -Generalized weakness -Leukocytosis worsening -Diarrhea secondary to acute Clostridium dificile with sepsis present on admission, worsening and patient has been unable to tolerate oral vancomycin and currently unable to swallow secondary to her altered mentation. She has been started on IV metronidazole. -Acute kidney injury secondary to acute tubular necrosis creatinine improved and than worsened secondary to hypotension -Hypotension and septic shock requiring vasopressor support and ICU care currently maintained on IV fluids and has been off vasopressor support -Chroinc atrial fibrillation with rapid ventricular rate requiring cardizem gtt -Altered mental status likely from acute metabolic encephalopathy secondary to infection and acute renal failure on top of advanced dementia. -Recent hospitalization for acute UTI and TIA vs breakthrough seizure which keppra dose was increased. 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 Hospital Course This is a 89 year old female with medical history of atrial fibrillation, jacey ntia, hypertension, gerd, depression, and former smoker. Patient was sent to the hospital from the correction with concern for generalized weakness and diarrhea. Patient had positive C.DIF by PCR at the correction 05/12/2022. Patient was recently discharged from the hospital treated for E.Coli UTI. Patient was discharged to [facility]. Initial work up reveals white count of 18.3, sodium of 132, BUN 47, creatinine 2.12. Lactic acid is elevated at 3.5 on admission. Urinalysis is negative for infection there is trace protein. Procalcitonin level of 4.69. Initial chest xray is negative. EKG showing atrial fibrillation with heart of 73. Patient is found to be hypotensive on admission with blood pressure dropping to 77/59 patient was admitted to intensive care unit and required levophed. Patient was started on oral vancomycin for the acute c.dif infection with ID consultation. Patient had improved and was downgraded to medical floor. Patient continued to have episodes of hypotension and cardizem was stopped. Patient then went into afib RVR. Patient became less responsive and had poor oral intake, white count has increased up to 34.9, creatinine has increased up to 2.67. Patient had been started also on IV metronidazole. Patient had an episode of respiratory distress and was transferred back to the ICU. Family is requesting hospice and comfort care measures at this time. Patient has been opened with GIP. Please see progress note dated 05/17/2022 for additional information The impression and plan of care has been dictated by Angeles Bhakta, Nurse Practitioner as directed. Dr. Shaun MD I have performed a history and physical examination and medical decision making of this patient, discussed the same with the dictator, and agree with the dictators assessment and plan as written, documented as a scribe. Based on total visit time, I have performed more than 50% of this visit. Patient Condition at Discharge: Critical Plan - Discharge Summary Discharge Rx Participant: No New Discharge Prescriptions: No Action Na Phos,M-B/Na Phos,Di-Ba [Fleet Adult] 133 ml RECTAL DAILY PRN PRN Reason: Constipation bisacodyL [Dulcolax] 10 mg RECTAL DAILY PRN PRN Reason: Constipation Acetaminophen Tab [Tylenol] 650 mg PO Q6H PRN PRN Reason: general discomfort Sertraline [Zoloft] 50 mg PO DAILY@0800 Atorvastatin [Lipitor] 20 mg PO DAILY@0800 lisinopriL [Zestril] 10 mg PO DAILY@0800 polyethylene glycoL 3350 [Miralax] 17 gm PO DAILY PRN PRN Reason: Constipation Magic Cup 1 can PO DAILY@1200 QUEtiapine [SEROquel] 25 mg PO BID@1700,2100 Aspirin EC [Ecotrin Low Dose] 81 mg PO DAILY@0800 Melatonin 5 mg PO HS@2099 guaiFENesin [guaiFENesin Oral Solution] 200 mg PO Q4H PRN PRN Reason: Cough Menthol [Biofreeze] 1 applic TOPICAL TID PRN PRN Reason: BACK PAIN Ensure Enlive 120 ml PO TID@0800,1200,1700 Acetaminophen [Tylenol 8 Hour] 650 mg PO BID@0800,1700 Famotidine [Pepcid] 20 mg PO DAILY@0800 Clopidogrel [Plavix] 75 mg PO DAILY@0800 Diltiazem Oral [Cardizem*] 60 mg PO TID@0800,1400,2099 levETIRAcetam [Keppra] 500 mg PO BID@0800,1700 Loperamide HCl [Imodium A-D] 2 - 4 mg PO TID PRN MDD 8 mg PRN Reason: Diarrhea Metoprolol Tartrate [Lopressor] 25 mg PO BID@0800,1700 Rivastigmine 4.6MG/24Hr Patch [Exelon 4.6MG/24Hr Patch] 1 patch TRANSDERM DAILY@0800 Discharge Medication List Acetaminophen Tab [Tylenol] 650 mg PO Q6H PRN 01/05/17 [History] Atorvastatin [Lipitor] 20 mg PO DAILY@0800 01/05/17 [History] Na Phos,M-B/Na Phos,Di-Ba [Fleet Adult] 133 ml RECTAL DAILY PRN 01/05/17 [History] Sertraline [Zoloft] 50 mg PO DAILY@0800 01/05/17 [History] bisacodyL [Dulcolax] 10 mg RECTAL DAILY PRN 01/05/17 [History] Aspirin EC [Ecotrin Low Dose] 81 mg PO DAILY@0800 12/15/20 [History] Melatonin 5 mg PO HS@209912/15/20 [History] lisinopriL [Zestril] 10 mg PO DAILY@0800 12/15/20 [History] Acetaminophen [Tylenol 8 Hour] 650 mg PO BID@0800,1700 04/25/22 [History] Ensure Enlive 120 ml PO TID@0800,1200,1700 04/25/22 [History] Famotidine [Pepcid] 20 mg PO DAILY@0800 04/25/22 [History] Menthol [Biofreeze] 1 applic TOPICAL TID PRN 04/25/22 [History] guaiFENesin [guaiFENesin Oral Solution] 200 mg PO Q4H PRN 04/25/22 [History] polyethylene glycoL 3350 [Miralax] 17 gm PO DAILY PRN 04/25/22 [History] Clopidogrel [Plavix] 75 mg PO DAILY@0800 05/12/22 [History] Diltiazem Oral [Cardizem*] 60 mg PO TID@0800,1400,2100 05/12/22 [History] Loperamide HCl [Imodium A-D] 2 - 4 mg PO TID PRN MDD 8 mg 05/12/22 [History] Magic Cup 1 can PO DAILY@1200 05/12/22 [History] Metoprolol Tartrate [Lopressor] 25 mg PO BID@0800,1700 05/12/22 [History] QUEtiapine [SEROquel] 25 mg PO BID@1700,2100 05/12/22 [History] Rivastigmine 4.6MG/24Hr Patch [Exelon 4.6MG/24Hr Patch] 1 patch TRANSDERM DAILY@0800 05/12/22 [History] levETIRAcetam [Keppra] 500 mg PO BID@0800,1700 05/12/22 [History] Follow up Appointment(s)/Referral(s): Buddy Macias MD [Primary Care Provider] - 1-2 days Discharge Disposition: DISCH TO [facility]
== END 2022-05-17 14:23 | disposition hospice, inpatient (51) | DRG 871 ==
LOC: EC 18:37 → 2SICU 20:58 → 4SSUR 05-14 18:21 → 2SICU 05-17 04:53
PROVIDERS: ADMIT Hospitalist; ATTEND Hospitalist
PROC: 02HV33Z Insertion of Infusion Device into Superior Vena Cava, Percutaneous Approach (ICD-10-PCS; principal; 2022-05-12)
PROC: 3E043XZ Introduction of Vasopressor into Central Vein, Percutaneous Approach (ICD-10-PCS; 2022-05-12)
PROC: 5A0935A Assistance with Respiratory Ventilation, Less than 24 Consecutive Hours, High Flow/Velocity Cannula (ICD-10-PCS; 2022-05-17)
DX: A41.89 Other specified sepsis (principal); G93.41 Metabolic encephalopathy; N17.0 Acute kidney failure with tubular necrosis; J96.01 Acute respiratory failure with hypoxia; R65.21 Severe sepsis with septic shock; A04.72 Enterocolitis due to Clostridium difficile, not specified as recurrent; I48.19 Other persistent atrial fibrillation; I48.92 Unspecified atrial flutter; F03.93 Unspecified dementia, unspecified severity, with mood disturbance; I95.2 Hypotension due to drugs; E86.0 Dehydration; I34.0 Nonrheumatic mitral (valve) insufficiency; I10 Essential (primary) hypertension; Z66 Do not resuscitate; Z51.5 Encounter for palliative care; E78.5 Hyperlipidemia, unspecified; T36.8X6A Underdosing of other systemic antibiotics, initial encounter; T46.1X5A Adverse effect of calcium-channel blockers, initial encounter; E86.1 Hypovolemia; Z96.659 Presence of unspecified artificial knee joint; Z96.649 Presence of unspecified artificial hip joint; Z87.891 Personal history of nicotine dependence; Z88.1 Allergy status to other antibiotic agents; Z79.02 Long term (current) use of antithrombotics/antiplatelets; Z79.82 Long term (current) use of aspirin; Z91.013 Allergy to seafood; Z79.899 Other long term (current) drug therapy; Z86.79 Personal history of other diseases of the circulatory system; Z91.14 Patient's other noncompliance with medication regimen; Z87.898 Personal history of other specified conditions; Z86.73 Personal history of transient ischemic attack (TIA), and cerebral infarction without residual deficits
CPT/HCPCS: 36415; 36556; 71045; 76770; 80048; 80053; 81003; 82533; 83605; 83735; 84100; 84145; 84443; 85025; 85027; 85610; 85730; 87040; 93005; 94760; 96374; 96375; 99291

== ENCOUNTER 2022-05-17 14:08 | Inpatient (IN) | payer MEDICAID ==
[2022-05-17] MEDS ORDERED: ONDANSETRON 4 MG/2 ML VIAL IVP PRN (14:13)
[2022-05-17] MEDS ORDERED: ATROPINE OPHTH SOLN 1% 5ML BTL SUBLINGUAL PRN (14:15)
[2022-05-17] MEDS ORDERED: LORazepam 2 MG/ML INJ IV PRN (14:15)
[2022-05-17] MEDS ORDERED: MORPHINE SULFATE 2 MG/ML SYRINGE IV PRN (14:15)
[2022-05-17] MEDS ORDERED: MORPHINE SULFATE (100 MG/2 ML) 100 MG in SODIUM CHLORIDE 0.9% 100 ML IV SCH (15:00)
[2022-05-17] MEDS ORDERED: SCOPOLAMINE 1 MG/72 HR PATCH TRANSDERM SCH (15:00)
[2022-05-17] MEDS ORDERED: ACETAMINOPHEN SUPPOSITORY 650 MG SUPP RECTAL PRN (15:49)
--- NOTE | 2022-05-17 16:52 | P.HPIM ---
History of Present Illness H&P Date: 05/17/22 This is a 89 year old female with medical history of atrial fibrillation, dementia, hypertension, gerd, depression, and former smoker. Patient was sent to the hospital from the group home with concern for generalized weakness and diarrhea. Patient had positive C.DIF by PCR at the group home 05/12/2022. Patient was recently discharged from the hospital treated for E.Coli UTI. Patient was discharged to [facility]. Initial work up reveals white count of 18.3, sodium of 132, BUN 47, creatinine 2.12. Lactic acid is elevated at 3.5 on admission. Urinalysis is negative for infection there is trace protein. Procalcitonin level of 4.69. Initial chest xray is negative. EKG showing atrial fibrillation with heart of 73. Patient is found to be hypotensive on admission with blood pressure dropping to 77/59 patient was admitted to intensive care unit and required levophed. Patient was started on oral vancomycin for the acute c.dif infection with ID consultation. Patient had improved and was downgraded to medical floor. Patient continued to have episodes of hypotension and cardizem was stopped. Patient then went into afib RVR. Patient became less responsive and had poor oral intake, white count has increased up to 34.9, creatinine has increased up to 2.67. Patient had been started also on IV metronidazole. Patient had an episode of respiratory distress and was transferred back to the ICU. Family is requesting hospice and comfort care measures at this time. Patient has been opened with GIP. Unable to complete review of systems PHYSICAL EXAMINATION: GENERAL: The patient is alert and oriented x0, patient is on nasal cannula. Patient is restless and drowsy.. HEENT: Pupils are round and equally reacting to light. EOMI. No scleral icterus. No conjunctival pallor. Normocephalic, atraumatic. No pharyngeal erythema. No thyromegaly. CARDIOVASCULAR: S1 and S2 present. No murmurs, rubs, or gallops. Tachycardic irregularly irregular. PULMONARY: Chest is clear to auscultation, no wheezing or crackles. ABDOMEN: Soft, nontender, nondistended, normoactive bowel sounds. No palpable organomegaly. MUSCULOSKELETAL: No joint swelling or deformity. EXTREMITIES: No cyanosis, clubbing, or pedal edema. NEUROLOGICAL: Diffuse weakness, altered mentation and lethargic. SKIN: No rashes. Assessment and Plan Assessment Generalized weakness Leukocytosis Diarrhea secondary to acute Clostridium dificile with sepsis present on admission Acute kidney injury secondary to acute tubular necrosis creatinine improved and than worsened secondary to hypotension Hypotension and septic shock requiring vasopressor support and ICU care currently maintained on IV fluids and off pressor support Atrial fibrillation with rapid ventricular rate Altered mental status likely from acute metabolic encephalopathy secondary to infection and acute renal failure on top of advanced dementia. Recent hospitalization for acute UTI History of hypertension Dementia advanced most likely senile vs. vascular Chronic atrial fibrillation History of depression History of seizure Former smoker GI prophylaxis DVT prophylaxis No Code Plan Family has met with hospice. Patient continues to be monitored in intensive care unit. Patient has been opened with inpatient hospice. Discussion with family and power of civil rights attorney updated on lab work and clinical condition. Family has no further questions. The impression and plan of care has been dictated by Angeles Bhakta Nurse Practitioner as directed. Dr. Shaun MD I have performed a history and physical examination and medical decision making of this patient, discussed the same with the dictator, and agree with the dictators assessment and plan as written, documented as a scribe. Based on total visit time, I have performed more than 50% of this visit. Past Medical History Past Medical History: Atrial Fibrillation, Dementia, Hypertension Additional Past Medical History / Comment(s): hypomagnesia, hypokalemia, colitis, gastrotenteritis, gerd, scoliosis History of Any Multi-Drug Resistant Organisms: None Reported Past Surgical History: No Surgical Hx Reported Additional Past Surgical History / Comment(s): bottom of spine removed, cysts removed from breast, knee replacement, partial hip replacement Past Anesthesia/Blood Transfusion Reactions: No Reported Reaction Smoking Status: Former smoker - Past Family History Father Family Medical History: Myocardial Infarction ([place]) Additional Family Medical History / Comment(s): The patient's father from a [place]. Mother History Unknown: Yes Medications and Allergies Home Medications Medication Instructions Recorded Confirmed Type Acetaminophen Tab [Tylenol] 650 mg PO Q6H PRN 01/05/17 05/17/22 History Atorvastatin [Lipitor] 20 mg PO DAILY@0800 01/05/17 05/17/22 History Na Phos,M-B/Na Phos,Di-Ba [Fleet 133 ml RECTAL DAILY PRN 01/05/17 05/17/22 History Adult] Sertraline [Zoloft] 50 mg PO DAILY@0800 01/05/17 05/17/22 History bisacodyL [Dulcolax] 10 mg RECTAL DAILY PRN 01/05/17 05/17/22 History Aspirin EC [Ecotrin Low Dose] 81 mg PO DAILY@0800 12/15/20 05/17/22 History Melatonin 5 mg PO HS@2100 12/15/20 05/17/22 History lisinopriL [Zestril] 10 mg PO DAILY@0800 12/15/20 05/17/22 History Acetaminophen [Tylenol 8 Hour] 650 mg PO BID@0800,1700 04/25/22 05/17/22 History Ensure Enlive 120 ml PO TID@0800,1200,1700 04/25/22 05/17/22 History Famotidine [Pepcid] 20 mg PO DAILY@0800 04/25/22 05/17/22 History Menthol [Biofreeze] 1 applic TOPICAL TID PRN 04/25/22 05/17/22 History guaiFENesin [guaiFENesin Oral 200 mg PO Q4H PRN 04/25/22 05/17/22 History Solution] polyethylene glycoL 3350 [Miralax] 17 gm PO DAILY PRN 04/25/22 05/17/22 History Clopidogrel [Plavix] 75 mg PO DAILY@0800 05/12/22 05/17/22 History Diltiazem Oral [Cardizem*] 60 mg PO TID@0800,1400,2100 05/12/22 05/17/22 History Loperamide HCl [Imodium A-D] 2 - 4 mg PO TID PRN MDD 8 mg 05/12/22 05/17/22 History Magic Cup 1 can PO DAILY@1200 05/12/22 05/17/22 History Metoprolol Tartrate [Lopressor] 25 mg PO BID@0800,1700 05/12/22 05/17/22 History QUEtiapine [SEROquel] 25 mg PO BID@1700,2100 05/12/22 05/17/22 History Rivastigmine 4.6MG/24Hr Patch 1 patch TRANSDERM DAILY@0800 05/12/22 05/17/22 History [Exelon 4.6MG/24Hr Patch] levETIRAcetam [Keppra] 500 mg PO BID@0800,1700 05/12/22 05/17/22 History Allergies Allergy/AdvReac Type Severity Reaction Status Date / Time Fish Containing Products Allergy Unknown Verified 05/12/22 20:26 [Fish] sulfamethoxazole Allergy Unknown Verified 05/12/22 20:26 [From Bactrim] trimethoprim [From Bactrim] Allergy Unknown Verified 05/12/22 20:26 Physical Exam Vitals: Vital Signs Pulse Resp BP Pulse Ox 05/17/22 15:03 73 17 76/45 94 L Intake and Output 05/17/22 05/17/22 05/17/22 06:59 14:59 22:59 Intake Total 1 Output Total 20 Balance -19 Intake: Intake, IV Titration 1 Amount Morphine Sulfate (100 mg/ 1 2 ml) 100 mg In Sodium Chloride 0.9% 100 ml @ 1 MG/HR 1.02 mls/hr IV . Q24H [facility] Rx#:[id number] Output: Urine 20 Other: Weight 57 kg Assessment and Plan Time with Patient: Greater than 30
[2022-05-18 02:29] VITALS: TEMP 97
--- NOTE | 2022-05-18 15:01 | P.PN ---
Subjective Progress Note Date: 05/18/22 This is a 89 year old female with medical history of atrial fibrillation, dementia, hypertension, gerd, depression, and former smoker. Patient was sent to the hospital from the long term with concern for generalized weakness and diarrhea. Patient had positive C.DIF by PCR at the long term 05/12/2022. Patient was recently discharged from the hospital treated for E.Coli UTI. Patient was discharged to [facility]. Initial work up reveals white count of 18.3, sodium of 132, BUN 47, creatinine 2.12. Lactic acid is elevated at 3.5 on admission. Urinalysis is negative for infection there is trace protein. Procalcitonin level of 4.69. Initial chest xray is negative. EKG showing atrial fibrillation with heart of 73. Patient is found to be hypotensive on admission with blood pressure dropping to 77/59 patient was admitted to intensive care unit and required levophed. Patient was started on oral vancomycin for the acute c.dif infection with ID consultation. Patient had improved and was downgraded to medical floor. Patient continued to have episodes of hypotension and cardizem was stopped. Patient then went into afib RVR. Patient became less responsive and had poor oral intake, white count has increased up to 34.9, creatinine has increased up to 2.67. Patient had been started also on IV metronidazole. Patient had an episode of respiratory distress and was transferred back to the ICU. Family is requesting hospice and comfort care measures at this time. Patient has been opened with GIP. 05/18/2022 Patient is seen in follow-up this morning continues to be in the ICU with [facility] [place] following. Patient is GIP and maintained on morphine drip at 2 ML's per hour with as needed comfort measures. Family members present and patient is unresponsive appears comfortable. There is some mottling noted of the lower extremities and patient is unresponsive. There is no oral intake. Unable to complete review of systems PHYSICAL EXAMINATION: GENERAL: The patient is alert and oriented x0, patient is on nasal cannula. Patient is unresponsive HEENT: Pupils are round and equally reacting to light. EOMI. No scleral icterus. No conjunctival pallor. Normocephalic, atraumatic. No pharyngeal erythema. No thyromegaly. CARDIOVASCULAR: S1 and S2 present. No murmurs, rubs, or gallops. irregularly irregular. PULMONARY: Chest is clear to auscultation, no wheezing or crackles. ABDOMEN: Soft, nontender, nondistended, normoactive bowel sounds. No palpable organomegaly. MUSCULOSKELETAL: No joint swelling or deformity. EXTREMITIES: No cyanosis, clubbing, or pedal edema. NEUROLOGICAL: Diffuse weakness, altered mentation and lethargic. SKIN: No rashes. Assessment: Generalized weakness Leukocytosis Diarrhea secondary to acute Clostridium dificile with sepsis present on admission Acute kidney injury secondary to acute tubular necrosis creatinine improved and than worsened secondary to hypotension Hypotension and septic shock requiring vasopressor support and ICU care currently maintained on IV fluids and off pressor support Atrial fibrillation with rapid ventricular rate Altered mental status likely from acute metabolic encephalopathy secondary to infection and acute renal failure on top of advanced dementia. Recent hospitalization for acute UTI History of hypertension Dementia advanced most likely senile vs. vascular Chronic atrial fibrillation History of depression History of seizure Former smoker GI prophylaxis DVT prophylaxis No Code Plan: Family has met with hospice and patient was signed on the GIP with [facility] hospice services. Patient is maintained currently in the ICU on a morphine drip appears comfortable and will continue with comfort measures only. Family at bedside with questions and concerns that were answered. Patient does have some mottling noted with multiple episodes of decreased respirations. We'll continue to monitor closely with overall poor prognosis The impression and plan of care has been dictated by Calista Denny, Nurse Practitioner as directed. Dr. Frankie MD I have performed a history and examination and MDM of this patient, discussed the same with the dictator, and agree with the dictator's assessment and plan as written ,documented as a scribe. Based on total visit time, I have performed more than 50% of the visit. Objective - Vital Signs Vital signs: Vital Signs Temp 97.0 F L 05/18/22 02:00 Pulse 77 05/18/22 05:27 Resp 8 L 05/18/22 08:00 BP 72/57 05/18/22 02:00 Pulse Ox 97 05/18/22 05:27 FiO2 Intake & Output 05/17/22 05/18/22 05/18/22 18:59 06:59 18:59 Intake Total 4.06 0 Output Total 20 75 Balance -15.94 -75 Weight 57 kg Intake: Intake, IV Titration 4.06 Amount Morphine Sulfate (100 mg/ 4.06 2 ml) 100 mg In Sodium Chloride 0.9% 100 ml @ 1 MG/HR 1.02 mls/hr IV . Q24H [facility] Rx#:[id number] Oral 0 0 Output: Urine 20 75 Other: Voiding Method Diaper Incontinent
[2022-05-18] MEDS ORDERED: MORPHINE CONC SOLN 10mg/0.5mL ORAL SYRG PO PRN (20:22)
[2022-05-19 03:09] VITALS: BP 0/0; PULSE 30; RESP 4
--- NOTE | 2022-05-21 12:52 | P.DS ---
Providers Date of admission: 05/17/22 14:26 Expected date of discharge: 05/19/22 Attending physician: Elieser Dunn Primary care physician: Buddy Macias Hospital Course: Preliminary cause of Advanced dementia Final diagnosis Generalized weakness Leukocytosis Diarrhea secondary to acute Clostridium dificile with sepsis present on admission Acute kidney injury secondary to acute tubular necrosis creatinine improved and than worsened secondary to hypotension Hypotension and septic shock requiring vasopressor support and ICU care currently maintained on IV fluids and off pressor support Atrial fibrillation with rapid ventricular rate Altered mental status likely from acute metabolic encephalopathy secondary to infection and acute renal failure on top of advanced dementia. Recent hospitalization for acute UTI History of hypertension Dementia advanced most likely senile vs. vascular Chronic atrial fibrillation History of depression History of seizure Former smoker GI prophylaxis DVT prophylaxis No Code Discharge disposition Patient has . According to nursing documentation, time of was 020 on 05/19/2022. Patient had been placed on Claritin hospice GIP comfort measures only. Hospital course This is an 89-year-old female who was recently admitted with C. diff colitis with extensive diarrhea along with severe hypotension and septic shock requiring pressor support and ICU management. Patient also with advancing dementia with multiple comorbidities and family requesting hospice and comfort measures. Patient's family met with [facility] and agreeable and made GIP appropriate and placed on morphine. Please refer to other consultation notes for further HPI. Patient 020 on 05/19/2022. The impression and plan of care has been dictated by Calista Denny, Nurse Practitioner as directed. Dr. Frankie MD I have performed a history and examination and MDM of this patient, discussed the same with the dictator, and agree with the dictator's assessment and plan as written ,documented as a scribe. Based on total visit time, I have performed more than 50% of the visit. Patient Condition at Discharge: Poor Plan - Discharge Summary New Discharge Prescriptions: No Action Na Phos,M-B/Na Phos,Di-Ba [Fleet Adult] 133 ml RECTAL DAILY PRN PRN Reason: Constipation bisacodyL [Dulcolax] 10 mg RECTAL DAILY PRN PRN Reason: Constipation Acetaminophen Tab [Tylenol] 650 mg PO Q6H PRN PRN Reason: general discomfort Sertraline [Zoloft] 50 mg PO DAILY@0800 Atorvastatin [Lipitor] 20 mg PO DAILY@0800 lisinopriL [Zestril] 10 mg PO DAILY@0800 polyethylene glycoL 3350 [Miralax] 17 gm PO DAILY PRN PRN Reason: Constipation Magic Cup 1 can PO DAILY@1200 QUEtiapine [SEROquel] 25 mg PO BID@1700,2100 Aspirin EC [Ecotrin Low Dose] 81 mg PO DAILY@0800 Melatonin 5 mg PO HS@2100 guaiFENesin [guaiFENesin Oral Solution] 200 mg PO Q4H PRN PRN Reason: Cough Menthol [Biofreeze] 1 applic TOPICAL TID PRN PRN Reason: BACK PAIN Ensure Enlive 120 ml PO TID@0800,1200,1700 Acetaminophen [Tylenol 8 Hour] 650 mg PO BID@0800,1700 Famotidine [Pepcid] 20 mg PO DAILY@0800 Clopidogrel [Plavix] 75 mg PO DAILY@0800 Diltiazem Oral [Cardizem*] 60 mg PO TID@0800,1400,2100 levETIRAcetam [Keppra] 500 mg PO BID@0800,1700 Loperamide HCl [Imodium A-D] 2 - 4 mg PO TID PRN MDD 8 mg PRN Reason: Diarrhea Metoprolol Tartrate [Lopressor] 25 mg PO BID@0800,1700 Rivastigmine 4.6MG/24Hr Patch [Exelon 4.6MG/24Hr Patch] 1 patch TRANSDERM DAILY@0800 Discharge Medication List Acetaminophen Tab [Tylenol] 650 mg PO Q6H PRN 01/05/17 [History] Atorvastatin [Lipitor] 20 mg PO DAILY@0800 01/05/17 [History] Na Phos,M-B/Na Phos,Di-Ba [Fleet Adult] 133 ml RECTAL DAILY PRN 01/05/17 [History] Sertraline [Zoloft] 50 mg PO DAILY@0800 01/05/17 [History] bisacodyL [Dulcolax] 10 mg RECTAL DAILY PRN 01/05/17 [History] Aspirin EC [Ecotrin Low Dose] 81 mg PO DAILY@0800 12/15/20 [History] Melatonin 5 mg PO HS@2100 12/15/20 [History] lisinopriL [Zestril] 10 mg PO DAILY@0800 12/15/20 [History] Acetaminophen [Tylenol 8 Hour] 650 mg PO BID@0800,1700 04/25/22 [History] Ensure Enlive 120 ml PO TID@0800,1200,1700 04/25/22 [History] Famotidine [Pepcid] 20 mg PO DAILY@0800 04/25/22 [History] Menthol [Biofreeze] 1 applic TOPICAL TID PRN 04/25/22 [History] guaiFENesin [guaiFENesin Oral Solution] 200 mg PO Q4H PRN 04/25/22 [History] polyethylene glycoL 3350 [Miralax] 17 gm PO DAILY PRN 04/25/22 [History] Clopidogrel [Plavix] 75 mg PO DAILY@0800 05/12/22 [History] Diltiazem Oral [Cardizem*] 60 mg PO TID@0800,1400,2100 05/12/22 [History] Loperamide HCl [Imodium A-D] 2 - 4 mg PO TID PRN MDD 8 mg 05/12/22 [History] Magic Cup 1 can PO DAILY@1200 05/12/22 [History] Metoprolol Tartrate [Lopressor] 25 mg PO BID@0800,1700 05/12/22 [History] QUEtiapine [SEROquel] 25 mg PO BID@1700,2100 05/12/22 [History] Rivastigmine 4.6MG/24Hr Patch [Exelon 4.6MG/24Hr Patch] 1 patch TRANSDERM DAILY@0800 05/12/22 [History] levETIRAcetam [Keppra] 500 mg PO BID@0800,1700 05/12/22 [History] Discharge Disposition: - Preliminary Cause of Preliminary Cause of : advanced dementia
== END 2022-05-19 06:02 | disposition expired | DRG 951 ==
LOC: 2SICU 14:26
PROVIDERS: ADMIT Internal Medicine; ATTEND Internal Medicine
DX: Z51.5 Encounter for palliative care (principal); A41.4 Sepsis due to anaerobes; N17.0 Acute kidney failure with tubular necrosis; R65.21 Severe sepsis with septic shock; G93.41 Metabolic encephalopathy; A04.72 Enterocolitis due to Clostridium difficile, not specified as recurrent; I48.20 Chronic atrial fibrillation, unspecified; F03.93 Unspecified dementia, unspecified severity, with mood disturbance; G40.909 Epilepsy, unspecified, not intractable, without status epilepticus; I10 Essential (primary) hypertension; F32.A Depression, unspecified; Z66 Do not resuscitate; K21.9 Gastro-esophageal reflux disease without esophagitis; M41.9 Scoliosis, unspecified; R32 Unspecified urinary incontinence; Z79.82 Long term (current) use of aspirin; Z79.02 Long term (current) use of antithrombotics/antiplatelets; Z79.899 Other long term (current) drug therapy; Z87.891 Personal history of nicotine dependence; Z96.649 Presence of unspecified artificial hip joint; Z96.659 Presence of unspecified artificial knee joint; Z87.440 Personal history of urinary (tract) infections; Z91.013 Allergy to seafood; Z88.2 Allergy status to sulfonamides; Z91.018 Allergy to other foods